=== PATIENT | male | born 1955 | race Caucasian/White ===

== ENCOUNTER → 2022-06-04 | Outpatient (CLI) | payer MEDICARE, OTHER, SELFPAY ==
--- NOTE | 2022-06-04 13:50 | EKG12_ITS ---
Test Reason : PREOP Blood Pressure : / mmHG Vent. Rate : 062 BPM Atrial Rate : 062 BPM P-R Int : 160 ms QRS Dur : 092 ms QT Int : 402 ms P-R-T Axes : 112 059 047 degrees QTc Int : 408 ms Normal sinus rhythm Normal ECG Confirmed by GLENDA EASLEY, HIMANSHU ([id number]), art editor PERRY ROBERTSON ([id number]) on 06/05/2022 9:07:10 AM Referred By: Shawn Neves Confirmed By:HIMANSHU DOSHI MD
[2022-06-04 14:56] LABS: Hematocrit 44.1 % (40-54); Hemoglobin 14.6 g/dL (13.0-16.5); Mean Corp Hgb Conc 33.1 g/dL (32-36); Mean Corpuscular Hgb 29.9 pg (27.0-32.0); Mean Corpuscular Volume 90.2 fL (80-94); Mean Platelet Vol. 9.7 fl (6.2-12.0); Platelet Count 222 K/mm3 (150-450); RBC Distribution Width CV 12.9 % (11.6-14.6); RBC Distribution Width SD 42.5 fl (35.1-43.9); Red Blood Count 4.89 M/mm3 (4.6-6.2); White Blood Count 5.6 K/mm3 (4.4-11.0)
[2022-06-04 15:24] LABS: Anion Gap 6 (5-15); BUN 22 mg/dL (7-18); BUN/Creat Ratio 20.6 RATIO (10-20); Calcium,Total 9.2 mg/dL (8.5-10.1); Chloride 106 mmol/L (98-107); Creatinine, Serum 1.07 mg/dL (0.70-1.30); EST Glomerular Filtration Rate 74 mL/min (>60); Est Glom Filt Rate - Afr Amer 89 mL/min (>60); Glucose 95 mg/dL (74-106); Potassium 3.6 mmol/L (3.5-5.1); Sodium Level 140 mmol/L (136-145)
== END | disposition home or self-care (01) ==
PROVIDERS: PCP Nurse Practitioner Family; Referring Provider Otolaryngology; Visit Provider Otolaryngology
DX: Z01.818 Encounter for other preprocedural examination (principal); J34.2 Deviated nasal septum
CPT/HCPCS: 36415; 80048; 85027; 93005

== ENCOUNTER → 2022-06-18 | Outpatient (CLI) | payer MEDICARE, OTHER, SELFPAY ==
--- NOTE | 2022-06-18 13:00 | SEP_PTH ---
PATIENT: KIRT WINKLER LOC: [facility] U#:[id number] AGE/SX: 66/M ROOM: RE06/18/[address]: Dr. Shawn Neves MD : [id number] BED: DIS: 06/18/2022 SPEC #: [id number] RECD: 06/18/22 14:50 STATUS: STEFANY REDominique #: [id number] ROCK: 06/18/22 13:[address]: Shawn Neves DEPT: SURGICAL PATHOLOGY RECD BY: Cher Gunter ENTERED: 06/19/22 07:28 SP TYPE: SEPTUM OTHR DR: TERRIE Tissues: Nasal septum, NOS Procedures: Decalcification bone/plaque Surgery Specimen Level III HEADER OPERATION: Septoplasty, bilateral submucous resection PRE-OP DIAGNOSIS: Nasal congestion, deflection of deviated septum, hypertrophy of nasal turbinates TISSUE SUBMITTED: Septum MICROSCOPIC DIAGNOSIS Septum: Fragments of bone and cartilage, clinically deviated septum. Fragments of benign respiratory mucosa. SJ:brianna 06/22/2022 MICROSCOPIC DESCRIPTION Slides are reviewed. GROSS DESCRIPTION Received in fixative is one container labeled with the patient's name and designated septum. The specimen consists of multiple irregular fragments of bone and cartilage that in aggregate measure 3.5 x 2 x 0.3 cm. The entire specimen is submitted in one cassette after decalcification. / ESME:brianna 06/19/2022 TC:5 CPT: 23175, 70267
== END | disposition home or self-care (01) ==
PROVIDERS: Visit Provider Otolaryngology
DX: R09.81 Nasal congestion (principal); J34.2 Deviated nasal septum; J34.3 Hypertrophy of nasal turbinates
CPT/HCPCS: 88304; 88311

== ENCOUNTER 2022-06-19 09:56 | Emergency (ER) | payer MEDICARE, OTHER, SELFPAY ==
[2022-06-19 09:58] VITALS: BP 128/89; PULSE 100; RESP 18; TEMP 36.6; O2SAT 99; BMI 23.7
--- NOTE | 2022-06-19 10:38 | EX.ED.GUMALE ---
HPI History of Present Illness Chief Complaint: Complaint Narrative Narrative: 66-year-old male past medical history of hypertension, states he may have BPH, had general anesthesia yesterday for deviated septum. He states he went home last evening after his surgery that had gone well, and only had small streams of urine and dribbling. He complains of urinary retention, not having a steady stream, and only having a stream of urine for possibly 5 seconds. He complains of suprapubic discomfort and fullness. He denies any fevers or chills. No nausea or vomiting, no bleeding from his surgical site in his naris. [facility] Medical History (Updated 06/19/22 @ 12:06 by Tyron Pittman MD) High cholesterol Hypertension Home Medications lisinopril 10 mg tablet 10 mg PO DAILY 06/19/22 [History Last Taken Unknown] pravastatin 20 mg tablet 20 mg PO DAILY 06/19/22 [History Last Taken Unknown] tamsulosin 0.4 mg capsule (Flomax) 0.4 mg PO DAILY #20 caps 06/19/22 [Rx Last Taken Unknown] Allergy/AdvReac Type Severity Reaction Status Date / Time No Known Allergies Allergy Verified 06/19/22 10:00 Social History Smoking Status: Never smoker ROS ROS ED ROS Narrative Constitutional: No fever, no chills. HEENT: No sore throat. No neck pain. No loss of vision. No rhinorrhea. Cardiovascular: No chest pain. No palpitations. No pedal edema. Respiratory: No cough, no shortness of breath. Abdominal: Positive suprapubic discomfort and fullness/abdominal pain. No nausea. No vomiting. Genitourinary: Positive difficulty urinating. No dysuria with small stream. No hematuria. Musculoskeletal: No myalgias. No arthralgias. Neurologic: No headaches. No dizziness. No lightheadedness. Skin: No rash. No change in color. Psychiatric: No depression. No anxiety. EXAM Physical Exam Narrative Exam Narrative: Afebrile. Vital signs noted. HEENT: Normocephalic. Atraumatic. PERRL, EOMI. Neck soft and supple. No point tenderness or step off. Cardiovascular: Regular rate and rhythm. No murmurs, rubs, or gallops appreciated. Respiratory: No tachypnea. Lungs clear to auscultation bilaterally. Gastrointestinal: Abdomen soft, nontender, with normoactive bowel sounds. Minimal suprapubic discomfort. No rebound or guarding. Neurological: Awake. Alert. Nonfocal, nonlateralizing. Skin: No rash. Normal color. No pallor. Musculoskeletal: No pedal edema. Full range of motion extremities. Const Vital Signs: 06/19/22 09:58 Temperature 98 F Temperature Source Temporal Pulse Rate 100 Respiratory Rate 18 Blood Pressure 128/89 H Blood Pressure Mean 102 Pulse Ox 99 Oxygen Delivery Method Room Air MDM MDM MDM Narrative Medical decision making narrative: Bladder scan will be obtained. Bladder scan revealed over 900 mL of urine in the bladder. Angel catheter was placed. Upon repeat examination he feels improved. He will be given a prescription for Flomax and was warned of the possibility of dizziness and lightheadedness with this medication. He will also be given a Angel leg bag. He was instructed to follow-up with urology within the next week for voiding trial. I do feel that the majority of his urinary retention that is acute is secondary to BPH and the general anesthesia he received yesterday. Return instructions to the emergency department were reviewed. Disposition is discharged home in stable condition. Discharge Plan Triage Chief Complaint: Complaint ED Provider: Tyron Pittman Dx/Rx/DC Orders Clinical Impression: Acute urinary retention, Benign prostatic hyperplasia Instructions: ED Urinary Retention, Male Prescriptions: New tamsulosin [Flomax] 0.4 mg capsule 0.4 mg PO DAILY Qty: 20 0RF No Action lisinopril 10 mg tablet 10 mg PO DAILY Label Comments: TAKE 1 TABLET BY MOUTH EVERY DAY pravastatin 20 mg tablet 20 mg PO DAILY Label Comments: TAKE 1 TABLET BY MOUTH EVERY DAY Primary Care Provider: Sara Gilliam NP Referrals: Eleazar Noriega MD [Med Staff - Active Staff] - 1 Week Sara Gilliam NP, HEALTH INFORMATICS SPECIALIST-C [Primary Care Provider] - Activity Restrictions/Additional Instructions: Do not tug at Angel catheter. Take Flomax daily. Be aware of lightheadedness and dizziness with use of Flomax. Call Dr. Noriega today for an appointment to be seen in approximately 1 week for voiding trial and removal of Angel catheter. Empty leg bag frequently. Disposition Disposition: Home, Self Care
== END 2022-06-19 12:40 | disposition home or self-care (01) ==
PROVIDERS: Emergency Provider Emergency Medicine; PCP Nurse Practitioner Family; Visit Provider Emergency Medicine
DX: N40.1 Benign prostatic hyperplasia with lower urinary tract symptoms (principal); E78.00 Pure hypercholesterolemia, unspecified; I10 Essential (primary) hypertension; R33.8 Other retention of urine; Z79.899 Other long term (current) drug therapy
CPT/HCPCS: 51798; 51702; 99283

== ENCOUNTER 2022-06-30 13:45 | Emergency (ER) | payer MEDICARE, OTHER, SELFPAY ==
[2022-06-30 13:45] VITALS: BP 146/78; PULSE 115; RESP 22; TEMP 36.6; O2SAT 99; BMI 23.7
--- NOTE | 2022-06-30 14:49 | CT_ITS ---
STUDY: CT Abdomen And Pelvis W/O Contrast Injection 06/30/2022 3:44 PM REASON FOR EXAM: Male, 66 years old. ABDOMINAL PAIN left flank pain TECHNIQUE: Transaxial images were obtained without oral contrast, and without intravenous contrast. Individualized dose optimization techniques were used for this CT. COMPARISON: None. FINDINGS: Right sided pneumonia. There are coronary arterial calcifications. Multiple hypodensities of the liver. The largest is 48 mm. Recommend hepatic MR. Unremarkable gallbladder and extrahepatic biliary system. Unremarkable spleen. Unremarkable pancreas. Unremarkable bilateral adrenal glands. There is 40mm hypodensities in the right kidney. These are consistent for cysts. No follow up required. Moderate hydronephrosis caused by 4.3 mm distal ureteral stone. There is associated left hydroureter. Unremarkable visualized stomach. Unremarkable small intestine. Unremarkable colon. There is non-visualization of the appendix. There are calcifications of the abdominal aorta. This is consistent for atherosclerotic disease. There is no abdominal aortic aneurysm. Unremarkable inferior vena cava. Subcentimeter mesenteric lymph nodes. Unremarkable urinary bladder. There are prostatic calcifications.Vacuum disc phenomenon. There is an umbilical hernia containing fat. There are diffuse degenerative changes of the visualized lumbar spine. CT/Abdomen/Pelvis without Cont IMPRESSION: (NOT LISTED IN ORDER OF SIGNIFICANCE) Moderate hydronephrosis caused by 4.3 mm distal ureteral stone. There is associated left hydroureter. Multiple hypodensities of the liver. The largest is 48 mm. Recommend hepatic MR. Right sided pneumonia. Other findings as above. Electronically Signed: Yuriy Bailey MD at 16:00 EST ,
--- NOTE | 2022-06-30 14:52 | EDS_ITS ---
HPI History of Present Illness Chief Complaint: Flank Pain Narrative Narrative: 66-year-old male presenting with left flank pain. He states it feels like his previous kidney stones. It is in the left flank and radiates around to his lower abdomen. He does admit to a recent problem with urinary retention. He had nasal septoplasty states after this he was having difficulty urinating. He had a Angel catheter in for about a week which was removed. He states his been voiding since then. No dysuria or hematuria. He is not had a fever, chills. Does have nausea. He does admit to a recent history of constipation and has been drinking prune juice and taking laxatives. He has had some small bowel movements [facility] Medical History High cholesterol Hypertension Home Medications lisinopril 10 mg tablet 10 mg PO DAILY 06/19/22 [History Last Taken Unknown] pravastatin 20 mg tablet 20 mg PO DAILY 06/19/22 [History Last Taken Unknown] tamsulosin 0.4 mg capsule (Flomax) 0.4 mg PO DAILY #20 caps 06/19/22 [Rx Last Taken Unknown] hydrocodone-acetaminophen 5-325mg 5mg-325mg 1 tab PO Q6H PRN pain 3 days #12 tabs 06/30/22 [Rx Last Taken Unknown] ondansetron 4 mg disintegrating tablet 4 mg PO Q8H PRN nausea and vomiting #14 tabs 06/30/22 [Rx Last Taken Unknown] Allergy/AdvReac Type Severity Reaction Status Date / Time No Known Allergies Allergy Verified 06/30/22 13:45 Social History Smoking Status: Never smoker ROS ROS ED Constitutional Constitutional ED: Denies chills or fever(s) Eyes Eyes: Denies change in vision ENT ENT ED: Denies rhinorrhea or sore throat Cardiovascular Cardiovascular: Denies chest pain or palpitations Respiratory/Chest Respiratory/Chest: Denies cough or dyspnea Gastrointestinal Gastrointestinal: Reports abdominal pain, constipation and nausea; Denies v omiting Genitourinary Genitourinary ED: Denies dysuria, hematuria or urinary frequency Musculoskeletal Musculoskeletal: Denies arthralgias Integumentary Denies abscess Neurologic Neurologic: Denies headache(s) or paresthesias Psychiatric Psychiatric: Denies anxiety or depression EXAM Physical Exam Const Vital Signs: 06/30/22 13:45 06/30/22 14:31 06/30/22 16:45 Temperature 97.8 F Temperature Source Temporal Pulse Rate 115 H 64 Respiratory Rate 22 H 15 Respiratory Effort Normal Non-Labored Respiratory Pattern Normal Blood Pressure 146/78 H 129/77 H Blood Pressure Mean 100 94 Pulse Ox 99 99 Oxygen Delivery Method Room Air Room Air 06/30/22 18:44 Temperature Temperature Source Pulse Rate 88 Respiratory Rate 15 Respiratory Effort Respiratory Pattern Blood Pressure Blood Pressure Mean Pulse Ox 98 Oxygen Delivery Method Positive well nourished General Appearance ED: NAD; Negative for pallor HEENT Reports moist mucous membranes normocephalic and atraumatic Resp normal respiratory effort Effort and Inspection: Negative for retractions Cardio regular rhythm Rate: tachycardic GI non-tender Palpation: soft Bladder / Kidney Exam: CVA tenderness left Extremity normal to inspection Neuro oriented x3 and CN's II-XII intact bilaterally Sensorium / Orientation: alert Motor Exam: strength 5/5 throughout Psych mental status grossly normal Skin General Skin Exam: Negative for jaundice or pallor MDM MDM MDM Narrative Medical decision making narrative: Patient presenting with left flank pain. He states it feels like previous kidney stone although he has had some urinary retention previously in the last week or 2 and was also complaining of constipation. Patient medicated with morphine, Zofran and given IV fluids. Blood work and urine will be obtained. Urinalysis negative for infection but does show occult blood. CBC shows slight leukocytosis 12.1. Hemoglobin hematocrit are stable. Platelets normal. Renal function electrolytes within normal limits. Glucose slightly elevated at 180 without anion gap. Patient feels better on reevaluation. I did find a CT of the abdomen pelvis without contrast which does show a 4.3 mm ureteral stone on the left. There is associated hydronephrosis and hydroureter. This also shows hypodensities within the liver and the radiologist recommending follow-up MRI for this the radiologist also interpreted the CT does show a right-sided pneumonia although patient does not have a cough or shortness of breath. Is not had a fever. He has no pain on the right side of his abdomen or chest wall. He does have a slight leukocytosis but this is nonspecific. His urinalysis not consistent with infection. I feel this point the patient can be discharged home with follow-up with urology. He can follow-up with his PCP for follow-up of the other findings. Impression: 1. 4.3 mm left-sided distal ureteral stone 2. Nausea 3. Hematuria 4. Liver hypodensities Lab Data Attestation: I reviewed the patient's lab results. Labs: Laboratory Results - last 24 hr 06/30/22 06/30/22 06/30/22 15:00 15:00 17:00 WBC 12.1 H RBC 4.47 L Hgb 13.1 Hct 40.8 MCV 91.3 MCH 29.3 MCHC 32.1 RDW Std Deviation 42.5 RDW Coeff of Tj 12.8 Plt Count 248 MPV 10.6 Immature Gran % (Auto) 0.500 Neut % (Auto) 89.8 H Lymph % (Auto) 6.1 L [place] % (Auto) 3.2 Eos % (Auto) 0.1 Baso % (Auto) 0.3 Absolute Neuts (auto) 10.8 H Absolute Lymphs (auto) 0.74 L Nucleated RBC % 0 Sodium 140 Potassium 3.6 Chloride 110 H Carbon Dioxide 24.0 Anion Gap 6 BUN 20 H Creatinine 1.26 Estim Creat Clear Calc 67.96 Est GFR (MDRD) Af Amer 74 Est GFR (MDRD) Non-Af 61 BUN/Creatinine Ratio 15.9 Glucose 180 H Calcium 9.3 Urine Color Yellow Urine Clarity Clear Urine pH 5.0 Ur Specific [place] 1.020 Urine Protein Negative Urine Glucose (UA) 100 H Urine Ketones Negative Urine Occult Blood 25 H Urine Nitrite Negative Urine Bilirubin Negative Urine Urobilinogen Normal Ur Leukocyte Esterase 25 H Urine RBC 0 SEEN Urine WBC 0 SEEN Ur Squamous Epith Cells 0 SEEN Urine Bacteria 0 SEEN Urine Mucus 0 SEEN Radiography Diagnostic Testing: Clinical Impression(s) from Imaging Studies Abdomen/Pelvis CT 06/30/22 14:49 IMPRESSION: (NOT LISTED IN ORDER OF SIGNIFICANCE) Moderate hydronephrosis caused by 4.3 mm distal ureteral stone. There is associated left hydroureter. Multiple hypodensities of the liver. The largest is 48 mm. Recommend hepatic MR. Right sided pneumonia. Other findings as above. Electronically Signed: Yuriy Bailey MD at 16:00 EST , Discharge Plan Triage Chief Complaint: Flank Pain ED Provider: Diego Herr Dx/Rx/DC Orders Instructions: ED Kidney Stone w/ Colic Prescriptions: New hydrocodone-acetaminophen 5-325 mg tablet 1 tab PO Q6H PRN (Reason: pain) 3 Days Qty: 12 0RF ondansetron 4 mg tablet,disintegrating 4 mg PO Q8H PRN (Reason: nausea and vomiting) Qty: 14 0RF No Action lisinopril 10 mg tablet 10 mg PO DAILY Label Comments: TAKE 1 TABLET BY MOUTH EVERY DAY pravastatin 20 mg tablet 20 mg PO DAILY Label Comments: TAKE 1 TABLET BY MOUTH EVERY DAY tamsulosin [Flomax] 0.4 mg capsule 0.4 mg PO DAILY Qty: 20 0RF Primary Care Provider: Sara Gilliam NP Referrals: Eleazar Noriega MD [Med Staff - Active Staff] - 3-5 Days Sara Gilliam NP, RETAIL W[employer] SALES CONSULTANT-C [Primary Care Provider] - Activity Restrictions/Additional Instructions: He has some minor maladies on your CT which shows hypodensities in your liver. It is recommended that you follow-up with your primary care physician for follow-up of this. Radiology is recommending an MRI. Disposition Disposition: Home, Self Care Discharge Date/Time: 06/30/22 18:45
[2022-06-30] MEDS: Morphine 4 MG/ML Syringe IV (15:02)
[2022-06-30] MEDS: 0.9% Normal Saline 1,000 ML 999 ML IV (15:03)
[2022-06-30] MEDS: Ketorolac 15 MG/ML Vial IV (15:03)
[2022-06-30] MEDS: Ondansetron 4 MG/2 ML Vial IV (15:03)
[2022-06-30 15:14] LABS: Absolute Lymphocyte Count 0.74 X10^3/uL (0.83-4.51); Absolute Neutrophil Count 10.8 X10^3/uL (2.0-7.7); Basophil# 0.04 X10^3/uL; Basophil% 0.3 % (0-1); Eosinophil# 0.01 X10^3/uL; Eosinophils% 0.1 % (0-5); Hematocrit 40.8 % (40-54); Hemoglobin 13.1 g/dL (13.0-16.5); Lymphocyte # 0.74 X10^3/ul (0.83-4.51); Lymphocyte % 6.1 % (19-41); Mean Corp Hgb Conc 32.1 g/dL (32-36); Mean Corpuscular Hgb 29.3 pg (27.0-32.0); Mean Corpuscular Volume 91.3 fL (80-94); Mean Platelet Vol. 10.6 fl (6.2-12.0); Monocyte# 0.39 X10^3/uL; Monocyte% 3.2 % (0-10); NRBC Flagged by Analyzer 0 % (0-5); Neutrophil # 10.83 X10^3/uL (2.7-7.7); Neutrophil % 89.8 % (47-70); Platelet Count 248 K/mm3 (150-450); RBC Distribution Width CV 12.8 % (11.6-14.6); RBC Distribution Width SD 42.5 fl (35.1-43.9); Red Blood Count 4.47 M/mm3 (4.6-6.2); White Blood Count 12.1 K/mm3 (4.4-11.0)
[2022-06-30 15:34] LABS: Anion Gap 6 (5-15); BUN 20 mg/dL (7-18); BUN/Creat Ratio 15.9 RATIO (10-20); Calcium,Total 9.3 mg/dL (8.5-10.1); Chloride 110 mmol/L (98-107); Creatinine, Serum 1.26 mg/dL (0.70-1.30); EST Glomerular Filtration Rate 61 mL/min (>60); Est Glom Filt Rate - Afr Amer 74 mL/min (>60); Estimated Creatinine Clearance 67.96 ml/min; Glucose 180 mg/dL (74-106); Potassium 3.6 mmol/L (3.5-5.1); Sodium Level 140 mmol/L (136-145)
[2022-06-30 16:45] VITALS: BP 129/77; PULSE 64; RESP 15; O2SAT 99
[2022-06-30 17:03] LABS: Bacteria 0 SEEN /hpf (None Seen); Mucous, Urine 0 SEEN /hpf (<or=2+); Red Blood Cells-Urine 0 SEEN /hpf (0-5); Squamous Epithelial Cells - UA 0 SEEN /hpf (0-5); White Blood Cells 0 SEEN /hpf (0-5)
[2022-06-30 17:24] LABS: Color, Urine Yellow (Yellow); Glucose, Dipstick 100 mg/dl (Normal); Ketone-Dipstick Negative (Negative); Leukocyte Esterase-Dipstick 25 /ul (Negative); Nitrite-Dipstick Negative (Negative); Occult Blood-Urine 25 /ul (Negative); Protein-Dipstick Negative (Negative); Urine Bilirubin Dipstick Negative (Negative); Urine Clarity Clear (Clear); Urine Urobilinogen Normal (Normal)
[2022-06-30 18:44] VITALS: PULSE 88; RESP 15; O2SAT 98
== END 2022-06-30 18:45 | disposition home or self-care (01) ==
PROVIDERS: Emergency Provider Student in an Organized Health Care Education/Training Program; PCP Nurse Practitioner Family; Visit Provider Student in an Organized Health Care Education/Training Program
DX: N13.2 Hydronephrosis with renal and ureteral calculous obstruction (principal); R11.0 Nausea; R31.9 Hematuria, unspecified
CPT/HCPCS: 74176; 80048; 81001; 85025; 96374; 96375; 99284; J2405

== ENCOUNTER → 2023-01-01 | Outpatient (CLI) | payer MEDICARE, OTHER, SELFPAY | END | disposition home or self-care (01) | LOC: LAB 09:02 | PROVIDERS: PCP Nurse Practitioner Family; Referring Provider Urology; Visit Provider Urology | DX: Z12.5 Encounter for screening for malignant neoplasm of prostate (principal) | CPT/HCPCS: 36415; 84153; G0103 ==

== ENCOUNTER 2025-04-10 16:00 | Observation (INO) | payer MEDICARE, OTHER, SELFPAY ==
[2025-04-10 16:01] VITALS: BP 173/92; PULSE 90; RESP 19; TEMP 36.6; O2SAT 97; BMI 26.8
--- NOTE | 2025-04-10 16:12 | EX.ED.DYSGE1 ---
HPI History of Present Illness Chief Complaint: Syncope [facility] Medical History (Updated 04/10/25 @ 20:[address] Eva Ya MD) Anxiety and depression GERD (gastroesophageal reflux disease) Benign prostatic hyperplasia Unspecified renal colic High cholesterol Hypertension Home Medications ?Medication ?Instructions ?Recorded ?Last Taken ?Type lisinopril 10 mg tablet 20 mg PO DAILY 06/19/22 04/10/25 History pravastatin 20 mg tablet 20 mg PO DAILY 06/19/22 04/09/25 History tamsulosin 0.4 mg capsule (Flomax) 0.4 mg PO DAILY #20 caps 06/19/22 04/10/25 Rx fluoxetine 20 mg capsule 40 mg PO DAILY 04/10/25 04/10/25 History omeprazole 40 mg capsule,delayed 40 mg PO DAILY 04/10/25 04/09/25 History release Allergy/AdvReac Type Severity Reaction Status Date / Time No Known Allergies Allergy Verified 04/10/25 16:01 Family History no significant family his Social History Smoking Status: Never smoker EXAM Physical Exam Const Vital Signs: 04/10/25 16:01 04/10/25 16:09 04/10/25 18:15 Temperature 98 F Temperature Source Oral Pulse Rate 90 81 Respiratory Rate 19 H 16 Respiratory Effort Normal Non-Labored Respiratory Pattern Normal Blood Pressure 173/92 H 145/65 H Blood Pressure Mean 119 91 Pulse Ox 97 97 Oxygen Delivery Method Room Air Room Air 04/10/25 20:00 04/10/25 20:56 Temperature 98 F Temperature Source Pulse Rate 72 71 Respiratory Rate 16 16 Respiratory Effort Respiratory Pattern Blood Pressure 153/86 H 153/94 H Blood Pressure Mean 108 113 Pulse Ox 96 96 Oxygen Delivery Method Room Air [facility] MDM Narrative Medical decision making narrative: HISTORY OF PRESENT ILLNESS: Chief complaint: Syncope 69-year-old male history of hypertension, hyperlipidemia, BPH presents with syncope. He states he was standing an suddenly lost consciousness [facility] SEWER. No prodromal symptoms noted. NO MAIN, CP, SOB, abdominal pain. No recent illnesses . Notes 1 episode of diarrhea. No history of syncope. No family history of sudden cardiac . Denies drug use. REVIEW OF SYSTEMS: Pertinent positives: Syncope, head trauma, diarrhea Pertinent negatives: As per HPI PHYSICAL EXAM: Nursing triage notes reviewed, Vital signs reviewed Constitutional: please see mdm HENT: MMM, bruising noted to the left orbit. Eyes: Pupils equal round and reactive to light, Extraocular muscles intact, no obvious ocular involvement Neck: No stridor, no JVD, full neck ROM Lungs: Clear to auscultation, No wheezing or rales. No increased work of breathing, no conversational dyspnea, no accessory muscle use, no nasal flaring. No respiratory distress noted Heart: Regular rate and rhythm, No murmurs, No rubs and No gallops, 2+ distal pulses (radial, femoral, posterior tibial) in all extremities Abdomen: Soft, there is no tenderness, rigidity, rebound or guarding, no obvious peritoneal signs, no palpable pulsatile abdominal masses, no auscultated abdominal bruit : No CVAT Extremities: No edema Neuro: No new focal neurological deficits, cranial nerves II through XII intact, 5/5 strength in all present extremities. Intact sensation to light touch in all present extremities, 2+ reflexes bilateral patella tendons. Skin: No rash or lesions noted MEDICAL DECISION MAKING: Chief Complaint: please see [facility] External records reviewed: Reviewed prior cardiovascular testing Factors affecting care: none Social determinants of health: none History obtained from others: none Consults: none [facility] Narrative: Patient was initially hemodynamically stable, afebrile and nontoxic-appearing. Exam with some mild head trauma otherwise no focal cardiopulmonary abnormalities. I considered the following differential diagnosis: Arrhythmia, anemia, electro disturbance, intracranial hemorrhage, VTE I obtained a broad lab and imaging work to further determine if the patient was suffering from a life-threatening etiology. ALL IMAGES (IF OBTAINED) HAVE BEEN PERSONALLY REVIEWED AND INTERPRETED BY MYSELF. EKG with normal sinus rhythm rate 88, normal axis, intervals, no STEMI BNP negative making CHF less likely D-dimer negative making VTE less likely High-sensitivity troponin is negative, no evidence of myocardial ischemia I have personally reviewed the patient's chest x-ray. Chest x-ray is unremarkable for pulmonary edema, pneumothorax, pneumonia or focal cardiopulmonary abnormality. CT scan of the brain is negative for ICH CBC without leukocytosis, severe anemia, no thrombocytopenia. CMP without evidence of acute kidney injury, significant electrolyte abnormality, anion gap to suggest end organ hypo-perfusion, no evidence of metabolic acidosis with a normal bicarbonate, no evidence of hepatobiliary obstructive pathology. The synthesis of the patient's history, physical exam, labs and images suggest no acute life-threatening pathology however given the patient's advanced age and the fact that had no prodromal symptoms in the setting of syncope I was concerned enough to admit the patient to the PCU to rule out any life-threatening arrhythmia and to get echocardiogram. Discussed this with the hospitalist Dr. Ya who agreed to admit the patient The patient and/or family, caregivers express understanding. The patient and/or family, caregivers agrees with the plan. Shared decision making: I will have a discussion with the patient and or visitors regarding risk/benefits of further testing or admission. They will be made aware of of the risk/benefits inherent in this decision they will be given the opportunity to voice understanding. Total critical care time today provided was at least 0 minutes. This excludes separately billable procedures. Critical care time (if documented) is secondary to the patient having high probability of clinically significant/life threatening deterioration in the patient's condition which required my urgent intervention. Impression: 1. Syncope 2. History of hypertension 3. History of HLD Dispo: Admit to PCU observation This note was generated with [employer] dictation software. It may contain incorrect words, spelling, and punctuation that were not noted in review of the chart prior to signing. Lab Data Labs: Laboratory Results - last 24 hr 04/10/25 04/10/25 16:45 19:30 WBC 7.8 RBC 5.07 Hgb 15.1 Hct 43.9 MCV 86.6 MCH 29.8 MCHC 34.4 RDW Std Deviation 40.4 RDW Coeff of Tj 13.0 Plt Count 221 MPV 9.5 D-Dimer Quant (PE/DVT) 0.43 Sodium 139 Potassium 4.1 Chloride 104 Carbon Dioxide 22.5 Anion Gap 13 BUN 22 H Creatinine 1.38 H Estim Creat Clear Calc 59.57 Est GFR (MDRD) Non-Af 56 L BUN/Creatinine Ratio 15.6 Glucose 141 H Calcium 9.5 Total Bilirubin 0.58 AST 19 ALT 21 Alkaline Phosphatase 97 Troponin T High Sens 9 Troponin T Hi Sens 2 Hr 8 NT pro BNP II < 36 Total Protein 7.2 Albumin 4.4 Globulin 2.8 Albumin/Globulin Ratio 1.6 Radiography Diagnostic Testing: Clinical Impression(s) from Imaging Studies Chest X-Ray 04/10/25 17:30 IMPRESSION: No Acute Findings. Reading Location: [facility] Brain CT 04/10/25 17:44 IMPRESSION: No intracranial hemorrhage. No mass effect or midline shift. Chronic involutional and ischemic gliotic white matter changes. Reading Location: [facility] Discharge Plan Triage Chief Complaint: Syncope ED Provider: Truong Najera Dx/Rx/DC Orders Prescriptions: No Action lisinopril 10 mg tablet 20 mg PO DAILY Patient Comments: TAKE 1 TABLET BY MOUTH EVERY DAY pravastatin 20 mg tablet 20 mg PO DAILY Patient Comments: TAKE 1 TABLET BY MOUTH EVERY DAY tamsulosin [Flomax] 0.4 mg capsule 0.4 mg PO DAILY Qty: 20 0RF fluoxetine 20 mg capsule 40 mg PO DAILY omeprazole 40 mg capsule,delayed release(DR/EC) 40 mg PO DAILY Primary Care Provider: Sara Gilliam NP Referrals: Sara Gilliam NP, STAPLE CUTTER-C [Primary Care Provider, Medical] Print Language: Yi
--- NOTE | 2025-04-10 16:25 | EKG12_ITS ---
Test Reason : SYNCOPE Blood Pressure : */* mmHG Vent. Rate : 88 BPM Atrial Rate : 88 BPM P-R Int : 156 ms QRS Dur : 94 ms QT Int : 354 ms P-R-T Axes : 38 33 37 degrees QTcB Int : 428 ms Normal sinus rhythm Normal ECG Confirmed by GLENDA EASLEY, HIMANSHU ([id number]), marketing editor MAMTA GAMING ([id number]) on 04/12/2025 8:35:13 AM Referred By: BRANDI Confirmed By: HIMANSHU DOSHI MD
--- OUTSIDE RECORDS SUMMARY | 2025-04-10 16:47 | XMS RPT_ITS | CCD ---
Author Organization [facility] Care Team Providers Care Object Oriented Developer Name Role Phone Aubrey Malhotraistin C (Historical) Unavailable Un available Trill OCEAN LIFEGUARD.Dimitri REYNA Primary Care Provider Jose Amarla MD Unavailable Trill MANAGED CARE SPECIALIST, Dimitri Primary Care Unavailable Tyron Pittman Attending Unavailable Trill MANAGED CARE SPECIALIST, Dimitri Primary Care Unavailable Diego Herr Attending Unavailable LeannEleazar Attending Unavailable Trill MANAGED CARE SPECIALIST, Dimitri Primary Care Unavailable Eleazar Noriega Attending Unavailable LeannEleazar Referring Unavailable Trill MANAGED CARE SPECIALIST, Dimitri Primary Care Unavailable Willie Brown Attending Unavailable Edinson, Shawn Referring Unavailable Trill MANAGED CARE SPECIALIST, Dimitri Primary Care Unavailable EdinsonCheikh learyin Attending Unavailable Edinson, Shawn Referring Unavailable Trill MANAGED CARE SPECIALIST, Dimitri Primary Care Unavailable Edinson, Shawn Attending Unavailable Trill, Dimitri C (Historical) Unavailable Un available Trill OCEAN LIFEGUARD.Dimitri REYNA Primary Care Provider Jose Amaral MD Unavailable TRIAUBREY KELLERDIMITRI C Primary Care Unavailable INGE FLORES Referring Unavailable TRILL, DIMITRI C Referring Unavailable TRILL, DIMITRI C Primary Care Unavailable TRILL, DIMITRI C Referring Unavailable TRILL, DIMITRI C Primary Care Unavailable Trill OCEAN LIFEGUARD.Dimitri REYNA Primary Care Provider AUBREY MALHOTRAISTIN C Referring Unavailable TRILL, DIMITRI C Primary Care Unavailable TRILL, DIMITRI C Attending Unavailable TRILL, DIMITRI C Primary Care Unavailable TRILL, DIMITRI C Referring Unavailable TRILL, DIMITRI C Primary Care Unavailable TRILL, DIMITRI C Referring Unavailable TRILL, DIMITRI C Primary Care Unavailable Medications Current Medications Medication Drug Class(es) Dates Sig (Normalized) Sig (Original) acetaminophen 325 mg / HYDROcodone bitartrate 5 mg oral tablet (3 sources) Opioid Agonist Start: 06-30-2022 take 1 tablet by mouth every six hours Hydrocodone-Acetamin ophen Active 1 TABLET PO EVERY 6 HOURS 12 June 30, 2022 ergocalciferol 1.25 mg oral capsule (5 sources) Provitamin D2 Compound Start: 12-07-2024 End: 12-07-2025 take 1 capsule by mouth every week ergocalciferol 50,000 unit capsule (VITAMIN D2, DRISDOL) Indications: Vitamin D deficiency Take 1 capsule by mouth one time a week. 4 capsule 11 12/07/2024 12/07/2025 Active FLUoxetine 20 mg oral capsule (20 sources) Serotonin Reuptake Inhibitor Start: 04-24-2023 End: 03-26-2024 take 2 capsules by mouth once daily FLUoxetine (PROZAC) 20 mg capsule Indications: Anxiety , Episode of recurrent major depressive disorder, unspecified depression episode severity take 2 capsules by mouth every day 180 capsule 3 03/26/2024 Active Start: 03-20-2023 End: 04-24-2023 take 1 capsule by mouth once daily FLUoxetine (PROZAC) 20 mg capsule Indications: Anxiety Take 1 capsule by mouth once daily. 90 capsule 1 03/20/2023 04/24/2023 Discontinued Start: 12-04-2022 End: 01-03-2023 take 1 capsule by mouth once daily FLUoxetine (PROZAC) 20 mg capsule Indications: Anxiety TAKE 1 CAPSULE BY MOUTH ONCE DAILY 90 capsule 1 12/04/2022 12/10/2022 Discontinued Start: 08-28-2021 End: 07-05-2022 take 1 capsule by mouth once daily FLUoxetine (PROZAC) 20 mg capsule Indications: Anxiety Take 1 capsule by mouth once daily. 90 capsule 1 06/05/2022 Active Start: 05-05-2020 End: 02-21-2021 take 1 capsule by mouth once daily FLUoxetine HCl (PROZAC) 40 mg capsule TAKE 1 CAPSULE BY MOUTH EVERY DAY 90 capsule 1 05/05/2020 02/21/2021 Discontinued Comment on above: TAKE 1 CAPSULE BY MO UTH ONCE DAILY Take 1 capsule by mo uth once daily. Take 2 capsules by m outh once daily. take 2 capsules by m outh every day lisinopril 20 mg oral tablet (20 sources) Angiotensin Converting Enzyme Inhibitor Start: 4 End: 4 take 1 tablet by mouth once daily lisinopril (ZESTRIL) 20 mg tablet Indications: Essential hypertension take 1 tablet by mouth every day 90 tablet 3 03/26/2024 Active Start: 07-22-2020 End: 11-04-2023 take 1 tablet by mouth once daily lisinopril (ZESTRIL) 10 mg tablet Indications: Essential hypertension Take 1 tablet by mouth once daily. 90 tablet 3 06/05/2023 11/04/2023 Discontinued Start: 02-23-2020 End: 07-22-2020 take 1.5 tablets by mouth once daily lisinopril (ZESTRIL, PRINIVIL) 10 mg tablet Take 1.5 tablets by mouth once daily. 90 tablet 2 02/23/2020 07/22/2020 Discontinued Comment on above: Take 1 tablet by emmy th once daily. TAKE 1 TABLET BY EMMY TH EVERY DAY omeprazole 40 mg delayed release oral capsule (18 sources) Proton Pump Inhibitor Start: 4 End: 5 take 1 capsule by mouth once daily omeprazole (PRILOSEC) 40 mg capsule Indications: Gastroesophageal reflux disease, unspecified whether esophagitis present Take 1 capsule by mouth once daily. 90 capsule 3 12/09/2024 Active Start: 10-25-2020 End: 06-05-2022 take 1 capsule by mouth once daily omeprazole (PRILOSEC) 40 mg capsule Take 40 mg by mouth once daily. 0 10/25/2020 06/05/2022 Discontinued Comment on above: Take 40 mg by mouth once daily. ondansetron 4 mg disintegrating oral tablet (3 sources) Serotonin-3 Receptor Antagonist Start: 06-30-20 take 4 mg by mouth every eight hours Ondansetron Active 4 MG PO Q8H June 30, 2022 1:00am perflutren lipid microspheres 1.3 mL in NaCl (PF) 0.9% 10 mL injection (DEFINITY) (4 sources) Start: 02-22-20 End: 05-23-20 perflutren lipid microspheres 1.3 mL in NaCl (PF) 0.9% 10 mL injection (DEFINITY) pravastatin sodium 40 mg oral tablet (20 sources) HMG-CoA Reductase Inhibitor Start: 12-18-19 End: 12-08-19 take 1 tablet by mouth once daily pravastatin (PRAVACHOL) 40 mg tablet Indications: Other hyperlipidemia Take 1 tablet by mouth once daily. 90 tablet 3 12/07/2024 12/07/2025 Active Start: 02-21-2021 End: 11-07-2022 take 20 mg by mouth once daily Pravastatin Active 20 M G PO DAILY June 19, 2022 1:00am Comment on above: Take 1 tablet by emmy th once daily. TAKE 1 TABLET BY EMMY TH EVERY DAY 125 ml sodium chloride 9 mg/ml prefilled syringe (4 sources) Start: 02-21-2021 End: 05-23-2022 sodium chloride 0.9 % (flush) 10 mL (BD POSIFLUSH) tamsulosin hydrochloride 0.4 mg oral capsule (20 sources) alpha-Adrenergic Eladio Start: 06-19-2022 take 0.4 mg by mouth once daily tamsulosin (FLOMAX) 0.4 mg Take 0.4 mg by mouth once daily. 10/02/2022 Active Comment on above: Take 0.4 mg by mouth once daily. Completed/Discontinued Medications Medication Drug Class(es) Dates Sig (Normalized) Sig (Original) atorvastatin 20 mg oral tablet (3 sources) HMG-CoA Reductase Inhibitor Start: 12-25-2019 End: 01-06-2021 take 1 tablet by mouth once daily atorvastatin (LIPITOR) 20 mg tablet Take 1 tablet by mouth once daily. 90 tablet 1 12/25/2019 01/06/2021 Discontinued (Other) 12 hr buPROPion hydrochloride 150 mg extended release oral tablet (6 sources) Aminoketone Start: 07-17-2021 End: 06-05-2022 take 1 tablet by mouth twice daily buPROPion SR (ZYBAN SR; WELLBUTRIN SR) 150 mg 12 hr tablet TAKE 1 TABLET BY MOUTH TWICE A DAY 60 tablet 5 07/17/2021 06/05/2022 Discontinued Comment on above: TAKE 1 TABLET BY EMMY TH TWICE A DAY cholecalciferol 0.025 mg oral capsule (3 sources) Vitamin D End: 01-06-2021 take 1 capsule by mouth once daily Cholecalciferol, Vitamin D3, (VITAMIN D) 1,000 unit cap Take 1,000 Units by mouth once daily. 01/06/2021 Discontinued (Other) famotidine 40 mg oral tablet (6 sources) Histamine-2 Receptor Antagonist Start: 11-17-2020 End: 06-05-2022 take 1 tablet by mouth once daily at bedtime famotidine (PEPCID) 40 mg tablet TAKE 1 TABLET BY MOUTH EVERYDAY AT BEDTIME 0 11/17/2020 06/05/2022 Discontinued Comment on above: TAKE 1 TABLET BY EMMY TH EVERYDAY AT BEDTIME multivit,thx,calcium, iron,mins (MULTIVITAMIN AND MINERAL ORAL) (3 sources) End: 01-06-2021 multivit,thx,calc ium,iron,mins (MULTIVITAMIN AND MINERAL ORAL) Take by mouth. 01/06/2021 Discontinued (Other) pantoprazole 20 mg delayed release oral tablet (3 sources) Proton Pump Inhibitor Start: 03-15-2020 End: 02-21-2021 take 1 tablet by mouth once daily pantoprazole DR (PROTONIX) 20 mg tablet Take 1 tablet by mouth once daily. 30 tablet 11 03/15/2020 02/21/2021 Discontinued predniSONE 10 mg oral tablet (2 sources) Start: 05-18-2020 End: 05-30-2020 predniSONE (DELTASONE) 10 mg tablet Indications: Acute left ankle pain Take 4 tabs daily x 3 days, then 3 tabs x 3 days, 2 tabs x 3 days, then 1 tab x3 days with food. 30 tablet 05/18/2020 05/30/2020 promethazine hydrochloride 12.5 mg oral tablet (1 source) Phenothiazine Start: 02-23-2020 End: 05-18-2020 take 12.5-25 mg by mouth every six hours as needed promethazine (PHENERGAN) 12.5 mg tablet Take 1-2 tablets by mouth every 6 hours as needed for Nausea/Vomiting. 10 tablet 02/23/2020 05/18/2020 Discontinued (Other) sucralfate 1000 mg oral tablet (6 sources) Aluminum Complex Start: 11-17-2020 End: 06-05-2022 take 1 tablet by mouth twice daily sucralfate (CARAFATE) 1 gram tablet Take 1 g by mouth twice daily. 0 11/17/2020 06/05/2022 Discontinued Comment on above: Take 1 g by mouth tw ice daily. Problems Active Problems Problem Classification Problem Date Documented Date Episodic/Chronic Abdominal pain (1 source) Unspecified abdominal pain; Translations: [Unspecified abdominal pain] Onset: 12-27-2022 Episodic Administrative/socia l admission (1 source) Patient encounter status; Translations: [Other specified counseling] Episodic Anxiety disorders (20 sources) Anxiety; Translations: [Anxiety disorder, unspecified] Onset: 06-03-2017 06-03-2017 Chronic Calculus of urinary tract (3 sources) Renal colic; Translations: [Unspecified renal colic] 06-30-2022 Episodic Disorders of lipid metabolism (20 sources) Hyperlipidemia; Translations: [Other hyperlipidemia] Onset: 06-03-2017 06-03-2017 Chronic Esophageal disorders (20 sources) Gastroesophageal reflux disease; Translations: [Gastro-esophageal reflux disease without esophagitis] Onset: 09-14-2019 09-14-2019 Chronic Essential hypertension (20 sources) Essential hypertension; Translations: [Essential (primary) hypertension] Onset: 05-08-2016 Chronic Genitourinary symptoms and ill-defined conditions (3 sources) Acute retention of urine ; Translations: [Other retention of urine] 06-27-2022 Episodic Hyperplasia of prostate (20 sources) Benign prostatic hyperplasia; Translations: [Benign prostatic hyperplasia without lower urinary tract symptoms] Onset: 10-08-2022 12-10-2022 Chronic Malaise and fatigue (1 source) Asthenia; Translations: [Weakness] Episodic Mood disorders (20 sources) Depressive disorder; Translations: [Depressive disorder] Onset: 06-03-2017 Resolved: 11-11-2023 06-03-2017 Chronic Nonmalignant breast conditions (5 sources) Lump in upper inner quadrant of right breast; Translations: [Unspecified lump in the right breast, upper inner quadrant] Onset: 12-09-2024 12-09-2024 Episodic Nutritional deficiencies (20 sources) Vitamin D deficiency; Translations: [Vitamin D deficiency, unspecified] Onset: 06-03-2017 06-03-2017 Chronic Other connective tissue disease (1 source) Pain in left foot; Translations: [Pain in left foot] 05-24-2020 Episodic Other hereditary and degenerative nervous system conditions (1 source) Impaired cognition; Translations: [Mild cognitive impairment, so stated] 08-29-2023 Chronic Other hereditary and degenerative nervous system conditions (1 source) Mild cognitive impairment, so stated; Translations: [Cognitive impairment, mild, so stated] Onset: 08-29-2023 Chronic Other lower respiratory disease (1 source) Disorder of diaphragm; Translations: [Disorders of diaphragm] Episodic Other lower respiratory disease (1 source) Dyspnea; Translations: [Shortness of breath] Episodic Other lower respiratory disease (2 sources) Multiple nodules of lung; Translations: [Other nonspecific abnormal finding of lung field] Episodic Other lower respiratory disease (1 source) Other nonspecific abnormal finding of lung field; Translations: [Lung nodules] Onset: 05-10-2023 Episodic Other non-traumatic joint disorders (1 source) Acute ankle pain; Translations: [Pain in left ankle and joints of left foot] 05-18-2020 Episodic Other screening for suspected conditions (not mental disorders or infectious disease) (1 source) Encounter for screening for malignant neoplasm of prostate; Translations: [Encounter for screening for malignant neoplasm of prostate] Onset: 01-07-2023 Episodic Other skin disorders (7 sources) Mass of thoracic structure; Translations: [Localized swelling, mass and lump, trunk] 12-09-2024 Episodic Other skin disorders (1 source) Localized swelling, mass and lump, trunk; Translations: [Lump in chest] Onset: 12-09-2024 Episodic Other upper respiratory disease (1 source) Nasal congestion; Translations: [Nasal congestion] Onset: 12-27-2022 Episodic Past or Other Problems Problem Classification Problem Date Documented Date Episodic/Chronic Diabetes mellitus without complication (20 sources) Hyperglycemia; Translations: [Hyperglycemia, unspecified] Onset: 06-03-2017 06-03-2017 Episodic Immunizations and screening for infectious disease (20 sources) Rheumatoid factor positive; Translations: [Other specified abnormal immunological findings in serum] Onset: 09-19-2016 09-19-2016 Episodic Other diseases of kidney and ureters (20 sources) Acquired renal cystic disease; Translations: [Cyst of kidney, acquired] Onset: 06-03-2017 06-03-2017 Episodic Other lower respiratory disease (20 sources) Elevated diaphragm; Translations: [Disorders of diaphragm] Onset: 01-06-2021 01-06-2021 Episodic Other lower respiratory disease (20 sources) Nodule of lung; Translations: [Solitary pulmonary nodule] Onset: 01-06-2021 01-06-2021 Episodic Other nervous system disorders (20 sources) Impaired cognition; Translations: [Other symptoms and signs involving cognitive functions and awareness] Onset: 05-08-2016 05-08-2016 Episodic Other nervous system disorders (1 source) Other symptoms and signs involving cognitive functions and awareness; Translations: [Impaired cognition] Onset: 05-08-2016 Episodic Other non-traumatic joint disorders (20 sources) Pain in right knee; Translations: [Pain in joint, lower leg] Onset: 09-19-2016 09-19-2016 Episodic Other non-traumatic joint disorders (20 sources) Bilateral elbow joint pain; Translations: [Pain in right elbow] Onset: 09-19-2016 09-19-2016 Episodic Other non-traumatic joint disorders (20 sources) Joint pain; Translations: [Pain in unspecified joint] Onset: 06-03-2017 06-03-2017 Episodic Residual codes; unclassified (20 sources) Amnesia; Translations: [Other amnesia] Onset: 05-08-2016 05-08-2016 Episodic Residual codes; unclassified (20 sources) Insomnia; Translations: [Insomnia, unspecified] Onset: 05-08-2016 05-08-2016 Episodic Residual codes; unclassified (1 source) Other amnesia; Translations: [Memory loss] Onset: 05-08-2016 Episodic Syncope (20 sources) Near syncope; Translations: [Syncope and collapse] Onset: 05-08-2016 05-08-2016 Episodic Results Test Name Value Interpretation Reference Range Facility DBT Breast - bilateral diagn ostic for implanton 01-14-2025 IMPRESSION: There is no mammographic or sonographic evidence of malignancy. This likely represents a lipoma but is slightly heterogeneous appearing on ultrasound. Clinical management recommended. If the mass is enlarging or clinically worrisome, surgical consult would be recommended. Clinical correlation and follow-up is recommended. There is no mammographic or sonographic evidence of malignancy in the imaged area. BI-RADS Category 2: Benign Interpreting Radiologist: Kristie Peña M.D. Electronically signed on: 01/14/2025 Extension Work Instructor: VIANCA Transcribe Date/Time: Jan 14 2025 1:29P Dictated by : KRISTIE PEÑA MD This examination was interpreted and the report reviewed and electronically signed by: KRISTIE PEÑA MD on Jan 14 2025 2:38PM [facility] * * *Final Report* * * DATE OF EXAM: Jan 14 2025 2:09PM [facility] 0627 - AMISHA DIAG W SNEHA MARQUISE / PROCEDURE REASON: Lump in chest * * * * Physician Interpretation * * * * [address] [address] #[id number] - [facility] DIAG W SNEHA MARQUISE #[id number] - [facility] BREAST LTD RT HISTORY: 69 year-old patient presents for diagnostic evaluation of a palpable abnormality in the right breast. Patient states no personal history of breast cancer. COMPARISON STUDIES: This is a baseline study. MAMMOGRAM TECHNIQUE: The study was acquired using full field digital technology and interpreted from soft copy. Digital Breast Tomosynthesis (DBT) images were obtained and used to assist in the interpretation of this examination. MAMMOGRAM FINDINGS: The breasts are almost entirely fatty. There are no suspicious mammographic findings to correspond with the area of palpable concern in the right breast at 2 o'clock, 12 cm from the nipple. No suspicious masses, calcifications or other abnormalities are seen in either breast. ULTRASOUND TECHNIQUE: Targeted ultrasound of the indicated area was performed. Arriola scale images were saved. ULTRASOUND FINDINGS: There is an oval parallel mass with circumscribed margins measuring 2.8 x 1.7 x 0.7 cm in the right breast at 2 o'clock, 12 cm from the nipple. Internal echotexture is isoechoic and heterogenous. Finding correlates to the area of palpable concern in the right breast at 2 o'clock, 12 cm from the nipple. There are no suspicious findings in the imaged area. [facility] Provider, [facility] - 01/14/2025 * * *Final Report* * * DATE OF EXAM: Jan 14 2025 2:09PM [facility] 0627 - AMISHA DIAG W SNEHA MARQUISE / PROCEDURE REASON: Lump in chest * * * * Physician Interpretation * * * * [address] [address] #[id number] - [facility] DIAG W SNEHA MARQUISE #[id number] - [facility] US BREAST LTD RT HISTORY: 69 year-old patient presents for diagnostic evaluation of a palpable abnormality in the right breast. Patient states no personal history of breast cancer. COMPARISON STUDIES: This is a baseline study. MAMMOGRAM TECHNIQUE: The study was acquired using full field digital technology and interpreted from soft copy. Digital Breast Tomosynthesis (DBT) images were obtained and used to assist in the interpretation of this examination. MAMMOGRAM FINDINGS: The breasts are almost entirely fatty. There are no suspicious mammographic findings to correspond with the area of palpable concern in the right breast at 2 o'clock, 12 cm from the nipple. No suspicious masses, calcifications or other abnormalities are seen in either breast. ULTRASOUND TECHNIQUE: Targeted ultrasound of the indicated area was performed. Arriola scale images were saved. ULTRASOUND FINDINGS: There is an oval parallel mass with circumscribed margins measuring 2.8 x 1.7 x 0.7 cm in the right breast at 2 o'clock, 12 cm from the nipple. Internal echotexture is isoechoic and heterogenous. Finding correlates to the area of palpable concern in the right breast at 2 o'clock, 12 cm from the nipple. There are no suspicious findings in the imaged area. IMPRESSION IMPRESSION: There is no mammographic or sonographic evidence of malignancy. This likely represents a lipoma but is slightly heterogeneous appearing on ultrasound. Clinical management recommended. If the mass is enlarging or clinically worrisome, surgical consult would be recommended. Clinical correlation and follow-up is recommended. There is no mammographic or sonographic evidence of malignancy in the imaged area. BI-RADS Category 2: Benign Interpreting Radiologist: Kristie Peña M.D. Electronically signed on: 01/14/2025 Extension Work Instructor: VIANCA Transcribe Date/Time: Jan 14 2025 1:29P Dictated by : KRISTIE PEÑA MD This examination was interpreted and the report reviewed and electronically signed by: KRISTIE PEÑA MD on Jan 14 2025 2:38PM [facility] Radiology Study observation (narrative) [facility] DIAG W SNEHA BILgianni 2024 [facility] DIAG W SNEHA MARQUISE * * *Final Report* * * DATE OF EXAM: Jan 14 2025 2:09PM [facility] [id number] - [facility] [place] W SNEHA MARQUISE / PROCEDURE REASON: Lump in chest * * * * Physician Interpretation * * * * [place] [address] #[id number] - [facility] [place] MARQU[place] #[id number] - [facility] US BREAST LTD RT HISTORY: 69 year-old patient presents for diagnostic evaluation of a palpable abnormality in the right breast. Patient states no personal history of breast cancer. COMPARISON STUDIES: This is a baseline study. MAMMOGRAM TECHNIQUE: The study was acquired using full field digital technology and interpreted from soft copy. Digital Breast Tomosynthesis (DBT) images were obtained and used to assist in the interpretation of this examination. MAMMOGRAM FINDINGS: The breasts are almost entirely fatty. There are no suspicious mammographic findings to correspond with the area of palpable concern in the right breast at 2 o'clock, 12 cm from the nipple. No suspicious masses, calcifications or other abnormalities are seen in either breast. ULTRASOUND TECHNIQUE: Targeted ultrasound of the indicated area was performed. Arriola scale images were saved. ULTRASOUND FINDINGS: There is an oval parallel mass with circumscribed margins measuring 2.8 x 1.7 x 0.7 cm in the right breast at 2 o'clock, 12 cm from the nipple. Internal echotexture is isoechoic and heterogenous. Finding correlates to the area of palpable concern in the right breast at 2 o'clock, 12 cm from the nipple. There are no suspicious findings in the imaged area. IMPRESSION: There is no mammographic or sonographic evidence of malignancy. This likely represents a lipoma but is slightly heterogeneous appearing on ultrasound. Clinical management recommended. If the mass is enlarging or clinically worrisome, surgical consult would be recommended. Clinical correlation and follow-up is recommended. There is no mammographic or sonographic evidence of malignancy in the imaged area. BI-RADS Category 2: Benign Interpreting Radiologist: Kristie Peña M.D. Electronically signed on: 01/14/2025 Extension Work Instructor: VIANCA Transcribe Date/Time: Jan 14 2025 1:29P Dictated by : KRISTIE PEÑA MD This examination was interpreted and the report reviewed and electronically signed by: KRISTIE PEÑA MD on Jan 14 2025 2:38PM EST [id number] N Normal [facility] US BREAST LTD RTon 01-14 [facility] US BREAST LTD RT * * *Final Report* * * DATE OF EXAM: Jan 14 2025 2:27PM [facility] [id number] - [facility] US BREAST LTD RT / PROCEDURE REASON: multiple diagnoses * * * * Physician Interpretation * * * * [place] [id number] #[id number] - [facility] [place] #[id number] - [facility] US BREAST LTD RT HISTORY: 69 year-old patient presents for diagnostic evaluation of a palpable abnormality in the right breast. Patient states no personal history of breast cancer. COMPARISON STUDIES: This is a baseline study. MAMMOGRAM TECHNIQUE: The study was acquired using full field digital technology and interpreted from soft copy. Digital Breast Tomosynthesis (DBT) images were obtained and used to assist in the interpretation of this examination. MAMMOGRAM FINDINGS: The breasts are almost entirely fatty. There are no suspicious mammographic findings to correspond with the area of palpable concern in the right breast at 2 o'clock, 12 cm from the nipple. No suspicious masses, calcifications or other abnormalities are seen in either breast. ULTRASOUND TECHNIQUE: Targeted ultrasound of the indicated area was performed. Arriola scale images were saved. ULTRASOUND FINDINGS: There is an oval parallel mass with circumscribed margins measuring 2.8 x 1.7 x 0.7 cm in the right breast at 2 o'clock, 12 cm from the nipple. Internal echotexture is isoechoic and heterogenous. Finding correlates to the area of palpable concern in the right breast at 2 o'clock, 12 cm from the nipple. There are no suspicious findings in the imaged area. IMPRESSION: There is no mammographic or sonographic evidence of malignancy. This likely represents a lipoma but is slightly heterogeneous appearing on ultrasound. Clinical management recommended. If the mass is enlarging or clinically worrisome, surgical consult would be recommended. Clinical correlation and follow-up is recommended. There is no mammographic or sonographic evidence of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 2.940 m[IU]/L Normal 0.270-4.200 [facility] Comment on above: Order Comment: Bari pacheco Type: BLOOD SPECIMENOrdering Facility: [facility] Address: [address] [place] [address] Performed By: #### 3 016-3, 81511-2, 28427-6 ####[facility] [id number] [address] CNPNon 11-27-2024 [facility] KIDNEY,KIRT Damon ([id number]) 1955 M [facility] Date Time Provider Department 11/27/24 DIMITRI MALHOTRA During your visit today, we recorded the following information about you: Zuleyma Layton MA 11/27/2024 8:10 AM Signed Patient requesting orders for blood work. Please advise. 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 Dimitri Malhotra APRN.Dimitri Flores APRN.CNP 11/27/2024 10:55 AM Signed Addended by: DIMITRI MALHOTRA on: 11/27/2024 10:55 AM Modules accepted: Arely Zuleyma LaytonCHENG 11/27/2024 11:28 AM Signed Mail box is full. My chart message sent. Zuleyma Amitakim CHENG Allergies As of Date: 11/27/2024 (No Known Allergies) Date Reviewed: 11/11/2023 Reviewed by: Dimitri Malhotra APRN.CNP - Fully Assessed Reason for Visit: Orders [681] Primary Visit Diagnosis:Other hyperlipidemia [E78.49] Other Visit Diagnoses:Essential hypertension [I10] Vitamin D deficiency [E55.9] Order(s):COMPLETE BLOOD COUNT [SQCBC] Order #: [id number] FUTURE COMPREHENSIVE METABOLIC PANEL [SQCMP] Order #: [id number] FUTURE THYROID STIMULATING HORMONE [SQTSH] Order #: [id number] FUTURE T4 FREE/FREE THYROXINE [SQFT4] Order #: [id number] FUTURE LIPID PANEL, FASTING [SQLIPB] Order #: [id number] FUTURE VITAMIN D 25 HYDROXY [SQVITD] Order #: [id number] FUTURE Prescriptions as of 11/27/2024 - FLUoxetine (PROZAC) 20 mg capsule take 2 capsules by mouth every day - lisinopril (ZESTRIL) 20 mg tablet take 1 tablet by mouth every day - omeprazole (PRILOSEC) 40 mg capsule take 1 capsule by mouth every day - pravastatin (PRAVACHOL) 40 mg tablet Take 1 tablet by mouth once daily. - tamsulosin (FLOMAX) 0.4 mg Take 0.4 mg by mouth once daily. Problem List As Of Date 11/27/2024 Noted Resolved Essential hypertension [I10] 05/08/2016 Near syncope [R55] 05/08/2016 Impaired cognition [R41.89] 05/08/2016 Memory loss [R41.3] 05/08/2016 Insomnia [G47.00] 05/08/2016 Arthralgia of both knees [M25.561, M25.562] 09/19/2016 Arthralgia of both elbows [M25.521, M25.522] 09/19/2016 Rheumatoid factor positive [R76.8] 09/19/2016 Acquired cyst of kidney [N28.1] 06/03/2017 Hyperglycemia [R73.9] 06/03/2017 Other hyperlipidemia [E78.49] 06/03/2017 Vitamin D deficiency [E55.9] 06/03/2017 Depression, recurrent (HCC) [F33.9] 06/03/2017 11/11/2023 Anxiety [F41.9] 06/03/2017 Arthralgia [M25.50] 06/03/2017 Gastroesophageal reflux disease [K21.9] 09/14/2019 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] 01/06/2021 Lung nodule [R91.1] 01/06/2021 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.*12/10/2022 Benign prostatic hyperplasia [N40.0] 10/08/2022 Encounter Status:Closed by ZULEYMA LAYTON on 11/27/24 [facility] ALLIED HEALTHon 08-29-2023 ALLIED HEALTH HNO ID: [id number] Author: CARLOS BURLESON RT(R) Service: Radiology Author Type: Technologist Type: Allied Health Filed: 08/29/2023 07:33 Note Text: Radiology Service Progress Note PATIENT NAME: Kirt Winkler DATE OF SERVICE: August 29, 2023 TIME: 7:28 AM PATIENT IDENTITY VERIFICATION COMPLETED USING TWO (2) IDENTIFIERS: Name and Date of confirmed by patient verbally and Name and Date of confirmed by identification band. FALL SCREENING: Has the patient had 2 falls in the last year or 1 fall with injury or currently using an Ambulatory Assistive Device (Walker, Cane, Wheelchair, Crutches, etc.)? No PATIENT GENDER DATA: Male PATIENT RELEVANT IMPLANT DATA REVIEWED: Yes PATIENT PRESENTS WITH AN IMPLANTABLE OR ATTACHED CYLINDER BLOCK MECHANIC: No RADIOLOGY DEPARTMENT: MR; Exam(s) Completed: Head: Routine Brain PERIPHERAL IV DATA: Not applicable SIGNED BY: RT Kane(R), RT Marli(R) August 29, 2023 7:28 AM [facility] MRI BRAIN WO IVCONon 02-22-2 024 MRI BRAIN WO IVCON * * *Final Report* * * DATE OF EXAM: Aug 29 2023 11:45AM [facility] 0294 - MRI BRAIN WO IVCON / PROCEDURE REASON: Cognitive impairment, mild, so stated * * * * Physician Interpretation * * * * EXAMINATION: MRI BRAIN WO IVCON CLINICAL HISTORY: Cognitive impairment, mild TECHNIQUE: Routine noncontrast MRI protocol including diffusion images. MQ: [id number] COMPARISON: CT brain from 05/04/2016 and MRI brain from 04/04/2017. MRI brain from 06/01/2015 RESULT: Acute Change: There is no evidence of restricted diffusion to suggest an acute infarct. Hemorrhage: No evidence of prior parenchymal hemorrhage on the gradient echo images. Mass Lesion/ Mass Effect: No evidence of an intracranial mass or extra-axial fluid collection. No significant mass effect. Chronic Change: Scattered areas of T2 prolongation involving the supratentorial and infratentorial brain are nonspecific, and likely sequela of chronic microangiopathic ischemic change. Parenchyma: Mild diffuse cerebral atrophy. Ventricles: Normal caliber and morphology. Skull Base: Hypothalamic and pituitary region are grossly normal. Craniocervical junction is normal. No significant marrow replacement process. Vasculature: Major intracranial arterial structures, and dural venous sinuses show typical flow void, suggesting patency by spin echo criteria. Other: Polyp/mucosal retention cyst is seen in the right maxillary sinus as well as posterior right frontal sinus with slight opacification of the right anterior ethmoidal sinus. Bilateral mastoid effusions. IMPRESSION: No acute intracranial pathology. Mild chronic ischemic gliotic and involutional changes. Paranasal sinus disease. Extension Work Instructor: [facility] Transcribe Date/Time: Aug 30 2023 8:34A Dictated by : LUCY PEREZ MD This examination was interpreted and the report reviewed and electronically signed by: LUCY PEREZ MD on Aug 30 2023 8:44AM EST [id number] Normal [facility] CT CHEST WO IVCONon 05-10-20 CT CHEST WO IVCON * * *Final Report* * * DATE OF EXAM: May 10 2023 8:20AM [facility] 0541 - CT CHEST WO IVCON / PROCEDURE REASON: Lung nodules * * * * Physician Interpretation * * * * EXAMINATION: CHEST CT WITHOUT CONTRAST CLINICAL HISTORY: Follow-up lung nodules Technique: Spiral CT acquisition of the chest from the thoracic inlet to the upper abdomen without contrast. MQ: [id number]_6 CT Radiation dose: Integrated Dose-length product (DLP) for this visit = 210 mGy*cm CT Dose Reduction Employed: Automated exposure control(AEC) and iterative recon Comparison: CT chest 05/04/2022 RESULT: Limitations: None. Lines, tubes, and devices: None. Lung parenchyma and airways: Stable subcentimeter pulmonary nodules. For example: *5 mm nodule along the right major fissure (6:109) *4 mm nodule lateral right lower lobe (6:105) *3 mm nodule anterior left upper lobe (6:64) *7 mm nodule along the left major fissure (6:94) Right basilar scarring or atelectasis. No acute airspace disease. Central airways are patent. Pleural space: New trace left pleural effusion Lower neck, lymph nodes, and mediastinum: The imaged thyroid gland is normal. No lymphadenopathy in the supraclavicular, axillary, mediastinal, or hilar regions. Heart, pericardium, and thoracic vessels: The thoracic aorta and main pulmonary artery are normal in caliber. The cardiac chambers are normal in size. Mild coronary artery atherosclerotic calcifications are noted, although the study is not optimized for coronary assessment. No pericardial effusion or thickening. Bones and soft tissues: No destructive bone lesion. Chest wall is unremarkable. Upper abdomen: No acute abnormality in the imaged upper abdomen. Stable hepatic cysts. IMPRESSION: 1. Stable subcentimeter pulmonary nodules 2. There is a new trace left pleural effusion Extension Work Instructor: [facility] Transcribe Date/Time: May 13 2023 3:01P Dictated by : REAGAN DE LA TORRE MD This examination was interpreted and the report reviewed and electronically signed by: REAGAN DE LA TORRE MD on May 13 2023 3:18PM EST [id number] Normal [facility] No Panel InformationOrdered By: Eleazar Noriega on 01-01-2023 Prostate Specific Antigen Screen 3.40 ng/mL 0.00-4.00 [facility] Comment on above: This test was perfor med using the TPSA assay method for the[employer] chemistry system. Values obtained with differentassay methods cannot be used interchangably.When changing PSA assays in the course of monitoring apatient, additional sequential testing should be carriedout to confirm baseline values. PSA,Total - Annual Screenon 01-01-2023 PSA,TOT SCREEN 3.40 ng/mL Normal 0.00-4.00 [facility] Comment on above: Result Comment: This test was performed using the TPSA assay method for the [employer] chemistry system. Values obtained with different assay methods cannot be used interchangably. When changing PSA assays in the course of monitoring a patient, additional sequential testing should be carried out to confirm baseline values. Performed By: #### L 501.9910 #### [facility] [address] [place], [address] CBC panel Auto (Bld)on 12-10 Erythrocyte distribution width (RBC) [Ratio] 12.5 % 11.5 - 15.0 % [facility] Hematocrit (Bld) [Volume fraction] 44.1 % 39.0 - 51.0 % [facility] Hemoglobin (Bld) [Mass/Vol] 14.4 g/dL 13.0 - 17.0 g/dL [facility] MCH (RBC) [Entitic mass] 29.3 pg 26.0 - 34.0 pg [facility] MCHC (RBC) [Mass/Vol] 32.7 g/dL 30.5 - 36.0 g/dL [facility] MCV (RBC) [Entitic vol] 89.8 fL 80.0 - 100.0 fL [facility] Platelet mean volume (Bld) [Entitic vol] 9.7 fL 9.0 - 12.7 fL [facility] Platelets (Bld) [#/Vol] 193 10*3/uL 150 - 400 k/uL [facility] RBC (Bld) [#/Vol] 4.91 10*6/uL 4.20 - 6.0 0 m/uL [facility] WBC (Bld) [#/Vol] 4.16 10*3/uL 3.70 - 11. 00 k/uL [facility] Comprehensive metabolic 2000 panelon 12-10-2022 Albumin [Mass/Vol] 4.4 g/dL 3.9 - 4.9 g/dL [facility] ALP [Catalytic activity/Vol] 87 U/L 38 - 113 U/L [facility] ALT With P-5'-P [Catalytic activity/Vol] 14 U/L 10 - 54 U/L [facility] Anion gap [Moles/Vol] 10 mmol/L 9 - 18 mmol/L [facility] AST With P-5'-P [Catalytic activity/Vol] 16 U/L 14 - 40 U/L [facility] Bilirubin [Mass/Vol] 0.6 mg/dL 0.2 - 1 .3 mg/dL [facility] Calcium [Mass/Vol] 9.4 mg/dL 8.5 - 10. 2 mg/dL [facility] Chloride [Moles/Vol] 105 mmol/L 97 - 10 5 mmol/L [facility] CO2 [Moles/Vol] 25 mmol/L 22 - 30 mmol/L [facility] Creatinine [Mass/Vol] 1.08 mg/dL 0.73 - 1.22 mg/dL [facility] Estimated Glomerular Filtration Rate 76 mL/min/1.73m >=60 mL/min/1.73m [facility] Glucose [Mass/Vol] 96 mg/dL 74 - 99 mg/dL [facility] Potassium [Moles/Vol] 4.5 mmol/L 3.7 - 5.1 mmol/L [facility] Protein [Mass/Vol] 7.0 g/dL 6.3 - 8.0 g/dL [facility] Sodium [Moles/Vol] 140 mmol/L 136 - 144 mmol/L [facility] Urea nitrogen [Mass/Vol] 22 mg/dL 9 - 24 mg/dL [facility] Lipid 1996 panelon 3 Cholesterol [Mass/Vol] 188 mg/dL <200 mg/dL [facility] Cholesterol in HDL [Mass/Vol] 57 mg/dL >39 mg/dL [facility] Cholesterol in LDL [Mass/Vol] 112 mg/dL High <100 mg/dL [facility] Cholesterol in LDL/Cholesterol in HDL [Mass ratio] 1.96 {ratio} <2.54 [facility] Cholesterol in VLDL [Mass/Vol] 19 mg/dL <30 mg/dL [facility] Cholesterol non HDL [Mass/Vol] 131 mg/dL High <130 mg/dL [facility] Cholesterol.total/Alma sterol in HDL [Mass ratio] 3.30 {ratio} <5.10 [facility] Fasting Time 12 hrs [facility] Triglyceride [Mass/Vol] 93 mg/dL <150 mg/dL [facility] T4 FREE/FREE THYROXon 2022 Free T4 [Mass/Vol] 1.3 ng/dL 0.9 - 1.7 ng/dL [facility] TSH BLDon 12-10-2022 TSH Qn 3.480 m[IU]/L 0.270 - 4.200 mIU/L [facility] VITAMIN B12 BLOODon 12-11-19 Cobalamin (Vitamin B12) [Mass/Vol] 434 pg/mL 232 - 1,245 pg/mL [facility] Abdomen/Pelvis without Conto n 06-30-2022 Abdomen/Pelvis without Cont [facility] Services [address] [place] [address] Abdomen/Pelvis without Cont MR#: [id number] Acct: [id number] Name: KIRT WINKLER Rep #: [id number] : 1955 M 66 From: Yuriy Miller PCP: ALICIA Frances Status: REG ER Study: Abdomen/Pelvis without Cont Date of Exam: 06/08 10/27 Exam# [id number] Ordering Dr: Diego Herr DO STUDY: CT Abdomen And Pelvis W/O Contrast Injection 06/30/2022 3:44 PM REASON FOR EXAM: Male, 66 years old. ABDOMINAL PAIN left flank pain TECHNIQUE: Transaxial images were obtained without oral contrast, and without intravenous contrast. Individualized dose optimization techniques were used for this CT. COMPARISON: None. FINDINGS: Right sided pneumonia. There are coronary arterial calcifications. Multiple hypodensities of the liver. The largest is 48 mm. Recommend hepatic MR. Unremarkable gallbladder and extrahepatic biliary system. Unremarkable spleen. Unremarkable pancreas. Unremarkable bilateral adrenal glands. There is 40mm hypodensities in the right kidney. These are consistent for cysts. No follow up required. Moderate hydronephrosis caused by 4.3 mm distal ureteral stone. There is associated left hydroureter. Unremarkable visualized stomach. Unremarkable small intestine. Unremarkable colon. There is non-visualization of the appendix. There are calcifications of the abdominal aorta. This is consistent for atherosclerotic disease. There is no abdominal aortic aneurysm. Unremarkable inferior vena cava. Subcentimeter mesenteric lymph nodes. Unremarkable urinary bladder. There are prostatic calcifications.Vacuum disc phenomenon. There is an umbilical hernia containing fat. There are diffuse degenerative changes of the visualized lumbar spine. CT/Abdomen/Pelvis without Cont IMPRESSION: (NOT LISTED IN ORDER OF SIGNIFICANCE) Moderate hydronephrosis caused by 4.3 mm distal ureteral stone. There is associated left hydroureter. Multiple hypodensities of the liver. The largest is 48 mm. Recommend hepatic MR. Right sided pneumonia. Other findings as above. Electronically Signed: Yuriy Bailey MD at 16:00 EST Reading Location ID and State: [facility] / [place] , Service support , CC: ALICIA Malhotra; Dr. Diego Herr, Extension Work Instructor: Signed Normal [facility] Absolute lymphocyte counton 06-30-2022 Lymphocytes Auto (Unsp spec) [#/Vol] 0.74 10*3/uL 0.83-4.51 [facility] Work Phone: Automated blood hematocrit ( percentage)on 06-30-2022 Hematocrit (Bld) [Volume fraction] 40.8 % Normal 40-54 [facility] Work Phone: Comment on above: Performed By: #### L 100.0100, L500.2500 #### [facility] [address] [place], [address] Basic Metabolic Profile (BMP )on 06-30-2022 BUN/CRE 15.9 RATIO Normal 10-20 [facility] Comment on above: Performed By: #### L 100.0100, L500.2500 #### [facility] [address] [place], [place], [address] CA,Total 9.3 mg/dL Normal 8.5-10.1 [facility] Comment on above: Performed By: #### L 100.0100, L500.2500 #### [facility] [address] [place], [address] CO2 [Moles/Vol] 24.0 mmol/L Normal 21.0-32.0 [facility] Work Phone: Comment on above: Performed By: #### L 100.0100, L500.2500 #### [facility] [address] [place], [address] ECRCL 67.96 ml/min Normal [facility] Comment on above: Performed By: #### L 100.0100, L500.2500 #### [facility] [address] [place], [address] EST GFR - AA 74 mL/min Normal >60 [facility] Comment on above: Result Comment: Afri can Citizen Of [place] GFR Calc Performed By: #### L 100.0100, L500.2500 #### [facility] [address] [place], [address] GAP 6 Normal 5-15 [facility] Comment on above: Performed By: #### L 100.0100, L500.2500 #### [facility] [address] [place], [address] GFR/1.73 sq M.predicted among non-blacks MDRD (S/P/Bld) [Vol rate/Area] 61 mL/min/{1.73_m2} Normal >60 [facility] Comment on above: Result Comment: Non- GFR Calc Performed By: #### L 100.0100, L500.2500 #### [facility] [address] [place], [address] Basophil percentageon 2021 Chloride [Moles/Vol] 110 mmol/L High 98-107 [facility] Work Phone: Comment on above: Performed By: #### L 100.0100, L500.2500 #### [facility] [address] [place], [address] Glucose [Mass/Vol] 180 mg/dL High 74-106 [facility] Work Phone: Comment on above: Fasting Glucose resu lt greater than or equal to 126 mg/dL suggests DIABETES MELLITUS per A.D.A. criteria. Result Comment: Fast ing Glucose result greater than or equal to 126 mg/dL suggests DIABETES MELLITUS per A.D.A. criteria. Performed By: #### L 100.0100, L500.2500 #### [facility] [address] [place], [address] Potassium [Moles/Vol] 3.6 mmol/L Normal 3.5-5.1 [facility] Work Phone: Comment on above: Performed By: #### L 100.0100, L500.2500 #### [facility] [address] [place], [address] Sodium [Moles/Vol] 140 mmol/L Normal 136-145 [facility] Work Phone: Comment on above: Performed By: #### L 100.0100, L500.2500 #### [facility] [address] [place], [address] Basophils/100 WBC (Bld) 0.3 % Normal 0-1 [facility] Work Phone: Comment on above: Performed By: #### L 100.0100, L500.2500 #### [facility] [address] [place], [address] Eosinophils/100 WBC (Bld) 0.1 % Normal 0-5 [facility] Work Phone: Comment on above: Performed By: #### L 100.0100, L500.2500 #### [facility] [address] [place], [address] Neutrophils/100 WBC (Bld) 89.8 % High [facility] Work Phone: [phone] Comment on above: Performed By: #### L 100.0100, L500.2500 #### [facility] [address] [place], [address] WBC (Bld) [#/Vol] 12.1 10*3/uL High 4.4-11.0 [facility] Work Phone: [phone] Comment on above: Performed By: #### L 100.0100, L500.2500 #### [facility] [address] [place], [address] Basophil percentage 0 SEEN /hpf 0-5 [facility] Work Phone: [phone] Neutrophils (Bld) [#/Vol] 10.8 10*3/uL 2.0-7.7 [facility] Work Phone: [phone] Bilirubin Test strip Ql (U)o n 06-30-2022 Bilirubin Ql (U) Negative Negative [facility] Work Phone: [phone] Blood erythrocytes count (nu mber/volume)on 06-30-2022 RBC (Bld) [#/Vol] 4.47 10*6/uL Low 4.6-6.2 [facility] Work Phone: [phone] Comment on above: Performed By: #### L 100.0100, L500.2500 #### [facility] [address] [place], [address] Blood hemoglobin measurement (mass/volume)on 06-30-2022 Hemoglobin (Bld) [Mass/Vol] 13.1 g/dL Normal 13.0-16.5 [facility] Work Phone: [phone] Comment on above: Performed By: #### L 100.0100, L500.2500 #### [facility] [address] [place], [address] Blood lymphocytes/100 leukoc yteson 06-30-2022 Lymphocytes/100 WBC (Bld) 6.1 % Low 19-41 [facility] Work Phone: Comment on above: Performed By: #### L 100.0100, L500.2500 #### [facility] [address] [place], [address] Blood monocytes/100 leukocyt eson 06-30-2022 Monocytes/100 WBC (Bld) 3.2 % Normal 0-10 [facility] Work Phone: Comment on above: Performed By: #### L 100.0100, L500.2500 #### [facility] [address] [place], [address] Blood platelet mean volumeon 06-30-2022 Platelet mean volume (Bld) [Entitic vol] 10.6 fL Normal 6.2-12.0 [facility] Work Phone: Comment on above: Performed By: #### L 100.0100, L500.2500 #### [facility] [address] [place], [address] CBC W/Diff, Automatedon 12-2 -2 Absolute Lymph 0.74 X10 3/uL Low 0.83-4.51 [facility] Comment on above: Performed By: #### L 100.0100, L500.2500 #### [facility] [address] [place], [address] Absolute Neut 10.8 X10 3/uL High 2.0-7.7 [facility] Comment on above: Performed By: #### L 100.0100, L500.2500 #### [facility] [address] [place], [address] Erythrocyte distribution width (RBC) [Ratio] 12.8 % Normal 11.6-14.6 [facility] Work Phone: Comment on above: Performed By: #### L 100.0100, L500.2500 #### [facility] [address] [place], [address] IG% 0.500 Normal 0.0-0.9 [facility] Comment on above: Result Comment: IG% - Immature Granulocytes (promyelocytes, myelocytes and metamyelocytes) > 1% indicates that a LEFT SHIFT is Present. Performed By: #### L 100.0100, L500.2500 #### [facility] [address] [place], [address] MCH (RBC) [Entitic mass] 29.3 pg Normal 27.0-32.0 [facility] Work Phone: Comment on above: Performed By: #### L 100.0100, L500.2500 #### [facility] [address] [place], [address] Nucleated RBC (Bld) [#/Vol] 0 10*3/uL Normal 0-5 [facility] Comment on above: Performed By: #### L 100.0100, L500.2500 #### [facility] [address] [place], [address] RDW SD 42.5 fl Normal 35.1-43.9 [facility] Comment on above: Performed By: #### L 100.0100, L500.2500 #### [facility] [address] [place], [address] Determination of erythrocyte mean corpuscular volume (MCV)on 06-30-2022 MCV (RBC) [Entitic vol] 91.3 fL Normal 80-94 [facility] Work Phone: Comment on above: Performed By: #### L 100.0100, L500.2500 #### [facility] [address] [place], [address] Emergency Department Summary on 06-30-2022 Emergency Department Summary [facility] Medical Records Department [address] [place] [address] Emergency Department Summary 06/30/22 MR#: [id number] Acct: [id number] Name: KIRT WINKLER Rep #: [id number] : 1955 66 From: Diego Herr DO PCP: Dimitri Malhotra MANAGED CARE SPECIALIST-C Status:DEP ER Location: ED HPI History of Present Illness Chief Complaint: Flank Pain Narrative Narrative: 66-year-old male presenting with left flank pain. He states it feels like his previous kidney stones. It is in the left flank and radiates around to his lower abdomen. He does admit to a recent problem with urinary retention. He had nasal septoplasty states after this he was having difficulty urinating. He had a Angel catheter in for about a week which was removed. He states his been voiding since then. No dysuria or hematuria. He is not had a fever, chills. Does have nausea. He does admit to a recent history of constipation and has been drinking prune juice and taking laxatives. He has had some small bowel movements [facility] Medical History High cholesterol Hypertension Home Medications lisinopril 10 mg tablet 10 mg PO DAILY 06/19/22 [History Last Taken Unknown] pravastatin 20 mg tablet 20 mg PO DAILY 06/19/22 [History Last Taken Unknown] tamsulosin 0.4 mg capsule (Flomax) 0.4 mg PO DAILY #20 caps 06/19/22 [Rx Last Taken Unknown] hydrocodone-acetamino phen 5-325mg 5mg-325mg 1 tab PO Q6H PRN pain 3 days #12 tabs 06/30/22 [Rx Last Taken Unknown] ondansetron 4 mg disintegrating tablet 4 mg PO Q8H PRN nausea and vomiting #14 tabs 06/30/22 [Rx Last Taken Unknown] Allergy/AdvReac Type Severity Reaction Status Date / Time No Known Allergies Allergy Verified 06/30/22 13:45 Social History Smoking Status: Never smoker ROS ROS ED Constitutional Constitutional ED: Denies chills or fever(s) Eyes Eyes: Denies change in vision ENT ENT ED: Denies rhinorrhea or sore throat Cardiovascular Cardiovascular: Denies chest pain or palpitations Respiratory/Chest Respiratory/Chest: Denies cough or dyspnea Gastrointestinal Gastrointestinal: Reports abdominal pain, constipation and nausea; Denies vomiting Genitourinary Genitourinary ED: Denies dysuria, hematuria or urinary frequency Musculoskeletal Musculoskeletal: Denies arthralgias Integumentary Denies abscess Neurologic Neurologic: Denies headache(s) or paresthesias Psychiatric Psychiatric: Denies anxiety or depression EXAM Physical Exam Const Vital Signs: 06/30/22 13:45 06/30/22 14:31 06/30/22 16:45 Temperature 97.8 F Temperature Source Temporal Pulse Rate 115 H 64 Respiratory Rate 22 H 15 Respiratory Effort Normal Non-Labored Respiratory Pattern Normal Blood Pressure 146/78 H 129/77 H Blood Pressure Mean 100 94 Pulse Ox 99 99 Oxygen Delivery Method Room Air Room Air 06/30/22 18:44 Temperature Temperature Source Pulse Rate 88 Respiratory Rate 15 Respiratory Effort Respiratory Pattern Blood Pressure Blood Pressure Mean Pulse Ox 98 Oxygen Delivery Method Positive well nourished General Appearance ED: NAD; Negative for pallor HEENT Reports moist mucous membranes normocephalic and atraumatic Resp normal respiratory effort Effort and Inspection: Negative for retractions Cardio regular rhythm Rate: tachycardic GI non-tender Palpation: soft Bladder / Kidney Exam: CVA tenderness left Extremity normal to inspection Neuro oriented x3 and CN's II-XII intact bilaterally Sensorium / Orientation: alert Motor Exam: strength 5/5 throughout Psych mental status grossly normal Skin General Skin Exam: Negative for jaundice or pallor MDM MDM MDM Narrative Medical decision making narrative: Patient presenting with left flank pain. He states it feels like previous kidney stone although he has had some urinary retention previously in the last week or 2 and was also complaining of constipation. Patient medicated with morphine, Zofran and given IV fluids. Blood work and urine will be obtained. Urinalysis negative for infection but does show occult blood. CBC shows slight leukocytosis 12.1. Hemoglobin hematocrit are stable. Platelets normal. Renal function electrolytes within normal limits. Glucose slightly elevated at 180 without anion gap. Patient feels better on reevaluation. I did find a CT of the abdomen pelvis without contrast which does show a 4.3 mm ureteral stone on the left. There is associated hydronephrosis and hydroureter. This also shows hypodensities within the liver and the radiologist recommending follow-up MRI for this the radiologist also interpreted the CT does show a right-sided pneumonia although patient does not h (more content not included)... Normal [facility] Ketones Test strip Ql (U)on 06-30-2022 Ketones Ql (U) Negative Negative [facility] Work Phone: Laboratory - Chemistry and C hemistry - challengeon 06-30-2022 Urea nitrogen/Creatinine [Mass ratio] 15.9 mg/mg 10-20 [facility] Work Phone: Laboratory - Hematology and Cell countson 06-30-2022 Erythrocyte distribution width (RBC) [Entitic vol] 42.5 fL 35.1-43.9 [facility] Work Phone: Immature granulocytes/100 WBC (Bld) 0.500 % 0.0-0.9 [facility] Work Phone: Comment on above: IG% - Immature Granu locytes (promyelocytes, myelocytes and metamyelocytes) > 1% indicates that a LEFT SHIFT is Present. Nucleated RBC/100 WBC (Bld) [Ratio] 0 % 0-5 [facility] Work Phone: MCHC [Mass/volume] by Automa hunter counton 06-30-2022 MCHC (RBC) [Mass/Vol] 32.1 g/dL Normal 32-36 [facility] Work Phone: Comment on above: Performed By: #### L 100.0100, L500.2500 #### [facility] [address] [place], [address] Mucus LM Ql (Urine sed)on Mucus Ql (Urine sed) 0 SEEN /hpf [facility] Work Phone: Nitrite Test strip Ql (U)on 06-30-2022 Nitrite Ql (U) Negative Negative [facility] Work Phone: No Panel Informationon 06-30 Estimated Creatinine Clearance Calc 67.96 ml/min [facility] Work Phone: Estimated GFR (MDRD) Amer 74 mL/min >60 [facility] Work Phone: Comment on above: GFR Calc Estimated GFR (MDRD) Non-Af Amer 61 mL/min >60 [facility] Work Phone: Comment on above: Non- GFR Calc Platelets bldon 06-30-2022 Platelets (Bld) [#/Vol] 248 10*3/uL Normal 150-450 [facility] Work Phone: Comment on above: Performed By: #### L 100.0100, L500.2500 #### [facility] [address] [place], [place], [address] Protein Test strip Ql (U)on 06-30-2022 Protein Ql (U) Negative Negative [facility] Work Phone: Serum or plasma calcium jaxon urement (mass/volume)on 06-30-2022 Calcium [Mass/Vol] 9.3 mg/dL 8.5-10.1 [facility] Work Phone: Serum or plasma creatinine m easurement (mass/volume)on 06-30-2022 Creatinine [Mass/Vol] 1.26 mg/dL Normal 0.70-1.30 [facility] Work Phone: Comment on above: The validity of the calculated GFR & GFRAA in patients over 70 years has not been determined. Clinical correlation is essential. Result Comment: The validity of the calculated GFR GFRAA in patients over 70 years has not been determined. Clinical correlation is essential. Performed By: #### L 100.0100, L500.2500 #### [facility] [address] [place], [address] Serum or plasma urea nitroge n measurement (mass/volume)on 06-30-2022 Urea nitrogen [Mass/Vol] 20 mg/dL High 7-18 [facility] Work Phone: Comment on above: Performed By: #### L 100.0100, L500.2500 #### [facility] [address] [place], [address] Squamous epithelial cells de tection in urine sediment by light microscopyon 06-30-2022 Epithelial cells.squamous LM Ql (Urine sed) 0 SEEN /hpf 0-5 [facility] Work Phone: Thin prep Papanicolaou smear with manual screeningon 06-30-2022 Thin prep Papanicolaou smear with manual screening 6 5-15 [facility] Work Phone: Urinalysis, Completeon 06-30 BACTERIA 0 SEEN Normal None Seen [facility] Comment on above: Order Comment: CLEAN CATCH Performed By: #### L 400.0001 #### [facility] [address] [place], [address] EPI,SQUAMOUS 0 SEEN Normal 0-5 [facility] Comment on above: Order Comment: CLEAN CATCH Performed By: #### L 400.0001 #### [facility] [address] [place], [address] Mucus Ql (Urine sed) 0 SEEN Normal [facility] Comment on above: Order Comment: CLEAN CATCH Performed By: #### L 400.0001 #### [facility] [address] [place], [address] RBC 0 SEEN Normal 0-5 [facility] Comment on above: Order Comment: CLEAN CATCH Performed By: #### L 400.0001 #### [facility] [address] [place], [address] WBC 0 SEEN Normal 0-5 [facility] Comment on above: Order Comment: CLEAN CATCH Performed By: #### L 400.0001 #### [facility] [address] [place], [address] Urine blood detectionon 06-08 RBC Ql (U) 25 /ul Negative [facility] Work Phone: RBC Ql (U) 0 SEEN /hpf 0-5 [facility] Work Phone: Urine clarityon 06-30-2022 Clarity (U) Clear Clear [facility] Work Phone: Urine color determinationon 06-30-2022 Color (U) Yellow Yellow [facility] Work Phone: Urine glucose detectionon Glucose Ql (U) 100 mg/dl Normal [facility] Work Phone: Urine leukocyte esterase det ection by dipstickon 06-30-2022 Leukocyte esterase Test strip Ql (U) 25 /ul Negative [facility] Work Phone: Urine pHon 06-30-2022 pH (U) 5.0 [pH] 5.0 - 8.0 [facility] Work Phone: Urine sediment bacteria coun t by microscopy (number/high power field)on 06-30-2022 Bacteria LM.HPF (Urine sed) [#/Area] 0 /[HPF] None Seen [facility] Work Phone: Urine specific gravity measu rementon 06-30-2022 Specific gravity (U) [Rel density] 1.020 1.002-1.030 [facility] Work Phone: Urobilinogen Auto test strip Ql (U)on 06-30-2022 Urobilinogen Ql (U) Normal mg/dl Normal [facility] Work Phone: Emergency Department Summary on 06-19-2022 Emergency Department Summary [facility] Medical Records Department [address] [place] [address] Emergency Department Summary 06/19/22 MR#: [id number] Acct: [id number] Name: KIRT WINKLER Rep #: [id number] : 1955 66 From: Tyron Pittman MD PCP: Dimitri Malhotra MANAGED CARE SPECIALIST-C Status:REG ER Location: ED HPI History of Present Illness Chief Complaint: Complaint Narrative Narrative: 66-year-old male past medical history of hypertension, states he may have BPH, had general anesthesia yesterday for deviated septum. He states he went home last evening after his surgery that had gone well, and only had small streams of urine and dribbling. He complains of urinary retention, not having a steady stream, and only having a stream of urine for possibly 5 seconds. He complains of suprapubic discomfort and fullness. He denies any fevers or chills. No nausea or vomiting, no bleeding from his surgical site in his naris. [facility] Medical History (Updated 06/19/22 @ 12:06 by Tyron Pittman MD) High cholesterol Hypertension Home Medications lisinopril 10 mg tablet 10 mg PO DAILY 06/19/22 [History Last Taken Unknown] pravastatin 20 mg tablet 20 mg PO DAILY 06/19/22 [History Last Taken Unknown] tamsulosin 0.4 mg capsule (Flomax) 0.4 mg PO DAILY #20 caps 06/19/22 [Rx Last Taken Unknown] Allergy/AdvReac Type Severity Reaction Status Date / Time No Known Allergies Allergy Verified 06/19/22 10:00 Social History Smoking Status: Never smoker ROS ROS ED ROS Narrative Constitutional: No fever, no chills. HEENT: No sore throat. No neck pain. No loss of vision. No rhinorrhea. Cardiovascular: No chest pain. No palpitations. No pedal edema. Respiratory: No cough, no shortness of breath. Abdominal: Positive suprapubic discomfort and fullness/abdominal pain. No nausea. No vomiting. Genitourinary: Positive difficulty urinating. No dysuria with small stream. No hematuria. Musculoskeletal: No myalgias. No arthralgias. Neurologic: No headaches. No dizziness. No lightheadedness. Skin: No rash. No change in color. Psychiatric: No depression. No anxiety. EXAM Physical Exam Narrative Exam Narrative: Afebrile. Vital signs noted. HEENT: Normocephalic. Atraumatic. PERRL, EOMI. Neck soft and supple. No point tenderness or step off. Cardiovascular: Regular rate and rhythm. No murmurs, rubs, or gallops appreciated. Respiratory: No tachypnea. Lungs clear to auscultation bilaterally. Gastrointestinal: Abdomen soft, nontender, with normoactive bowel sounds. Minimal suprapubic discomfort. No rebound or guarding. Neurological: Awake. Alert. Nonfocal, nonlateralizing. Skin: No rash. Normal color. No pallor. Musculoskeletal: No pedal edema. Full range of motion extremities. Const Vital Signs: 06/19/22 09:58 Temperature 98 F Temperature Source Temporal Pulse Rate 100 Respiratory Rate 18 Blood Pressure 128/89 H Blood Pressure Mean 102 Pulse Ox 99 Oxygen Delivery Method Room Air MDM MDM MDM Narrative Medical decision making narrative: Bladder scan will be obtained. Bladder scan revealed over 900 mL of urine in the bladder. Angel catheter was placed. Upon repeat examination he feels improved. He will be given a prescription for Flomax and was warned of the possibility of dizziness and lightheadedness with this medication. He will also be given a Angel leg bag. He was instructed to follow-up with urology within the next week for voiding trial. I do feel that the majority of his urinary retention that is acute is secondary to BPH and the general anesthesia he received yesterday. Return instructions to the emergency department were reviewed. Disposition is discharged home in stable condition. Discharge Plan Triage Chief Complaint: Complaint ED Provider: Tyron Pittman Dx/Rx/DC Orders Clinical Impression: Acute urinary retention, Benign prostatic hyperplasia Instructions: ED Urinary Retention, Male Prescriptions: New tamsulosin [Flomax] 0.4 mg capsule 0.4 mg PO DAILY Qty: 20 0RF No Action lisinopril 10 mg tablet 10 mg PO DAILY Label Comments: TAKE 1 TABLET BY MOUTH EVERY DAY pravastatin 20 mg tablet 20 mg PO DAILY Label Comments: TAKE 1 TABLET BY MOUTH EVERY DAY Primary Care Provider: Dimitri Malhotra NP Referrals: Eleazar Noriega MD [Med Staff - Active Staff] - 1 Week Dimitri Malhotra NP, MANAGED CARE SPECIALIST-C [Primary Care Provider] - Activity Restrictions/Addition al Instructions: Do not tug at Angel catheter. Take Flomax daily. Be aware of lightheadedness and dizziness with use of Flomax. Call Dr. Noriega today for an appointment to be seen in approximately 1 week for voiding trial and removal of Angel catheter. Empty leg bag frequently. Disposition Disposition: Home, Self Care What to (more content not included)... Normal [facility] Decalcification bone/plaqueo n 06-18-2022 Decalcification bone/plaque -------- Patient Age/Sex Location Account Attending Physician -------- KIDNEY,KIRT SILVA 66/M LABSPEC [id number] Dr. Shawn Neves MD -------- Specimen: [id number] Received: 06/18/22 Status: STEFANY Velia Num: [id number] Spec Type: SEPTUM Subm Dr: Dr. Shawn Neves MD HEADER OPERATION: Septoplasty, bilateral submucous resection PRE-OP DIAGNOSIS: Nasal congestion, deflection of deviated septum, hypertrophy of nasal turbinates TISSUE SUBMITTED: Septum -------- MICROSCOPIC DIAGNOSIS Septum: Fragments of bone and cartilage, clinically deviated septum. Fragments of benign respiratory mucosa. ESME:brianna 06/22/2022 MICROSCOPIC DESCRIPTION Slides are reviewed. GROSS DESCRIPTION Received in fixative is one container labeled with the patient's name and designated septum. The specimen consists of multiple irregular fragments of bone and cartilage that in aggregate measure 3.5 x 2 x 0.3 cm. The entire specimen is submitted in one cassette after decalcification. / ESME:brianna 06/19/2022 TC:5 CPT: 78771, 80682 -------- Patient Age/Sex Location Account Attending Physician -------- KIRT WINKLER 66/M LABSPEC [id number] Dr. Shawn Neves MD -------- Signed (signature on file) Dr. Peter Tse MD 06/22/22 1227 -------- [facility] Comment on above: Performed By: #### P DEC ####[facility] [id number] [place], [address] 12 Lead EKGon 06-04-2022 12 Lead EKG [facility] [address] [place] [address] 12 Lead EKG 06/04/22 1359 MR#: [id number] Acct: [id number] Name: KIRT WINKLER Rep #: [id number] : 1955 66 From: Willie Brown MD Attending Dr: Dr. Shawn Neves MD Status: REG CLI Ordering Dr: Shawn Neves MD Date: 06/04/22 [facility] Sex[facility] M C Admitted: Test Reason : PREOP Blood Pressure : / mmHG Vent. Rate : 062 BPM Atrial Rate : 062 BPM P-R Int : 160 ms QRS Dur : 092 ms QT Int : 402 ms P-R-T Axes : 112 059 047 degrees QTc Int : 408 ms Normal sinus rhythm Normal ECG Confirmed by WILLIE BROWN MD ([id number]), food editor PERRY ROBERTSON ([id number]) on 06/05/2022 9:07:10 AM Referred By: Shawn Neves Confirmed By:WILLIE BROWN MD 06/05/22 0907 Date Willie Brown MD CC: ANIYA-Erasmo Malhotra; Dr. Shawn Neves MD Signed [facility] Basic Metabolic Profile (BMP )on 06-04-2022 BUN/CRE 20.6 RATIO High 10-20 [facility] Comment on above: Performed By: #### L 100.0500, L500.2500 #### [facility] [address] [place], [address] CA,Total 9.2 mg/dL Normal 8.5-10.1 [facility] Comment on above: Performed By: #### L 100.0500, L500.2500 #### [facility] [address] [place], [address] Chloride [Moles/Vol] 106 mmol/L Normal 98-107 [facility] Comment on above: Performed By: #### L 100.0500, L500.2500 #### [facility] [address] [place], [address] CO2 [Moles/Vol] 28.0 mmol/L Normal 21.0-32.0 [facility] Comment on above: Performed By: #### L 100.0500, L500.2500 #### [facility] [address] [place], [address] Creatinine [Mass/Vol] 1.07 mg/dL Normal 0.70-1.30 [facility] Comment on above: Result Comment: The validity of the calculated GFR GFRAA in patients over 70 years has not been determined. Clinical correlation is essential. Performed By: #### L 100.0500, L500.2500 #### [facility] [address] [place], [address] EST GFR - AA 89 mL/min Normal >60 [facility] Comment on above: Result Comment: Afri can Citizen Of [place] GFR Calc Performed By: #### L 100.0500, L500.2500 #### [facility] [address] [place], [address] GAP 6 Normal 5-15 [facility] Comment on above: Performed By: #### L 100.0500, L500.2500 #### [facility] [address] [place], [address] GFR/1.73 sq M.predicted among non-blacks MDRD (S/P/Bld) [Vol rate/Area] 74 mL/min/{1.73_m2} Normal >60 [facility] Comment on above: Result Comment: Non- GFR Calc Performed By: #### L 100.0500, L500.2500 #### [facility] [address] [place], [address] Glucose [Mass/Vol] 95 mg/dL Normal 74-106 [facility] Comment on above: Performed By: #### L 100.0500, L500.2500 #### [facility] [address] [place], [address] Potassium [Moles/Vol] 3.6 mmol/L Normal 3.5-5.1 [facility] Comment on above: Performed By: #### L 100.0500, L500.2500 #### [facility] [address] [place], [address] Sodium [Moles/Vol] 140 mmol/L Normal 136-145 [facility] Comment on above: Performed By: #### L 100.0500, L500.2500 #### [facility] [address] [place], [address] Urea nitrogen [Mass/Vol] 22 mg/dL High 7-18 [facility] Comment on above: Performed By: #### L 100.0500, L500.2500 #### [facility] [address] [place], [address] Basophil percentageon 2021 Chloride [Moles/Vol] 106 mmol/L 98-107 [facility] Work Phone: Glucose [Mass/Vol] 95 mg/dL 74-106 [facility] Work Phone: Potassium [Moles/Vol] 3.6 mmol/L 3.5-5.1 [facility] Work Phone: Sodium [Moles/Vol] 140 mmol/L 136-145 [facility] Work Phone: WBC (Bld) [#/Vol] 5.6 10*3/uL 4.4-11.0 [facility] Work Phone: Blood erythrocytes count (nu mber/volume)on 06-04-2022 RBC (Bld) [#/Vol] 4.89 10*6/uL 4.6-6.2 [facility] Work Phone: Blood hemoglobin measurement (mass/volume)on 06-04-2022 Hemoglobin (Bld) [Mass/Vol] 14.6 g/dL 13.0-16.5 [facility] Work Phone: Blood platelet mean volumeon 06-04-2022 Platelet mean volume (Bld) [Entitic vol] 9.7 fL 6.2-12.0 [facility] Work Phone: CBC-Complete Blood Cnt No Di ffon 06-04-2022 Erythrocyte distribution width (RBC) [Ratio] 12.9 % Normal 11.6-14.6 [facility] Comment on above: Performed By: #### L 100.0500, L500.2500 #### [facility] [address] [place], [address] Hematocrit (Bld) [Volume fraction] 44.1 % Normal 40-54 [facility] Comment on above: Performed By: #### L 100.0500, L500.2500 #### [facility] [address] [facility] [place], [address] Hemoglobin (Bld) [Mass/Vol] 14.6 g/dL Normal 13.0-16.5 [facility] Comment on above: Performed By: #### L 100.0500, L500.2500 #### [facility] [address] [place], [address] MCH (RBC) [Entitic mass] 29.9 pg Normal 27.0-32.0 [facility] Comment on above: Performed By: #### L 100.0500, L500.2500 #### [facility] [address] [place], [address] MCHC (RBC) [Mass/Vol] 33.1 g/dL Normal 32-36 [facility] Comment on above: Performed By: #### L 100.0500, L500.2500 #### [facility] [address] [place], [address] MCV (RBC) [Entitic vol] 90.2 fL Normal 80-94 [facility] Comment on above: Performed By: #### L 100.0500, L500.2500 #### [facility] [address] [place], [address] Platelet mean volume (Bld) [Entitic vol] 9.7 fL Normal 6.2-12.0 [facility] Comment on above: Performed By: #### L 100.0500, L500.2500 #### [facility] [address] [place], [address] Platelets (Bld) [#/Vol] 222 10*3/uL Normal 150-450 [facility] Comment on above: Performed By: #### L 100.0500, L500.2500 #### [facility] [address] [place], [address] RBC (Bld) [#/Vol] 4.89 10*6/uL Normal 4.6-6.2 [facility] Comment on above: Performed By: #### L 100.0500, L500.2500 #### [facility] [address] [place], [address] RDW SD 42.5 fl Normal 35.1-43.9 [facility] Comment on above: Performed By: #### L 100.0500, L500.2500 #### [facility] [address] [place], [place], [address] WBC (Bld) [#/Vol] 5.6 10*3/uL Normal 4.4-11.0 [facility] Comment on above: Performed By: #### L 100.0500, L500.2500 #### [facility] [address] [place], [place], [address] Determination of erythrocyte mean corpuscular volume (MCV)on 06-04-2022 MCV (RBC) [Entitic vol] 90.2 fL 80-94 [facility] Work Phone: Hematocrit Auto (Bld) [Volum e fraction]on 06-04-2022 Hematocrit (Bld) [Volume fraction] 44.1 % 40-54 [facility] Work Phone: Laboratory - Chemistry and C hemistry - challengeon 06-04-2022 CO2 [Moles/Vol] 28.0 mmol/L 21.0-32.0 [facility] Work Phone: Urea nitrogen/Creatinine [Mass ratio] 20.6 mg/mg 10-20 [facility] Work Phone: Laboratory - Hematology and Cell countson 06-04-2022 Erythrocyte distribution width (RBC) [Entitic vol] 42.5 fL 35.1-43.9 [facility] Work Phone: Erythrocyte distribution width (RBC) [Ratio] 12.9 % 11.6-14.6 [facility] Work Phone: MCH (RBC) [Entitic mass] 29.9 pg 27.0-32.0 [facility] Work Phone: MCHC Auto (RBC) [Mass/Vol]on 06-04-2022 MCHC (RBC) [Mass/Vol] 33.1 g/dL 32-36 [facility] Work Phone: No Panel Informationon 06-04 Estimated GFR (MDRD) Amer 89 mL/min >60 [facility] Work Phone: Comment on above: GFR Calc Estimated GFR (MDRD) Non-Af Amer 74 mL/min >60 [facility] Work Phone: Comment on above: Non- GFR Calc Platelets bldon 06-04-2022 Platelets (Bld) [#/Vol] 222 10*3/uL 150-450 [facility] Work Phone: Serum or plasma calcium jaxon urement (mass/volume)on 06-04-2022 Calcium [Mass/Vol] 9.2 mg/dL 8.5-10.1 [facility] Work Phone: Serum or plasma creatinine m easurement (mass/volume)on 06-04-2022 Creatinine [Mass/Vol] 1.07 mg/dL 0.70-1.30 [facility] Work Phone: Comment on above: The validity of the calculated GFR & GFRAA in patients over 70 years has not been determined. Clinical correlation is essential. Serum or plasma urea nitroge n measurement (mass/volume)on 06-04-2022 Urea nitrogen [Mass/Vol] 22 mg/dL 7-18 [facility] Work Phone: Thin prep Papanicolaou smear with manual screeningon 06-04-2022 Thin prep Papanicolaou smear with manual screening 6 5-15 [facility] Work Phone: Basic metabolic 2000 panelon 05-28-2022 Anion gap [Moles/Vol] 10 mmol/L Normal 9-18 [facility] Comment on above: Order Comment: Speci men Type: BLOOD SPECIMEN Ordering Facility: [facility] Address: [address] [place] [id number] Performed By: #### 2 4321-2 #### [facility] CLIA [id number] [address] [place] [address] [place] Calcium [Mass/Vol] 9.5 mg/dL Normal 8.5-10.2 [facility] Comment on above: Order Comment: Speci men Type: BLOOD SPECIMEN Ordering Facility: [facility] Address: [address] [place] [address] Performed By: #### 2 4321-2 #### [facility] CLIA [id number] [address] [place] [address] [place] Chloride [Moles/Vol] 105 mmol/L Normal 97-105 [facility] Comment on above: Order Comment: Speci men Type: BLOOD SPECIMEN Ordering Facility: [facility] Address: [address] [place] [address] Performed By: #### 2 4321-2 #### [facility] CLIA [id number] [address] [place] [address] [place] CO2 [Moles/Vol] 26 mmol/L Normal 22-30 [facility] Comment on above: Order Comment: Speci men Type: BLOOD SPECIMEN Ordering Facility: [facility] Address: [address] [place] [address] Performed By: #### 2 4321-2 #### [facility] CLIA [id number] [address] [place] [address] [place] Creatinine [Mass/Vol] 1.01 mg/dL Normal 0.73-1.22 [facility] Comment on above: Order Comment: Speci men Type: BLOOD SPECIMEN Ordering Facility: [facility] Address: [address] [place] [address] Performed By: #### 2 4321-2 #### [facility] CLIA [id number] [address] [place] [address] [place] ESTIMATED GLOMERULAR FILTRATION RATE 83 mL/min/1.73m??? Normal >=60 [facility] Comment on above: Order Comment: Speci men Type: BLOOD SPECIMEN Ordering Facility: [facility] Address: [address] [address] Result Comment: Cornelia mated Glomerular Filtration Rate (eGFR) is calculated using the 2020 CKD-EPI creatinine equation. This equation utilizes serum creatinine, sex, and age as parameters. The creatinine assay has traceable calibration to isotope dilution-mass spectrometry. Refer to KDIGO guidelines for clinical interpretation. In patients with unstable renal function, e.g. those with acute kidney injury, the eGFR may not accurately reflect actual GFR. Performed By: #### 2 4321-2 #### [id number] [address] [place] [address] [place] Glucose [Mass/Vol] 103 mg/dL High 74-99 [facility] Comment on above: Order Comment: Bari pacheco Type: BLOOD SPECIMEN Ordering Facility: [facility] Address: [address] [address] Result Comment: The [place] Diabetes Association (ADA) provides guidance for cutoff values for fasting glucose and random glucose. The ADA defines fasting as no caloric intake for at least 8 hours. Fasting plasma glucose results between 100 to 125 mg/dL indicate increased risk for diabetes (prediabetes). Fasting plasma glucose results greater than or equal to 126 mg/dL meet the criteria for diagnosis of diabetes. In the absence of unequivocal hyperglycemia, results should be confirmed by repeat testing. In a patient with classic symptoms of hyperglycemia or hyperglycemic crisis, random plasma glucose results greater than or equal to 200 mg/dL meet the criteria for diagnosis of diabetes. Reference: Standards of Medical Care in Diabetes 2016, [place] Diabetes Association. Diabetes Care. 2016.39(Suppl 1). Performed By: #### 2 4321-2 #### [facility] [id number] [address] [place] [address] [place] Potassium [Moles/Vol] 4.0 mmol/L Normal 3.7-5.1 [facility] Comment on above: Order Comment: Bari pacheco Type: BLOOD SPECIMEN Ordering Facility: [facility] Address: [address] [address] Performed By: #### 2 4321-2 #### [facility] CLIA [id number] [address] [place] [address] [place] Sodium [Moles/Vol] 141 mmol/L Normal 136-144 [facility] Comment on above: Order Comment: Speci men Type: BLOOD SPECIMEN Ordering Facility: [facility] Address: [address] [place] [address] Performed By: #### 2 4321-2 #### [facility] CLIA [id number] [address] [place] [address] [place] Urea nitrogen [Mass/Vol] 19 mg/dL Normal 9-24 [facility] Comment on above: Order Comment: Speci men Type: BLOOD SPECIMEN Ordering Facility: [facility] Address: [address] [place] [address] Performed By: #### 2 4321-2 #### [facility] [id number] [address] [place] [address] [place] Lipid 1996 panelon 2 Cholesterol [Mass/Vol] 195 mg/dL Normal <200 [facility] Comment on above: Order Comment: Speci men Type: BLOOD SPECIMEN Ordering Facility: [facility] Address: [address] [place] [address] Result Comment: <200 mg/dL, Desirable 200-239 mg/dL, Borderline high >239 mg/dL, High Performed By: #### 2 4331-1 #### [facility] CLIA [id number] [address] [facility] [id number] [id number] [place] [facility] CLIA [id number] [address] [place] [address] [place] Cholesterol in HDL [Mass/Vol] 54 mg/dL Normal >39 [facility] Comment on above: Order Comment: Speci men Type: BLOOD SPECIMEN Ordering Facility: [facility] Address: [address] [place] [address] Result Comment: 40-5 9 mg/dL, Acceptable >59 mg/dL, High: Negative risk factor for coronary heart disease <40 mg/dL, Low: Positive risk factor for coronary heart disease Performed By: #### 2 4331-1 #### [facility] CLIA [id number] [address] CLIA [id number] [address] [place] [address] Cholesterol in LDL [Mass/Vol] 119 mg/dL High <100 [facility] Comment on above: Order Comment: Specdiya men Type: BLOOD SPECIMEN Ordering Facility: [facility] Address: [address] [address] Result Comment: <100 mg/dL, Optimal 100-129 mg/dL, Near optimal/above optimal 130-159 mg/dL, Borderline high 160-189 mg/dL, High >189 mg/dL, Very high Secondary prevention optimal LDL Cholesterol levels are recommended to be < 70 mg/dL Performed By: #### 2 4331-1 #### [facility] CLIA [id number] [address] CLIA [id number] [address] [place] [address] Cholesterol in LDL/Cholesterol in HDL [Mass ratio] 2.20 {ratio} Normal <2.54 [facility] Comment on above: Order Comment: Bari pacheco Type: BLOOD SPECIMEN Ordering Facility: [facility] Address: [address] [address] Result Comment: Refe rence: 1. National Cholesterol Education Program ATP III Guideline At-A-Glance Quick Desk Reference: National Heart, Lung, and Blood [place]. National Institutes of Health. 2001: NIH Publication No. 01-3305. 2. An International Atherosclerosis Society position paper: global recommendations for the management of dyslipidemia: executive summary, Atherosclerosis. 2014: 232(2):410-413. Performed By: #### 2 4331-1 #### [facility] CLIA [id number] [address] [id number] [facility] [place] [facility] CLIA [id number] [address] [place] [address] [place] Cholesterol in VLDL [Mass/Vol] 22 mg/dL Normal <30 [facility] Comment on above: Order Comment: Speci men Type: BLOOD SPECIMEN Ordering Facility: [facility] Address: [address] Performed By: #### 2 4331-1 #### [facility] CLIA [id number] [address] [place] [facility] CLIA [id number] [address] [place] [address] [place] Cholesterol non HDL [Mass/Vol] 141 mg/dL High <130 [facility] Comment on above: Order Comment: Speci men Type: BLOOD SPECIMEN Ordering Facility: [facility] Address: [address] [place] [address] Result Comment: <130 mg/dL, Optimal 130-159 mg/dL, Near optimal/above optimal 160-189 mg/dL, Borderline high 190-219 mg/dL, High >219 mg/dL, Very high Secondary prevention optimal non HDL Cholesterol levels are recommended to be <100 mg/dL Performed By: #### 2 4331-1 #### [facility] CLIA [id number] [address] [place] [address] [place] [facility] CLIA [id number] [address] [place] [address] [place] Cholesterol.total/Alma sterol in HDL [Mass ratio] 3.61 {ratio} Normal <5.10 [facility] Comment on above: Order Comment: Speci men Type: BLOOD SPECIMEN Ordering Facility: [facility] Address: [address] Performed By: #### 2 4331-1 #### [facility] CLIA [id number] [address] [address] [place] [facility] CLIA [id number] [address] [place] [address] STATES [place] [facility] FASTING TIME 10 hrs Normal [facility] Comment on above: Order Comment: Speci men Type: BLOOD SPECIMEN Ordering Facility: [facility] Address: [address] [place] [address] Performed By: #### 2 4331-1 #### [facility] CLIA [id number] [address] [place] [address] [place] [facility] CLIA [id number] [address] [place] [address] [place] Triglyceride [Mass/Vol] 112 mg/dL Normal <150 [facility] Comment on above: Order Comment: Speci men Type: BLOOD SPECIMEN Ordering Facility: [facility] Address: [address] [place], [place] [id number] Result Comment: <150 mg/dL, Normal 150-199 mg/dL, Borderline high 200-499 mg/dL, High >499 mg/dL, Very high Performed By: #### 2 4331-1 #### [facility] CLIA [id number] [address] [id number] [place] [facility] CLIA [id number] [address] [place] [address] [place] GI FLUORO CHEST SNIFF TESTon 01-13-2021 GI FLUORO CHEST SNIFF TEST * * *Final Report* * * DATE OF EXAM: Jan 13 2021 10:30AM LAURYN 55Alessandra - GI FLUORO CHEST SNIFF TEST / PROCEDURE REASON: multiple diagnoses * * * * Physician Interpretation * * * * GI FLUORO CHEST SNIFF TEST HISTORY: Indication: SOB (shortness of breath) Elevated diaphragm TECHNIQUE: Fluoroscopic Radiation Summary: Plane A, Air Kerma: 10.0 mGy Dose Area Product (DAP): 2390.0 mGy*cm^2 Fluoro time: 0:29 min:sec Images obtained: 1 cm fluoroscopy image under fluoroscopic guidance. Images were stored in a permanent archive. Comparison: Cupola Melter Helper view for CT 11/08/2010 chest x-ray 05/04/2016 RESULT: Findings: The patient was asked to breathing deeply and the exhale. The Diaphragms Moved Symmetrically. However the RIGHT hemidiaphragm is elevated approximately 5 cm in relation to the LEFT hemidiaphragm at rest. This is very similar to the appearance on the senior data warehouse architect film from a CT abdomen pelvis 11/08/2010.. No paradoxical motion was seen with the sniff portion of the test. See procedural note in Epic for further discussion. IMPRESSION: 1. The RIGHT hemidiaphragm is elevated and is very similar to 2010. 2. Diaphragms to move symmetrically. No evidence of paradoxical movement sniff test Extension Work Instructor: KAREY Transcribe Date/Time: Jan 13 2021 10:37A Dictated by : ARTURO COTTER DO This examination was interpreted and the report reviewed and electronically signed by: ARTURO COTTER DO on Jan 13 2021 10:45AM EST [id number] N [facility] XR Chest PA and Lateralon IMPRESSION: Refer to the result. Extension Work Instructor: [facility] Transcribe Date/Time: Dec 09 2020 8:39A Dictated by : INGE REN MD This examination was interpreted and the report reviewed and electronically signed by: INGE REN MD on Dec 09 2020 8:42AM EST DIVISION OF RADIOLOGY * * *Final Report* * * DATE OF EXAM: Dec 09 2020 8:38AM WOX 5291 - XR CHEST 2V FRONTAL/LAT / PROCEDURE REASON: shortness of breath * * * * Physician Interpretation * * * * EXAMINATION: CHEST RADIOGRAPH (2 VIEW FRONTAL & LATERAL) CLINICAL HISTORY: Shortness of breath MQ: XC2_6 EXAM DATE/TIME: 12/09/2020 8:38 AM COMPARISON: 05/04/2016 RESULT: Lines, tubes, and devices: None. Lungs and pleura: No focal consolidation, significant pleural effusion or pneumothorax. Streaky bibasilar opacities most suggestive of atelectasis/scarring. Elevation of the RIGHT hemidiaphragm, increased from exam from 2015. Cardiomediastinal silhouette: Stable Bones and soft tissues: No acute osseous abnormality is appreciated. DIVISION OF RADIOLOGY Provider, Sonal Winters - 12/09/2020 * * *Final Report* * * DATE OF EXAM: Dec 09 2020 8:38AM WOX 5291 - XR CHEST 2V FRONTAL/LAT / PROCEDURE REASON: shortness of breath * * * * Physician Interpretation * * * * EXAMINATION: CHEST RADIOGRAPH (2 VIEW FRONTAL & LATERAL) CLINICAL HISTORY: Shortness of breath MQ: XC2_6 EXAM DATE/TIME: 12/09/2020 8:38 AM COMPARISON: 05/04/2016 RESULT: Lines, tubes, and devices: None. Lungs and pleura: No focal consolidation, significant pleural effusion or pneumothorax. Streaky bibasilar opacities most suggestive of atelectasis/scarring. Elevation of the RIGHT hemidiaphragm, increased from exam from 2016. Cardiomediastinal silhouette: Stable Bones and soft tissues: No acute osseous abnormality is appreciated. IMPRESSION IMPRESSION: Refer to the result. Extension Work Instructor: KAREY Transcribe Date/Time: Dec 09 2020 8:39A Dictated by : INGE REN MD This examination was interpreted and the report reviewed and electronically signed by: INGE REN MD on Dec 09 2020 8:42AM [facility] Radiology Study observation (narrative) [facility] XR Chest PA and LateralOrder ed By: Cc Provider on 12-09-2020 [facility] XR Foot - left AP and Latera l and obliqueon 05-24-2020 IMPRESSION: Osteoarthrosis. No acute osseous abnormality identified. Extension Work Instructor: [facility] Transcribe Date/Time: May 24 2020 1:18P Dictated by : TARIQ RIVAS MD This examination was interpreted and the report reviewed and electronically signed by: TARIQ RIVAS MD on May 24 2020 1:19PM [facility] DIVISION OF RADIOLOGY * * *Final Report* * * DATE OF EXAM: May 24 2020 1:10PM WOX 5336 - XR FOOT 3V AP/LAT/OBL LT / PROCEDURE REASON: Foot pain, left * * * * Physician Interpretation * * * * Left foot radiographs HISTORY: 64 years old Clinical information: Foot pain, left pt states 10 days ago just stood up and then had pain in foot, had ankle xrayed and then Satruday bruising started dorsal mid to forefoot in 3-4-5th distal MT's. denies inj TECHNIQUE: Images: XR FOOT 3V AP/LAT/OBL LT Comparison: None. RESULT: Findings: Osteophyte formation involving the first metatarsal head. No fracture or dislocation identified. Plantar calcaneal spur. No soft tissue abnormality identified. DIVISION OF RADIOLOGY Provider, [facility] - 05/24/2020 * * *Final Report* * * DATE OF EXAM: May 24 2020 1:10PM WOX 5336 - XR FOOT 3V AP/LAT/OBL LT / PROCEDURE REASON: Foot pain, left * * * * Physician Interpretation * * * * Left foot radiographs HISTORY: 64 years old Clinical information: Foot pain, left pt states 10 days ago just stood up and then had pain in foot, had ankle xrayed and then Satruday bruising started dorsal mid to forefoot in 3-4-5th distal MT's. denies inj TECHNIQUE: Images: XR FOOT 3V AP/LAT/OBL LT Comparison: None. RESULT: Findings: Osteophyte formation involving the first metatarsal head. No fracture or dislocation identified. Plantar calcaneal spur. No soft tissue abnormality identified. IMPRESSION IMPRESSION: Osteoarthrosis. No acute osseous abnormality identified. Extension Work Instructor: [facility] Transcribe Date/Time: May 24 2020 1:18P Dictated by : TARIQ RIVAS MD This examination was interpreted and the report reviewed and electronically signed by: TARIQ RIVAS MD on May 24 2020 1:19PM EST [facility] Radiology Study observation (narrative) [facility] XR Foot - left AP and Latera l and obliqueOrdered By: Ccf Provider on 05-24-2020 [facility] US DVT LOWER LTon 05-19-2020 US DVT LOWER LT Final Report DATE OF EXAM: May 19 2020 9:27AM LDU 1006 - US DVT LOWER LT / PROCEDURE REASON: Pain of left calf Physician Interpretation EXAMINATION: LEFT LOWER EXTREMITY DEEP VENOUS ULTRASOUND WITH DOPPLER IMAGING CLINICAL HISTORY: Left calf pain. TECHNIQUE: Grayscale with compression maneuvers, color Doppler and spectral Doppler at rest and with augmentation of the left distal external iliac, common femoral, femoral and popliteal veins was performed. Grayscale with compression maneuvers of the peroneal and posterior tibial veins was performed. The left great and small saphenous veins were also imaged in grayscale with compression maneuvers at their insertion to the deep system. The contralateral common femoral vein was imaged for comparison. Images were obtained and stored in a permanent archive. MQ: USLEL_1 COMPARISON: None RESULT: LEFT LOWER EXTREMITY PROXIMAL DEEP VEINS Distal External Iliac and Common Femoral Veins: Compression: Normal Doppler: Normal, spontaneous respirophasic flow. Normal response to augmentation. Femoral vein: Compression: Normal Doppler: Normal, spontaneous flow. Normal response to augmentation. Popliteal vein: Compression: Normal Doppler: Normal, spontaneous flow. Normal response to augmentation. CALF DEEP VEINS Peroneal veins: Normal compression. Posterior tibial veins: Normal compression. Gastrocnemius and Soleal veins: Not imaged. SUPERFICIAL VEINS Great saphenous: Patent and compressible at insertion into common femoral vein; not otherwise assessed. Small Saphenous: Patent and compressible in the proximal calf, not otherwise assessed. RIGHT LOWER EXTREMITY (FOR COMPARISON) Common Femoral Vein: Compression: Normal Doppler: Normal, spontaneous respirophasic flow. Normal response to augmentation. IMPRESSION: Negative study for acute proximal DVT in the left lower extremity. Negative study for acute calf DVT in the left lower extremity. Negative study for acute superficial thrombophlebitis in the imaged segments of the left lower extremity. Extension Work Instructor: KAREY Transcribe Date/Time: May 19 2020 9:32A Dictated by : JEROME GALVAN MD This examination was interpreted and the report reviewed and electronically signed by: JEROME GALVAN MD on May 19 2020 9:33AM EST Normal [facility] XR Ankle - left AP and Later al and obliqueon 05-18-2020 IMPRESSION: Small ankle effusion with no acute osseous finding identified. No erosions identified. Extension Work Instructor: KAREY Transcribe Date/Time: May 18 2020 4:26P Dictated by : CHAZ SHIRLEY MD This examination was interpreted and the report reviewed and electronically signed by: CHAZ SHIRLEY MD on May 18 2020 4:27PM EST DIVISION OF RADIOLOGY * * *Final Report* * * DATE OF EXAM: May 18 2020 4:22PM WOX 5298 - XR ANKLE 3V AP/LAT/OBL LT / PROCEDURE REASON: Acute left ankle pain * * * * Physician Interpretation * * * * EXAMINATION: XR ANKLE 3V AP/LAT/OBL LT CLINICAL HISTORY: pt states pain since Rudy anterior left ankle, thinks it might be gout, no inj Acute left ankle pain Technique: XR ANKLE 3V AP/LAT/OBL LT -- LEFT with 3 views on 3 images Comparison: None RESULT: No fracture or dislocation. Normal talar dome. Normal ankle mortise. No erosions. Small ankle effusion. Minimal plantar calcaneal enthesophyte. No significant soft tissue swelling seen on radiograph. DIVISION OF RADIOLOGY Provider, [facility] - 05/18/2020 * * *Final Report* * * DATE OF EXAM: May 18 2020 4:22PM WOX 5298 - XR ANKLE 3V AP/LAT/OBL LT / PROCEDURE REASON: Acute left ankle pain * * * * Physician Interpretation * * * * EXAMINATION: XR ANKLE 3V AP/LAT/OBL LT CLINICAL HISTORY: pt states pain since Rudy anterior left ankle, thinks it might be gout, no inj Acute left ankle pain Technique: XR ANKLE 3V AP/LAT/OBL LT -- LEFT with 3 views on 3 images Comparison: None RESULT: No fracture or dislocation. Normal talar dome. Normal ankle mortise. No erosions. Small ankle effusion. Minimal plantar calcaneal enthesophyte. No significant soft tissue swelling seen on radiograph. IMPRESSION IMPRESSION: Small ankle effusion with no acute osseous finding identified. No erosions identified. Extension Work Instructor: [facility] Transcribe Date/Time: May 18 2020 4:26P Dictated by : CHAZ SHIRLEY MD This examination was interpreted and the report reviewed and electronically signed by: CHAZ SHIRLEY MD on May 18 2020 4:27PM EST [facility] Radiology Study observation (narrative) [facility] XR Ankle - left AP and Later al and obliqueOrdered By: Ccf Provider on 05-18-2020 [facility] XR UPPER GI DOUBLE CONTRAST/ AIRon 04-20-2020 XR UPPER GI DOUBLE CONTRAST/AIR Final Report DATE OF EXAM: Apr 20 2020 10:28AM GRX [id number] - XR UPPER GI DOUBLE CONTRAST/AIR / PROCEDURE REASON: Gastroesophageal reflux disease, esophagitis presence not specified Physician Interpretation UPPER GI DOUBLE CONTRAST/AIR HISTORY: Indication: Gastroesophageal reflux disease, esophagitis presence not specified. Epigastric pain TECHNIQUE: Views obtained: XR UPPER GI DOUBLE CONTRAST/AIR. Study was performed by the doctor's assistant. 54 seconds fluoroscopic time, 33 total acquisitions and 297 cc of barium was administered Comparison: 12/29/2019 CT abdomen. 09/17/2019 ABDOMEN. RESULT: Barium passed through the esophagus without obstruction or stricture. Small sliding hiatal hernia with distal esophageal reflux. No mucosal destruction. No evidence of gastric outlet obstruction or gastric filling defect mass. No evidence of an active ulcer crater. Duodenal bulb and sweep appear normal. IMPRESSION: Small sliding hiatal hernia with distal esophageal reflux. No mucosal destruction or esophageal stricture. Extension Work Instructor: [facility] Transcribe Date/Time: Apr 20 2020 11:24A Dictated by : CODY ARIAS MD This examination was interpreted and the report reviewed and electronically signed by: CODY ARIAS MD on Apr 20 2020 11:29AM EST Normal [facility] Coronavirus 2019on 0 SARS-CoV-2 (COVID-19) RNA GEORGE+probe Ql (Unsp spec) Negative Normal [facility] Comment on above: Result Comment: Nega tive for COVID19 (SARS CoV2) by PCR. This test was developed and its performance characteristics determined by [facility]'s [facility] [place]. This test has been authorized by FDA under an Emergency Use Authorization (EUA). This test has been validated in accordance with the FDA's Guidance Document Policy for Diagnostics Testing in Laboratories Certified to Perform High Complexity Testing under CLIA prior to Emergency use Authorization for Coronavirus Disease 2019 during the Public Health Emergency issued on September 05, 2019. Performing Laboratory: [facility] [address] [place] [address] Performed By: #### C D19X #### [place] [address] Surgical Tissue Examon 03-04 Surgical Tissue Exam Test performed at [place] [address] NAME: KIRT WINKLER REQUESTING: JOSE AMARAL M.D. FINAL DIAGNOSIS: A) STOMACH, ANTRUM, BIOPSY - MILD CHRONIC GASTRITIS. B) STOMACH, BODY, BIOPSY - BODY/FUNDIC-TYPE GASTRIC MUCOSA WITH NO SIGNIFICANT HISTOPATHOLOGIC CHANGE. C) GE JUNCTION, BIOPSY - SQUAMOCOLUMNAR MUCOSA WITH FEATURES SUGGESTIVE OF REFLUX ESOPHAGITIS. D) RECTUM, POLYP - HYPERPLASTIC POLYP. OPERATIVE PROCEDURE: EGD with biopsies, colonoscopy with polypectomy CLINICAL INFORMATION: Positive colorectal cancer screening using Cologuard test, epigastric pain; TBD by physician GROSS DESCRIPTION: A) Antrum Received in formalin labeled antrum is a narvaez soft segment of tissue measuring 0.4 x 0.3 x 0.2 cm. The specimen is totally submitted in formalin in 1 cassette. B) Gastric body Received in formalin labeled gastric body is a narvaez soft segment of tissue measuring 0.7 x 0.2 x 0.1 cm. The specimen is totally submitted in formalin in 1 cassette. C) GE junction Received in formalin labeled GE junction are multiple white soft segments of tissue aggregating to 0.4 x 0.2 x < 0.1 cm. The specimens are totally submitted in formalin in 1 cassette. D) Rectal polyp Received in formalin labeled rectal polyp is an irregular narvaez soft segment of tissue measuring 0.3 x 0.2 x 0.1 cm. The specimen is totally submitted in formalin in 1 cassette. KVB/emile BURROWS M.D.,PATHOLOGIST (Electronic signature on file) Signed out: 03/08/2020 13:43 PRINTED: 03/08/2020 Page 1 of 1 Normal [facility] Comment on above: Performed By: #### C D19X #### [place] [address] NM HEPATOBILIARY W EF AND/OR RXon 02-15-2020 NM HEPATOBILIARY W EF AND/OR RX Final Report DATE OF EXAM: Feb 15 2020 2:52PM [facility] 0021 - NM HEPATOBILIARY W EF AND/OR RX / PROCEDURE REASON: Right upper quadrant pain Physician Interpretation HEPATOBILIARY SCAN WITH GALLBLADDER EJECTION FRACTION: CLINICAL HISTORY: Right upper quadrant pain. TECHNIQUE: 4.9 mCi Tc-99m Choletec IV followed by 60 minutes of abdominal imaging This was followed by 8 ounces Ensure Plus and additional imaging to calculate a gallbladder ejection fraction FINDINGS: There is prompt and homogeneous uptake by the liver, which appears grossly normal in size and shape. Gallbladder, and proximal small bowel activity are visualized, indicating cystic duct and common bile duct patency. After the fatty meal, the gallbladder calculated gallbladder ejection fraction is 72% (normal > 35%). IMPRESSION: Normal gallbladder functional response/EF is not a typical scintigraphic finding of chronic cholecystitis. Clinical correlation is recommended. Patent cystic duct and CBD. Extension Work Instructor: [facility] Transcribe Date/Time: Feb 15 2020 3:00P Dictated by : MEET LOYA MD This examination was interpreted and the report reviewed and electronically signed by: MEET LOYA MD on Feb 15 2020 3:01PM EST Normal [facility] Comprehensive Panelon 2019 Albumin [Mass/Vol] 4.4 g/dL Normal 3.9-4.9 [facility] Comment on above: Performed By: #### L LP14 #### [place] [address] ALP [Catalytic activity/Vol] 94 U/L Normal 38-113 [facility] Comment on above: Performed By: #### L LP14 #### [facility] [address] [place], [place] [address] ALT-SGPT Blood 21 U/L Normal 10-54 [facility] Comment on above: Performed By: #### L LP14 #### [address] [address] Anion gap [Moles/Vol] 11 mmol/L Normal 9-18 [facility] Comment on above: Performed By: #### L LP14 #### [facility] [address] [place], [place] [address] AST-SGOT Blood 15 U/L Normal 14-40 [facility] Comment on above: Performed By: #### L LP14 #### [facility] [address] [place], [place] [address] Bilirubin [Mass/Vol] 0.5 mg/dL Normal 0.2-1.3 [facility] Comment on above: Performed By: #### L LP14 #### [address] [address] Calcium [Mass/Vol] 9.9 mg/dL Normal 8.5-10.2 [facility] Comment on above: Performed By: #### L LP14 #### [facility] [address] [place], [place] [address] Chloride [Moles/Vol] 105 mmol/L Normal 97-105 [facility] Comment on above: Performed By: #### L LP14 #### [facility] [address] [place], [place] [address] CO2 [Moles/Vol] 26 mmol/L Normal 22-30 [facility] Comment on above: Performed By: #### L LP14 #### [facility] [address] [place], [place] [address] Creatinine [Mass/Vol] 1.09 mg/dL Normal 0.73-1.22 [facility] Comment on above: Performed By: #### L LP14 #### [facility] [address] [place], [place] [address] Glucose [Mass/Vol] 88 mg/dL Normal 74-99 [facility] Comment on above: Result Comment: The [place] Diabetes Association (ADA) provides guidance for cutoff values for fasting glucose and random glucose. The ADA defines fasting as no caloric intake for at least 8 hours.Fasting plasma glucose results between 100 to 125 mg/dL indicate increased risk for diabetes (prediabetes). Fasting plasma glucose results greater than or equal to 126 mg/dL meet the criteria for diagnosis of diabetes. In the absence of unequivocal hyperglycemia, results should be confirmed by repeat testing. In a patient with classic symptoms of hyperglycemia or hyperglycemic crisis, random plasma glucose results greater than or equal to 200 mg/dL meet the criteria for diagnosis of diabetes. Reference: Standards of Medical Care in Diabetes 2016; [place] Diabetes Association. Diabetes Care. 2016;39(Suppl 1). Performed By: #### L LP14 #### [facility] [address] [place], [place] [address] Potassium [Moles/Vol] 4.0 mmol/L Normal 3.7-5.1 [facility] Comment on above: Performed By: #### L LP14 #### [facility] [address] [place], [place] [address] Protein [Mass/Vol] 7.1 g/dL Normal 6.3-8.0 [facility] Comment on above: Performed By: #### L LP14 #### [facility] [address] [place] [address] Sodium [Moles/Vol] 142 mmol/L Normal 136-144 [facility] Comment on above: Performed By: #### L LP14 #### [facility] [address] [place] [address] Urea nitrogen [Mass/Vol] 21 mg/dL Normal 9-24 [facility] Comment on above: Performed By: #### L LP14 #### [facility] [address] [place] [address] Hemogram/Diffon 01-18-2020 Abs. Baso 0.01 thou/cmm Normal 0.00-0.08 [facility] Comment on above: Performed By: #### L CBCD #### [place] [address] Abs. [place] 0.28 thou/cmm Normal 0.20-1.00 [facility] Comment on above: Performed By: #### L CBCD #### [place] [address] Abs. Neut (ANC) 3.01 thou/cmm Normal 3.00-5.67 [facility] Comment on above: Performed By: #### L CBCD #### [place] [address] Basophils/100 WBC (Bld) 0.2 % Normal [facility] Comment on above: Performed By: #### L CBCD #### [facility] [address] [place] [address] Eosinophils (Bld) [#/Vol] 0.15 10*3/uL Normal 0.00-0.41 [facility] Comment on above: Performed By: #### L CBCD #### [place] [address] Eosinophils/100 WBC (Bld) 3.2 % Normal [facility] Comment on above: Performed By: #### L CBCD #### [facility] [address] [place], [place] [address] Erythrocyte distribution width (RBC) [Ratio] 13.1 % Normal 11.5-15.9 [facility] Comment on above: Performed By: #### L CBCD #### [facility] [address] [place], [place] [address] Hematocrit (Bld) [Volume fraction] 42.8 % Normal 42.0-52.0 [facility] Comment on above: Performed By: #### L CBCD #### [place] [address] Hemoglobin (Bld) [Mass/Vol] 14.0 g/dL Normal 14.0-18.0 [facility] Comment on above: Performed By: #### L CBCD #### [place] [address] Lymphocytes (Bld) [#/Vol] 1.25 10*3/uL Low 1.50-3.65 [facility] Comment on above: Performed By: #### L CBCD #### [address] [address] Lymphocytes/100 WBC (Bld) 26.6 % Normal [facility] Comment on above: Performed By: #### L CBCD #### [facility] [address] [place] [address] MCH (RBC) [Entitic mass] 29.4 pg Normal 27.0-31.0 [facility] Comment on above: Performed By: #### L CBCD #### [facility] [address] [place] [address] MCHC 32.7 % Normal 32.0-36.0 [facility] Comment on above: Performed By: #### L CBCD #### [place] [address] MCV (RBC) [Entitic vol] 89.9 fL Normal 80.0-94.0 [facility] Comment on above: Performed By: #### L CBCD #### [address] [address] Monocytes/100 WBC (Bld) 5.9 % Normal [facility] Comment on above: Performed By: #### L CBCD #### [facility] [address] [place] [address] Platelet mean volume (Bld) [Entitic vol] 10.3 fL Normal 7.1-10.5 [facility] Comment on above: Performed By: #### L CBCD #### [facility] [address] [place] [address] Platelets (Bld) [#/Vol] 211 10*3/uL Normal 150-400 [facility] Comment on above: Performed By: #### L CBCD #### [facility] [address] [place] [address] RBC 4.76 mil/cmm Normal 4.60-6.20 [facility] Comment on above: Performed By: #### L CBCD #### [place] [address] Seg Neutrophil 64.1 % Normal [facility] Comment on above: Performed By: #### L CBCD #### [facility] [address] [place] [address] WBC (Bld) [#/Vol] 4.7 10*3/uL Low 4.8-10.5 [facility] Comment on above: Performed By: #### L CBCD #### [place] [address] MDRD eGFRon 01-18-2020 GFR/1.73 sq M.predicted among non-blacks MDRD (S/P/Bld) [Vol rate/Area] mL/min/{1.73_m2} Normal >60mL/min/1.7 3m2 [facility] Comment on above: Result Comment: If t he patient is , multiply the result by 1.210. Performed By: #### L GFR #### [facility] [address] [place] [address] Magnesium Bloodon 01-18-2020 Magnesium [Mass/Vol] 1.9 mg/dL Normal 1.7-2.3 [facility] Comment on above: Performed By: #### L MAG #### [facility] [address] [place], [place] [address] TSHon 01-18-2020 TSH 1.890 uIU/mL Normal 0.270-4.200 [facility] Comment on above: Result Comment: Preg good: 1st trimester:(9-12 weeks):0.180-2.900 uIU/mL 2nd trimester: 0.110-3.980 uIU/mL 3rd trimester: 0.480-4.710 uIU/mL Patients taking a biotin dose of up to 5 mg/day should refrain from taking biotin for 4 hours prior to sample collection. Patients taking a biotin dose of 5 to 10 mg/day should refrain from taking biotin for 8 hours prior to sample collection. Patients taking a biotin dose > 10 mg/day should consult with their physician or the laboratory prior to having a sample taken. Clinicians should consider biotin interference as a source of error, when clinically suspicious of the laboratory result. Performed By: #### C D19X #### [place] [id number] Vitamin B12on 01-18-2020 Cobalamin (Vitamin B12) [Mass/Vol] 559 pg/mL Normal 232-1245 [facility] Comment on above: Result Comment: Smith[place] ents taking a biotin dose of up to 5 mg/day should refrain from taking biotin for 4 hours prior to sample collection. Patients taking a biotin dose of 5 to 10 mg/day should refrain from taking biotin for 8 hours prior to sample collection. Patients taking a biotin dose > 10 mg/day should consult with their physician or the laboratory prior to having a sample taken. Clinicians should consider biotin interference as a source of error, when clinically suspicious of the laboratory result. Performed By: #### B 12 #### [address] [address] XR CERVICAL 4V AP/LAT/OBLon 01-18-2020 XR CERVICAL 4V AP/LAT/OBL Final Report DATE OF EXAM: Jan 18 2020 10:16AM [id number] [id number] - XR CERVICAL 4V AP/LAT/OBL / PROCEDURE REASON: multiple diagnoses Physician Interpretation EXAM TITLE: XR CERVICAL 4V AP/LAT/OBL DATE: January 18, 2020 at 10:07 AM COMPARISON: None. CLINICAL INDICATION/HISTORY: The patient is a 64-year-old male with left neck pain and arm paresthesias. TECHNIQUE: AP, lateral, and both oblique views of the cervical spine are presented. FINDINGS: No fractures or subluxations are noted. There is straightening of the normal lordotic curvature of the cervical spine. There is narrowing of the C5-6 and C6-7 disc spaces. Anterior hypertrophic spurs are identified at C5-6 and C6-7. The neural foramina are patent. The prevertebral soft tissues are normal. IMPRESSION: There is cervical spondylosis with disc space narrowing at C5-6 and C6-7. There is no evidence of fracture, malalignment, or destructive process. Extension Work Instructor: [facility] Transcribe Date/Time: Jan 20 2020 2:33P Dictated by : HENRIETTA BABB MD This examination was interpreted and the report reviewed and electronically signed by: HENRIETTA BABB MD on Jan 20 2020 2:39PM EST Normal [facility] CT ABDOMEN W IVCONon 06-23-[address] ABDOMEN W IVCON Final Report DATE OF EXAM: Dec 29 2019 8:[facility] / PROCEDURE REASON: multiple diagnoses Physician Interpretation EXAMINATION: CT ABDOMEN WITH IV CONTRAST CLINICAL HISTORY: Liver lesion TECHNIQUE: CT of the abdomen was performed using standard technique, scanning from just above the dome of the diaphragm to the iliac crest. MQ: [id number] Contrast: IV: 150 ml of Omnipaque 300 Oral: 900 ml of 50ML Omnipaque [address] Radiation dose: Integrated Dose-length product (DLP) for this visit = 551.[address] Dose Reduction Employed: Automated exposure control (AEC) COMPARISON: Ultrasound of the abdomen 09/17/[address] of the abdomen 11/08/2010 RESULT: Liver: a several hepatic cysts are again noted, as seen on the prior CT abdomen of 11/2010, unchanged and some increases in the size as noted on the recent ultrasound, the larger as follows: Stable 1.4 cm cyst in the right hepatic dome Enlarged 4.5 cm lobulated cystic lesion in the segment 8, previously 2.9 cm Enlarged 3.3 cm cyst in the segment 5, previously 0.8 cm. A 5.7 cm well-defined area of mild hypoattenuation adjacent to the falciform ligament in the right hepatic dome was already suggested on the prior CT but more conspicuous likely related to the presence of intravenous contrast as can be seen with focal fatty infiltration. No new hepatic lesions. Biliary: No bile duct dilation. Gallbladder is unremarkable. Spleen: No mass. No splenomegaly. Pancreas: No mass or duct dilation. Adrenals:No mass. Kidneys: A 1.3 cm cyst is present in the posterior right interpolar region. A 4.6 cm exophytic cyst in the inferior renal pole is new since 11/2010 but already described on the ultrasound of 05/2017. Punctate nonobstructing calculus in the interpolar region. No hydronephrosis. GI tract: No dilation or wall thickening. Lymph nodes: No abdominal lymphadenopathy. Mesentery/Peritoneum: No ascites or mass. Retroperitoneum: No mass. Vasculature: Mild narrowing at the origin of the celiac trunk as it passes through the diaphragmatic hiatus. Otherwise, the celiac axis and SMA are patent. The portal vein and branches, splenic vein, SMV, and hepatic veins are patent. Bones/Soft Tissues: No acute osseous abnormalities. Lower thorax: Mild hypoventilatory changes in the lung bases. A few pulmonary nodules are present in the right lower lobe, too were partially imaged on 11/2010 however and ill-defined 0.6 cm nodule identified in the prior [id number]-uh-gsof. (2, 2) No consolidation or pleural effusion. Visualized portions of the heart are unremarkable. Cupola Melter Helper (topogram) images: No additional findings. IMPRESSION: 1. No acute intra-abdominal findings. Hepatic and renal cysts as noted on prior ultrasounds. 2. A 0.6 cm nodule in the right lower lobe is not identified within the [id number]-[id number] of the CT abdomen of 11/2010. Recommend follow-up CT in 12 months to assess for stability if no other prior studies are available for comparison. --If prior studies become available, an addendum can be performed if requested.-- Extension Work Instructor: KAREY Transcribe Date/Time: Dec 30 2019 5:27P Dictated by : RONDA DENNEY MD This examination was interpreted and the report reviewed and electronically signed by: RONDA DENNEY MD on Dec 30 2019 5:40PM EST Normal [facility] PSA Screenon 12-22-2019 PSA Screen 1.82 ng/mL Normal 0.00-3.90 [facility] Comment on above: Performed By: #### P SAS #### [facility] [address] [place] [address] Comprehensive Panelon 2019 Albumin [Mass/Vol] 4.5 g/dL Normal 3.9-4.9 [facility] Comment on above: Performed By: #### C D19X #### [facility] [address] [place] [address] ALP [Catalytic activity/Vol] 96 U/L Normal 38-113 [facility] Comment on above: Performed By: #### C D19X #### [facility] [address] [place] [address] ALT-SGPT Blood 21 U/L Normal 10-54 [facility] Comment on above: Performed By: #### C D19X #### [facility] [address] [place] [address] Anion gap [Moles/Vol] 9 mmol/L Normal 9-18 [facility] Comment on above: Performed By: #### C D19X #### [facility] [address] [place] [address] AST-SGOT Blood 15 U/L Normal 14-40 [facility] Comment on above: Performed By: #### C D19X #### [facility] [address] [place] [address] Bilirubin [Mass/Vol] 0.7 mg/dL Normal 0.2-1.3 [facility] Comment on above: Performed By: #### C D19X #### [facility] [address] [place] [address] Calcium [Mass/Vol] 9.6 mg/dL Normal 8.5-10.2 [facility] Comment on above: Performed By: #### C D19X #### [facility] [address] [place] [address] Chloride [Moles/Vol] 104 mmol/L Normal 97-105 [facility] Comment on above: Performed By: #### C D19X #### [facility] [address] [place], [place] [address] CO2 [Moles/Vol] 26 mmol/L Normal 22-30 [facility] Comment on above: Performed By: #### C D19X #### [facility] [address] [place], [place] [address] Creatinine [Mass/Vol] 1.10 mg/dL Normal 0.73-1.22 [facility] Comment on above: Performed By: #### C D19X #### [address] [address] Glucose [Mass/Vol] 93 mg/dL Normal 74-99 [facility] Comment on above: Result Comment: The [place] Diabetes Association (ADA) provides guidance for cutoff values for fasting glucose and random glucose. The ADA defines fasting as no caloric intake for at least 8 hours.Fasting plasma glucose results between 100 to 125 mg/dL indicate increased risk for diabetes (prediabetes). Fasting plasma glucose results greater than or equal to 126 mg/dL meet the criteria for diagnosis of diabetes. In the absence of unequivocal hyperglycemia, results should be confirmed by repeat testing. In a patient with classic symptoms of hyperglycemia or hyperglycemic crisis, random plasma glucose results greater than or equal to 200 mg/dL meet the criteria for diagnosis of diabetes. Reference: Standards of Medical Care in Diabetes 2016; [place] Diabetes Association. Diabetes Care. 2016;39(Suppl 1). Performed By: #### C D19X #### [facility] [address] [place], [place] [address] Potassium [Moles/Vol] 4.1 mmol/L Normal 3.7-5.1 [facility] Comment on above: Performed By: #### C D19X #### [facility] [address] [place], [place] [address] Protein [Mass/Vol] 7.4 g/dL Normal 6.3-8.0 [facility] Comment on above: Performed By: #### C D19X #### [facility] [address] [place], [place] [address] Sodium [Moles/Vol] 139 mmol/L Normal 136-144 [facility] Comment on above: Performed By: #### C D19X #### [address], [place] [address] Urea nitrogen [Mass/Vol] 19 mg/dL Normal 9-24 [facility] Comment on above: Performed By: #### C D19X #### [facility] [address] [place] [address] Hemogramon 12-21-2019 Erythrocyte distribution width (RBC) [Ratio] 13.2 % Normal 11.5-15.9 [facility] Comment on above: Performed By: #### L CBC #### [facility] [address] [place] [address] Hematocrit (Bld) [Volume fraction] 45.5 % Normal 42.0-52.0 [facility] Comment on above: Performed By: #### L CBC #### [facility] [address] [place] [address] Hemoglobin (Bld) [Mass/Vol] 14.6 g/dL Normal 14.0-18.0 [facility] Comment on above: Performed By: #### L CBC #### [facility] [address] [place] [address] MCH (RBC) [Entitic mass] 28.9 pg Normal 27.0-31.0 [facility] Comment on above: Performed By: #### L CBC #### [facility] [address] [place] [address] MCHC 32.1 % Normal 32.0-36.0 [facility] Comment on above: Performed By: #### L CBC #### [place] [address] MCV (RBC) [Entitic vol] 90.1 fL Normal 80.0-94.0 [facility] Comment on above: Performed By: #### L CBC #### [facility] [address] [place] [address] Platelet mean volume (Bld) [Entitic vol] 9.6 fL Normal 7.1-10.5 [facility] Comment on above: Performed By: #### L CBC #### [place] [address] Platelets (Bld) [#/Vol] 230 10*3/uL Normal 150-400 [facility] Comment on above: Performed By: #### L CBC #### [facility] [address] [place], [place] [address] RBC 5.05 mil/cmm Normal 4.60-6.20 [facility] Comment on above: Performed By: #### L CBC #### [facility] [address] [place] [id number] WBC (Bld) [#/Vol] 5.2 10*3/uL Normal 4.8-10.5 [facility] Comment on above: Performed By: #### L CBC #### [facility] [address] [place] [address] Lipid Profile, Basicon 12-20 Cholesterol [Mass/Vol] 196 mg/dL Normal 0-199 [facility] Comment on above: Result Comment: Tota l Cholesterol < 200 mg/dL, Desirable Total Cholesterol 200 to 239 mg/dL, Borderline high Total Cholesterol > 239 mg/dL, High Performed By: #### L LPF #### [place] [address] Cholesterol in HDL [Mass/Vol] 53 mg/dL Normal [facility] Comment on above: Result Comment: Refe rence Range: HDL Cholesterol 40- 59 mg/dL, Acceptable HDL Cholesterol >59 mg/dL, High; Negative risk factor for coronary heart disease HDL Cholesterol <40 mg/dL, Low; Positive risk factor for coronary heart disease Performed By: #### L LPF #### [facility] [address] [place] [address] Cholesterol in LDL [Mass/Vol] 112 mg/dL High 0-99 [facility] Comment on above: Result Comment: LDL Cholesterol < 100 mg/dL, Optimal LDL Cholesterol 100 to 129 mg/dL, Near optimal/above optimal LDL Cholesterol 130 to 159 mg/dL, Borderline high LDL Cholesterol 160 to 189 mg/dL, High LDL Cholesterol > 189 mg/dL, Very high Secondary prevention optimal LDL Cholesterol levels are recommended to be < 70 mg/dL Performed By: #### L LPF #### [facility] [address] [place] [id number] Cholesterol.total/Alma sterol in HDL [Mass ratio] 3.70 {ratio} Normal 0.00-5.09 [facility] Comment on above: Performed By: #### L LPF #### [facility] [address] [place] [address] FASTING TIME 12 Hrs Normal [facility] Comment on above: Performed By: #### L LPF #### [place] [address] LDL/HDL 2.11 Normal 0.00-2.53 [facility] Comment on above: Performed By: #### L LPF #### [place] [address] Non-HDL Cholesterol 143 mg/dL High 0-129 [facility] Comment on above: Result Comment: Non HDL Cholesterol < 130 mg/dL, Optimal Non HDL Cholesterol 130 to 159 mg/dL, Near optimal/above optimal Non HDL Cholesterol 160 to 189 mg/dL, Borderline high Non HDL Cholesterol 190 to 219 mg/dL, High Non HDL Cholesterol > 219 mg/dL, Very high Secondary prevention optimal non HDL Cholesterol levels are recommended to be < 100 mg/dL Performed By: #### L LPF #### [place] [address] Triglyceride Blood 153 mg/dL High 0-149 [facility] Comment on above: Result Comment: Trig lycerides < 150 mg/dL, Normal Triglycerides 150 to 199 mg/dL, Borderline high Triglycerides 200 to 499 mg/dL, High Triglycerides > 499 mg/dL, Very high Performed By: #### L LPF #### [place] [address] VLDL Cholesterol 31 mg/dL High 0-29 [facility] Comment on above: Performed By: #### L LPF #### [place] [address] MDRD eGFRon 12-21-2019 GFR/1.73 sq M.predicted among non-blacks MDRD (S/P/Bld) [Vol rate/Area] mL/min/{1.73_m2} Normal >60mL/min/1.7 3m2 [facility] Comment on above: Result Comment: If t he patient is , multiply the result by 1.210. Performed By: #### L GFR #### [facility] [address] [place] [id number] Vital Signs Date Time Vital Sign Value Performing Clinician Facility 12-09-2024 10:05-0400 Body height 188 cm Dimitri Malhotra APRN.STEAM CLEANING MACHINE OPERATOR Work Phone: [facility] 12-09-2024 10:05-0400 Body mass index (BMI) [Ratio] 26.45 kg/m2 Dimitri Malhorta APRN.STEAM CLEANING MACHINE OPERATOR Work Phone: [facility] 12-09-2024 10:05-0400 Body temperature 98.01 [degF] Dimitri Malhotra APRN.STEAM CLEANING MACHINE OPERATOR Work Phone: [facility] 12-09-2024 10:05-0400 Body weight 93.44 kg Dimitri Malhotra APRN.STEAM CLEANING MACHINE OPERATOR Work Phone: [facility] 12-09-2024 10:05-0400 Diastolic blood pressure 62 mm[Hg] Dimitri Malhotra APRN.STEAM CLEANING MACHINE OPERATOR Work Phone: [facility] 12-09-2024 10:05-0400 Heart rate 74 /min Dimitri Malhotra APRN.STEAM CLEANING MACHINE OPERATOR Work Phone: [facility] 12-09-2024 10:05-0400 Respiratory rate 16 /min Dimitri Malhotra APRN.STEAM CLEANING MACHINE OPERATOR Work Phone: [facility] 12-09-2024 10:05-0400 SaO2% (BldA) [Mass fraction] 96 % Dimitri Malhotra APRN.STEAM CLEANING MACHINE OPERATOR Work Phone: [facility] 12-09-2024 10:05-0400 Systolic blood pressure 108 mm[Hg] Dimitri Malhotra APRN.STEAM CLEANING MACHINE OPERATOR Work Phone: [facility] 12-04-2023 08:26-0400 Diastolic blood pressure 78 mm[Hg] Nurse [place] Work Phone: [facility] 12-04-2023 08:26-0400 Systolic blood pressure 126 mm[Hg] Nurse [place] Work Phone: [facility] 12-04-2023 08:16-0400 Heart rate 68 /min Nurse [place] Work Phone: [facility] 11-04-2023 09:08-0400 Diastolic blood pressure 90 mm[Hg] Dimitri Trinathan OCEAN LIFEGUARD.STEAM CLEANING MACHINE OPERATOR Work Phone: [facility] 11-04-2023 09:08-0400 Systolic blood pressure 158 mm[Hg] Dimitri Trinathan OCEAN LIFEGUARD.STEAM CLEANING MACHINE OPERATOR Work Phone: [facility] 11-04-2023 08:42-0400 Body height 188 cm Dimitri Malhotra OCEAN LIFEGUARD.STEAM CLEANING MACHINE OPERATOR Work Phone: [facility] 11-04-2023 08:42-0400 Body mass index (BMI) [Ratio] 25.55 kg/m2 Dimitri Malhotra OCEAN LIFEGUARD.STEAM CLEANING MACHINE OPERATOR Work Phone: [facility] 11-04-2023 08:42-0400 Body temperature 98.29 [degF] Dimitri Trill OCEAN LIFEGUARD.STEAM CLEANING MACHINE OPERATOR Work Phone: [facility] 11-04-2023 08:42-0400 Body weight 90.27 kg Dimitri Malhotra OCEAN LIFEGUARD.STEAM CLEANING MACHINE OPERATOR Work Phone: [facility] 11-04-2023 08:42-0400 Heart rate 79 /min Dimitri Malhotra OCEAN LIFEGUARD.STEAM CLEANING MACHINE OPERATOR Work Phone: [facility] 11-04-2023 08:42-0400 SaO2% (BldA) [Mass fraction] 98 % Dimitri Trill OCEAN LIFEGUARD.STEAM CLEANING MACHINE OPERATOR Work Phone: [facility] 06-05-2023 09:26-0500 Diastolic blood pressure 84 mm[Hg] Dimitri Trill OCEAN LIFEGUARD.STEAM CLEANING MACHINE OPERATOR Work Phone: [facility] 06-05-2023 09:26-0500 Systolic blood pressure 134 mm[Hg] Dimitri Trill OCEAN LIFEGUARD.STEAM CLEANING MACHINE OPERATOR Work Phone: [facility] 06-05-2023 09:02-0500 Body height 188 cm Dimitri Trill OCEAN LIFEGUARD.STEAM CLEANING MACHINE OPERATOR Work Phone: [facility] 06-05-2023 09:02-0500 Body temperature 98.01 [degF] Dimitri Trill OCEAN LIFEGUARD.STEAM CLEANING MACHINE OPERATOR Work Phone: [facility] 06-05-2023 09:02-0500 Body weight 90.27 kg Dimitri Trill OCEAN LIFEGUARD.STEAM CLEANING MACHINE OPERATOR Work Phone: [facility] 06-05-2023 09:02-0500 Heart rate 76 /min Dimitri Trill OCEAN LIFEGUARD.STEAM CLEANING MACHINE OPERATOR Work Phone: [facility] 06-05-2023 09:02-0500 SaO2% (BldA) [Mass fraction] 98 % Dimitri Trill OCEAN LIFEGUARD.STEAM CLEANING MACHINE OPERATOR Work Phone: [facility] 04-24-2023 08:41-0400 Diastolic blood pressure 76 mm[Hg] Dimitri Trill OCEAN LIFEGUARD.STEAM CLEANING MACHINE OPERATOR Work Phone: [facility] 04-24-2023 08:41-0400 Systolic blood pressure 140 mm[Hg] Dimitri Trill OCEAN LIFEGUARD.STEAM CLEANING MACHINE OPERATOR Work Phone: [facility] 04-24-2023 08:34-0400 Body height 188 cm Dimitri Trill OCEAN LIFEGUARD.STEAM CLEANING MACHINE OPERATOR Work Phone: [facility] 04-24-2023 08:34-0400 Body temperature 97.7 [degF] Dimitri Trill OCEAN LIFEGUARD.STEAM CLEANING MACHINE OPERATOR Work Phone: [facility] 04-24-2023 08:34-0400 Body weight 88.91 kg Dimitri Trill OCEAN LIFEGUARD.STEAM CLEANING MACHINE OPERATOR Work Phone: [facility] 04-24-2023 08:34-0400 Heart rate 71 /min Dimitri Trill OCEAN LIFEGUARD.STEAM CLEANING MACHINE OPERATOR Work Phone: [facility] 04-24-2023 08:34-0400 SaO2% (BldA) [Mass fraction] 95 % Dimitri Trill OCEAN LIFEGUARD.STEAM CLEANING MACHINE OPERATOR Work Phone: [facility] 03-13-2023 08:34-0400 Body height 188 cm Dimitri Trill OCEAN LIFEGUARD.STEAM CLEANING MACHINE OPERATOR Work Phone: [facility] 03-13-2023 08:34-0400 Body temperature 97.81 [degF] Dimitri Trill OCEAN LIFEGUARD.STEAM CLEANING MACHINE OPERATOR Work Phone: [facility] 03-13-2023 08:34-0400 Body weight 88.91 kg Dimitri Trill OCEAN LIFEGUARD.STEAM CLEANING MACHINE OPERATOR Work Phone: [facility] 03-13-2023 08:34-0400 Diastolic blood pressure 78 mm[Hg] Dimitri Trill OCEAN LIFEGUARD.STEAM CLEANING MACHINE OPERATOR Work Phone: [facility] 03-13-2023 08:34-0400 Heart rate 68 /min Dimitri Trill OCEAN LIFEGUARD.STEAM CLEANING MACHINE OPERATOR Work Phone: [facility] 03-13-2023 08:34-0400 SaO2% (BldA) [Mass fraction] 97 % Dimitri Trill OCEAN LIFEGUARD.STEAM CLEANING MACHINE OPERATOR Work Phone: [facility] 03-13-2023 08:34-0400 Systolic blood pressure 144 mm[Hg] Dimitri Trill OCEAN LIFEGUARD.STEAM CLEANING MACHINE OPERATOR Work Phone: [facility] 12-10-2022 09:01-0400 Diastolic blood pressure 88 mm[Hg] Dimitri Trill OCEAN LIFEGUARD.STEAM CLEANING MACHINE OPERATOR Work Phone: [facility] 12-10-2022 09:01-0400 Systolic blood pressure 152 mm[Hg] Dimitri Trill OCEAN LIFEGUARD.STEAM CLEANING MACHINE OPERATOR Work Phone: [facility] 12-10-2022 08:28-0400 Body height 188 cm Dimitri Trill OCEAN LIFEGUARD.STEAM CLEANING MACHINE OPERATOR Work Phone: [facility] 12-10-2022 08:28-0400 Body temperature 97.9 [degF] Dimitri Trill OCEAN LIFEGUARD.STEAM CLEANING MACHINE OPERATOR Work Phone: [facility] 12-10-2022 08:28-0400 Body weight 89.81 kg Dimitri Trill OCEAN LIFEGUARD.STEAM CLEANING MACHINE OPERATOR Work Phone: [facility] 12-10-2022 08:28-0400 Heart rate 72 /min Dimitri Malhotra APRN.STEAM CLEANING MACHINE OPERATOR Work Phone: [facility] 12-10-2022 08:28-0400 SaO2% (BldA) [Mass fraction] 96 % Dimitri Malhotra APRN.STEAM CLEANING MACHINE OPERATOR Work Phone: [facility] 06-30-2022 18:44-0500 Heart rate 88 /min [facility] Work Phone: 06-30-2022 18:44-0500 Respiratory rate 15 /min [facility] [place] [facility] Work Phone: 06-30-2022 18:44-0500 SaO2% (BldA) [Mass fraction] 98 % [facility] Work Phone: 06-30-2022 16:45-0500 Diastolic blood pressure 77 mm[Hg] [facility] Work Phone: 06-30-2022 16:45-0500 Systolic blood pressure 129 mm[Hg] [facility] Work Phone: 06-30-2022 13:45-0500 Body height 187.96 cm [facility] Work Phone: 06-30-2022 13:45-0500 Body mass index (BMI) [Ratio] 23.7 kg/m2 [facility] Work Phone: 06-30-2022 13:45-0500 Body temperature 97.8 [degF] [facility] [place] [facility] Work Phone: 06-30-2022 13:45-0500 Body weight 83.91 kg [facility] Work Phone: 06-19-2022 09:58-0500 Body mass index (BMI) [Ratio] 23.7 kg/m2 [facility] Work Phone: 06-19-2022 09:58-0500 Body temperature 98 [degF] [facility] [place] [facility] Work Phone: 06-19-2022 09:58-0500 Body weight 83.91 kg [facility] Work Phone: 06-19-2022 09:58-0500 Diastolic blood pressure 89 mm[Hg] [facility] Work Phone: 06-19-2022 09:58-0500 Heart rate 100 /min [facility] Work Phone: 06-19-2022 09:58-0500 Respiratory rate 18 /min [facility] [place] [facility] Work Phone: 06-19-2022 09:58-0500 SaO2% (BldA) [Mass fraction] 99 % [facility] Work Phone: 06-19-2022 09:58-0500 Systolic blood pressure 128 mm[Hg] [facility] Work Phone: 06-05-2022 09:14-0500 Body height 188 cm Dimitri Malhotra APRN.STEAM CLEANING MACHINE OPERATOR Work Phone: [facility] 06-05-2022 09:14-0500 Body temperature 97.59 [degF] Dimitri Malhotra OCEAN LIFEGUARD.STEAM CLEANING MACHINE OPERATOR Work Phone: [facility] 06-05-2022 09:14-0500 Body weight 85.28 kg Dimitri Malhotra OCEAN LIFEGUARD.STEAM CLEANING MACHINE OPERATOR Work Phone: [facility] 06-05-2022 09:14-0500 Diastolic blood pressure 72 mm[Hg] Dimitri Malhotra OCEAN LIFEGUARD.STEAM CLEANING MACHINE OPERATOR Work Phone: [facility] 06-05-2022 09:14-0500 Heart rate 74 /min Dimitri Malhotra OCEAN LIFEGUARD.STEAM CLEANING MACHINE OPERATOR Work Phone: [facility] 06-05-2022 09:14-0500 SaO2% (BldA) [Mass fraction] 97 % Dimitri Trinathan OCEAN LIFEGUARD.STEAM CLEANING MACHINE OPERATOR Work Phone: [facility] 06-05-2022 09:14-0500 Systolic blood pressure 124 mm[Hg] Dimitri Trinathan OCEAN LIFEGUARD.STEAM CLEANING MACHINE OPERATOR Work Phone: [facility] 03-15-2022 11:24-0400 Body weight 89.81 kg Inge Flores MD Work Phone: [facility] 03-15-2022 11:24-0400 Diastolic blood pressure 88 mm[Hg] Inge Flores MD Work Phone: [facility] 03-15-2022 11:24-0400 Heart rate 80 /min Inge Flores MD Work Phone: [facility] 03-15-2022 11:24-0400 Respiratory rate 19 /min Inge Flores MD Work Phone: [facility] 03-15-2022 11:24-0400 SaO2% (BldA) [Mass fraction] 98 % Inge Flores MD Work Phone: [facility] 03-15-2022 11:24-0400 Systolic blood pressure 130 mm[Hg] Inge Flores MD Work Phone: [facility] Encounters Encounter Date Encounter Type Care Provider Facility Start: 01-15-2025 End: 01-15-2025 Follow-up encounter Dimitri Malhotra APRN.STEAM CLEANING MACHINE OPERATOR Work Phone: [facility] Comment on above: Results Start: 01-14-2025 ambulatory DIMITRI MALHOTRA Facilit y:[facility] Start: 01-14-2025 End: 01-14-2025 Subsequent hospital visit by physician [facility] Comment on above: Lump in chest [R22.2 ] Start: 12-09-2024 End: 12-09-2024 ambulatory DIMITRI MALHOTRA Facility:[facility] Start: 12-09-2024 End: 12-09-2024 Patient encounter procedure Dimitri Malhotra APRN.STEAM CLEANING MACHINE OPERATOR Work Phone: [facility] Comment on above: Lump in chest (Prima ry Dx); Gastroesophageal reflux disease, unspecified whether esophagitis present; Impaired cognition; Memory loss; Essential hypertension; Vitamin D deficiency; Other hyperlipidemia; Unspecified lump in the right breast, upper inner quadrant; Benign prostatic hyperplasia without lower urinary tract symptoms; Major depressive disorder, recurrent, in partial remission Start: 12-06-2024 End: 12-07-2024 Follow-up encounter Dimitri Malhotra APRN.CNP Work Phone: [facility] Comment on above: Results Start: 11-28-2024 End: 11-28-2024 ambulatory DIMITRI MALHOTRA Facility:[facility] Start: 03-25-2024 End: 03-26-2024 Refill Dimitri Malhotra APRN.CNP Work Phone: [facility] Comment on above: Refill Request Start: 12-04-2023 End: 12-04-2023 Nursing evaluation of patient and report Nurse Gypsy Simeon [place] Work Phone: [facility] Comment on above: Essential hypertensi on (Primary Dx) Start: 11-27-2023 Refill Dimitri otero APRN.CNP Work Phone: [facility] Comment on above: Med Change Request Start: 11-04-2023 End: 11-04-2023 Patient encounter procedure Dimitri Malhotra APRN.STEAM CLEANING MACHINE OPERATOR Work Phone: [facility] Comment on above: Essential hypertensi on (Primary Dx); Moderate recurrent major depression (HCC); Other hyperlipidemia; Anxiety; Gastroesophageal reflux disease, unspecified whether esophagitis present Start: 08-29-2023 ambulatory DIMITRI MALHOTRA Facilit y:[facility] Start: 08-29-2023 End: 08-29-2023 Subsequent hospital visit by physician Mri [facility] (Istat/3t) Work Phone: [facility] Radiology MRI Comment on above: Cognitive impairment , mild, so stated [G31.84] Start: 08-13-2023 Refill Dimitri Rodriguezl l OCEAN LIFEGUARDSTACY Work Phone: [facility] Comment on above: Refill Request Start: 08-08-2023 End: 08-08-2023 Subsequent hospital visit by physician Mri [place] [facility] (1.5t) [facility] Comment on above: Cognitive impairment , mild, so stated [G31.84] Start: 06-19-2023 Telephone encounter Dimitri Malhotra APRN.CNP Work Phone: [facility] Comment on above: Lab Orders Start: 06-05-2023 End: 06-05-2023 Patient encounter procedure Dimitri Malhotra APRN.CNP Work Phone: [facility] Comment on above: Depression, recurren t (HCC) (Primary Dx); Essential hypertension Start: 05-10-2023 End: 05-10-2023 ambulatory DIMITRI MALHOTRA Facility:[facility] Start: 05-10-2023 End: 05-10-2023 Subsequent hospital visit by physician [facility] (I-Stat) Work Phone: [facility] Comment on above: Lung nodules [R91.8] Start: 04-24-2023 End: 04-24-2023 Patient encounter procedure Dimitri Malhotra APRN.STEAM CLEANING MACHINE OPERATOR Work Phone: [facility] Comment on above: Episode of recurrent major depressive disorder, unspecified depression episode severity (HCC) (Primary Dx); Essential hypertension; Other hyperlipidemia; Encounter for immunization; Anxiety; Depression, recurrent (HCC) Start: 03-13-2023 End: 03-13-2023 Patient encounter procedure Dimitri Malhotra APRN.STEAM CLEANING MACHINE OPERATOR Work Phone: [facility] Comment on above: Essential hypertensi on (Primary Dx); Other hyperlipidemia; Impaired cognition; Depressive disorder; Anxiety Start: 03-07-2023 Refill Dimitri otero APRN.STEAM CLEANING MACHINE OPERATOR Work Phone: [facility] Comment on above: Refill Request Start: 01-01-2023 End: 01-01-[facility] Start: 01-01-2023 End: 01-01-2023 Patient encounter procedure [facility] Work Phone: Start: 12-10-2022 End: 12-10-2022 Patient encounter procedure Dimitri C Trill OCEAN LIFEGUARD.STEAM CLEANING MACHINE OPERATOR Work Phone: [facility] Comment on above: Essential hypertensi on (Primary Dx); Other hyperlipidemia; Episode of recurrent major depressive disorder, unspecified depression episode severity (HCC); Generalized weakness Start: 12-02-2022 Refill Dimitri C Tril l OCEAN LIFEGUARD.STEAM CLEANING MACHINE OPERATOR Work Phone: [facility] Comment on above: Refill Request Start: 12-01-2022 Refill Dimitri C Tril l OCEAN LIFEGUARD.STEAM CLEANING MACHINE OPERATOR Work Phone: [facility] Comment on above: Refill Request Start: 11-07-2022 Refill Dimitri C Tril l OCEAN LIFEGUARD.STEAM CLEANING MACHINE OPERATOR Work Phone: [facility] Comment on above: Refill Request Start: 10-08-2022 Encounter for other preprocedural examination Shawn Neves [facility] Start: 09-06-2022 Refill Dimitri C Tril l [employer]CEAN LIFEGUARD.STEAM CLEANING MACHINE OPERATOR Work Phone: [facility] Comment on above: Refill Request Start: 08-09-2022 Refill Dimitri C Tril l OCEAN LIFEGUARD.STEAM CLEANING MACHINE OPERATOR Work Phone: [facility] Comment on above: Refill Request Start: 07-10-2022 Encounter for other preprocedural examination [facility] Start: 07-10-2022 Encounter for preprocedural laboratory examination [facility] Start: 07-10-2022 ambulatory [facility] lity:[facility] Start: 07-03-2022 ambulatory Zuleyma Jordan [facility] Comment on above: ED OUTREACH Start: 06-30-2022 End: 06-30-2022 Emergency department patient visit Dimitri Malhotra NP Facility:[facility] Start: 06-30-2022 End: 06-30-2022 Emergency department patient visit [facility] Start: 06-25-2022 ambulatory Dimitri C Tril l OCEAN LIFEGUARD.STEAM CLEANING MACHINE OPERATOR Work Phone: [facility] Start: 06-25-2022 Follow-up encounter Dimitri Malhotra OCEAN LIFEGUARD.STEAM CLEANING MACHINE OPERATOR Work Phone: [facility] Comment on above: ED Follow Up (Jeanne r ED discharge 06/19/2022 ED outreach ) Start: 06-19-2022 End: 06-19-2022 Emergency department patient visit Dimitri Malhotra NP Facility:[facility] Start: 06-19-2022 End: 06-19-2022 Emergency department patient visit [facility] Start: 06-18-2022 End: 06-18-2022 Patient encounter procedure [facility]Labor[facility], Specimen Start: 06-18-2022 End: 06-18-2022 ambulatory [facility] Work Phone: Start: 06-05-2022 End: 06-05-2022 Patient encounter procedure Dimitri Malhotra OCEAN LIFEGUARD.STEAM CLEANING MACHINE OPERATOR Work Phone: [facility] Comment on above: Essential hypertensi on (Primary Dx); Other hyperlipidemia; Anxiety; Encounter for immunization; Advanced directives, counseling/discussion Start: 06-04-2022 End: 06-04-2022 ambulatory Willie Brown Facility:[facility] Start: 06-04-2022 End: 06-04-2022 ambulatory Shawn [facility] Work Phone: Start: 06-04-2022 End: 06-04-2022 Patient encounter procedure [facility]Neurology Start: 05-28-2022 End: 05-28-2022 ambulatory DIMITRI MALHOTRA Facility:[facility] Start: 05-22-2022 ambulatory Dimitri Rodriguezl l OCEAN LIFEGUARD.STEAM CLEANING MACHINE OPERATOR Work Phone: [employer] Start: 05-13-2022 Refill Dimitri Rodriguezl l OCEAN LIFEGUARD.STEAM CLEANING MACHINE OPERATOR Work Phone: [facility] Comment on above: Refill Request Start: 03-28-2022 Telephone encounter Inge Flores MD Work Phone: Pulmonary Medicine Comment on above: Results Start: 03-15-2022 End: 03-15-2022 Patient encounter procedure Inge Flores MD Work Phone: Pulmonary Medicine Comment on above: Diaphragm dysfunctio n (Primary Dx); SOB (shortness of breath); Lung nodules Start: 02-14-2022 Refill Dimitri otero APRN.STEAM CLEANING MACHINE OPERATOR Work Phone: [facility] Start: 12-09-2020 End: 12-09-2020 Subsequent hospital visit by physician Xr [facility] [place] Work Phone: Radiology Start: 05-24-2020 End: 05-24-2020 Subsequent hospital visit by physician Xr [facility] [place] Work Phone: Radiology Comment on above: Foot pain, left [M79 .672] Start: 05-18-2020 End: 05-18-2020 Subsequent hospital visit by physician Xr [facility] [place] Work Phone: Radiology Comment on above: Acute left ankle pradip n [M25.572] Procedures Date Procedure Procedure Detail Performing Clinician Start: 01-14-2025 Us breast uni real t jorge with image limited Dimitri Malhotra APRN.STEAM CLEANING MACHINE OPERATOR Work Phone: Start: 01-14-2025 Digital breast tomosynthesis bilateral Dimitri Malhotra APRN.STEAM CLEANING MACHINE OPERATOR Work Phone: Start: 11-28-2024 Lipid 1996 panel - S bradly or Plasma Dimitri Malhotra APRN.STEAM CLEANING MACHINE OPERATOR Work Phone: Start: 06-21-2023 Lipid 1996 panel - S bradly or Plasma Mri (1.5t) Start: 05-10-2023 Ct thorax w/o contra st material Inge Flores MD Work Phone: Start: 04-24-2023 INFLUENZA VACCINE, P RSV FREE, AGE 65+ YR, HIGH DOSE, QUADRIVALENT (FLUZONE HIGH-DOSE) Dimitri Malhotra APRN.STEAM CLEANING MACHINE OPERATOR Work Phone: Start: 12-10-2022 Lipid 1996 panel - S bradly or Plasma Dimitri Malhotra APRN.STEAM CLEANING MACHINE OPERATOR Work Phone: Start: 06-30-2022 CT of abdomen and pe lvis without contrast Start: 06-05-2022 [employer] COVI D-19 BIVALENT BOOSTER VACCINE, AGE 12+ YR Dimitri Malhotra OCEAN LIFEGUARD.STEAM CLEANING MACHINE OPERATOR Work Phone: Start: 06-05-2022 INFLUENZA SEASONAL QUADRIVALENT HIGH DOSE AGE 65+ Dimitri Malhotra OCEAN LIFEGUARD.STEAM CLEANING MACHINE OPERATOR Work Phone: Start: 12-09-2020 Radiologic exam ches t 2 views [facility] Provider Start: 05-24-2020 Radex foot complete minimum 3 views Cristina Concetta OCEAN LIFEGUARD.STEAM CLEANING MACHINE OPERATOR Work Phone: Start: 05-18-2020 Radex ankle complete minimum 3 views Eusebia Stanford OCEAN LIFEGUARD.STEAM CLEANING MACHINE OPERATOR Work Phone: Start: 03-04-2020 Colonoscopy Dimitri rivas OCEAN LIFEGUARD.STEAM CLEANING MACHINE OPERATOR Work Phone: Plan of Treatment Date Care Activity Detail Author Start: 11-28-2029 Lipid panel Lipid Screening [facility] Start: 06-15-2029 Urine microalbumin profile [facility] Start: 06-21-2028 Lipid panel Lipid Screening [facility] Start: 01-02-2028 PROSTATE CANCER SCREENING DISCUSSION PROSTATE CANCER SCREENING DISCUSSION [facility] Start: 01-02-2028 Prostate specific antigen measurement Prostate Cancer Screening Discussion [facility] Start: 12-11-2027 Lipid 1996 panel - Serum or Plasma Lipid Screening [facility] Start: 12-11-2027 Lipid panel Lipid Screening [facility] Start: 12-11-2027 LIPID SCREEN LIPID SCREEN [facility] Start: 11-29-2027 Diabetes Screening Diabetes Screenin g [facility] Start: 05-28-2027 LIPID SCREEN LIPID SCREEN [facility] Start: 02-21-2026 LIPID SCREEN LIPID SCREEN [facility] Start: 12-10-2025 DIABETES SCREEN DIABETES SCREEN [facility] Start: 12-10-2025 Diabetes Screening Diabetes Screenin g [facility] Start: 12-09-2025 Annual PCP Team Outside Repairer Special massiel Disease Visit Annual PCP Team Chronic Disease Visit [facility] Start: 12-09-2025 BP Controlled (<130/80) BP Controlle d (<130/80) [facility] Start: 06-15-2025 End: 06-15-2025 Patient encounter procedure 06/15/2025 9:00 AM EST Office Visit [facility] [address] [place] [address] Dimitri Malhotra APRN.STEAM CLEANING MACHINE OPERATOR [address] [place] [address] hypertension, cholesterol [facility] Comment on above: hypertension, choles terol Start: 05-28-2025 DIABETES SCREEN DIABETES SCREEN [facility] Start: 03-08-2025 Influenza vaccination [facility] Start: 12-20-2024 PROSTATE CANCER SCREENING DISCUSSION PROSTATE CANCER SCREENING DISCUSSION [facility] Start: 12-03-2024 BP Controlled (<130/80) BP Controlle d (<130/80) [facility] Start: 11-03-2024 Annual PCP Team Outside Repairer Special massiel Disease Visit Annual PCP Team Chronic Disease Visit [facility] Start: 11-03-2024 Covid-19 Vaccine () Covid-19 Vaccine () [facility] Comment on above: Postponed from 09/02 (Declined at this time) Start: 08-05-2024 Annual PCP Team Outside Repairer Special massiel Disease Visit Annual PCP Team Chronic Disease Visit [facility] Start: 07-08-2024 Advance Directive Discussion Advance Directive Discussion [facility] Start: 06-05-2024 Annual PCP Team Outside Repairer Special massiel Disease Visit Annual PCP Team Chronic Disease Visit [facility] Start: 04-24-2024 Annual PCP Team Outside Repairer Special massiel Disease Visit Annual PCP Team Chronic Disease Visit [facility] Start: 03-13-2024 Annual PCP Team Outside Repairer Special massiel Disease Visit Annual PCP Team Chronic Disease Visit [facility] Start: 03-08-2024 Covid-19 Vaccine ( season) Covid-19 Vaccine () [facility] Start: 03-08-2024 Covid-19 Vaccine ( season) Covid-19 Vaccine () [facility] Start: 03-08-2024 Influenza vaccination Influenza Vacc ine (#1) [facility] Start: 02-22-2024 DIABETES SCREEN DIABETES SCREEN [facility] Start: 02-04-2024 End: 02-04-2024 Patient encounter procedure 02/04/2024 8:40 AM EDT Office Visit [facility] [address] [place] [address] Dmiitri Malhotra APRN.STEAM CLEANING MACHINE OPERATOR [address] [place] [address] 3 MTH F/U HTN [facility] Comment on above: 3 MTH F/U HTN Start: 02-03-2024 End: 02-03-2024 Patient encounter procedure 02/03/2024 8:40 AM EDT Office Visit [facility] [address] [place] [address] Dimitri Malhotra APRN.STEAM CLEANING MACHINE OPERATOR [address] [place] [address] 3 MTH F/U HTN [facility] Comment on above: 3 MTH F/U HTN Start: 12-11-2023 ANNUAL PCP TEAM FUNDING SPECIALIST MASSIEL DISEASE VISIT ANNUAL PCP TEAM CHRONIC DISEASE VISIT [facility] Start: 12-04-2023 End: 12-04-2023 Nursing evaluation of patient and report [facility] Comment on above: BP Check BP Check (RS Pt's appt, KT out of office) Start: 11-04-2023 End: 06-01-2024 CBC W Auto Differential panel - Blood COMPLETE BLOOD COUNT AND DIFFERENTIAL Lab Routine Essential hypertension Other hyperlipidemia Expected: 11/04/2023, Expires: 06/01/2024 [facility] Comment on above: Expected: 11/04/2023 , Expires: 06/01/2024 Start: 11-04-2023 End: 06-01-2024 Comprehensive metabolic 2000 panel - Serum or Plasma COMPREHENSIVE METABOLIC PANEL Lab Routine Essential hypertension Other hyperlipidemia Expected: 11/04/2023, Expires: 06/01/2024 [facility] Work Phone: Comment on above: Expected: 11/04/2023 , Expires: 06/01/2024 Start: 11-04-2023 End: 06-01-2024 Lipid 1996 panel - Serum or Plasma LIPID PANEL BASIC Lab Routine Essential hypertension Other hyperlipidemia Expected: 11/04/2023, Expires: 06/01/2024 [facility] Comment on above: Expected: 11/04/2023 , Expires: 06/01/2024 Start: 11-04-2023 End: 06-01-2024 Thyrotropin [Units/volume] in Serum or Plasma THYROID STIMULATING HORMONE Lab Routine Essential hypertension Other hyperlipidemia Expected: 11/04/2023, Expires: 06/01/2024 [facility] Comment on above: Expected: 11/04/2023 , Expires: 06/01/2024 Start: 07-08-2023 Advance Directive Discussion Advance Directive Discussion [facility] Start: 07-07-2023 ADVANCE DIRECTIVE DISCUSSION ADVANCE DIRECTIVE DISCUSSION [facility] Comment on above: Postponed from 07/08 (Declined at this time) Start: 06-19-2023 End: 09-18-2023 Lipid 1996 panel - Serum or Plasma LIPID PANEL BASIC Lab Routine Other hyperlipidemia Expected: 06/19/2023, Expires: 09/18/2023 [facility] Work Phone: Comment on above: Expected: 06/19/2023 , Expires: 09/18/2023 Start: 06-05-2023 ANNUAL PCP TEAM FUNDING SPECIALIST MASSIEL DISEASE VISIT ANNUAL PCP TEAM CHRONIC DISEASE VISIT [facility] Start: 06-05-2023 BP CONTROLLED (<130/80) BP CONTROLLE D (<130/80) [facility] Start: 06-05-2023 Pneumococcal Vaccine : 65+ (1 - PCV) Pneumococcal Vaccine: 65+ (1 - PCV) [facility] Comment on above: Postponed from 07/06 (Declined at this time) Start: 06-05-2023 PNEUMOCOCCAL: 65+ (1 - PCV) PNEUMOCOCCAL: 65+ (1 - PCV) [facility] Comment on above: Postponed from 07/06 (Declined at this time) Start: 03-08-2023 Covid-19 Vaccine ( season) Covid-19 Vaccine ( season) [facility] Start: 03-08-2023 Influenza vaccination [facility] Start: 01-03-2023 Screening for malign ant neoplasm of colon Cologuard (FIT-DNA) [facility] Start: 10-03-2022 COVID-19 VACCINE (5 - Pfizer series) COVID-19 VACCINE (5 - Pfizer series) [facility] Start: 07-08-2022 ADVANCE DIRECTIVE DISCUSSION ADVANCE DIRECTIVE DISCUSSION [facility] Start: 06-23-2022 ANNUAL PCP TEAM FUNDING SPECIALIST MASSIEL DISEASE VISIT ANNUAL PCP TEAM CHRONIC DISEASE VISIT [facility] Start: 06-19-2022 Jaxon post-voiding residual urine&/bladder cap US URINE CAPACITY MEASURE [facility] Work Phone: Start: 05-22-2022 End: 07-22-2022 Basic metabolic 2000 panel - Serum or Plasma BASIC METABOLIC PNL Lab Routine Essential hypertension Expected: 05/22/2022, Expires: 07/22/2022 [facility] Work Phone: Comment on above: Expected: 05/22/2022 , Expires: 07/22/2022 Start: 05-22-2022 End: 07-22-2022 Lipid 1996 panel - Serum or Plasma LIPID PANEL BASIC Lab Routine Other hyperlipidemia Expected: 05/22/2022, Expires: 07/22/2022 [facility] Work Phone: Comment on above: Expected: 05/22/2022 , Expires: 07/22/2022 Start: 05-22-2022 End: 07-22-2022 SCHEDULE LAB TESTING SCHEDULE LAB TESTING Lab Routine Expected: 05/22/2022, Expires: 07/22/2022 [facility] Work Phone: Comment on above: Expected: 05/22/2022 , Expires: 07/22/2022 Start: 03-08-2022 Influenza vaccination INFLUENZA (#1) [facility] Start: 10-22-2021 COVID-19 VACCINE (4 - Booster for Pfizer series) COVID-19 VACCINE (4 - Booster for Pfizer series) [facility] Start: 08-18-2021 COVID-19 VACCINE (4 - Booster for Pfizer series) COVID-19 VACCINE (4 - Booster for Pfizer series) [facility] Start: 07-08-2021 ADVANCE DIRECTIVE DISCUSSION ADVANCE DIRECTIVE DISCUSSION [facility] Start: 2021 Pneumococcal Vaccine : 65+ (1 - PCV) Pneumococcal Vaccine: 65+ (1 - PCV) [facility] Start: 2021 PNEUMOCOCCAL: 65+ (1 - PCV) PNEUMOCOCCAL: 65+ (1 - PCV) [facility] Start: 06-07-2021 Medicare Annual Wellness Visit Medicare Annual Wellness Visit [facility] Start: 03-04-2021 Colonoscopy COLONOSCOPY [facility] Start: 03-04-2021 COLORECTAL CANCER SCREENING COLORECTAL CANCER SCREENING [facility] Start: 03-04-2021 Screening for malign ant neoplasm of colon [facility] Start: 02-12-2020 BP CONTROLLED (<130/80) BP CONTROLLE D (<130/80) [facility] Start: 2016 RSV Vaccine (1 - 1-d ose 60+ series) RSV Vaccine (1 - 1-dose 60+ series) [facility] Start: 2001 COLOGUARD (FIT-DNA) COLOGUARD (FIT-D NA) [facility] Start: [address] COLONOGRAPHY [facility] Start: 2001 FECAL OCCULT BLOOD FECAL OCCULT BLOO D [facility] Start: 2001 Screening for malign ant neoplasm of colon [facility] Start: 2001 SIGMOIDOSCOPY SIGMOIDOSCOPY [facility] Start: 1974 HIV SCREENING HIV SCREENING [facility] End: 04-14-2023 Ct thorax w/o contrast material CT CHEST WO IVCON Radiology Routine Lung nodules 1 Occurrences starting 03/15/2022 until 04/14/2023 [facility] Work Phone: Comment on above: 1 Occurrences starti ng 03/15/2022 until 04/14/2023 End: 01-08-2026 DBT Breast - bilateral diagnostic for implant AMISHA DIAG W SNEHA BILATERAL Radiology Routine Lump in chest 1 Occurrences starting 12/09/2024 until 01/08/2026 [facility] Comment on above: 1 Occurrences starti ng 12/09/2024 until 01/08/2026 MR Brain WO contrast MRI BRAIN W O IVCON Radiology Routine Cognitive impairment, mild, so stated 08/29/2023 11:45 AM EST [facility] Work Phone: End: 09-03-2024 Mri brain brain stem w/o contrast material MRI BRAIN WO IVCON Radiology Routine Cognitive impairment, mild, so stated 1 Occurrences starting 08/05/2023 until 09/03/2024 [facility] Work Phone: Comment on above: 1 Occurrences starti ng 08/05/2023 until 09/03/2024 OXIMETRY - NOCTURNAL OXIMETRY - NOCTURNAL Procedures Routine Diaphragm dysfunction Ordered: 03/15/2022 [facility] Work Phone: Comment on above: Ordered: 03/15/2022 Patient Education [facility] Work Phone: Patient referral [facility] Work Phone: End: 01-08-2026 US Breast - right limited US BREAST LTD RIGHT Radiology Routine Lump in chest Unspecified lump in the right breast, upper inner quadrant 1 Occurrences starting 12/09/2024 until 01/08/2026 [facility] Work Phone: Comment on above: 1 Occurrences starti ng 12/09/2024 until 01/08/2026 [facility] Immunizations Immunization Date Immunization Notes Care Provider Seth martínez 08-05-2023 pneumococcal conjuga te (PCV20) vaccine, 20 valent (PREVNAR 20) Mri (1.5t) [facility] 04-24-2023 influenza (HD-IIV4) vaccine, age 65+ yr, high dose, quadrivalent, PF (FLUZONE HIGH-DOSE) Dimitri Malhotra APRN.STEAM CLEANING MACHINE OPERATOR Work Phone: [facility] 04-24-2023 influenza virus vaccine, unspecified formulation Dimitri Malhotra APRN.STEAM CLEANING MACHINE OPERATOR Work Phone: [facility] 06-05-2022 COVID-19 booster vaccine, age 12+ yr, bivalent ([employer]) Dimitri Malhotra APRN.STEAM CLEANING MACHINE OPERATOR Work Phone: [facility] 06-05-2022 influenza, high-dose , quadrivalent vaccine (FLUZONE HIGH DOSE QUADRIVALENT) Dimitri Trill OCEAN LIFEGUARD.STEAM CLEANING MACHINE OPERATOR Work Phone: [facility] 06-05-2022 influenza virus vaccine, unspecified formulation Dimitri Trill OCEAN LIFEGUARD.STEAM CLEANING MACHINE OPERATOR Work Phone: [facility] 06-23-2021 COVID-19 vaccine, ag e 12+ yr (PFIZER-BIONTECH - PURPLE TOP) Dimitri Trill OCEAN LIFEGUARD.STEAM CLEANING MACHINE OPERATOR Work Phone: [facility] 03-24-2021 influenza, injectabl e, quadrivalent, contains preservative Dimitri Trill OCEAN LIFEGUARD.STEAM CLEANING MACHINE OPERATOR Work Phone: [facility] 04-14-2020 influenza, injectabl e, quadrivalent, contains preservative Dimitri Trill OCEAN LIFEGUARD.STEAM CLEANING MACHINE OPERATOR Work Phone: [facility] 02-23-2020 zoster vaccine recombinant Dimitri Trill OCEAN LIFEGUARD.STEAM CLEANING MACHINE OPERATOR Work Phone: [facility] 12-15-2019 zoster vaccine recombinant Dimitri Trill OCEAN LIFEGUARD.STEAM CLEANING MACHINE OPERATOR Work Phone: [facility] 06-15-2019 tetanus toxoid, redu tony diphtheria toxoid, and acellular pertussis vaccine, adsorbed Dimitri Trill OCEAN LIFEGUARD.[facility] Work Phone: [facility] 04-15-2019 influenza, injectabl e, quadrivalent, contains preservative Dimitri Trill OCEAN LIFEGUARD.[facility] Work Phone: [facility] Work Phone: Payers Date Payer Category Payer Private Health Insurance [id number] 2022 Self-pay [id number] 2021 Medicare [id number] 2021 Medicare [id number] 2017 Private Health Insurance [id number] 2017 Unknown [id number] Unknown [id number] Unknown [id number] Unknown [id number] Unknown [id number] [id number] Unknown [id number] [id number] [id number] Unknown [id number] [id number] Unknown [id number] [id number] Social History Date Type Detail Facility Tobacco smoking stat us NHIS Never smoked tobacco [facility] Start: 06-23-2021 End: 11-11-2023 Alcohol intake Current non-drinker of alcohol (finding) [facility] Start: 04-12-2020 End: 05-17-2020 History SDOH Alcohol Frequency 1 [facility] Start: 05-17-2020 History SDOH Social Connections Phone 3 [facility] Start: 04-12-2020 History SDOH Social Connections Living 4 [facility] Start: 05-17-2020 History SDOH Physical Activity MPS 6 [facility] Start: 04-12-2020 End: 06-29-2020 History SDOH Stress 2 [facility] Start: 04-12-2020 History SDOH Financial 5 [facility] Start: 04-12-2020 Education 12 [facility] Start: 1955 Sex Assigned At Male [facility] Start: 04-18-2020 End: 06-05-2022 Exposure to SARS-CoV-2 (event) Not sure [facility] Start: 06-30-2022 End: 06-30-2022 Tobacco smoking status NHIS Unknown if ever smoked [facility] Start: 05-17-2020 End: 12-10-2022 History of Social function [facility] Start: 05-17-2020 End: 12-10-2022 Social connection and isolation panel [facility] Frequency of Social Gatherings with Friends and Family Not on file [facility] Do you belong to any clubs or organizations such as jewish groups, unions, fraternal or athletic groups, or school groups? Yes [facility] How often to you hav e a drink containing alcohol? Never [facility] Do you feel stress - tense, restless, nervous, or anxious, or unable to sleep at night because your mind is troubled all the time - these days [OSQ] Only a little [facility] (I/We) worried wheth er (my/our) food would run out before (I/we) got money to buy more. Never true [facility] In the past 12 month s, was there a time when you were not able to pay the mortgage or rent on time? No [facility] Start: 01-13-2020 Gender identity Identifies as male gender (finding) [facility] Start: 01-13-2020 Sexual orientation Heterosexual (finding) [facility] Start: 12-09-2024 Alcoholic beverage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 made. He has had sleep studies and they have been normal Rarely exercises now Occasional coffee just once a week Depression - has improved since increasing Prozac to 40 mg daily Memory loss - has been the same PAST MEDICAL HISTORY Diagnosis Date Alteration in nutrition Alteration in nutrition: less than body requirements, caloric intake is likely less than daily requirements Bilateral neural hearing loss Decreased white blood cell count, unspecified Elevated diaphragm Essential hypertension Hiatal hernia with GERD 03/04/2020 Impaired cognition Difficulty with problem solving and performing tasks previously done well Memory impairment Other symptoms and signs involving cognitive functions and awareness Paresthesia of hand bilateral hands Poor short term memory Rectal polyp 03/04/2020 PAST SURGICAL HISTORY Procedure Laterality Date COLONOSCOPY W/BIOPSY SINGLE/MULTIPLE 03/04/2020 rectal polyp; Dr. Amaral EGD 12/08/2020 2 cm HH. Biopsies reflux esophagitis. Dr. Luis EGD TRANSORAL BIOPSY SINGLE/MULTIPLE 03/04/2020 hiatal hernia; Dr. Amaral HERNIA REPAIR HX 07/08/2000 ALLERGIES Patient has no known allergies. MEDICATIONS FLUoxetine (PROZAC) 20 mg capsule take 2 capsules by mouth every day lisinopril (ZESTRIL) 10 mg tablet Take 1 tablet by mouth once daily. pravastatin (PRAVACHOL) 40 mg tablet Take 1 tablet by mouth once daily. tamsulosin (FLOMAX) 0.4 mg Take 0.4 mg by mouth once daily. FAMILY HISTORY Problem Relation Age of Onset Heart Mother Heart Father Heart Maternal Grandmother Heart Maternal Grandfather Heart Paternal Grandmother Heart Paternal Grandfather Social History Tobacco Use Smoking status: Never Smokeless tobacco: Never Vaping Use Vaping Use: Never used Substance Use Topics Alcohol use: No Drug use: No Review of Systems Constitutional: Negative for appetite change, chills, fatigue, fever and unexpected weight change. HENT: Negative for congestion, ear pain, rhinorrhea and sore throat. Eyes: Negative for pain, discharge, itching and visual disturbance. Respiratory: Negative for cough, shortness of breath and wheezing. Cardiovascular: Negative for chest pain, palpitations and leg swelling. Gastrointestinal: Negative for abdominal pain, constipation, diarrhea, nausea and vomiting. Still gets abdominal bloating and discomfort - Genitourinary: Negative for difficulty urinating. Musculoskeletal: Negative for arthralgias. Skin: Negative for rash. Neurological: Negative for dizziness, tremors, weakness and headaches. Psychiatric/Behavioral: Positive for depression, dysphoric mood and sleep disturbance. The patient is not nervous/anxious. Objective BP 138/90 Pulse 79 Temp 98.3 Ht 6' 2 (1.88m) Wt 199 lb (90.3kg) SpO2 98% BMI 25.54 kg/(m^2). Physical Exam Constitutional: Appearance: Normal appearance. He is well-developed. He is not diaphoretic. HENT: Head: Normocephalic and atraumatic. Right Ear: Hearing, tympanic membrane, ear canal and external ear normal. Left Ear: Hearing, tympanic membrane, ear canal and external ear normal. Nose: Nose normal. Mouth/Throat: Lips: [place]. Mouth: Mucous membranes are moist. Pharynx: Oropharynx is clear. Eyes: General: Lids are normal. Conjunctiva/sclera: Conjunctivae normal. Pupils: Pupils are equal, round, and reactive to light. Neck: Vascular: Normal carotid pulses. No carotid bruit or JVD. Cardiovascular: Rate and Rhythm: Normal rate and regular rhythm. Pulses: Carotid pulses are 2+ on the right side and 2+ on the left side. Radial pulses are 2+ on the right side and 2+ on the left side. Dorsalis pedis pulses are 2+ on the right side and 2+ on the left side. Heart sounds: Normal heart sounds. No murmur heard. Pulmonary: Effort: Pulmonary effort is normal. Breath sounds: Normal breath sounds. No wheezing, rhonchi or rales. Abdominal: General: Bowel sounds are normal. Palpations: Abdomen is soft. Tenderness: There is no abdominal tenderness. Musculoskeletal: General: Normal range of motion. Cervical back: Normal range of motion and neck supple. Right lower leg: No edema. Left lower leg: No edema. Lymphadenopathy: Cervical: No cervical adenopathy. Skin: General: Skin is warm and dry. Findings: No rash. Neurological: General: No focal deficit present. Mental Status: He is alert and oriented to person, place, and time. Cranial Nerves: No cranial nerve deficit. Sensory: Sensation is intact. Motor: Motor function is intact. Coordination: Coordination is intact. Gait: Gait is intact. Psychiatric: Attention and Perception: Attention and perception normal. Mood and Affect: Mood and affect normal. Speech: Speech normal. Behavior: Behavior normal. Behavior is cooperative. Thought Content: Thought content normal. Judgment: Judgment normal. Latest Ref Rng 12/10/2022 06/21/2023 Protein, Total 6.3 - 8.0 g/dL 7.0 Albumin 3.9 - 4.9 g/dL 4.4 Calcium 8.5 - 10.2 mg/dL 9.4 Bilirubin, Total 0.2 - 1.3 mg/dL 0.6 Alkaline Phosphatase 38 - 113 U/L 87 AST 14 - 40 U/L 16 ALT 10 - 54 U/L 14 Glucose 74 - 99 mg/dL 96 BUN 9 - 24 mg/dL 22 Creatinine 0.73 - 1.22 mg/dL 1.08 Sodium 136 - 144 mmol/L 140 Potassium 3.7 - 5.1 mmol/L 4.5 Chloride 97 - 105 mmol/L 105 CO2 22 - 30 mmol/L 25 Anion Gap 9 - 18 mmol/L 10 eGFR >=60 mL/min/1.73m 76 WBC 3.70 - 11.00 k/uL 4.16 RBC 4.20 - 6.00 m/uL 4.91 Hemoglobin 13.0 - 17.0 g/dL 14.4 Hematocrit 39.0 - 51.0 % 44.1 MCV 80.0 - 100.0 fL 89.8 MCH 26.0 - 34.0 pg 29.3 MCHC 30.5 - 36.0 g/dL 32.7 RDW-CV 11.5 - 15.0 % 12.5 Platelet Count 150 - 400 k/uL 193 MPV 9.0 - 12.7 fL 9.7 Cholesterol, Total <200 mg/dL 188 169 Triglyceride <150 mg/dL 93 83 HDL Cholesterol >39 mg/dL 57 56 Non HDL Cholesterol <130 mg/dL 131 (H) 113 Fasting Time hrs 12 12 VLDL Cholesterol <30 mg/dL 19 17 TC:HDL Ratio <5.10 3.30 3.02 LDL Cholesterol <100 mg/dL 112 (H) 96 LDL:HDL Ratio <2.54 1.96 1.71 TSH 0.270 - 4.200 mIU/L 3.480 Free T4 0.9 - 1.7 ng/dL 1.3 Vitamin B12 232 - 1,245 pg/mL 434 ASSESSMENT/PLAN: 1. Essential hypertension - ICD9: 401.9, ICD10: I10 (primary diagnosis) - Uncontrolled - Increase lisinopril to 20 mg daily - Recommend home blood pressure monitoring, to bring results to next visit - Encouraged sodium restriction, DASH or Mediterranean diet - Recommend regular aerobic exercise - COMPREHENSIVE METABOLIC PANEL - COMPLETE BLOOD COUNT AND DIFFERENTIAL - LIPID PANEL BASIC - THYROID STIMULATING HORMONE - LISINOPRIL 20 MG TABLET 2. Depression, recurrent (HCC) - ICD9: 296.30, ICD10: F33.9 Stable on Prozac 40 mg daily 3. Other hyperlipidemia - ICD9: 272.4, ICD10: E78.49 - PRAVASTATIN 40 MG TABLET - COMPREHENSIVE METABOLIC PANEL - COMPLETE BLOOD COUNT AND DIFFERENTIAL - LIPID PANEL BASIC - THYROID STIMULATING HORMONE 4. Anxiety - ICD9: 300.00, ICD10: F41.9 Stable on Prozac 40 mg daily 5. 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 FALL SCREENING: Has the patient had 2 falls in the last year or 1 fall with injury or currently using an Ambulatory Assistive Device (Walker, Cane, Wheelchair, Crutches, etc.)? No PATIENT GENDER DATA: Male PATIENT RELEVANT IMPLANT DATA REVIEWED: Yes PATIENT PRESENTS WITH AN IMPLANTABLE OR ATTACHED CYLINDER BLOCK MECHANIC: No RADIOLOGY DEPARTMENT: MR; Exam(s) Completed: Head: Routine Brain PERIPHERAL IV DATA: Not applicable SIGNED BY: RT Kane(R)Carlos RT(R) August 29, 2023 7:28 AM documented in this encounter [facility] 08-14-2023 Miscellaneous Notes pharmacy electronically requesting refills as follows: Last seen 08/05/23 . Last refill 04/24/23 . Requested Prescriptions Pending Prescriptions Disp Refills FLUoxetine (PROZAC) 20 mg capsule [Pharmacy Med Name: FLUOXETINE HCL 20 MG CAPSULE] 180 capsule 1 Sig: take 2 capsules by mouth every day Please review and advise. Edda Gonzalez MA documented in this encounter [facility] 06-19-2023 Miscellaneous Notes Letter sent Kristie Chamorro MA Vm not set up. My chart message sent. Zuleyma Layton MA Thank you. Please see orders. Dimitri Malhotra APRN.AXEL ----- Message from Kristie Chamorro MA sent at 12/18/2022 8:33 AM EDT ----- Recheck lipids in 6 months Kristie Chamorro MA documented in this encounter [facility] 06-05-2023 History of Presen t illness Narrative This note was created using [employer]. Subjective Kirt Winkler is a 67 year old male here today for follow-up depression. I reviewed past medical, surgical, social, and family histories today and updated chart. Allergies, chronic medications, and supplements were also reviewed. Feeling better overall with increased dose of fluoxetine Not worrying as much Still has some days where he doesn't care much Laughed at a show today and he noticed this because he usually doesn't laugh out loud His friend from the senior living kept calling him so he decided to go in and visit again Not eating great Skipping meals Would like to weigh less Eating donuts Doesn't really like vegetables Does like green beans Likes fruit Sleep - not sleeping well at all Sometimes will go to bed at 12 Gets up everyday at 4 am Trouble falling asleep Doesn't have a lot of energy but feels if he had to walk to [place] right now he could do it Worked for [employer] 39 years and only missed one day of work - went to hospital with kidney stones PAST MEDICAL HISTORY Diagnosis Date Alteration in nutrition Alteration in nutrition: less than body requirements, caloric intake is likely less than daily requirements Bilateral neural hearing loss Decreased white blood cell count, unspecified Elevated diaphragm Essential hypertension Hiatal hernia with GERD 03/04/2020 Impaired cognition Difficulty with problem solving and performing tasks previously done well Memory impairment Other symptoms and signs involving cognitive functions and awareness Paresthesia of hand bilateral hands Poor short term memory Rectal polyp 03/04/2020 PAST SURGICAL HISTORY Procedure Laterality Date COLONOSCOPY W/BIOPSY SINGLE/MULTIPLE 03/04/2020 rectal polyp; Dr. Amaral EGD 12/08/2020 2 cm HH. Biopsies reflux esophagitis. Dr. Luis EGD TRANSORAL BIOPSY SINGLE/MULTIPLE 03/04/2020 hiatal hernia; Dr. Amaral HERNIA REPAIR HX 07/08/2000 ALLERGIES Patient has no known allergies. MEDICATIONS FLUoxetine (PROZAC) 20 mg capsule Take 2 capsules by mouth once daily. lisinopril (ZESTRIL) 10 mg tablet TAKE 1 TABLET BY MOUTH EVERY DAY pravastatin (PRAVACHOL) 40 mg tablet Take 1 tablet by mouth once daily. tamsulosin (FLOMAX) 0.4 mg Take 0.4 mg by mouth once daily. FAMILY HISTORY Problem Relation Age of Onset Heart Mother Heart Father Heart Maternal Grandmother Heart Maternal Grandfather Heart Paternal Grandmother Heart Paternal Grandfather Social History Tobacco Use Smoking status: Never Smokeless tobacco: Never Vaping Use Vaping Use: Never used Substance Use Topics Alcohol use: No Drug use: No Review of Systems Constitutional: Positive for fatigue. Negative for appetite change, chills, fever and unexpected weight change. HENT: Negative for congestion, ear pain, rhinorrhea and sore throat. Eyes: Negative for pain, discharge, itching and visual disturbance. Respiratory: Negative for cough, shortness of breath and wheezing. Cardiovascular: Negative for chest pain, palpitations and leg swelling. Gastrointestinal: Negative for abdominal pain, constipation, diarrhea, nausea and vomiting. Genitourinary: Negative for difficulty urinating. Musculoskeletal: Negative for arthralgias. Skin: Negative for rash. Neurological: Negative for dizziness, tremors, weakness and headaches. Psychiatric/Behavioral: Positive for dysphoric mood and sleep disturbance. The patient is not nervous/anxious. Objective BP 146/84 Pulse 76 Temp 36.7 C (98 F) Ht 188 cm (6' 2) Wt 90.3 kg (199 lb) SpO2 98% BMI 25.55 kg/m 134 84 Physical Exam HENT: Head: Normocephalic and atraumatic. Eyes: Conjunctiva/sclera: Conjunctivae normal. Pupils: Pupils are equal, round, and reactive to light. Cardiovascular: Rate and Rhythm: Normal rate and regular rhythm. Pulses: Normal pulses. Heart sounds: Normal heart sounds. Pulmonary: Effort: Pulmonary effort is normal. Breath sounds: Normal breath sounds. Musculoskeletal: Cervical back: Normal range of motion and neck supple. Lymphadenopathy: Cervical: No cervical adenopathy. Skin: General: Skin is warm and dry. Neurological: General: No focal deficit present. Mental Status: He is alert and oriented to person, place, and time. Cranial Nerves: No cranial nerve deficit. Sensory: Sensation is intact. Motor: Motor function is intact. Coordination: Coordination is intact. Psychiatric: Attention and Perception: Attention and perception normal. Mood and Affect: Mood and affect normal. Mood is not anxious or depressed. Affect is not labile or inappropriate. Speech: Speech normal. Behavior: Behavior normal. Behavior is not agitated. Thought Content: Thought content normal. Thought content does not include suicidal ideation. Cognition and Memory: Cognition normal. Judgment: Judgment normal. Judgment is not impulsive. PHQ-9 06/05/2022 04/24/2023 06/05/2023 Score 0 7 7 (0-4) minimal depression, (5-9) mild depression, (10-14) moderate depression, (15-19) moderately severe depression, (20-27) severe depression ASSESSMENT/PLAN: 1. Depression, recurrent (HCC) - ICD9: 296.30, ICD10: F33.9 (primary diagnosis) Improving on prozac 20 mg once a day FU 2 months, sooner if needed 2. Essential hypertension - ICD9: 401.9, ICD10: I10 Fair control Continue lisinopril 10 mg daily - LISINOPRIL 10 MG TABLET Dimitri Malhotra APRN.STEAM CLEANING MACHINE OPERATOR documented in this encounter [facility] 05-10-2023 Note HNO ID: [id number] Author: Zoe Amaya RT(R) Service: Radiology Author Type: Technologist Type: Progress Notes Filed: 05/10/2023 8:17 AM Note Text: Radiology Service Progress Note PATIENT NAME: Kirt Winkler DATE OF SERVICE: May 10, 2023 TIME: 8:17 AM PATIENT IDENTITY VERIFICATION COMPLETED USING TWO (2) IDENTIFIERS: Name and Date of confirmed by patient verbally. FALL SCREENING: Has the patient had 2 falls in the last year or 1 fall with injury or currently using an Ambulatory Assistive Device (Walker, Cane, Wheelchair, Crutches, etc.)? No PATIENT GENDER DATA: Male PATIENT RELEVANT IMPLANT DATA REVIEWED: Not Applicable RADIOLOGY DEPARTMENT: CT; Exam(s) Completed: Chest PERIPHERAL IV DATA: Not applicable SIGNED BY: RT Regan(R) May 10, 2023 8:17 AM [facility] 05-10-2023 History of Presen t illness Narrative Radiology Service Progress Note PATIENT NAME: Kirt Winkler DATE OF SERVICE: May 10, 2023 TIME: 8:17 AM PATIENT IDENTITY VERIFICATION COMPLETED USING TWO (2) IDENTIFIERS: Name and Date of confirmed by patient verbally. FALL SCREENING: Has the patient had 2 falls in the last year or 1 fall with injury or currently using an Ambulatory Assistive Device (Walker, Cane, Wheelchair, Crutches, etc.)? No PATIENT GENDER DATA: Male PATIENT RELEVANT IMPLANT DATA REVIEWED: Not Applicable RADIOLOGY DEPARTMENT: CT; Exam(s) Completed: Chest PERIPHERAL IV DATA: Not applicable SIGNED BY: RT Regan(R) May 10, 2023 8:17 AM documented in this encounter [facility] 04-24-2023 History of Presen t illness Narrative This note was created using [employer]. Subjective Kirt Winkler is a 67 year old male here today for follow-up depression. I reviewed past medical, surgical, social, and family histories today and updated chart. Allergies, chronic medications, and supplements were also reviewed. Overall doing okay Still has days where he doesn't want to do anything Feels like he is less worried about things He is worried about getting older Had to stop visiting his jewish friends at the senior living. Feels guilty about it but also feels better Diet - doing good most of the time Fast food maybe twice a month Needs to increase vegetables PAST MEDICAL HISTORY Diagnosis Date Alteration in nutrition Alteration in nutrition: less than body requirements, caloric intake is likely less than daily requirements Bilateral neural hearing loss Decreased white blood cell count, unspecified Elevated diaphragm Essential hypertension Hiatal hernia with GERD 03/04/2020 Impaired cognition Difficulty with problem solving and performing tasks previously done well Memory impairment Other symptoms and signs involving cognitive functions and awareness Paresthesia of hand bilateral hands Poor short term memory Rectal polyp 03/04/2020 PAST SURGICAL HISTORY Procedure Laterality Date COLONOSCOPY W/BIOPSY SINGLE/MULTIPLE 03/04/2020 rectal polyp; Dr. Amaral EGD 12/08/2020 2 cm HH. Biopsies reflux esophagitis. Dr. Luis EGD TRANSORAL BIOPSY SINGLE/MULTIPLE 03/04/2020 hiatal hernia; Dr. Amaral HERNIA REPAIR HX 07/08/2000 ALLERGIES Patient has no known allergies. MEDICATIONS FLUoxetine (PROZAC) 20 mg capsule Take 1 capsule by mouth once daily. lisinopril (ZESTRIL) 10 mg tablet TAKE 1 TABLET BY MOUTH EVERY DAY pravastatin (PRAVACHOL) 40 mg tablet Take 1 tablet by mouth once daily. tamsulosin (FLOMAX) 0.4 mg Take 0.4 mg by mouth once daily. FAMILY HISTORY Problem Relation Age of Onset Heart Mother Heart Father Heart Maternal Grandmother Heart Maternal Grandfather Heart Paternal Grandmother Heart Paternal Grandfather Social History Tobacco Use Smoking status: Never Smokeless tobacco: Never Vaping Use Vaping Use: Never used Substance Use Topics Alcohol use: No Drug use: No Review of Systems Constitutional: Negative for appetite change, chills, fatigue, fever and unexpected weight change. HENT: Negative for congestion, ear pain, rhinorrhea and sore throat. Eyes: Negative for pain, discharge, itching and visual disturbance. Respiratory: Negative for cough, shortness of breath and wheezing. Cardiovascular: Negative for chest pain, palpitations and leg swelling. Gastrointestinal: Negative for abdominal pain, constipation, diarrhea, nausea and vomiting. Genitourinary: Negative for difficulty urinating. Musculoskeletal: Negative for arthralgias. Skin: Negative for rash. Neurological: Negative for dizziness, tremors, weakness and headaches. Psychiatric/Behavioral: Positive for dysphoric mood. Negative for sleep disturbance. The patient is nervous/anxious. Objective BP 140/76 Pulse 71 Temp 36.5 C (97.7 F) Ht 188 cm (6' 2) Wt 88.9 kg (196 lb) SpO2 95% BMI 25.16 kg/m Physical Exam HENT: Head: Normocephalic and atraumatic. Eyes: Conjunctiva/sclera: Conjunctivae normal. Pupils: Pupils are equal, round, and reactive to light. Cardiovascular: Rate and Rhythm: Normal rate and regular rhythm. Pulses: Normal pulses. Heart sounds: Normal heart sounds. Pulmonary: Effort: Pulmonary effort is normal. Breath sounds: Normal breath sounds. Musculoskeletal: Cervical back: Normal range of motion and neck supple. Lymphadenopathy: Cervical: No cervical adenopathy. Skin: General: Skin is warm and dry. Neurological: General: No focal deficit present. Mental Status: He is alert and oriented to person, place, and time. Cranial Nerves: No cranial nerve deficit. Sensory: Sensation is intact. Motor: Motor function is intact. Coordination: Coordination is intact. Psychiatric: Attention and Perception: Attention and perception normal. Mood and Affect: Mood and affect normal. Mood is not anxious or depressed. Affect is not labile or inappropriate. Speech: Speech normal. Behavior: Behavior normal. Behavior is not agitated. Thought Content: Thought content normal. Thought content does not include suicidal ideation. Cognition and Memory: Cognition normal. Judgment: Judgment normal. Judgment is not impulsive. PHQ-9 02/21/2021 06/05/2022 04/24/2023 Score 1 0 7 (0-4) minimal depression, (5-9) mild depression, (10-14) moderate depression, (15-19) moderately severe depression, (20-27) severe depression Component Latest Ref Rng & Units 12/10/2022 Protein, Total 6.3 - 8.0 g/dL 7.0 Albumin 3.9 - 4.9 g/dL 4.4 Calcium 8.5 - 10.2 mg/dL 9.4 Bilirubin, Total 0.2 - 1.3 mg/dL 0.6 Alkaline Phosphatase 38 - 113 U/L 87 AST 14 - 40 U/L 16 ALT 10 - 54 U/L 14 Glucose 74 - 99 mg/dL 96 BUN 9 - 24 mg/dL 22 Creatinine 0.73 - 1.22 mg/dL 1.08 Sodium 136 - 144 mmol/L 140 Potassium 3.7 - 5.1 mmol/L 4.5 Chloride 97 - 105 mmol/L 105 CO2 22 - 30 mmol/L 25 Anion Gap 9 - 18 mmol/L 10 eGFR >=60 mL/min/1.73m 76 WBC 3.70 - 11.00 k/uL 4.16 RBC 4.20 - 6.00 m/uL 4.91 Hemoglobin 13.0 - 17.0 g/dL 14.4 Hematocrit 39.0 - 51.0 % 44.1 MCV 80.0 - 100.0 fL 89.8 MCH 26.0 - 34.0 pg 29.3 MCHC 30.5 - 36.0 g/dL 32.7 RDW-CV 11.5 - 15.0 % 12.5 Platelet Count 150 - 400 k/uL 193 MPV 9.0 - 12.7 fL 9.7 Cholesterol, Total <200 mg/dL 188 Triglyceride <150 mg/dL 93 HDL Cholesterol >39 mg/dL 57 Non HDL Cholesterol <130 mg/dL 131 (H) Fasting Time hrs 12 VLDL Cholesterol <30 mg/dL 19 TC:HDL Ratio <5.10 3.30 LDL Cholesterol <100 mg/dL 112 (H) LDL:HDL Ratio <2.54 1.96 TSH 0.270 - 4.200 mIU/L 3.480 Free T4 0.9 - 1.7 ng/dL 1.3 Vitamin B12 232 - 1,245 pg/mL 434 ASSESSMENT/PLAN: 1. Episode of recurrent major depressive disorder, unspecified depression episode severity (HCC) - ICD9: 296.30, ICD10: F33.9 (primary diagnosis) Increase fluoxetine to 40 mg once a day - FLUOXETINE 20 MG CAPSULE 2. Essential hypertension - ICD9: 401.9, ICD10: I10 - Controlled - Continue current medications - Recommend home blood pressure monitoring, to bring results to next visit - Encouraged sodium restriction, DASH or Mediterranean diet - Recommend regular aerobic exercise 3. Other hyperlipidemia - ICD9: 272.4, ICD10: E78.49 Continue pravastatin 40 mg daily 4. Encounter for immunization - ICD9: V03.89, ICD10: Z23 - INFLUENZA VACCINE, PRSV FREE, AGE 65+ YR, HIGH DOSE, QUADRIVALENT (FLUZONE HIGH-DOSE) 5. Anxiety - ICD9: 300.00, ICD10: F41.9 - FLUOXETINE 20 MG CAPSULE Dimitri Malhotra APRN.STEAM CLEANING MACHINE OPERATOR documented in this encounter [facility] 04-24-2023 Nurse Note Pt. Given high dose flu vaccination with no complaints. Vis given. Zuleyma Layton MA documented in this encounter [facility] 03-13-2023 History of Presen t illness Narrative This note was created using [employer]. Subjective Kirt Winkler is a 67 year old male here today for hypertension follow-up visit. I reviewed past medical, surgical, social, and family histories today and updated chart. Allergies, chronic medications, and supplements were also reviewed. Feeling well today. Denies chest pains, palpitations, headache, dizziness, leg swelling, and vision changes. Diet - not too bad, does like salty foods Did stop potato chips Eats fast food about twice a month Mostly water Caffeine - decaf coffee once a week Gatorade occasionally Exercise - stopped exercising, thinks he's feeling depressed, low motivation Tobacco use - none Alcohol use - none Medication compliance - never forgets Medication side effects - none PAST MEDICAL HISTORY Diagnosis Date Alteration in nutrition Alteration in nutrition: less than body requirements, caloric intake is likely less than daily requirements Bilateral neural hearing loss Decreased white blood cell count, unspecified Elevated diaphragm Essential hypertension Hiatal hernia with GERD 03/04/2020 Impaired cognition Difficulty with problem solving and performing tasks previously done well Memory impairment Other symptoms and signs involving cognitive functions and awareness Paresthesia of hand bilateral hands Poor short term memory Rectal polyp 03/04/2020 PAST SURGICAL HISTORY Procedure Laterality Date COLONOSCOPY W/BIOPSY SINGLE/MULTIPLE 03/04/2020 rectal polyp; Dr. Amaral EGD 12/08/2020 2 cm HH. Biopsies reflux esophagitis. Dr. Luis EGD TRANSORAL BIOPSY SINGLE/MULTIPLE 03/04/2020 hiatal hernia; Dr. Amaral HERNIA REPAIR HX 07/08/2000 ALLERGIES Patient has no known allergies. MEDICATIONS lisinopril (ZESTRIL) 10 mg tablet TAKE 1 TABLET BY MOUTH EVERY DAY pravastatin (PRAVACHOL) 40 mg tablet Take 1 tablet by mouth once daily. tamsulosin (FLOMAX) 0.4 mg Take 0.4 mg by mouth once daily. FAMILY HISTORY Problem Relation Age of Onset Heart Mother Heart Father Heart Maternal Grandmother Heart Maternal Grandfather Heart Paternal Grandmother Heart Paternal Grandfather Social History Tobacco Use Smoking status: Never Smokeless tobacco: Never Vaping Use Vaping Use: Never used Substance Use Topics Alcohol use: No Drug use: No Review of Systems Constitutional: Negative for appetite change, chills, fatigue, fever and unexpected weight change. HENT: Positive for congestion. Negative for ear pain, rhinorrhea and sore throat. Still has soreness to his nose and some congestion Eyes: Negative for pain, discharge, itching and visual disturbance. Respiratory: Negative for cough, shortness of breath and wheezing. Cardiovascular: Negative for chest pain, palpitations and leg swelling. Gastrointestinal: Negative for abdominal pain, constipation, diarrhea, nausea and vomiting. Genitourinary: Negative for difficulty urinating. Musculoskeletal: Positive for back pain. Negative for arthralgias. Slight pressure on occasion Skin: Negative for rash. Neurological: Negative for dizziness, tremors, weakness and headaches. Psychiatric/Behavioral: Positive for dysphoric mood and sleep disturbance. The patient is not nervous/anxious. Takes 10 mg melatonin at bedtime and its helping Still has memory loss The other day he was getting dressed and forgot how to tie his neck tie. About 10 min later he remembered. Makes oatmeal everyday and some days will forget how many minutes to cook it Objective BP 144/78 Pulse 68 Temp 36.6 C (97.8 F) Ht 188 cm (6' 2) Wt 88.9 kg (196 lb) SpO2 97% BMI 25.16 kg/m 140/82 Physical Exam Constitutional: Appearance: Normal appearance. He is well-developed. He is not diaphoretic. HENT: Head: Normocephalic and atraumatic. Right Ear: Hearing, tympanic membrane, ear canal and external ear normal. Left Ear: Hearing, tympanic membrane, ear canal and external ear normal. Nose: Nose normal. Mouth/Throat: Lips: [place]. Mouth: Mucous membranes are moist. Pharynx: Oropharynx is clear. Eyes: General: Lids are normal. Conjunctiva/sclera: Conjunctivae normal. Pupils: Pupils are equal, round, and reactive to light. Neck: Vascular: Normal carotid pulses. No carotid bruit or JVD. Cardiovascular: Rate and Rhythm: Normal rate and regular rhythm. Pulses: Carotid pulses are 2+ on the right side and 2+ on the left side. Radial pulses are 2+ on the right side and 2+ on the left side. Dorsalis pedis pulses are 2+ on the right side and 2+ on the left side. Heart sounds: Normal heart sounds. No murmur heard. Pulmonary: Effort: Pulmonary effort is normal. Breath sounds: Normal breath sounds. No wheezing, rhonchi or rales. Abdominal: General: Bowel sounds are normal. Palpations: Abdomen is soft. Tenderness: There is no abdominal tenderness. Musculoskeletal: General: Normal range of motion. Cervical back: Normal range of motion and neck supple. Right lower leg: No edema. Left lower leg: No edema. Lymphadenopathy: Cervical: No cervical adenopathy. Skin: General: Skin is warm and dry. Findings: No rash. Neurological: General: No focal deficit present. Mental Status: He is alert and oriented to person, place, and time. Cranial Nerves: No cranial nerve deficit. Sensory: Sensation is intact. Motor: Motor function is intact. Coordination: Coordination is intact. Gait: Gait is intact. Psychiatric: Attention and Perception: Attention and perception normal. Mood and Affect: Affect normal. Mood is depressed. Speech: Speech normal. Behavior: Behavior normal. Behavior is cooperative. Thought Content: Thought content normal. Judgment: Judgment normal. Component Latest Ref Rng & Units 12/10/2022 Protein, Total 6.3 - 8.0 g/dL 7.0 Albumin 3.9 - 4.9 g/dL 4.4 Calcium 8.5 - 10.2 mg/dL 9.4 Bilirubin, Total 0.2 - 1.3 mg/dL 0.6 Alkaline Phosphatase 38 - 113 U/L 87 AST 14 - 40 U/L 16 ALT 10 - 54 U/L 14 Glucose 74 - 99 mg/dL 96 BUN 9 - 24 mg/dL 22 Creatinine 0.73 - 1.22 mg/dL 1.08 Sodium 136 - 144 mmol/L 140 Potassium 3.7 - 5.1 mmol/L 4.5 Chloride 97 - 105 mmol/L 105 CO2 22 - 30 mmol/L 25 Anion Gap 9 - 18 mmol/L 10 eGFR >=60 mL/min/1.73m 76 WBC 3.70 - 11.00 k/uL 4.16 RBC 4.20 - 6.00 m/uL 4.91 Hemoglobin 13.0 - 17.0 g/dL 14.4 Hematocrit 39.0 - 51.0 % 44.1 MCV 80.0 - 100.0 fL 89.8 MCH 26.0 - 34.0 pg 29.3 MCHC 30.5 - 36.0 g/dL 32.7 RDW-CV 11.5 - 15.0 % 12.5 Platelet Count 150 - 400 k/uL 193 MPV 9.0 - 12.7 fL 9.7 Cholesterol, Total <200 mg/dL 188 Triglyceride <150 mg/dL 93 HDL Cholesterol >39 mg/dL 57 Non HDL Cholesterol <130 mg/dL 131 (H) Fasting Time hrs 12 VLDL Cholesterol <30 mg/dL 19 TC:HDL Ratio <5.10 3.30 LDL Cholesterol <100 mg/dL 112 (H) LDL:HDL Ratio <2.54 1.96 TSH 0.270 - 4.200 mIU/L 3.480 Free T4 0.9 - 1.7 ng/dL 1.3 Vitamin B12 232 - 1,245 pg/mL 434 ASSESSMENT/PLAN: 1. Essential hypertension - ICD9: 401.9, ICD10: I10 (primary diagnosis) - Controlled - Continue current medications - lisinopril 10 mg daily - Recommend home blood pressure monitoring, to bring results to next visit - Encouraged sodium restriction, DASH or Mediterranean diet - Recommend regular aerobic exercise 2. Other hyperlipidemia - ICD9: 272.4, ICD10: E78.49 Continue pravastatin 40 mg daily (recently increased) Counseled patient on nutrition and exercise. 3. Impaired cognition - ICD9: 294.9, ICD10: R41.89 Evaluated by neuropsychiatry - Dr Alvarado Diagnosed with mild cognitive impairment, grief Patient would like to treat his depression before he goes for reevaluation 4. Depressive disorder - ICD9: 311, ICD10: F32.A Restart fluoxetine 20 mg daily FU in 6-8 weeks Dimitri Malhotra APRN.STEAM CLEANING MACHINE OPERATOR documented in this encounter [facility] 03-07-2023 Miscellaneous Notes Pharmacy requesting refills as follows: Last Office Visit 12/10/22. Last Refill 12/04/22. Requested Prescriptions Pending Prescriptions Disp Refills lisinopril (ZESTRIL) 10 mg tablet [Pharmacy Med Name: LISINOPRIL 10 MG TABLET] 90 tablet 0 Sig: TAKE 1 TABLET BY MOUTH EVERY DAY Please review and advise. Kristie Chamorro MA documented in this encounter [facility] 12-10-2022 History of Presen t illness Narrative This note was created using [employer]. Subjective Kirt Winkler is a 67 year old male here today for hypertension follow-up visit. I reviewed past medical, surgical, social, and family histories today and updated chart. Allergies, chronic medications, and supplements were also reviewed. Feeling well today. Denies chest pains, palpitations, headache, dizziness, leg swelling, and vision changes. Had his nasal septum surgery. Could not urinate the next day, had to go to ER. Angel catheter was placed, had it for 8 days, then removed and urinated fine but then developed kidney stones. July 13 had kidney stone remove with Dr. [facility] Ever since his surgeries he has felt weak Trying to exercise with weights, rowing machine, riding bike. Legs seem to be fine, they never get tried He gained about 10 lbs Diet - Not following specific diet Fast food about twice a month PAST MEDICAL HISTORY Diagnosis Date Alteration in nutrition Alteration in nutrition: less than body requirements, caloric intake is likely less than daily requirements Bilateral neural hearing loss Decreased white blood cell count, unspecified Elevated diaphragm Essential hypertension Hiatal hernia with GERD 03/04/2020 Impaired cognition Difficulty with problem solving and performing tasks previously done well Memory impairment Other symptoms and signs involving cognitive functions and awareness Paresthesia of hand bilateral hands Poor short term memory Rectal polyp 03/04/2020 PAST SURGICAL HISTORY Procedure Laterality Date COLONOSCOPY W/BIOPSY SINGLE/MULTIPLE 03/04/2020 rectal polyp; Dr. Amaral EGD 12/08/2020 2 cm HH. Biopsies reflux esophagitis. Dr. Luis EGD TRANSORAL BIOPSY SINGLE/MULTIPLE 03/04/2020 hiatal hernia; Dr. Amaral HERNIA REPAIR HX 07/08/2000 ALLERGIES Patient has no known allergies. MEDICATIONS tamsulosin (FLOMAX) 0.4 mg Take 0.4 mg by mouth once daily. lisinopril (ZESTRIL) 10 mg tablet TAKE 1 TABLET BY MOUTH EVERY DAY pravastatin (PRAVACHOL) 20 mg tablet TAKE 1 TABLET BY MOUTH EVERY DAY FLUoxetine (PROZAC) 20 mg capsule TAKE 1 CAPSULE BY MOUTH ONCE DAILY (Patient not taking: Reported on 12/10/2022) FAMILY HISTORY Problem Relation Age of Onset Heart Mother Heart Father Heart Maternal Grandmother Heart Maternal Grandfather Heart Paternal Grandmother Heart Paternal Grandfather Social History Tobacco Use Smoking status: Never Smokeless tobacco: Never Vaping Use Vaping Use: Never used Substance Use Topics Alcohol use: No Drug use: No Review of Systems Constitutional: Positive for fatigue. Negative for appetite change, chills, fever and unexpected weight change. HENT: Negative for congestion, ear pain, rhinorrhea and sore throat. Eyes: Negative for pain, discharge, itching and visual disturbance. Respiratory: Negative for cough, shortness of breath and wheezing. Cardiovascular: Negative for chest pain, palpitations and leg swelling. Gastrointestinal: Negative for abdominal pain, constipation, diarrhea, nausea and vomiting. Genitourinary: Negative for difficulty urinating. Musculoskeletal: Negative for arthralgias. Hx plantar fasciitis and bone spurs - really painful, painful to drive Tylenol doesn't really help Skin: Negative for rash. Neurological: Positive for weakness. Negative for dizziness, tremors and headaches. Psychiatric/Behavioral: Positive for dysphoric mood. Negative for sleep disturbance. The patient is not nervous/anxious. He states he gets confused, problem solving skills aren't right Kind of depressed but not too bad, he is able to get out of bed and do his daily routine Denies suicidal thoughts Objective BP 158/80 Pulse 72 Temp 36.6 C (97.9 F) Ht 188 cm (6' 2) Wt 89.8 kg (198 lb) SpO2 96% BMI 25.42 kg/m 152 88 Physical Exam Constitutional: Appearance: Normal appearance. He is well-developed. He is not diaphoretic. HENT: Head: Normocephalic and atraumatic. Right Ear: Hearing, tympanic membrane, ear canal and external ear normal. Left Ear: Hearing, tympanic membrane, ear canal and external ear normal. Nose: Nose normal. Mouth/Throat: Lips: [place]. Mouth: Mucous membranes are moist. Pharynx: Oropharynx is clear. Eyes: General: Lids are normal. Conjunctiva/sclera: Conjunctivae normal. Pupils: Pupils are equal, round, and reactive to light. Neck: Vascular: Normal carotid pulses. No carotid bruit or JVD. Cardiovascular: Rate and Rhythm: Normal rate and regular rhythm. Pulses: Carotid pulses are 2+ on the right side and 2+ on the left side. Radial pulses are 2+ on the right side and 2+ on the left side. Dorsalis pedis pulses are 2+ on the right side and 2+ on the left side. Heart sounds: Normal heart sounds. No murmur heard. Pulmonary: Effort: Pulmonary effort is normal. Breath sounds: Normal breath sounds. No wheezing, rhonchi or rales. Abdominal: General: Bowel sounds are normal. Palpations: Abdomen is soft. Tenderness: There is no abdominal tenderness. Musculoskeletal: General: Normal range of motion. Cervical back: Normal range of motion and neck supple. Right lower leg: No edema. Left lower leg: No edema. Lymphadenopathy: Cervical: No cervical adenopathy. Skin: General: Skin is warm and dry. Findings: No rash. Neurological: General: No focal deficit present. Mental Status: He is alert and oriented to person, place, and time. Cranial Nerves: No cranial nerve deficit. Sensory: Sensation is intact. Motor: Motor function is intact. Coordination: Coordination is intact. Gait: Gait is intact. Psychiatric: Attention and Perception: Attention and perception normal. Mood and Affect: Mood is depressed. Affect is flat. Speech: Speech normal. Behavior: Behavior normal. Behavior is cooperative. Thought Content: Thought content normal. Labs done May 2022 at [facility] = CBC normal, BMP normal Component Latest Ref Rng & Units 05/28/2022 Glucose 74 - 99 mg/dL 103 (H) BUN 9 - 24 mg/dL 19 Creatinine 0.73 - 1.22 mg/dL 1.01 Sodium 136 - 144 mmol/L 141 Potassium 3.7 - 5.1 mmol/L 4.0 Chloride 97 - 105 mmol/L 105 CO2 22 - 30 mmol/L 26 Anion Gap 9 - 18 mmol/L 10 Calcium 8.5 - 10.2 mg/dL 9.5 eGFR >=60 mL/min/1.73m 83 Cholesterol, Total <200 mg/dL 195 Triglyceride <150 mg/dL 112 HDL Cholesterol >39 mg/dL 54 Non HDL Cholesterol <130 mg/dL 141 (H) Fasting Time hrs 10 VLDL Cholesterol <30 mg/dL 22 TC:HDL Ratio <5.10 3.61 LDL Cholesterol <100 mg/dL 119 (H) LDL:HDL Ratio <2.54 2.20 ASSESSMENT/PLAN: 1. Essential hypertension - ICD9: 401.9, ICD10: I10 (primary diagnosis) - uncontrolled - Continue current medications - lisinopril 10 mg daily 1 month NV BP check, 3 months HTN visit - Recommend home blood pressure monitoring, to bring results to next visit - Encouraged sodium restriction, DASH or Mediterranean diet - Recommend regular aerobic exercise - TSH BLD - T4 FREE/FREE THYROX - LIPID PANEL BASIC - CBC - COMP METABOLIC PANEL 2. Other hyperlipidemia - ICD9: 272.4, ICD10: E78.49 Continue pravastain 20 mg daily - LIPID PANEL BASIC 3. Episode of recurrent major depressive disorder, unspecified depression episode severity (HCC) - ICD9: 296.30, ICD10: F33.9 Stable off medications, he would like to hold off on taking medications at this time FU 3 months, sooner if needed 4. Generalized weakness - ICD9: 780.79, ICD10: R53.1 Check labs Continue exercise - TSH BLD - T4 FREE/FREE THYROX - VITAMIN B12 BLOOD - CBC - COMP METABOLIC PANEL Dimitri Malhotra APRN.AXEL documented in this encounter [facility] 12-04-2022 Miscellaneous Notes pharmacy electronically requesting refills as follows: Last seen 06/05/22 . Last refill 09/06/22 . Requested Prescriptions Pending Prescriptions Disp Refills lisinopril (ZESTRIL) 10 mg tablet [Pharmacy Med Name: LISINOPRIL 10 MG TABLET] 90 tablet 0 Sig: TAKE 1 TABLET BY MOUTH EVERY DAY Please review and advise. Edda Gonzalez MA documented in this encounter [facility] 12-04-2022 Miscellaneous Notes pharmacy electronically requesting refills as follows: Last seen 06/05/22 . Last refill 06/05/22 . Requested Prescriptions Pending Prescriptions Disp Refills FLUoxetine (PROZAC) 20 mg capsule [Pharmacy Med Name: FLUOXETINE HCL 20 MG CAPSULE] 90 capsule 1 Sig: TAKE 1 CAPSULE BY MOUTH ONCE DAILY Please review and advise. Edda Gonzalez MA documented in this encounter [facility] 11-07-2022 Miscellaneous Notes Pharmacy requesting refills: Last office visit 06/05/2022. Last refill 08/09/2022 nov 12/10/2022 Requested Prescriptions Pending Prescriptions Disp Refills pravastatin (PRAVACHOL) 20 mg tablet [Pharmacy Med Name: PRAVASTATIN SODIUM 20 MG TAB] 90 tablet 0 Sig: TAKE 1 TABLET BY MOUTH EVERY DAY Please review and advise. Zuleyma Layton MA documented in this encounter [facility] 09-06-2022 Miscellaneous Notes Pharmacy requesting refills as follows: Last Office Visit 06/05/22. Last Refill 05/14/22. Requested Prescriptions Pending Prescriptions Disp Refills lisinopril (ZESTRIL, PRINIVIL) 10 mg tablet [Pharmacy Med Name: LISINOPRIL 10 MG TABLET] 90 tablet 0 Sig: TAKE 1 TABLET BY MOUTH EVERY DAY Please review and advise. Kristie Chamorro MA documented in this encounter [facility] 08-09-2022 Miscellaneous Notes Pharmacy requesting refills as follows: Last Office Visit 06/05/22. Last Refill 05/14/22. Requested Prescriptions Pending Prescriptions Disp Refills pravastatin (PRAVACHOL) 20 mg tablet [Pharmacy Med Name: PRAVASTATIN SODIUM 20 MG TAB] 90 tablet 0 Sig: TAKE 1 TABLET BY MOUTH EVERY DAY Please review and advise. Kristie Chamorro MA documented in this encounter [facility] 07-03-2022 History of Presen t illness Narrative ED Follow Up: Patient discharged from [facility] ED on 06/30/2022. 1. How are you feeling since your ED visit? NA Have your symptoms improved or resolved? Not applicable 2. Were you prescribed any medications while in the ED or advised to stop any medication? Not applicable - If yes, were you able to fill your prescriptions? Not applicable -if stopped medication, what was the medication? NA 3. Were you advised to schedule a follow up appointment with your provider? Not applicable - If no, Do you feel like you need an appointment scheduled? Not applicable - If yes, Do you need this scheduled now or has this already been scheduled? Not applicable 4. Were you able to contact the office or division sales manager provider prior to your ED visit? Not applicable 5. Is there anything else I can do for you today? Not applicable Tried contacting patient several times. Vm not set up. Zuleyma Layton MA documented in this encounter [facility] 06-25-2022 History of Presen t illness Narrative ED Follow Up: Patient discharged from [facility] ED on 06/19/2022. 1. How are you feeling since your ED visit? Left detailed message requesting pt to call the office to discuss new orders, angel catheter. Have your symptoms improved or resolved? Not applicable 2. Were you prescribed any medications while in the ED or advised to stop any medication? Not applicable - If yes, were you able to fill your prescriptions? Not applicable -if stopped medication, what was the medication? na 3. Were you advised to schedule a follow up appointment with your provider? Not applicable - If no, Do you feel like you need an appointment scheduled? Not applicable - If yes, Do you need this scheduled now or has this already been scheduled? Not applicable 4. Were you able to contact the office or division sales manager provider prior to your ED visit? Not applicable 5. Is there anything else I can do for you today? Not applicable Elisa Stewart LPN documented in this encounter [facility] 06-05-2022 Nurse Note Pt. Given covid booster after coming back with card. Waited 15 minutes. Zuleyma Layton MA Pt. Given high dose flu with no complaints. Vis given. Zuleyma Layton MA documented in this encounter [facility] 06-05-2022 History of Presen t illness Narrative This note was created using [employer]. Subjective Kirt Winkler is a 66 year old male here today for hypertension follow-up visit. I reviewed past medical, surgical, social, and family histories today and updated chart. Allergies, chronic medications, and supplements were also reviewed. Feeling well today. Denies chest pains, palpitations, headache, dizziness, leg swelling, and vision changes. Diet - Eating healthy Exercise - started exercising - stationary bike and rowing machine He has lost weight Tobacco use - none Alcohol use - none Medication compliance - never forgets Medication side effects - none reported Home blood pressure readings - none today Floppy diaphragm and deviated septum. Planning on having surgery for deviated septum this next month. Feels like the breathing is holding him back from exercising more He is worried about having the surgery because he is unable to swallow when he plugs his nose up Has post nasal drip Has never had classic heartburn symptoms but has had tests showing he has acid reflux He was on omeprazole and carafate in the past Has always thought maybe he's had trouble swallowing Had sleep study done but didn't need CPAP or oxygen at night PAST MEDICAL HISTORY Diagnosis Date Alteration in nutrition Alteration in nutrition: less than body requirements, caloric intake is likely less than daily requirements Bilateral neural hearing loss Decreased white blood cell count, unspecified Elevated diaphragm Essential hypertension Hiatal hernia with GERD 03/04/2020 Impaired cognition Difficulty with problem solving and performing tasks previously done well Memory impairment Other symptoms and signs involving cognitive functions and awareness Paresthesia of hand bilateral hands Poor short term memory Rectal polyp 03/04/2020 PAST SURGICAL HISTORY Procedure Laterality Date COLONOSCOPY W/BIOPSY SINGLE/MULTIPLE 03/04/2020 rectal polyp; Dr. Amaral EGD 12/08/2020 2 cm HH. Biopsies reflux esophagitis. Dr. Luis EGD TRANSORAL BIOPSY SINGLE/MULTIPLE 03/04/2020 hiatal hernia; Dr. Amaral HERNIA REPAIR HX 07/08/2000 ALLERGIES Patient has no known allergies. MEDICATIONS pravastatin (PRAVACHOL) 20 mg tablet TAKE 1 TABLET BY MOUTH EVERY DAY lisinopril (ZESTRIL, PRINIVIL) 10 mg tablet TAKE 1 TABLET BY MOUTH EVERY DAY FLUoxetine (PROZAC) 20 mg capsule TAKE 1 CAPSULE BY MOUTH ONCE DAILY buPROPion SR (ZYBAN SR; WELLBUTRIN SR) 150 mg 12 hr tablet TAKE 1 TABLET BY MOUTH TWICE A DAY (Patient not taking: Reported on 03/15/2022) omeprazole (PRILOSEC) 40 mg capsule Take 40 mg by mouth once daily. (Patient not taking: Reported on 03/15/2022) famotidine (PEPCID) 40 mg tablet TAKE 1 TABLET BY MOUTH EVERYDAY AT BEDTIME (Patient not taking: Reported on 03/15/2022) sucralfate (CARAFATE) 1 gram tablet Take 1 g by mouth twice daily. (Patient not taking: Reported on 03/15/2022) FAMILY HISTORY Problem Relation Age of Onset Heart Mother Heart Father Heart Maternal Grandmother Heart Maternal Grandfather Heart Paternal Grandmother Heart Paternal Grandfather Social History Tobacco Use Smoking status: Never Smokeless tobacco: Never Vaping Use Vaping Use: Never used Substance Use Topics Alcohol use: No Drug use: No Review of Systems Constitutional: Negative for appetite change, chills, fatigue, fever and unexpected weight change. HENT: Negative for congestion, ear pain, rhinorrhea and sore throat. Eyes: Negative for pain, discharge, itching and visual disturbance. Respiratory: Negative for cough, shortness of breath and wheezing. Cardiovascular: Negative for chest pain, palpitations and leg swelling. Gastrointestinal: Negative for abdominal pain, constipation, diarrhea, nausea and vomiting. Genitourinary: Negative for difficulty urinating. Musculoskeletal: Negative for arthralgias. Skin: Negative for rash. Neurological: Negative for dizziness, tremors, weakness and headaches. Psychiatric/Behavioral: Negative for dysphoric mood and sleep disturbance. The patient is not nervous/anxious. Objective BP 124/72 Pulse 74 Temp 36.4 C (97.6 F) Ht 188 cm (6' 2) Wt 85.3 kg (188 lb) SpO2 97% BMI 24.14 kg/m Physical Exam Constitutional: Appearance: Normal appearance. He is well-developed. He is not diaphoretic. HENT: Head: Normocephalic and atraumatic. Right Ear: Hearing, tympanic membrane, ear canal and external ear normal. There is impacted cerumen. Left Ear: Hearing, tympanic membrane, ear canal and external ear normal. Nose: Septal deviation present. Mouth/Throat: Lips: [place]. Mouth: Mucous membranes are moist. Pharynx: Oropharynx is clear. Eyes: General: Lids are normal. Conjunctiva/sclera: Conjunctivae normal. Pupils: Pupils are equal, round, and reactive to light. Neck: Vascular: Normal carotid pulses. No carotid bruit or JVD. Cardiovascular: Rate and Rhythm: Normal rate and regular rhythm. Pulses: Carotid pulses are 2+ on the right side and 2+ on the left side. Radial pulses are 2+ on the right side and 2+ on the left side. Dorsalis pedis pulses are 2+ on the right side and 2+ on the left side. Heart sounds: Normal heart sounds. No murmur heard. Pulmonary: Effort: Pulmonary effort is normal. Breath sounds: Normal breath sounds. No wheezing, rhonchi or rales. Abdominal: General: Bowel sounds are normal. Palpations: Abdomen is soft. Tenderness: There is no abdominal tenderness. Musculoskeletal: General: Normal range of motion. Cervical back: Normal range of motion and neck supple. Right lower leg: No edema. Left lower leg: No edema. Lymphadenopathy: Cervical: No cervical adenopathy. Skin: General: Skin is warm and dry. Findings: No rash. Neurological: General: No focal deficit present. Mental Status: He is alert and oriented to person, place, and time. Cranial Nerves: No cranial nerve deficit. Sensory: Sensation is intact. Motor: Motor function is intact. Coordination: Coordination is intact. Gait: Gait is intact. Psychiatric: Attention and Perception: Attention and perception normal. Mood and Affect: Affect normal. Mood is depressed. Speech: Speech normal. Behavior: Behavior normal. Behavior is cooperative. Thought Content: Thought content normal. Judgment: Judgment normal. Component Latest Ref Rng & Units 02/21/2021 05/28/2022 Protein, Total 6.3 - 8.0 g/dL 7.5 Albumin 3.9 - 4.9 g/dL 4.6 Calcium 8.5 - 10.2 mg/dL 9.9 9.5 Bilirubin, Total 0.2 - 1.3 mg/dL 0.5 Alkaline Phosphatase 38 - 113 U/L 83 AST 14 - 40 U/L 18 ALT 10 - 54 U/L 21 Glucose 74 - 99 mg/dL 94 103 (H) BUN 9 - 24 mg/dL 14 19 Creatinine 0.73 - 1.22 mg/dL 1.08 1.01 Sodium 136 - 144 mmol/L 141 141 Potassium 3.7 - 5.1 mmol/L 4.6 4.0 Chloride 97 - 105 mmol/L 105 105 CO2 22 - 30 mmol/L 26 26 Anion Gap 9 - 18 mmol/L 10 10 eGFR- >60 eGFR-All Other Races >60 WBC 3.70 - 11.00 k/uL 4.61 RBC 4.20 - 6.00 m/uL 4.98 Hemoglobin 13.0 - 17.0 g/dL 14.3 Hematocrit 39.0 - 51.0 % 43.8 MCV 80.0 - 100.0 fL 88.0 MCH 26.0 - 34.0 pg 28.7 MCHC 30.5 - 36.0 g/dL 32.6 RDW-CV 11.5 - 15.0 % 13.1 Platelet Count 150 - 400 k/uL 231 MPV 9.0 - 12.7 fL 9.7 eGFR >=60 mL/min/1.73m 83 Cholesterol, Total <200 mg/dL 243 (H) 195 Triglyceride <150 mg/dL 190 (H) 112 HDL Cholesterol >39 mg/dL 54 54 Non HDL Cholesterol <130 mg/dL 189 (H) 141 (H) Fasting Time hrs 12 10 VLDL Cholesterol <30 mg/dL 38 (H) 22 TC:HDL Ratio <5.10 4.50 3.61 LDL Cholesterol <100 mg/dL 151 (H) 119 (H) LDL:HDL Ratio <2.54 2.80 (H) 2.20 TSH 0.270 - 4.200 uU/mL 3.060 ASSESSMENT/PLAN: 1. Essential hypertension - ICD9: 401.9, ICD10: I10 (primary diagnosis) - good control - Continue current medication(s) - lisinopril 10 mg daily - Recommended regular aerobic exercise. - Recommend home blood pressure monitoring, to bring results in on next visit - Goal of BP <130/80 2. Other hyperlipidemia - ICD9: 272.4, ICD10: E78.49 Continue pravastatin 20 mg daily 3. Anxiety - ICD9: 300.00, ICD10: F41.9 Restart prozac 20 mg daily - FLUOXETINE 20 MG CAPSULE 4. Encounter for immunization - ICD9: V03.89, ICD10: Z23 - INFLUENZA SEASONAL QUADRIVALENT HIGH DOSE AGE 65+ - [employer] COVID-19 BIVALENT BOOSTER VACCINE, AGE 12+ YR 5. 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 Last refill 02/21/21 . Left message informing patient he is due for office visit. Requested Prescriptions Pending Prescriptions Disp Refills pravastatin (PRAVACHOL) 20 mg tablet [Pharmacy Med Name: PRAVASTATIN SODIUM 20 MG TAB] 90 tablet 3 Sig: TAKE 1 TABLET BY MOUTH EVERY DAY Please review and advise. Edda Gonzalez MA documented in this encounter [facility] 03-28-2022 Miscellaneous Notes Left a voicemail message regarding overnight oximetry testing. He had fluctuating respiratory pattern with total duration time of saturation less than 88% of 5 minutes. He officially qualifies for supplemental oxygen at night if he had heart failure or pulmonary hypertension which he does not have. Minimal desaturation episodes not consistent with diaphragmatic dysfunction. Patient can have septoplasty. documented in this encounter [facility] 03-15-2022 History of Presen t illness Narrative . 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 Sniff test negative for paralysis. Supine and upright FVC consistent with diaphragm dysfunction. Having issues with RAMIREZ and positional dyspnea. Ordered overnight oximetry, [facility] unable to get in touch with patient. Patient has known deviated septum and is having difficulty with his breathing at nighttime. Saw ENT for possible surgical treatment. ENT recommended follow-up of his nocturnal issues as deviated septum may not be the underlying cause. No current cough, wheezing, chest pain, sputum production. DATA: Labs: Recent CBC and chemistries are normal. HCO3 normal not consistent with chronic CO2 retention Imaging / Diagnostic Studies: DATE OF EXAM: Jan 16 2021 8:21AM [facility] [id number] - CT CHEST WO IVCON / EXAMINATION: CHEST CT WITHOUT CONTRAST CLINICAL HISTORY: Lung nodules 12 month follow-up Comparison: This study is correlated with patient's CT abdomen of 12/29/2019. RESULT: Limitations: None. Lines, tubes, and devices: None. Lung parenchyma and airways: The central airways are patent. A few stable solid pulmonary nodules are identified. For example, 2 nodules along the left major fissure with the larger one measuring 6 mm. There are a few nodules in the right lower lobe measuring up to 5 mm, series 6 images 99, 102 and 105. There is a focal calcification in the posterior left upper lobe, series 6 image 53. Atelectasis again noted in the right lower lobe associated with elevation/eventration of the right hemidiaphragm. Pleural space: No pleural effusion. No pleural thickening. Lower neck, lymph nodes, and mediastinum: The imaged thyroid gland is normal. No lymphadenopathy in the supraclavicular, axillary, mediastinal, or hilar regions. Heart, pericardium, and thoracic vessels: The thoracic aorta and main pulmonary artery are normal in caliber. The cardiac chambers are normal in size. No coronary artery atherosclerotic calcifications are noted, although the study is not optimized for coronary assessment. No pericardial effusion or thickening. Bones and soft tissues: No destructive bone lesion. Chest wall is unremarkable. Upper abdomen: Limited study through the upper abdomen demonstrates no interval changes. Multiple liver cysts are visualized, similar to prior study. There appears to be a tiny hyperdensity in the right kidney, only partially visualized. IMPRESSION: Stable lung nodules measuring up to 6 mm. Abdominal findings as described above I personally reviewed images and agree with the above assessment PAST MEDICAL HISTORY Diagnosis Date Alteration in nutrition Alteration in nutrition: less than body requirements, caloric intake is likely less than daily requirements Bilateral neural hearing loss Decreased white blood cell count, unspecified Elevated diaphragm Essential hypertension Hiatal hernia with GERD 03/04/2020 Impaired cognition Difficulty with problem solving and performing tasks previously done well Memory impairment Other symptoms and signs involving cognitive functions and awareness Paresthesia of hand bilateral hands Poor short term memory Rectal polyp 03/04/2020 ALLERGIES No Known Allergies lisinopril (ZESTRIL, PRINIVIL) 10 mg tablet^Take 1 tablet by mouth once daily.^Disp: 90 tablet^Rfl: 0 pravastatin (PRAVACHOL) 20 mg tablet^Take 1 tablet by mouth once daily.^Disp: 90 tablet^Rfl: 3 FLUoxetine (PROZAC) 20 mg capsule^TAKE 1 CAPSULE BY MOUTH ONCE DAILY^Disp: 90 capsule^Rfl: 1 buPROPion SR (ZYBAN SR; WELLBUTRIN SR) 150 mg 12 hr tablet^TAKE 1 TABLET BY MOUTH TWICE A DAY^Disp: 60 tablet^Rfl: 5 (Patient not taking: Reported on 03/15/2022) omeprazole (PRILOSEC) 40 mg capsule^Take 40 mg by mouth once daily.^Disp: ^Rfl: (Patient not taking: Reported on 03/15/2022) famotidine (PEPCID) 40 mg tablet^TAKE 1 TABLET BY MOUTH EVERYDAY AT BEDTIME^Disp: ^Rfl: (Patient not taking: Reported on 03/15/2022) sucralfate (CARAFATE) 1 gram tablet^Take 1 g by mouth twice daily.^Disp: ^Rfl: (Patient not taking: Reported on 03/15/2022) Social History Tobacco Use Smoking status: Never Smokeless tobacco: Never Vaping Use Vaping Use: Never used Substance Use Topics Alcohol use: No Drug use: No FAMILY HISTORY Problem Relation Age of Onset Heart Mother Heart Father Heart Maternal Grandmother Heart Maternal Grandfather Heart Paternal Grandmother Heart Paternal Grandfather PAST SURGICAL HISTORY Procedure Laterality Date COLONOSCOPY W/BIOPSY SINGLE/MULTIPLE 03/04/2020 rectal polyp; Dr. Amaral EGD 12/08/2020 2 cm HH. Biopsies reflux esophagitis. Dr. Luis EGD TRANSORAL BIOPSY SINGLE/MULTIPLE 03/04/2020 hiatal hernia; Dr. Amaral HERNIA REPAIR HX 07/08/2000 PMH, Social history, family history and surgical history reviewed and updated in EMR REVIEW OF SYSTEMS: CONSTITUTIONAL: No fevers, chills, nightsweats, unintended weight loss HEENT: Positive nasal congestion/sinus symptoms. States his nasal passages collapse at night. No postnasal drip CARDIOVASCULAR: No chest pain, RAMIREZ, palpitations, orthopnea, edema. PULM: See HPI GI: No dysphagia/odynophagia, problematic reflux PSY: No concerns regarding depression, anxiety PHYSICAL EXAMINATION: BP 130/88 Pulse 80 Resp 19 Wt 198 lb (89.8kg) SpO2 98% General Appearance: Age appropriate male, NAD Skin: Skin color, texture, turgor normal, no suspicious rashes or lesions. Head: Normocephalic, no masses, lesions, tenderness or abnormalities. Eyes: Sclera, conjunctiva normal Nose/Sinuses: left nostril collapsed Oropharynx: Adequate dentition, no oral lesions, no cobblestoning Neck: No JVD, no masses, no adenopathy Lungs: Not labored, normal to percussion, no wheezes or crackles Heart: RRR, no murmur Extremities: No edema, no clubbing Assessment/Plan: 1. Diaphragm dysfunction -Possible that eventration of his diaphragm causing nocturnal hypoxemia -Reordered nocturnal oximetry testing 2. Shortness of breath -Nocturnal shortness of breath may be due to his diaphragmatic dysfunction -See #1 3. Lung nodules -Probable granulomatous disease -Due for surveillance CT of his chest Inge Flores MD [facility] [place] documented in this encounter [facility] 02-14-2022 Miscellaneous Notes patient phones requesting refills as follows: Last seen 06/23/21 . Last refill 03/24/21 . No future appointments Requested Prescriptions Pending Prescriptions Disp Refills lisinopril (ZESTRIL, PRINIVIL) 10 mg tablet 90 tablet 0 Sig: Take 1 tablet by mouth once daily. Please review and advise. Edda Gonzalez MA ----- Message from Shwetha Taylor sent at 02/14/2022 9:02 AM EDT ----- Regarding: FW: Medicine/Trill/Refill Request ----- Message ----- From: Malika Arnett Sent: 02/14/2022 8:54 AM EDT To: [facility] Triage Pool Subject: Medicine/Trill/Refill Request Subject Line Format: [Specialty] / [Provider Name] / Medication Question Patient name: Kirt Winkelr, : 1955, called to request a refill for his/her medication(s). Patient was advised that the refill should be called into the pharmacy. Patient advised they had already done so and over 24 hours has passed since doing so and they are following up: Y/N? Y. Please contact the patient for additional information at [phone] (home) [phone] (cell). Patient is out of BP meds. Thank you, Malika Arnett February 14, 2022 8:53 AM documented in this encounter [facility] 12-09-2020 History of Presen t illness Narrative Radiology Service Progress Note PATIENT NAME: Kirt Winkler DATE OF SERVICE: December 09, 2020 TIME: 8:37 AM PATIENT IDENTITY VERIFICATION COMPLETED USING TWO (2) IDENTIFIERS: Name and Date of confirmed by patient verbally. FALL SCREENING: Has the patient had 2 falls in the last year or 1 fall with injury or currently using an Ambulatory Assistive Device (Walker, Cane, Wheelchair, Crutches, etc.)? No PATIENT GENDER DATA: Male PATIENT RELEVANT IMPLANT DATA REVIEWED: Not Applicable RADIOLOGY DEPARTMENT: General X-ray: Exam(s) Completed: Chest X-Ray PERIPHERAL IV DATA: Not applicable SIGNED BY: RT Vickey(R) December 09, 2020 8:37 AM documented in this encounter [facility] 05-24-2020 History of Presen t illness Narrative Radiology Service Progress Note PATIENT NAME: Kirt Winkler DATE OF SERVICE: May 24, 2020 TIME: 1:10 PM PATIENT IDENTITY VERIFICATION COMPLETED USING TWO (2) IDENTIFIERS: Name and Date of confirmed by patient verbally. FALL SCREENING: Has the patient had 2 falls in the last year or 1 fall with injury or currently using an Ambulatory Assistive Device (Walker, Cane, Wheelchair, Crutches, etc.)? No PATIENT GENDER DATA: Male PATIENT RELEVANT IMPLANT DATA REVIEWED: Not Applicable RADIOLOGY DEPARTMENT: General X-ray: Exam(s) Completed: Lower Extremity X-Ray(s): Foot, Left and Wt. Bearing: PERIPHERAL IV DATA: Not applicable SIGNED BY: RT Vickey May 24, 2020 1:10 PM documented in this encounter [facility] 05-18-2020 History of Presen t illness Narrative Radiology Service Progress Note PATIENT NAME: Kirt Winkler DATE OF SERVICE: May 18, 2020 TIME: 4:23 PM PATIENT IDENTITY VERIFICATION COMPLETED USING TWO (2) IDENTIFIERS: Name and Date of confirmed by patient verbally. FALL SCREENING: Has the patient had 2 falls in the last year or 1 fall with injury or currently using an Ambulatory Assistive Device (Walker, Cane, Wheelchair, Crutches, etc.)? No PATIENT GENDER DATA: Male PATIENT RELEVANT IMPLANT DATA REVIEWED: Not Applicable RADIOLOGY DEPARTMENT: General X-ray: Exam(s) Completed: Lower Extremity X-Ray(s): Ankle, Left and Wt. Bearing: PERIPHERAL IV DATA: Not applicable SIGNED BY: RT Vickey May 18, 2020 4:23 PM documented in this encounter [facility] Evaluation note Diagnosis Essential hypertension Unspecified essential hypertension [facility] Diagnosis Diaphragm dysfunction- Primary Disorders of diaphragm SOB (shortness of breath) Shortness of breath Lung nodules Other nonspecific abnormal finding of lung field [facility] Diagnosis Other hyperlipidemia [facility] Diagnosis Essential hypertension Unspecified essential hypertension Other hyperlipidemia [facility] Diagnosis Essential hypertension- Primary Unspecified essential hypertension Other hyperlipidemia Anxiety Anxiety state, unspecified Encounter for immunization Need for other specified prophylactic vaccination against single bacterial disease Advanced directives, counseling/discussion Other specified counseling [facility] noteNo assessment information availableWMercy Hospital Work Phone: Evaluation note* Diagnosis Other hyperlipidemia [facility] Essential hypertension Unspecified essential hypertension [facility] Diagnosis Essential hypertension Unspecified essential hypertension [facility] Diagnosis Anxiety Anxiety state, unspecified [facility] Diagnosis Essential hypertension- Primary Unspecified essential hypertension Other hyperlipidemia Episode of recurrent major depressive disorder, unspecified depression episode severity (HCC) Generalized weakness Other malaise and fatigue [facility] Diagnosis Essential hypertension Unspecified essential hypertension [facility] Diagnosis Essential hypertension- Primary Unspecified essential hypertension Other hyperlipidemia Impaired cognition Unspecified persistent mental disorders due to conditions classified elsewhere Depressive disorder Depressive disorder, not elsewhere classified Anxiety Anxiety state, unspecified [facility] Diagnosis Episode of recurrent major depressive disorder, unspecified depression episode severity (HCC)- Primary Essential hypertension Unspecified essential hypertension Other hyperlipidemia Encounter for immunization Need for other specified prophylactic vaccination against single bacterial disease Anxiety Anxiety state, unspecified Depression, recurrent (HCC) Major depressive disorder, recurrent episode, unspecified documented in this encounter [facility] note* Diagnosis Lung nodules Other nonspecific abnormal finding of lung field documented in this encounter [facility] note* Diagnosis Depression, recurrent (HCC)- Primary Major depressive disorder, recurrent episode, unspecified Essential hypertension Unspecified essential hypertension documented in this encounter [facility] note* Diagnosis Other hyperlipidemia- Primary documented in this encounter [facility] note* Diagnosis Anxiety Anxiety state, unspecified Episode of recurrent major depressive disorder, unspecified depression episode severity (HCC) documented in this encounter [facility] note* Diagnosis Cognitive impairment, mild, so stated Mild cognitive impairment, so stated documented in this encounter [facility] note* Diagnosis Essential hypertension- Primary Unspecified essential hypertension Moderate recurrent major depression (HCC) Major depressive disorder, recurrent episode, moderate Other hyperlipidemia Anxiety Anxiety state, unspecified Gastroesophageal reflux disease, unspecified whether esophagitis present documented in this encounter [facility] note* Diagnosis Gastroesophageal reflux disease, unspecified whether esophagitis present documented in this encounter [facility] note* Diagnosis Essential hypertension- Primary Unspecified essential hypertension documented in this encounter [facility] note* Diagnosis Anxiety Anxiety state, unspecified Episode of recurrent major depressive disorder, unspecified depression episode severity (HCC) Essential hypertension Unspecified essential hypertension Gastroesophageal reflux disease, unspecified whether esophagitis present documented in this encounter [facility] note* Diagnosis Acute left ankle pain documented in this encounter [facility] note* Diagnosis Foot pain, left Pain in limb documented in this encounter [facility] note* Diagnosis Vitamin D deficiency- Primary Unspecified vitamin D deficiency Other hyperlipidemia documented in this encounter [facility] note* Diagnosis Lump in chest- Primary Swelling, mass, or lump in chest Gastroesophageal reflux disease, unspecified whether esophagitis present Impaired cognition Unspecified persistent mental disorders due to conditions classified elsewhere Memory loss Essential hypertension Unspecified essential hypertension Vitamin D deficiency Unspecified vitamin D deficiency Other hyperlipidemia Unspecified lump in the right breast, upper inner quadrant Benign prostatic hyperplasia without lower urinary tract symptoms Major depressive disorder, recurrent, in partial remission Major depressive disorder, recurrent episode, in partial or unspecified remission documented in this encounter [facility] note* Diagnosis Lump in chest Swelling, mass, or lump in chest Unspecified lump in the right breast, upper inner quadrant [facility] Diagnosis Lump in chest Swelling, mass, or lump in chest [facility] Additional Instructions He has some minor maladies on your CT which shows hypodensities in your liver. It is recommended that you follow-up with your primary care physician for follow-up of this. Radiology is recommending an MRI.[facility] Work Phone: Reason for visit Narrative* Diagnostic Procedure Only (Routine) - Closed Specialty Diagnoses / Procedures Referred By Emigdio saldana Referred To Contact [facility] Diagnoses Lump in chest Unspecified lump in the right breast, upper inner quadrant Procedures US BREAST LTD RIGHT US BREAST UNI REAL TIME WITH IMAGE LIMITED Dimitri Malhotra, ETTA.STEAM CLEANING MACHINE OPERATOR [address] [place] [address] Phone: tel: fax: [facility] [address] [place] [address] Referral ID Status Reason Start Date Expiration Date V isits Requested Visits Authorized [id number] Closed Auto-Generate d Referral 12/09/2024 01/08/2026 1 1 [facility]* Diagnostic Procedure Only (Routine) - Closed Specialty Diagnoses / Procedures Referred By Emigdio saldana Referred To Contact [facility] Diagnoses Lump in chest Procedures AMISHA DIAG W SNEHA BILATERAL DIGITAL BREAST TOMOSYNTHESIS BILATERAL Dimitri Malhotra, OCEAN LIFEGUARD.STEAM CLEANING MACHINE OPERATOR [address] [place] [address] Phone: tel: fax: [facility] [address] [place] [address] Referral ID Status Reason Start Date Expiration Date V isits Requested Visits Authorized [id number] Closed Auto-Generate d Referral 12/09/2024 01/08/2026 1 1 [facility] Summary Purpose Family History No Family History Records FoundNo Family History Records FoundNo Family History Records FoundNo Family History Records FoundNo Family History Records FoundNo Family History Records Found Advance Directives No Advanced Directives Records Found Advance Directive Response Recorded Date/ Time Name of Medical Power of Childbirth And Infant Care Teacher rob parra/ daughter June 19, 2022 11:22am Living Will No June 30 2:31pm Power of Childbirth And Infant Care Teacher No June 30, 2022 2:31pm Advance Directive Response Recorded Date/ Time Living Will No June 30 3:31pm Power of Childbirth And Infant Care Teacher No June 30, 2022 3:31pm Reason for Referral Specialty Diagnoses / Procedures Referred By Emigdio t Referred To Contact CT IMAGING Diagnoses Lung nodules Procedures CT CHEST WO IVCON DIAGNOSTIC COMPUTED TOMOGRAPHY THORAX W/O Inge Benitez MD [address] [place] [address] Ct Imaging Referral ID Status Reason Start Date Expiration Date Visits Requested Visits Authorized [id number] Pending Review Auto-Generat ed Referral 03/15/2022 04/14/2023 1 1 Chief Complaint and Reason for Visit Chief Complaint PRE OP Chief Complaint PRE OP SEPTUM DIFFICULTY URINATING FLANK PAIN Additional Source Comments (unrecognized sect ion and content) No Status Records FoundNo Status Records FoundNo Status Records FoundNo Status Records FoundNo Status Records FoundNo Status Records Found INFORMATION SOURCE (unrecogn ized section and content) DATE CREATED AUTHOR 10/27/2020 [facility] DATE CREATED AUTHOR AUTHOR'S ORGANIZ ATION 01/14/2021 [facility] DATE CREATED AUTHOR AUTHOR'S ORGANIZ ATION 01/07/2023 [facility] DATE CREATED AUTHOR AUTHOR'S ORGANIZ ATION 05/14/2023 [facility] DATE CREATED AUTHOR AUTHOR'S ORGANIZ ATION 09/05/2023 [facility] DATE CREATED AUTHOR AUTHOR'S ORGANIZ ATION 01/18/2025 [facility] Source Comments (unrecognize d section and content) In the event this informatio n is protected by the Federal Confidentiality of Alcohol and Drug Abuse Patient Records regulations: The Federal rules restrict any use of the information to criminally investigate or prosecute any alcohol or drug abuse patient.[facility] the event this information is protected by the Federal Confidentiality of Alcohol and Drug Abuse Patient Records regulations: The Federal rules restrict any use of the information to criminally investigate or prosecute any alcohol or drug abuse patient.[facility] the event this information is protected by the Federal Confidentiality of Alcohol and Drug Abuse Patient Records regulations: The Federal rules restrict any use of the information to criminally investigate or prosecute any alcohol or drug abuse patient.[facility] the event this information is protected by the Federal Confidentiality of Alcohol and Drug Abuse Patient Records regulations: The Federal rules restrict any use of the information to criminally investigate or prosecute any alcohol or drug abuse patient.[facility] the event this information is protected by the Federal Confidentiality of Alcohol and Drug Abuse Patient Records regulations: The Federal rules restrict any use of the information to criminally investigate or prosecute any alcohol or drug abuse patient.[facility] the event this information is protected by the Federal Confidentiality of Alcohol and Drug Abuse Patient Records regulations: The Federal rules restrict any use of the information to criminally investigate or prosecute any alcohol or drug abuse patient.[facility] Center[facility] the event this information is protected by the Federal Confidentiality of Alcohol and Drug Abuse Patient Records regulations: The Federal rules restrict any use of the information to criminally investigate or prosecute any alcohol or drug abuse patient.[facility] Center[facility] the event this information is protected by the Federal Confidentiality of Alcohol and Drug Abuse Patient Records regulations: The Federal rules restrict any use of the information to criminally investigate or prosecute any alcohol or drug abuse patient.[facility] Center[facility] the event this information is protected by the Federal Confidentiality of Alcohol and Drug Abuse Patient Records regulations: The Federal rules restrict any use of the information to criminally investigate or prosecute any alcohol or drug abuse patient.[facility] Center[facility] the event this information is protected by the Federal Confidentiality of Alcohol and Drug Abuse Patient Records regulations: The Federal rules restrict any use of the information to criminally investigate or prosecute any alcohol or drug abuse patient.[facility] CenterIn the event this information is protected by the Federal Confidentiality of Alcohol and Drug Abuse Patient Records regulations: The Federal rules restrict any use of the information to criminally investigate or prosecute any alcohol or drug abuse patient.[facility] CenterIn the event this information is protected by the Federal Confidentiality of Alcohol and Drug Abuse Patient Records regulations: The Federal rules restrict any use of the information to criminally investigate or prosecute any alcohol or drug abuse patient.[facility] CenterIn the event this information is protected by the Federal Confidentiality of Alcohol and Drug Abuse Patient Records regulations: The Federal rules restrict any use of the information to criminally investigate or prosecute any alcohol or drug abuse patient.[facility] CenterIn the event this information is protected by the Federal Confidentiality of Alcohol and Drug Abuse Patient Records regulations: The Federal rules restrict any use of the information to criminally investigate or prosecute any alcohol or drug abuse patient.[facility] CenterIn the event this information is protected by the Federal Confidentiality of Alcohol and Drug Abuse Patient Records regulations: The Federal rules restrict any use of the information to criminally investigate or prosecute any alcohol or drug abuse patient.[facility] CenterIn the event this information is protected by the Federal Confidentiality of Alcohol and Drug Abuse Patient Records regulations: The Federal rules restrict any use of the information to criminally investigate or prosecute any alcohol or drug abuse patient.[facility] CenterIn the event this information is protected by the Federal Confidentiality of Alcohol and Drug Abuse Patient Records regulations: The Federal rules restrict any use of the information to criminally investigate or prosecute any alcohol or drug abuse patient.[facility] CenterIn the event this information is protected by the Federal Confidentiality of Alcohol and Drug Abuse Patient Records regulations: The Federal rules restrict any use of the information to criminally investigate or prosecute any alcohol or drug abuse patient.[facility] CenterIn the event this information is protected by the Federal Confidentiality of Alcohol and Drug Abuse Patient Records regulations: The Federal rules restrict any use of the information to criminally investigate or prosecute any alcohol or drug abuse patient.[facility] CenterIn the event this information is protected by the Federal Confidentiality of Alcohol and Drug Abuse Patient Records regulations: The Federal rules restrict any use of the information to criminally investigate or prosecute any alcohol or drug abuse patient.[facility] CenterIn the event this information is protected by the Federal Confidentiality of Alcohol and Drug Abuse Patient Records regulations: The Federal rules restrict any use of the information to criminally investigate or prosecute any alcohol or drug abuse patient.[facility] CenterIn the event this information is protected by the Federal Confidentiality of Alcohol and Drug Abuse Patient Records regulations: The Federal rules restrict any use of the information to criminally investigate or prosecute any alcohol or drug abuse patient.[facility] CenterIn the event this information is protected by the Federal Confidentiality of Alcohol and Drug Abuse Patient Records regulations: The Federal rules restrict any use of the information to criminally investigate or prosecute any alcohol or drug abuse patient.[facility] CenterIn the event this information is protected by the Federal Confidentiality of Alcohol and Drug Abuse Patient Records regulations: The Federal rules restrict any use of the information to criminally investigate or prosecute any alcohol or drug abuse patient.[facility] CenterIn the event this information is protected by the Federal Confidentiality of Alcohol and Drug Abuse Patient Records regulations: The Federal rules restrict any use of the information to criminally investigate or prosecute any alcohol or drug abuse patient.[facility] CenterIn the event this information is protected by the Federal Confidentiality of Alcohol and Drug Abuse Patient Records regulations: The Federal rules restrict any use of the information to criminally investigate or prosecute any alcohol or drug abuse patient.[facility] CenterIn the event this information is protected by the Federal Confidentiality of Alcohol and Drug Abuse Patient Records regulations: The Federal rules restrict any use of the information to criminally investigate or prosecute any alcohol or drug abuse patient.[facility] CenterIn the event this information is protected by the Federal Confidentiality of Alcohol and Drug Abuse Patient Records regulations: The Federal rules restrict any use of the information to criminally investigate or prosecute any alcohol or drug abuse patient.[facility] CenterIn the event this information is protected by the Federal Confidentiality of Alcohol and Drug Abuse Patient Records regulations: The Federal rules restrict any use of the information to criminally investigate or prosecute any alcohol or drug abuse patient.[facility] CenterIn the event this information is protected by the Federal Confidentiality of Alcohol and Drug Abuse Patient Records regulations: The Federal rules restrict any use of the information to criminally investigate or prosecute any alcohol or drug abuse patient.[facility] CenterIn the event this information is protected by the Federal Confidentiality of Alcohol and Drug Abuse Patient Records regulations: The Federal rules restrict any use of the information to criminally investigate or prosecute any alcohol or drug abuse patient.[facility] CenterIn the event this information is protected by the Federal Confidentiality of Alcohol and Drug Abuse Patient Records regulations: The Federal rules restrict any use of the information to criminally investigate or prosecute any alcohol or drug abuse patient.[facility] CenterIn the event this information is protected by the Federal Confidentiality of Alcohol and Drug Abuse Patient Records regulations: The Federal rules restrict any use of the information to criminally investigate or prosecute any alcohol or drug abuse patient.[facility] CenterIn the event this information is protected by the Federal Confidentiality of Alcohol and Drug Abuse Patient Records regulations: The Federal rules restrict any use of the information to criminally investigate or prosecute any alcohol or drug abuse patient.[facility] CenterIn the event this information is protected by the Federal Confidentiality of Alcohol and Drug Abuse Patient Records regulations: The Federal rules restrict any use of the information to criminally investigate or prosecute any alcohol or drug abuse patient.[facility] Care Teams (unrecognized sec tion and content) Object Oriented Developer Relationship Specialty Start Date End Date Dimitri Malhotra APRN.STEAM CLEANING MACHINE OPERATOR [address] [place] [address] PCP - General Family Practice 10/07/20 Dimitri Malhotra (Historical) 04/18/15 Jose Amaral MD [address] [place] [phone] General Surgery 10/07/20 Object Oriented Developer Relationship Specialty Start Date End Date Dimitri Malhotra, OCEAN LIFEGUARD.STEAM CLEANING MACHINE OPERATOR [address] [place], [place] [id number] PCP - General Family Practice 10/07/20 Dimitri Malhotra (Historical) 04/18/15 Jose Amaral MD [address] [place] [phone] General Surgery 10/07/20 Object Oriented Developer Relationship Specialty Start Date End Date Dimitri Malhotra, OCEAN LIFEGUARD.STEAM CLEANING MACHINE OPERATOR [address] [place] [address] PCP - General Family Medicine 10/07/20 Dimitri Malhotra (Historical) 04/18/15 Jose Amaral MD [address] [place] [phone] General Surgery 10/07/20 Object Oriented Developer Relationship Specialty Start Date End Date Dimitri Malhotra, OCEAN LIFEGUARD.STEAM CLEANING MACHINE OPERATOR [address] [place], [place] [id number] PCP - General Family Medicine 10/07/20 Dimitri Malhotra (Historical) 04/18/15 Jose Amaral MD [address] [place] [phone] General Surgery 10/07/20 Object Oriented Developer Relationship Specialty Start Date End Date Dimitri Malhotra, OCEAN LIFEGUARD.STEAM CLEANING MACHINE OPERATOR [address] [place], [place] [id number] PCP - General Family Medicine 10/07/20 Dimitri Malhotra (Historical) 04/18/15 Jose Amaral MD [address] [facility] [address] [place] [phone] General Surgery 10/07/20 Object Oriented Developer Relationship Specialty Start Date End Date Dimitri Malhotra, OCEAN LIFEGUARD.STEAM CLEANING MACHINE OPERATOR [address] [place], [place] [id number] PCP - General Family Medicine 10/07/20 Dimitri Malhotra (Historical) 04/18/15 Jose Amaral MD [address] [facility] [address] [place] [phone] General Surgery 10/07/20 Object Oriented Developer Relationship Specialty Start Date End Date Dimitri Malhotra, OCEAN LIFEGUARD.STEAM CLEANING MACHINE OPERATOR [address] [place], [place] [id number] PCP - General Family Medicine 10/07/20 Dimitri Malhotra (Historical) 04/18/15 Jose Amaral MD [address] [facility] [address] [address] [place] [phone] General Surgery 10/07/20 Object Oriented Developer Relationship Specialty Start Date End Date Dimitri Malhotra, OCEAN LIFEGUARD.STEAM CLEANING MACHINE OPERATOR [address] [place], [place] [id number] PCP - General Family Medicine 10/07/20 Dimitri Malhotra (Historical) 04/18/15 Jose Amaral MD [address] [place] [phone] General Surgery 10/07/20 Team Status: Active Member Role Status Dates DIMITRI BLACK Family Provider Active Dimitri Malhotra NP MANAGED CARE SPECIALIST-C Primary Care Provider Active Team Status: Inactive Member Role Status Dates Dimitri Malhotra NP MANAGED CARE SPECIALIST-C Primary Care Provider Active Dr. Eleazar Noriega MD Attending Provider, Referr ing Provider Active Object Oriented Developer Relationship Specialty Start Date End Date Dimitri Malhotra OCEAN LIFEGUARD.STEAM CLEANING MACHINE OPERATOR [address] [place] [address] PCP - General Family Medicine 10/07/20 Dimitri Malhotra (Historical) 04/18/15 Jose Amaral MD [address] [place] [address] [place] [address] General Surgery 10/07/20 Object Oriented Developer Relationship Specialty Start Date End Date Dimitri Malhotra OCEAN LIFEGUARD.STEAM CLEANING MACHINE OPERATOR [address] [place] [address] PCP - General Family Medicine 10/07/20 Dimitri Malhotra (Historical) 04/18/15 Jose Amaral MD [address] [place] [address] [place] [address] General Surgery 10/07/20 Object Oriented Developer Relationship Specialty Start Date End Date Dimitri Malhotra OCEAN LIFEGUARD.STEAM CLEANING MACHINE OPERATOR [address] [place] [address] PCP - General Family Medicine 10/07/20 Dimitri Malhotra (Historical) 04/18/15 Jose Amaral MD [address] [place] [address] [place] [address] General Surgery 10/07/20 Object Oriented Developer Relationship Specialty Start Date End Date Dimitri Malhotra OCEAN LIFEGUARD.STEAM CLEANING MACHINE OPERATOR [address] [place] [address] PCP - General Family Medicine 10/07/20 Dimitri Malhotra (Historical) 04/18/15 Jose Amaral MD [address] [place] [address] [place] [address] General Surgery 10/07/20 Object Oriented Developer Relationship Specialty Start Date End Date Dimitri Malhotra OCEAN LIFEGUARD.STEAM CLEANING MACHINE OPERATOR [address] [place] [address] PCP - General Family Medicine 10/07/20 Dimitri Malhotra (Historical) 04/18/15 Jose Amaral MD [address] [place] [address] [place] [address] General Surgery 10/07/20 Object Oriented Developer Relationship Specialty Start Date End Date Dimitri Malhotra, OCEAN LIFEGUARD.STEAM CLEANING MACHINE OPERATOR [address] [place] [address] PCP - General Family Medicine 10/07/20 Dimitri Malhotra (Historical) 04/18/15 Jose Amaral MD [address] [place] [address] [place] [address] General Surgery 10/07/20 Object Oriented Developer Relationship Specialty Start Date End Date Dimitri Malhotra, OCEAN LIFEGUARD.STEAM CLEANING MACHINE OPERATOR [address] [place] [address] PCP - General Family Medicine 10/07/20 Dimitri Malhotra (Historical) 04/18/15 Jose Amaral MD [address] [place] [address] [place] [address] General Surgery 10/07/20 Object Oriented Developer Relationship Specialty Start Date End Date Dimitri Malhotra OCEAN LIFEGUARD.STEAM CLEANING MACHINE OPERATOR [address] [place] [address] PCP - General Family Medicine 10/07/20 Dimitri Malhotra (Historical) 04/18/15 Jose Amaral MD [address] [place] [address] [place] [address] General Surgery 10/07/20 Object Oriented Developer Relationship Specialty Start Date End Date Dimitri Malhotra OCEAN LIFEGUARD.STEAM CLEANING MACHINE OPERATOR [address] [facility] [place] [address] PCP - General Family Medicine 10/07/20 Dimitri Malhotra (Historical) 04/18/15 Jose Amaral MD [address] [place] [address] [place] [address] General Surgery 10/07/20 Object Oriented Developer Relationship Specialty Start Date End Date Dimitri Malhotra OCEAN LIFEGUARD.STEAM CLEANING MACHINE OPERATOR [address] [place] [address] PCP - General Family Medicine 10/07/20 Dimitri Malhotra (Historical) 04/18/15 Jose Amaral MD [address] [place] [address] [place] [address] General Surgery 10/07/20 Object Oriented Developer Relationship Specialty Start Date End Date Dimitri Malhotra OCEAN LIFEGUARD.STEAM CLEANING MACHINE OPERATOR [address] [facility] [place] [address] PCP - General Family Medicine 10/07/20 Dimitri Malhotra (Historical) 04/18/15 Jose Amaral MD [address] [place] [address] [place] [address] General Surgery 10/07/20 Object Oriented Developer Relationship Specialty Start Date End Date Dimitri Malhotra, OCEAN LIFEGUARD.STEAM CLEANING MACHINE OPERATOR [address] [place] [address] PCP - General Family Medicine 10/07/20 Dimitri Malhotra (Historical) 04/18/15 Jose Amaral MD [address] [place] [address] [place] [address] General Surgery 10/07/20 Object Oriented Developer Relationship Specialty Start Date End Date Dimitri Malhotra, OCEAN LIFEGUARD.STEAM CLEANING MACHINE OPERATOR [address] [place] [address] PCP - General Family Medicine 10/07/20 Dimitri Malhotra (Historical) 04/18/15 Jose Amaral MD [address] [place] [address] [place] [address] General Surgery 10/07/20 Object Oriented Developer Relationship Specialty Start Date End Date Dimitri Malhotra (Historical) 04/18/15 Object Oriented Developer Relationship Specialty Start Date End Date Dimitri Malhotra (Historical) 04/18/15 Object Oriented Developer Relationship Specialty Start Date End Date Dimitri Malhotra OCEAN LIFEGUARD.STEAM CLEANING MACHINE OPERATOR [address] [place] [address] PCP - General Family Medicine 10/07/20 Dimitri Malhotra (Historical) 04/18/15 Jose Amaral MD [address] [place] [address] [place] [address] General Surgery 10/07/20 Object Oriented Developer Relationship Specialty Start Date End Date Dimitri Malhotra APRN.STEAM CLEANING MACHINE OPERATOR [address] [place] [address] PCP - General Family Medicine 10/07/20 Dimitri Malhotra (Historical) 04/18/15 Jose Amaral MD [address] [address] [place] [address] General Surgery 10/07/20 Object Oriented Developer Relationship Specialty Start Date End Date Dimitri Malhotra APRN.STEAM CLEANING MACHINE OPERATOR [address] [place] [address] PCP - General Family Medicine 10/07/20 Dimitri Malhotra (Historical) 04/18/15 Jose Amaral MD [address] [address] [place] [address] General Surgery 10/07/20 Object Oriented Developer Relationship Specialty Start Date End Date Dimitri Malhotra APRN.STEAM CLEANING MACHINE OPERATOR [address] [place] [address] PCP - General Family Medicine 10/07/20 Dimitri Malhotra (Historical) 04/18/15 Jose Amaral MD [address] [place] [address] [place] [address] General Surgery 10/07/20 Object Oriented Developer Relationship Specialty Start Date End Date Dimitri Malhotra APRN.STEAM CLEANING MACHINE OPERATOR [address] [place] [address] PCP - General Family Medicine 10/07/20 Dimitri Malhotra (Historical) 04/18/15 Jose Amaral MD [address] [facility] [address] [place] [phone] General Surgery 10/07/20 Reason for Visit (unrecogniz ed section and content) Reason Comments Established Patient elevated diaphragm Reason Comments Results Reason Comments Refill Request Reason Comments Physical Hypertension Reason Onset Date Comments ED Follow Up 06/25/2022 Fabi[facility] ED disch arge 06/19/2022 ED outreach Reason Onset Date Comments ED OUTREACH 07/03/2022 Reason Comments Hypertension Reason Comments Depression Specialty Diagnoses / Procedures Referred By Emigdio saldana Referred To Contact CT IMAGING Diagnoses Lung nodules Procedures CT CHEST WO IVCON DIAGNOSTIC COMPUTED TOMOGRAPHY THORAX W/O Inge Benitez MD [address] [place] [address] [place] [address] Referral ID Status Reason Start Date Expiration Date V isits Requested Visits Authorized [id number] Closed Auto-Generate d Referral 04/11/2023 05/10/2024 1 1 Reason Comments Lab Orders Specialty Diagnoses / Procedures Referred By Emigdio saldana Referred To Contact MR IMAGING Diagnoses Cognitive impairment, mild, so stated Procedures MRI BRAIN WO IVCON MRI BRAIN BRAIN STEM W/O CONTRAST MATERIAL Dimitri Malhotra, OCEAN LIFEGUARD.STEAM CLEANING MACHINE OPERATOR [address] [place] [address] [place] [address] Referral ID Status Reason Start Date Expiration Date Visits Requested Visits Authorized [id number] Authorized Auto-Generat ed Referral 08/05/2023 09/03/2024 1 1 Referral ID Status Reason Start Date Expiration Date V isits Requested Visits Authorized [id number] Closed Auto-Generate d Referral 08/05/2023 09/03/2024 1 1 Reason Comments Hypertension Depression Reason Comments Med Change Request Reason Comments Blood Pressure Check Reason Onset Date Comments Results 12/06/2024 Reason Comments Lump Location: middle of his chestDuration: about a weekDescription: makes him feel sick to his stomach can't really explain itTreatment: none Reason Onset Date Comments Results 01/15/2025 Goals (unrecognized section and content) Goals may be documented in a n alternate sectionGoals may be documented in an alternate sectionGoals may be documented in an alternate sectionGoals may be documented in an alternate section FOR RECORDS PERTAINING TO PATIENTS WHO ARE OR HAVE BEEN ENROLLED IN A CHEMICAL DEPENDENCY/SUBSTANCEABUSE PROGRAM, SOME INFORMATION MAY BE OMITTED. This clinical summary was aggregated from multiple sources. Caution should be exercised in using it in the provision of clinical care. This summary normalizes information from multiple sources, and as a consequence, information in this document may materially change the coding, format and clinical context of patient data. In addition, data may be omitted in some cases. CLINICAL DECISIONS SHOULD BE BASED ON THE PRIMARY CLINICAL RECORDS. [facility]. provides no warranty or guarantee of the accuracy or completeness of information in this document.
[2025-04-10 16:55] LABS: Hematocrit 43.9 % (40-54); Hemoglobin 15.1 g/dL (13.0-16.5); Mean Corp Hgb Conc 34.4 g/dL (32-36); Mean Corpuscular Volume 86.6 fL (80-94); Mean Platelet Vol. 9.5 fl (6.2-12.0); Platelet Count 221 K/mm3 (150-450); RBC Distribution Width CV 13.0 % (11.6-14.6); RBC Distribution Width SD 40.4 fl (35.1-43.9); Red Blood Count 5.07 M/mm3 (4.6-6.2); White Blood Count 7.8 K/mm3 (4.4-11.0)
--- NOTE | 2025-04-10 17:03 | CM.ED ---
Social Work Date of referral: 04/10/25 Reason for referral: Advanced Care Directives (ACD's) not in place. Referred by: Social Work identification Patient provided consent to social work visit. Software Writer requested patient to bring in a copy of ACD's when able which patient was agreeable to. Alesia Gray, MACHINIST WOOD, SOLDERING MACHINE SETTER
[2025-04-10] MEDS: 0.9% Normal Saline (500mL Bag) 500 ML 1000 ML IV (17:15)
--- NOTE | 2025-04-10 17:30 | RAD_ITS ---
PROCEDURE: CHEST 1 VIEW (PORTABLE) 04/10/2025 REASON FOR EXAM: SYNCOPE TECHNIQUE: Frontal view of the chest. COMPARISON: None available. FINDINGS: Hardware: None Heart: The heart size is normal. Lungs: The lungs are clear. No pneumothorax or pleural effusion. Elevated right hemidiaphragm. Bones: The bones are unremarkable. RAD/Chest 1 View (Portable) IMPRESSION: No Acute Findings. Reading Location[facility]
[2025-04-10 17:31] LABS: D-Dimer Quantitative (DVT/PE) 0.43 FEU/ug/m (0.27-0.49)
--- NOTE | 2025-04-10 17:44 | CT_ITS ---
PROCEDURE: BRAIN/HEAD WITHOUT CONTRAST 04/10/2025 REASON FOR EXAM: FALL, HEAD TRAUMA TECHNIQUE: Procedure Code: CTBR Modality: CT Procedure: BRAIN/HEAD WITHOUT CONTRAST Coronal and Sagittal reconstruction series were provided. One or more dose reduction techniques were used (e.g., Automated exposure control, adjustment of the mA and/or kV according to patient size, use of iterative reconstruction technique. COMPARISON: None available. FINDINGS: There is no extra-axial or intra-axial intracranial hemorrhage. No mass effect or midline shift is seen. Generalized intracranial volume loss and findings compatible with chronic microvascular white matter ischemia. There is normal laws-white matter differentiation. The posterior fossa is grossly unremarkable. The skull is unremarkable. Visualized paranasal sinuses are clear. The mastoid air cells show normal translucency. CT/Brain/Head without Contrast IMPRESSION: No intracranial hemorrhage. No mass effect or midline shift. Chronic involutional and ischemic gliotic white matter changes. Reading Location[facility]
[2025-04-10 18:15] VITALS: BP 145/65; PULSE 81; RESP 16; O2SAT 97
[2025-04-10 18:19] LABS: AST(SGOT) 19 U/L (<=37); Alanine Aminotransfer ALT/SGPT 21 U/L (<=46); Albumin, Serum 4.4 g/dL (3.4-4.8); Alkaline Phosphatase 97 U/L (40-129); Anion Gap 13 (5-15); BUN 22 mg/dL (4-19); BUN/Creat Ratio 15.6 RATIO (10-20); Calcium,Total 9.5 mg/dL (7.6-11.0); Carbon Dioxide 22.5 mmol/L (21.0-32.0); Chloride 104 mmol/L (98-108); Estimated Creatinine Clearance 59.57 ml/min (50-250); Globulin 2.8 g/dL (2.2-4.2); Glucose 141 mg/dL (70-99); Potassium 4.1 mmol/L (3.3-5.1); Pro- Brain NATRIURETIC PEPTIDE < 36 pg/mL (<=900); Troponin T High Sensitivity 9 ng/L (<=22)
[2025-04-10 20:00] VITALS: BP 153/86; PULSE 72; RESP 16; O2SAT 96
[2025-04-10 20:03] LABS: Troponin T High Sens 2 HR 8 ng/L (<=22)
--- NOTE | 2025-04-10 20:50 | PCM.HP.STD ---
HPI - General General Date of Admission: 04/10/25 Date of Service: 04/10/25 Chief Complaint: Syncopal event. HPI Narrative The patient is a 69 y/o M w/ PMHx: GERD, Anxiety and Depression, HTN, HLD BPH with obstructive pathology who presents to the [facility] ED on 05/01 with history of noted to been watching a football game, jumping up suddenly at an intermission to go use the restroom and while walking down the hyde started to feel off, possibly dizzy or lightheaded but cannot describe it well with no other prodromal symptoms eventually losing consciousness but he believes it was very short in duration with 1 loose stool reported with no previous history prompting eventual ED evaluation. Patient denied any dyspnea or chest pain. Workup in the ED included T98, heart 90, BP 173/92, respiratory rate 19, 97% on room air with most recent repeat vitals heart rate 72, BP 153/86, respiratory rate 16, 96% room air, CBC with WC 7.8, hemoglobin 15.1, platelet 221 without differential performed, D-dimer 0.43, CMP with BUN/creatinine 22/1.3, GFR 56, glucose 141 otherwise unremarkable, BNP less than 36, troponin 9 with repeat 8, chest x-ray with no acute cardiopulmonary findings, CT brain with no acute intracranial findings with chronic involutional and ischemic gliotic white matter changes, EKG with sinus rhythm with no acute evidence of ischemia. [facility] Medical History (Updated 04/10/25 @ 21:[address] Eva Ya MD) History of kidney stones Anxiety and depression GERD (gastroesophageal reflux disease) Benign prostatic hyperplasia Unspecified renal colic High cholesterol Hypertension Home Medications ?Medication ?Instructions ?Recorded ?Last Taken ?Type lisinopril 10 mg tablet 20 mg PO DAILY 06/19/22 04/10/25 History pravastatin 20 mg tablet 20 mg PO DAILY 06/19/22 04/09/25 History tamsulosin 0.4 mg capsule (Flomax) 0.4 mg PO DAILY #20 caps 06/19/22 04/10/25 Rx fluoxetine 20 mg capsule 40 mg PO DAILY 04/10/25 04/10/25 History omeprazole 40 mg capsule,delayed 40 mg PO DAILY 04/10/25 04/09/25 History release Allergy/AdvReac Type Severity Reaction Status Date / Time No Known Allergies Allergy Verified 04/10/25 16:01 Family History (Updated 04/10/25 @ 21:[address] Eva Ya MD) Mother Hypertension Father Hypertension Family History no significant family his Surgical History (Updated 04/10/25 @ 21:[address] Eva Ya MD) History of lithotripsy S/P ureteral stent placement Social History (Updated 04/10/25 @ 21:[address] Eva Ya MD) household members: none Smoking Status: Never smoker alcohol intake: never substance use type: does not use ROS ROS Narrative Admission Review of Systems: CONSTITUTIONAL: No weight loss, fever, chills,+ weakness or fatigue. HEENT: + Possible lightheadedness/dizziness but poorly described. Eyes: No visual loss, blurred vision, double vision or yellow sclerae. Ears, Nose, Throat: No hearing loss, sneezing, congestion, runny nose or sore throat. SKIN: No rash or itching, lesions, wounds except + occasional stage ecchymoses, abrasion. CARDIOVASCULAR: + Syncopal event with possible lightheadedness/dizziness but poorly described. No chest pain, chest pressure or chest discomfort, palpitations, edema, orthopnea. RESPIRATORY: No shortness of breath, cough or sputum, wheezing, hemoptysis. GASTROINTESTINAL: No anorexia, nausea, vomiting or diarrhea, abdominal pain, melena, BRBPR. GENITOURINARY: + BPH with obstructive pathology with chronic urinary frequency. No dysuria, urgency or retention. NEUROLOGICAL: No headache, dizziness, syncope, paralysis, ataxia, numbness or tingling in the extremities, focal weakness, change in bowel or bladder control, seizure. MUSCULOSKELETAL: + muscle, back pain, joint pain or stiffness. HEMATOLOGIC: No anemia, bleeding or bruising. LYMPHATICS: No enlarged nodes. No history of splenectomy. PSYCHIATRIC: + History of anxiety and depression. ENDOCRINOLOGIC: No reports of sweating, cold or heat intolerance. No polyuria or polydipsia. ALLERGIES: No history of asthma, hives, eczema or rhinitis. Vital Signs Vital Signs Vital Signs: 04/10/25 16:01 04/10/25 16:09 04/10/25 18:15 Temperature 98 F Temperature Source Oral Pulse Rate 90 81 Respiratory Rate 19 H 16 Respiratory Effort Normal Non-Labored Respiratory Pattern Normal Blood Pressure 173/92 H 145/65 H Blood Pressure Mean 119 91 Pulse Ox 97 97 Oxygen Delivery Method Room Air Room Air 04/10/25 20:00 Temperature Temperature Source Pulse Rate 72 Respiratory Rate 16 Respiratory Effort Respiratory Pattern Blood Pressure 153/86 H Blood Pressure Mean 108 Pulse Ox 96 Oxygen Delivery Method Room Air Weight Weight: 208 lb 12.8 oz Body Mass Index (BMI) 26.8 Physical Exam Narrative Physical Examination: General: Awake, alert, oriented x 3 and cooperative, seated upright in ED bed, mild facial bruising to the left side of the face where he fell in the hallway. Skin: Normal color, normal turgor, no icterus, no cyanosis except for stage ecchymoses, abrasion, primarily freshly noted to the left face from recent syncopal event. HEENT: AT except see skin/NC, EOMI, PERRLA, MMM, no carotid bruits or JVD noted. Lungs: Mildly diminished, greater bases, appropriate effort, no rales, ronchi or wheezing. Heart: Regular rate and rhythm; no gallop, rub audible. Abdomen: Soft, NTTP, ND, mildly hyperactive BS, no HSM. Extremities: No cyanosis, clubbing, or edema. Neurological: Patient awake, alert, oriented as no, cognitive function intact; pupils equally reactive to light and accommodation, cranial nerves grossly normal, moving all 4 extremities, no focal deficits, strength preserved. Psychiatric: Affect appears fatigued, mildly flat, no acute evidence of depressive or anxiety feelings but does have underlying history. Results Lab / Micro Data 04/10/25 16:45 04/10/25 16:45 Labs: Laboratory Results - last 24 hr 04/10/25 16:45: WBC 7.8, RBC 5.07, Hgb 15.1, Hct 43.9, MCV 86.6, MCH 29.8, MCHC 34.4, RDW Std Deviation 40.4, RDW Coeff of Tj 13.0, Plt Count 221, MPV 9.5, D-Dimer Quant (PE/DVT) 0.43, Sodium 139, Potassium 4.1, Chloride 104, Carbon Dioxide 22.5, Anion Gap 13, BUN 22 H, Creatinine 1.38 H, Estim Creat Clear Calc 59.57, Est GFR (MDRD) Non-Af 56 L, BUN/Creatinine Ratio 15.6, Glucose 141 H, Calcium 9.5, Total Bilirubin 0.58, AST 19, ALT 21, Alkaline Phosphatase 97, Troponin T High Sens 9, NT pro BNP II < 36, Total Protein 7.2, Albumin 4.4, Globulin 2.8, Albumin/Globulin Ratio 1.6 04/10/25 19:30: Troponin T Hi Sens 2 Hr 8 Imaging Radiology Impression Chest X-Ray 04/10/25 17:30 IMPRESSION: No Acute Findings. Reading Location: [facility] Brain CT 04/10/25 17:44 IMPRESSION: No intracranial hemorrhage. No mass effect or midline shift. Chronic involutional and ischemic gliotic white matter changes. Reading Location: [facility] Assessment & Plan Assessment/Plan (1) Syncope: PLAN: Plan The patient is a 69 y/o M w/ PMHx: GERD, Anxiety and Depression, HTN, HLD BPH with obstructive pathology who presents to the [facility] ED on 05/01 with history of noted to been watching a football game, jumping up suddenly at an intermission to go use the restroom and while walking down the [place] started to feel off, possibly dizzy or lightheaded but cannot describe it well with no other prodromal symptoms eventually losing consciousness but he believes it was very short in duration with 1 loose stool reported with no previous history prompting eventual ED evaluation. #1. Syncopal Event: Unclear etiology but given history suspect positionally related given it happened just after he made quick position change, EKG in ED w/ sinus rhythm without evidence of acute ischemia, CT head with no acute intracranial findings, CXR w/ no acute cardiopulmonary findings, initial trop normal x 2. Will admit to PCU, place on a monitored bed to assure no acute myocardial infarction with serial cardiac enzymes and EKGs. Will maintain on fall precautions, obtain admission orthostatic, continue judicious hydration, will obtain echocardiogram and carotid ultrasound. PT/OT consultation to ascertain stability and discharge needs. #2. Hypertension: Continue home regimen including lisinopril with hold parameters as needed, PRN hydralazine. #3. Hyperlipidemia: Will continue patient on statin therapy. #4. BPH with obstructive pathology: Will continue patient on Flomax regimen, monitor for retention. #5. GERD: Will continue patient on PPI. #6. Anxiety and depression: Will continue patient on fluoxetine regimen. #7. DVT prophylaxis: Lovenox. #8. CODE status: Full Code status. Charges/Coding Visit Charges Inpatient E&M: 11658 Init Hosp L2
[2025-04-10 20:56] VITALS: BP 153/94; PULSE 71; RESP 16; TEMP 36.6; O2SAT 96
--- OUTSIDE RECORDS SUMMARY | 2025-04-10 21:28 | XMS RPT_ITS | CCD ---
Author Organization [facility] Care Team Providers Care Shower Attendant Name Role Phone Aubrey Malhotraistin C (Historical) Unavailable Un available Trill BIOPROCESSING MANUFACTURING TECHNICIAN.Dimitri REYNA Primary Care Provider Jose Amaral MD Unavailable Trill TUMBLER TENDER, Dimitri Primary Care Unavailable Tyron Pittman Attending Unavailable Trill TUMBLER TENDER, Dimitri Primary Care Unavailable Diego Herr Attending Unavailable LeannEleazar Attending Unavailable Trill TUMBLER TENDER, Dimitri Primary Care Unavailable Eleazar Noriega Attending Unavailable LeannEleazar Referring Unavailable Trill TUMBLER TENDER, Dimitri Primary Care Unavailable Willie Brown Attending Unavailable Edinson, Shawn Referring Unavailable Trill TUMBLER TENDER, Dimitri Primary Care Unavailable EdinsonCheikh learyin Attending Unavailable Edinson, Shawn Referring Unavailable Trill TUMBLER TENDER, Dimitri Primary Care Unavailable Edinson, Shawn Attending Unavailable Trill, Dimitri C (Historical) Unavailable Un available Trill BIOPROCESSING MANUFACTURING TECHNICIAN.Dimitri REYNA Primary Care Provider Jose Amaral MD Unavailable TRIAUBREY KELLERDIMITRI C Primary Care Unavailable INGE FLORES Referring Unavailable TRILL, DIMITRI C Referring Unavailable TRILL, DIMITRI C Primary Care Unavailable TRILL, DIMITRI C Referring Unavailable TRILL, DIMITRI C Primary Care Unavailable Trill BIOPROCESSING MANUFACTURING TECHNICIAN.Dimitri REYNA Primary Care Provider AUBREY MALHOTRAISTIN C [...] Comment on above: TAKE 1 TABLET BY MEMY TH EVERYDAY AT BEDTIME multivit,thx,calcium, iron,mins (MULTIVITAMIN [...] Kristie Peña M.D. Electronically signed on: 01/14/2025 Travel Freight And Passenger Agent: VIANCA Transcribe Date/Time: Jan 14 2025 1:29P Dictated by : KRISTIE PEÑA MD This examination was interpreted and the report reviewed and electronically signed by: KRISTIE PEÑA MD on Jan 14 2025 2:38PM [facility] * * *Final Report* * * DATE OF EXAM: Jan 14 2025 2:09PM [facility] 0627 - AMISHA DIAG W SNEHA MARQUISE / PROCEDURE REASON: Lump in chest * * * * Physician Interpretation * * * * [address] [address] #[id number] - [facility] DIAG W SNEHA MARQUISE #[id number] - [facility] BREAST LTD RT HISTORY: 69 year-old patient [...] no suspicious findings in the imaged area. [facility], [facility] * * *Final Report* * * DATE OF EXAM: Jan 14 2025 2:09PM [facility] 0627 - AMISHA DIAG W SNEHA MARQUISE / PROCEDURE REASON: Lump in chest * * * * Physician Interpretation * * * * [address] [address] #[id number] - [facility] DIAG W SNEHA MARQUISE #[id number] - [facility] US BREAST LTD RT HISTORY: 69 year-old [...] Kristie Peña M.D. Electronically signed on: 01/14/2025 Travel Freight And Passenger Agent: VIANCA Transcribe Date/Time: Jan 14 2025 1:29P Dictated by : KRISTIE PEÑA MD This examination was interpreted and the report reviewed and electronically signed by: KRISTIE PEÑA MD on Jan 14 2025 2:38PM [facility] Radiology Study observation (narrative) [facility] DIAG W SNEHA BILgianni 2024 [facility] DIAG W SNEHA MARQUISE * * *Final Report* * * DATE OF EXAM: Jan 14 2025 2:09PM [facility] 0627 - [facility] [place] W SNEHA MARQUISE / PROCEDURE REASON: Lump in chest * * * * Physician Interpretation * * * * [place] [address] #[id number] - [facility] [place] MARQUISE #[id number] - [facility] US BREAST LTD RT HISTORY: 69 year-old [...] Kristie Peña M.D. Electronically signed on: 01/14/2025 Travel Freight And Passenger Agent: VIANCA Transcribe Date/Time: Jan 14 2025 1:29P Dictated by : KRISTIE PEÑA MD This examination was interpreted and the report reviewed and electronically signed by: KRISTIE PEÑA MD on Jan 14 2025 2:38PM EST [id number] Normal [facility] US BREAST LTD RTon 01-14 [facility] US BREAST LTD RT * * *Final Report* * * DATE OF EXAM: Jan 14 2025 2:27PM [facility] 0594 - [facility] US BREAST LTD RT / PROCEDURE REASON: multiple diagnoses * * * * Physician Interpretation * * * * [place] [id number] #[id number] - [facility] [place] #[id number] - [facility] US BREAST LTD RT HISTORY: 69 year-old [...] Kristie Peña M.D. Electronically signed on: 01/14/2025 Travel Freight And Passenger Agent: VIANCA Transcribe Date/Time: Jan 14 2025 2:21P Dictated by : KRISTIE PEÑA MD This examination was interpreted and the report reviewed and electronically signed by: KRISTIE PEÑA MD on Jan 14 2025 2:38PM EST [id number] Normal [facility] No Panel InformationOrdered By: Ccf Provider on 01-14-2025 [facility] US Breast - right limitedon 01-14-2025 IMPRESSION: [...] Kristie Peña M.D. Electronically signed on: 01/14/2025 Travel Freight And Passenger Agent: VIANCA Transcribe Date/Time: Jan 14 2025 2:21P Dictated by : KRISTIE PEÑA MD This examination was interpreted and the report reviewed and electronically signed by: KRISTIE PEÑA MD on Jan 14 2025 2:38PM [facility] * * *Final Report* * * DATE OF EXAM: Jan 14 2025 2:27PM [facility] 0594 - [facility] Verimatrix BREAST GENBAND RT / PROCEDURE REASON: multiple diagnoses * * * * Physician Interpretation * * * * [place] [address] #[id number] - [facility] DIAG W SNEHA MARQUISE #[id number] - [facility] US BREAST LTD RT HISTORY: 69 year-old [...] no suspicious findings in the imaged area. [facility] Provider, Cccynthia Dill [facility] - 01/14/2025 * * *Final Report* * * DATE OF EXAM: Jan 14 2025 2:27PM [facility] 0594 - [facility] Verimatrix BREAST GENBAND RT / PROCEDURE REASON: multiple diagnoses * * * * Physician Interpretation * * * * [place] [address] #[id number] - [facility] JESSICA Felipe SNEHA MARQUISE #[id number] - [facility] US BREAST LTD RT HISTORY: 69 year-old [...] Kristie Peña M.D. Electronically signed on: 01/14/2025 Travel Freight And Passenger Agent: VIANCA Transcribe Date/Time: Jan 14 2025 2:21P Dictated by : KRISTIE PEÑA MD This examination was interpreted and the report reviewed and electronically signed by: KRISTIE PEÑA MD on Jan 14 2025 2:38PM EST [facility] Radiology Study observation (narrative) [facility] CNOVon 12-09-2024 CNOV Office Visit (AGFAMPLE) KIRT WINKLER ([id number]) [address] [facility] Date Time Provider Department 12/09/24 10:00 AM DIMITRI MALHOTRA During your visit today, we recorded the following information about you: Temperature Pulse Respiration Blood pressure 98 degrees 74/minute 16/minute 108/62 Weight Height 93.4 kg 1.88 m Dimitri Malhotra, ETTA.TRUCK SHOP SUPERVISOR 12/09/2024 11:20 PM Signed Subjective The patient consented to the use of [employer] software for draft documentation of the visit consistent with [facility]?s Notice of Privacy Practices. HPI Kirt is [...] worsening cognitive symptoms. Recently, he [place] from [place] to [place] without headlights, nearly causing a [...] tympanic membr (more content not included)... Normal [facility] 25(OH)D3 [facility] 20[facility] 25-hydroxyvitamin D3 [Mass/Vol] 14.9 ng/mL Low >=30.0 [facility] Comment on above: Order Comment: Speci men Type: BLOOD SPECIMEN Ordering Facility: [facility] Address: [address] [place] [address] Result Comment: Clas sification of 25 [place] Vitamin D status: Deficiency: <= 20.0 ng/ml. Insufficiency: 21.0-29.0 ng/ml. Sufficiency: >= 30.0 ng/ml. Performed By: #### 1 989-3 #### [facility] CLIA [id number] [address] [facility] CBC panel Auto (Bld)on 11-28 Erythrocyte distribution width (RBC) [Ratio] 13.0 % Normal 11.5-15.0 [facility] Comment on above: Order Comment: Speci men Type: BLOOD SPECIMENOrdering Facility: [facility] Address: [address] [place] [address] Performed By: #### 5 8410-2 ####[facility] [id number] [place] [address] [facility] Hematocrit (Bld) [Volume fraction] 45.6 % Normal 39.0-51.0 [facility] Comment on above: Order Comment: Speci men Type: BLOOD SPECIMENOrdering Facility: [facility] Address: [address] [place] [address] Performed By: #### 5 8410-2 ####[facility] [id number] [place] [address] [facility] Hemoglobin (Bld) [Mass/Vol] 14.8 g/dL Normal 13.0-17.0 [facility] Comment on above: Order Comment: Speci men Type: BLOOD SPECIMENOrdering Facility: [facility] Address: [address] [place] [address] Performed By: #### 5 8410-2 ####[facility] [id number] [place] [address] [place] MCH (RBC) [Entitic mass] 29.8 pg Normal 26.0-34.0 [facility] Comment on above: Order Comment: Speci men Type: BLOOD SPECIMENOrdering Facility: [facility] Address: [address] [place] [address] Performed By: #### 5 8410-2 ####[facility] [id number] [place] [address] [place] MCHC (RBC) [Mass/Vol] 32.5 g/dL Normal 30.5-36.0 [facility] Comment on above: Order Comment: Speci men Type: BLOOD SPECIMENOrdering Facility: [facility] Address: [address] [place] [address] Performed By: #### 5 8410-2 ####[facility] [id number] [facility] [place] [address] [place] MCV (RBC) [Entitic vol] 91.8 fL Normal 80.0-100.0 [facility] Comment on above: Order Comment: Speci men Type: BLOOD SPECIMENOrdering Facility: [facility] Address: [address] [place] [address] Performed By: #### 5 8410-2 ####[facility] [id number] [facility] [place] [address] [place] Platelet mean volume (Bld) [Entitic vol] 9.7 fL Normal 9.0-12.7 [facility] Comment on above: Order Comment: Speci men Type: BLOOD SPECIMENOrdering Facility: [facility] Address: [address] [place] [address] Performed By: #### 5 8410-2 ####[facility] [id number] [place] [address] [place] Platelets (Bld) [#/Vol] 239 10*3/uL Normal 150-400 [facility] Comment on above: Order Comment: Speci men Type: BLOOD SPECIMENOrdering Facility: [facility] Address: [address] [place] [address] Performed By: #### 5 8410-2 ####[facility] [id number] [facility] [place] [address] [place] RBC (Bld) [#/Vol] 4.97 10*6/uL Normal 4.20-6.00 [facility] Comment on above: Order Comment: Speci men Type: BLOOD SPECIMENOrdering Facility: [facility] Address: [address] [place] [address] Performed By: #### 5 8410-2 ####[facility] [id number] [place] [address] [facility] WBC (Bld) [#/Vol] 4.83 10*3/uL Normal 3.70-11.00 [facility] Comment on above: Order Comment: Speci men Type: BLOOD SPECIMENOrdering Facility: [facility] Address: [address] [place] [address] Performed By: #### 5 8410-2 ####[facility] [id number] [place] [address] [facility] Comprehensive metabolic 2000 panelon 11-28-2024 Albumin [Mass/Vol] 4.1 g/dL Normal 3.9-4.9 [facility] Comment on above: Order Comment: Speci men Type: BLOOD SPECIMEN Ordering Facility: [facility] Address: [address] [place] [address] Performed By: #### 3 016-3, 47080-5, 77894-3 #### [facility] CLIA [id number] [address] [place], [place] [address] [place] [address] [place] ALP [Catalytic activity/Vol] 102 U/L Normal 38-113 [facility] Comment on above: Order Comment: Speci men Type: BLOOD SPECIMEN Ordering Facility: [facility] Address: [address] [place] [address] Performed By: #### 3 016-3, 81919-7, 20921-7 #### [facility] CLIA [id number] [address] ALT With P-5'-P [Catalytic activity/Vol] 21 U/L Normal 10-54 [facility] Comment on above: Order Comment: Speci men Type: BLOOD SPECIMEN Ordering Facility: [facility] Address: [address] [place] [address] Performed By: #### 3 016-3, 93916-5, 68843-9 #### [facility] CLIA [id number] [address] [place] [address] [facility] Anion gap [Moles/Vol] 11 mmol/L Normal 8-15 [facility] Comment on above: Order Comment: Speci men Type: BLOOD SPECIMEN Ordering Facility: [facility] Address: [address] [place] [address] Performed By: #### 3 016-3, 72293-5, 79650-2 #### [facility] CLIA [id number] [address] [place] [address] [place] AST With P-5'-P [Catalytic activity/Vol] 16 U/L Normal 14-40 [facility] Comment on above: Order Comment: Speci men Type: BLOOD SPECIMEN Ordering Facility: [facility] Address: [address] [place] [address] Performed By: #### 3 016-3, 83995-4, 47358-8 #### [facility] CLIA [id number] [address] [place] [address] [place] Bilirubin [Mass/Vol] 0.5 mg/dL Normal 0.2-1.3 [facility] Comment on above: Order Comment: Speci men Type: BLOOD SPECIMEN Ordering Facility: [facility] Address: [address] [place] [address] Performed By: #### 3 016-3, 48576-9, #### [facility] CLIA [id number] [address] [place] [address] [place] Calcium [Mass/Vol] 9.3 mg/dL Normal 8.5-10.2 [facility] Comment on above: Order Comment: Speci men Type: BLOOD SPECIMEN Ordering Facility: [facility] Address: [address] [place] [address] Performed By: #### 3 016-3, 19673-2, 50597-3 #### [facility] CLIA [id number] [address] [place] [address] [place] Chloride [Moles/Vol] 107 mmol/L Normal 98-107 [facility] Comment on above: Order Comment: Speci men Type: BLOOD SPECIMEN Ordering Facility: [facility] Address: [address] [place] [address] [place] [address] Performed By: #### 3 016-3, 18270-5, 10823-4 #### [facility] CLIA [id number] [address] [place] [address] [place] [facility] CO2 [Moles/Vol] 24 mmol/L Normal 22-30 [facility] Comment on above: Order Comment: Speci men Type: BLOOD SPECIMEN Ordering Facility: [facility] Address: [address] [place] [address] Performed By: #### 3 016-3, 89468-1, 40073-6 #### [facility] CLIA [id number] [address] [place] [address] [facility] Creatinine [Mass/Vol] 1.06 mg/dL Normal 0.73-1.22 [facility] Comment on above: Order Comment: Speci men Type: BLOOD SPECIMEN Ordering Facility: [facility] Address: [address] [place] [address] Performed By: #### 3 016-3, 11471-7, 02689-0 #### [facility] CLIA [id number] [address] [place] [address] [facility] Creatinine and Glomerular filtration rate.predicted panel (S/P/Bld) 76 mL/min/1.73m??? Normal >=60 [facility] Comment on above: Order Comment: Speci men Type: BLOOD SPECIMEN Ordering Facility: [facility] Address: [address] [place] [address] Result Comment: Cornelia mated Glomerular Filtration Rate [...] actual GFR. Performed By: #### 3 016-3, 33489-3, 30861-2 #### [facility] CLIA [id number] [address] [place] [address] [place] Glucose [Mass/Vol] 94 mg/dL Normal 74-99 [facility] Comment on above: Order Comment: Bari pacheco Type: BLOOD SPECIMEN Ordering Facility: [facility] Address: [address] [place] [address] Result Comment: The [place] Diabetes Association (ADA) provides guidance for cutoff [...] Standards of Medical Care in Diabetes 2016, [place] Diabetes Association. Diabetes Care. 2016.39(Suppl 1). Performed By: #### 3 016-3, 85269-8, 24936-4 #### [facility] CLIA [id number] [address] [place] [address] [place] Potassium [Moles/Vol] 4.4 mmol/L Normal 3.7-5.1 [facility] Comment on above: Order Comment: Bari pacheco Type: BLOOD SPECIMEN Ordering Facility: [facility] Address: [address] [place] [address] Performed By: #### 3 016-3, 47240-2, 23357-7 #### [facility] CLIA [id number] [address] [place] [id number] [place] Protein [Mass/Vol] 7.0 g/dL Normal 6.3-8.0 [facility] Comment on above: Order Comment: Bari pacheco Type: BLOOD SPECIMEN Ordering Facility: [facility] Address: [address] [place] [address] Performed By: #### 3 016-3, 82866-0, 57757-3 #### [facility] CLIA [id number] [address] [place] [id number] [place] Sodium [Moles/Vol] 142 mmol/L Normal 136-144 [facility] Comment on above: Order Comment: Speci men Type: BLOOD SPECIMEN Ordering Facility: [facility] Address: [address] [place] [address] Performed By: #### 3 016-3, 28875-5, 52043-4 #### [facility] CLIA [id number] [address] [place] [address] [place] Urea nitrogen [Mass/Vol] 14 mg/dL Normal 9-24 [facility] Comment on above: Order Comment: Speci men Type: BLOOD SPECIMEN Ordering Facility: [facility] Address: [address] [place] [address] Performed By: #### 3 016-3, 79315-5, 32235-1 #### [facility] CLIA [id number] [address] [place] [address] [facility] Lipid 1996 panelon 5 Cholesterol [Mass/Vol] 232 mg/dL High <200 [facility] Comment on above: Order Comment: Speci men Type: BLOOD SPECIMEN Ordering Facility: [facility] Address: [address] [place] [address] Result Comment: <200 mg/dL, Desirable 200-239 mg/dL, Borderline high >239 mg/dL, High Performed By: #### 3 016-3, 18880-2, 18075-9 #### [facility] CLIA [id number] [address] [place] [address] [place] OF [facility] Cholesterol in HDL [Mass/Vol] 54 mg/dL Normal >39 [facility] Comment on above: Order Comment: Speci men Type: BLOOD SPECIMEN Ordering Facility: [facility] Address: [address] [place] [address] Result Comment: 40-5 9 mg/dL, Acceptable >59 mg/dL, High: Negative risk factor for coronary heart disease <40 mg/dL, Low: Positive risk factor for coronary heart disease Performed By: #### 3 016-3, 92193-9, 03754-4 #### [facility] CLIA [id number] [address] [place] [address] [facility] Cholesterol in LDL [Mass/Vol] 158 mg/dL High <100 [facility] Comment on above: Order Comment: Bari pacheco Type: BLOOD SPECIMEN Ordering Facility: [facility] Address: [address] [place] [address] Result Comment: <100 mg/dL, Optimal 100-129 mg/dL, Near optimal/above optimal 130-159 mg/dL, Borderline high 160-189 mg/dL, High >189 mg/dL, Very high Secondary prevention optimal LDL Cholesterol levels are recommended to be <70 mg/dL LDL cholesterol is calculated using the Isabel-NIH equation. Performed By: #### 3 016-3, 06969-0, 04848-8 #### [facility] CLIA [id number] [address] [place] [id number] [facility] Cholesterol in LDL/Cholesterol in HDL [Mass ratio] 2.93 {ratio} High <2.54 [facility] Comment on above: Order Comment: Bari pacheco Type: BLOOD SPECIMEN Ordering Facility: [facility] Address: [address] [place] [address] Result Comment: Refe thuan: 1. National Cholesterol Education Program ATP III Guideline At-A-Glance Quick Desk Reference: National Heart, Lung, and Blood [place]. National Institutes of Health. 2001: NIH Publication No. 01-3305. 2. An International Atherosclerosis Society position paper: global recommendations for the management of dyslipidemia: executive summary, Atherosclerosis. 2014: 232(2):410-413. Performed By: #### 3 016-3, 08472-0, 40869-3 #### [facility] CLIA [id number] [address] [place] [address] [place] OF [facility] Cholesterol in VLDL [Mass/Vol] 21 mg/dL Normal <30 [facility] Comment on above: Order Comment: Bari tara Type: BLOOD SPECIMEN Ordering Facility: [facility] Address: [address] [place] [address] Performed By: #### 3 016-3, 02380-4, 15519-9 #### [facility] CLIA [id number] [address] [place] [address] [place] Cholesterol non HDL [Mass/Vol] 178 mg/dL High <130 [facility] Comment on above: Order Comment: Bari pacheco Type: BLOOD SPECIMEN Ordering Facility: [facility] Address: [address] [place] [address] Result Comment: <130 mg/dL, Optimal 130-159 mg/dL, Near optimal/above optimal 160-189 mg/dL, Borderline high 190-219 mg/dL, High >219 mg/dL, Very high Secondary prevention optimal non HDL Cholesterol levels are recommended to be <100 mg/dL Performed By: #### 3 016-3, 89510-6, 45997-9 #### [facility] CLIA [id number] [address] Cholesterol.total/Alma sterol in HDL [Mass ratio] 4.30 {ratio} Normal <5.10 [facility] Comment on above: Order Comment: Bari pacheco Type: BLOOD SPECIMEN Ordering Facility: [facility] Address: [address] [place] [address] Performed By: #### 3 016-3, 82603-0, 63770-0 #### [facility] CLIA [id number] [address] [place] [address] OF [place] FASTING TIME 12 hrs Normal [facility] Comment on above: Order Comment: Bari tara Type: BLOOD SPECIMEN Ordering Facility: [facility] Address: [address] [place] [address] Performed By: #### 3 016-3, 89925-6, 07885-2 #### [facility] CLIA [id number] [address] [place] [address] [place] Triglyceride [Mass/Vol] 112 mg/dL Normal <150 [facility] Comment on above: Order Comment: Bari pacheco Type: BLOOD SPECIMEN Ordering Facility: [facility] Address: [address] [place] [address] Result Comment: <150 mg/dL, Normal 150-199 mg/dL, Borderline high 200-499 mg/dL, High >499 mg/dL, Very high Performed By: #### 3 016-3, 84659-8, 14985-7 #### [facility] CLIA [id number] [address] STATES OF [facility] T4 Free SerPl-mCncon 11-28- 025 Free T4 [Mass/Vol] 1.1 ng/dL Normal 0.9-1.7 [facility] Comment on above: Order Comment: Bari pacheco Type: BLOOD SPECIMEN Ordering Facility: [facility] Address: [address] [place] [address] Performed By: #### 3 024-7 #### [facility] CLIA [id number] [address] OF [place] TSH SerPl-aCncon 11-28-2024 TSH Qn 2.940 m[IU]/L Normal 0.270-4.200 [facility] Comment on above: Order Comment: Bari pacheco Type: BLOOD SPECIMENOrdering Facility: [facility] Address: [address] [place] [address] Performed By: #### 3 016-3, 80629-0, 81173-0 ####[facility] LAB[facility] [id number] [address] CNPNon 11-27-2024 [facility] (ANAHI) KIDNEY,KIRT Damon ([id number]) [address] [facility] Date Time Provider Department 11/27/24 DIMITRI MALHOTRA During your visit today, we recorded the following information about you: Zuleyma Layton MA 11/27/2024 8:10 AM Signed Patient requesting orders for blood work. Please advise. CHENG García Kristin C BIOPROCESSING MANUFACTURING TECHNICIAN.TRUCK SHOP SUPERVISOR 11/27/2024 10:55 AM Signed Orders yvette. Dimitri [...] [E55.9] Order(s):COMPLETE BLOOD COUNT [SQCBC] Order #: [id number] FUTURE COMPREHENSIVE METABOLIC PANEL [SQCMP] Order #: [id number] FUTURE THYROID STIMULATING HORMONE [SQTSH] Order #: [id number] FUTURE T4 FREE/FREE THYROXINE [SQFT4] Order #: [id number] FUTURE LIPID PANEL, FASTING [SQLIPB] Order #: [id number] FUTURE VITAMIN D 25 HYDROXY [SQVITD] Order #: [id number] FUTURE Prescriptions as of 11/27/2024 - FLUoxetine [...] Encounter Status:Closed by ZULEYMA LAYTON on 11/27/24 [facility] ALLIED HEALTHon 08-29-2023 ALLIED HEALTH HNO ID: [id number] Author: CARLOS BURLESON RT(R) Service: Radiology Author [...] PATIENT PRESENTS WITH AN IMPLANTABLE OR ATTACHED KITCHEN STEWARDESS: No RADIOLOGY DEPARTMENT: MR; Exam(s) Completed: Head: Routine Brain PERIPHERAL IV DATA: Not applicable SIGNED BY: RT Kane(R), RT Marli(R) August 29, 2023 7:28 AM [facility] MRI BRAIN WO IVCONon 02-22-2 024 MRI BRAIN WO IVCON * * *Final Report* * * DATE OF EXAM: Aug 29 2023 11:45AM [facility] 0294 - MRI BRAIN WO IVCON / [...] gliotic and involutional changes. Paranasal sinus disease. Travel Freight And Passenger Agent: PSYCHIATRIC Transcribe Date/Time: Aug 30 2023 8:34A Dictated by : LUCY PEREZ MD This examination was interpreted and the report reviewed and electronically signed by: LUCY PEREZ MD on Aug 30 2023 8:44AM EST [id number] N Normal [facility] CT CHEST WO IVCONon 05-10-20 CT CHEST WO IVCON * * *Final Report* * * DATE OF EXAM: May 10 2023 8:20AM [facility] 0541 - CT CHEST WO IVCON / [...] is a new trace left pleural effusion Travel Freight And Passenger Agent: PSYCHIATRIC Transcribe Date/Time: May 13 2023 3:01P Dictated by : REAGAN DE LA TORRE MD This examination was interpreted and the report reviewed and electronically signed by: REAGAN DE LA TORRE MD on May 13 2023 3:18PM EST [id number] N Normal [facility] No Panel InformationOrdered By: Eleazar Noriega on 01-01-2023 Prostate Specific Antigen Screen 3.40 ng/mL 0.00-4.00 [facility] Comment on above: This test was perfor med using the TPSA assay method for the[employer] chemistry system. Values obtained with differentassay methods cannot be used interchangably.When changing PSA assays in the course of monitoring apatient, additional sequential testing should be carriedout to confirm baseline values. PSA,Total - Annual Screenon 01-01-2023 PSA,TOT SCREEN 3.40 ng/mL Normal 0.00-4.00 [facility] Comment on above: Result Comment: This test was performed using the TPSA assay method for the [employer] chemistry system. Values obtained with different assay methods cannot be used interchangably. When changing PSA assays in the course of monitoring a patient, additional sequential testing should be carried out to confirm baseline values. Performed By: #### L 501.9910 #### [facility] [address] [place], [address] CBC panel Auto (Bld)on 12-10 Erythrocyte distribution width (RBC) [Ratio] 12.5 % 11.5 - 15.0 % [facility] Hematocrit (Bld) [Volume fraction] 44.1 % 39.0 - 51.0 % [facility] Hemoglobin (Bld) [Mass/Vol] 14.4 g/dL 13.0 - 17.0 g/dL [facility] MCH (RBC) [Entitic mass] 29.3 pg 26.0 - 34.0 pg [facility] MCHC (RBC) [Mass/Vol] 32.7 g/dL 30.5 - 36.0 g/dL [facility] MCV (RBC) [Entitic vol] 89.8 fL 80.0 - 100.0 fL [facility] Platelet mean volume (Bld) [Entitic vol] 9.7 fL 9.0 - 12.7 fL [facility] Platelets (Bld) [#/Vol] 193 10*3/uL 150 - 400 k/uL [facility] RBC (Bld) [#/Vol] 4.91 10*6/uL 4.20 - 6.0 0 m/uL [facility] WBC (Bld) [#/Vol] 4.16 10*3/uL 3.70 - 11. 00 k/uL [facility] Comprehensive metabolic 2000 panelon 12-10-2022 Albumin [Mass/Vol] 4.4 g/dL 3.9 - 4.9 g/dL [facility] ALP [Catalytic activity/Vol] 87 U/L 38 - 113 U/L [facility] ALT With P-5'-P [Catalytic activity/Vol] 14 U/L 10 - 54 U/L [facility] Anion gap [Moles/Vol] 10 mmol/L 9 - 18 mmol/L [facility] AST With P-5'-P [Catalytic activity/Vol] 16 U/L 14 - 40 U/L [facility] Bilirubin [Mass/Vol] 0.6 mg/dL 0.2 - 1 .3 mg/dL [facility] Calcium [Mass/Vol] 9.4 mg/dL 8.5 - 10. 2 mg/dL [facility] Chloride [Moles/Vol] 105 mmol/L 97 - 10 5 mmol/L [facility] CO2 [Moles/Vol] 25 mmol/L 22 - 30 mmol/L [facility] Creatinine [Mass/Vol] 1.08 mg/dL 0.73 - 1.22 mg/dL [facility] Estimated Glomerular Filtration Rate 76 mL/min/1.73m >=60 mL/min/1.73m [facility] Glucose [Mass/Vol] 96 mg/dL 74 - 99 mg/dL [facility] Potassium [Moles/Vol] 4.5 mmol/L 3.7 - 5.1 mmol/L [facility] Protein [Mass/Vol] 7.0 g/dL 6.3 - 8.0 g/dL [facility] Sodium [Moles/Vol] 140 mmol/L 136 - 144 mmol/L [facility] Urea nitrogen [Mass/Vol] 22 mg/dL 9 - 24 mg/dL [facility] Lipid 1996 panelon 3 Cholesterol [Mass/Vol] 188 mg/dL <200 mg/dL [facility] Cholesterol in HDL [Mass/Vol] 57 mg/dL >39 mg/dL [facility] Cholesterol in LDL [Mass/Vol] 112 mg/dL High <100 mg/dL [facility] Cholesterol in LDL/Cholesterol in HDL [Mass ratio] 1.96 {ratio} <2.54 [facility] Cholesterol in VLDL [Mass/Vol] 19 mg/dL <30 mg/dL [facility] Cholesterol non HDL [Mass/Vol] 131 mg/dL High <130 mg/dL [facility] Cholesterol.total/Alma sterol in HDL [Mass ratio] 3.30 {ratio} <5.10 [facility] Fasting Time 12 hrs [facility] Triglyceride [Mass/Vol] 93 mg/dL <150 mg/dL [facility] T4 FREE/FREE THYROXon 2022 Free T4 [Mass/Vol] 1.3 ng/dL 0.9 - 1.7 ng/dL [facility] TSH BLDon 12-10-2022 TSH Qn 3.480 m[IU]/L 0.270 - 4.200 mIU/L [facility] VITAMIN B12 BLOODon 12-11-19 Cobalamin (Vitamin B12) [Mass/Vol] 434 pg/mL 232 - 1,245 pg/mL [facility] Abdomen/Pelvis without Conto n 06-30-2022 Abdomen/Pelvis without Cont [facility] Imaging Services [address] [place] [address] Abdomen/Pelvis without Cont MR#: [id number] Acct: [id number] Name: KIRT WINKLER Rep #: [id number] : 1955 M 66 From: Yuriy Miller PCP: ALICIA Frances Status: REG ER Study: Abdomen/Pelvis without Cont Date of Exam: 06/08 10/27 Exam# [id number] Ordering Dr: Diego Herr DO STUDY: CT [...] 16:00 EST Reading Location ID and State: [facility] / [place] , Service support , CC: ALICIA Malhotra; Dr. Diego Herr, Travel Freight And Passenger Agent: Signed Normal [facility] Absolute lymphocyte counton 06-30-2022 Lymphocytes Auto (Unsp spec) [#/Vol] 0.74 10*3/uL 0.83-4.51 [facility] Work Phone: Automated blood hematocrit ( percentage)on 06-30-2022 Hematocrit (Bld) [Volume fraction] 40.8 % Normal 40-54 [facility] Work Phone: Comment on above: Performed By: #### L 100.0100, L500.2500 #### [facility] [address] [place], [address] Basic Metabolic Profile (BMP )on 06-30-2022 BUN/CRE 15.9 RATIO Normal 10-20 [facility] Comment on above: Performed By: #### L 100.0100, L500.2500 #### [facility] [address] [place], [place], [address] CA,Total 9.3 mg/dL Normal 8.5-10.1 [facility] Comment on above: Performed By: #### L 100.0100, L500.2500 #### [facility] [address] [place], [address] CO2 [Moles/Vol] 24.0 mmol/L Normal 21.0-32.0 [facility] Work Phone: Comment on above: Performed By: #### L 100.0100, L500.2500 #### [facility] [address] [place], [address] ECRCL 67.96 ml/min Normal [facility] Comment on above: Performed By: #### L 100.0100, L500.2500 #### [facility] [address] [place], [address] EST GFR - AA 74 mL/min Normal >60 [facility] Comment on above: Result Comment: Afri can Kazakh GFR Calc Performed By: #### L 100.0100, L500.2500 #### [facility] [address] [place], [address] GAP 6 Normal 5-15 [facility] Comment on above: Performed By: #### L 100.0100, L500.2500 #### [facility] [address] [place], [address] GFR/1.73 sq M.predicted among non-blacks MDRD (S/P/Bld) [Vol rate/Area] 61 mL/min/{1.73_m2} Normal >60 [facility] Comment on above: Result Comment: Non- GFR Calc Performed By: #### L 100.0100, L500.2500 #### [facility] [address] [place], [address] Basophil percentageon 2021 Chloride [Moles/Vol] 110 mmol/L High 98-107 [facility] Work Phone: Comment on above: Performed By: #### L 100.0100, L500.2500 #### [facility] [address] [place], [address] Glucose [Mass/Vol] 180 mg/dL High 74-106 [facility] Work Phone: Comment on above: Fasting Glucose resu lt greater than or equal to 126 mg/dL suggests DIABETES MELLITUS per A.D.A. criteria. Result Comment: Fast ing Glucose result greater than or equal to 126 mg/dL suggests DIABETES MELLITUS per A.D.A. criteria. Performed By: #### L 100.0100, L500.2500 #### [facility] [address] [place], [address] Potassium [Moles/Vol] 3.6 mmol/L Normal 3.5-5.1 [facility] Work Phone: Comment on above: Performed By: #### L 100.0100, L500.2500 #### [facility] [address] [place], [address] Sodium [Moles/Vol] 140 mmol/L Normal 136-145 [facility] Work Phone: Comment on above: Performed By: #### L 100.0100, L500.2500 #### [facility] [address] [place], [address] Basophils/100 WBC (Bld) 0.3 % Normal 0-1 [facility] Work Phone: Comment on above: Performed By: #### L 100.0100, L500.2500 #### [facility] [address] [place], [address] Eosinophils/100 WBC (Bld) 0.1 % Normal 0-5 [facility] Work Phone: Comment on above: Performed By: #### L 100.0100, L500.2500 #### [facility] [address] [place], [address] Neutrophils/100 WBC (Bld) 89.8 % High 47-70 [facility] Work Phone: [phone] Comment on above: Performed By: #### L 100.0100, L500.2500 #### [facility] [address] [place], [address] WBC (Bld) [#/Vol] 12.1 10*3/uL High 4.4-11.0 [facility] Work Phone: [phone] Comment on above: Performed By: #### L 100.0100, L500.2500 #### [facility] [address] [place], [address] Basophil percentage 0 SEEN /hpf 0-5 [facility] Work Phone: [phone] Neutrophils (Bld) [#/Vol] 10.8 10*3/uL 2.0-7.7 [facility] Work Phone: [phone] Bilirubin Test strip Ql (U)o n 06-30-2022 Bilirubin Ql (U) Negative Negative [facility] Work Phone: [phone] Blood erythrocytes count (nu mber/volume)on 06-30-2022 RBC (Bld) [#/Vol] 4.47 10*6/uL Low 4.6-6.2 [facility] Work Phone: [phone] Comment on above: Performed By: #### L 100.0100, L500.2500 #### [facility] [address] [place], [address] Blood hemoglobin measurement (mass/volume)on 06-30-2022 Hemoglobin (Bld) [Mass/Vol] 13.1 g/dL Normal 13.0-16.5 [facility] Work Phone: [phone] Comment on above: Performed By: #### L 100.0100, L500.2500 #### [facility] [address] [place], [address] Blood lymphocytes/100 leukoc yteson 06-30-2022 Lymphocytes/100 WBC (Bld) 6.1 % Low 19-41 [facility] Work Phone: Comment on above: Performed By: #### L 100.0100, L500.2500 #### [facility] [address] [place], [address] Blood monocytes/100 leukocyt eson 06-30-2022 Monocytes/100 WBC (Bld) 3.2 % Normal 0-10 [facility] Work Phone: Comment on above: Performed By: #### L 100.0100, L500.2500 #### [facility] [address] [place], [address] Blood platelet mean volumeon 06-30-2022 Platelet mean volume (Bld) [Entitic vol] 10.6 fL Normal 6.2-12.0 [facility] Work Phone: Comment on above: Performed By: #### L 100.0100, L500.2500 #### [facility] [address] [place], [address] CBC W/Diff, Automatedon 12-2 -2 Absolute Lymph 0.74 X10 3/uL Low 0.83-4.51 [facility] Comment on above: Performed By: #### L 100.0100, L500.2500 #### [facility] [address] [place], [address] Absolute Neut 10.8 X10 3/uL High 2.0-7.7 [facility] Comment on above: Performed By: #### L 100.0100, L500.2500 #### [facility] [address] [place], [address] Erythrocyte distribution width (RBC) [Ratio] 12.8 % Normal 11.6-14.6 [facility] Work Phone: Comment on above: Performed By: #### L 100.0100, L500.2500 #### [facility] [address] [place], [address] IG% 0.500 Normal 0.0-0.9 [facility] Comment on above: Result Comment: IG% - Immature Granulocytes (promyelocytes, myelocytes and metamyelocytes) > 1% indicates that a LEFT SHIFT is Present. Performed By: #### L 100.0100, L500.2500 #### [facility] [address] [place], [address] MCH (RBC) [Entitic mass] 29.3 pg Normal 27.0-32.0 [facility] Work Phone: Comment on above: Performed By: #### L 100.0100, L500.2500 #### [facility] [address] [place], [address] Nucleated RBC (Bld) [#/Vol] 0 10*3/uL Normal 0-5 [facility] Comment on above: Performed By: #### L 100.0100, L500.2500 #### [facility] [address] [place], [address] RDW SD 42.5 fl Normal 35.1-43.9 [facility] Comment on above: Performed By: #### L 100.0100, L500.2500 #### [facility] [address] [place], [address] Determination of erythrocyte mean corpuscular volume (MCV)on 06-30-2022 MCV (RBC) [Entitic vol] 91.3 fL Normal 80-94 [facility] Work Phone: Comment on above: Performed By: #### L 100.0100, L500.2500 #### [facility] [address] [place], [address] Emergency Department Summary on 06-30-2022 Emergency Department Summary [facility] Medical Records Department [address] [place] [address] Emergency Department Summary 06/30/22 MR#: [id number] Acct: [id number] Name: KIRT WINKLER Rep #: [id number] : 1955 66 From: Diego Herr DO PCP: Dimitri Malhotra TUMBLER TENDER-C Status:DEP ER Location: ED HPI History of [...] He has had some small bowel movements [facility] Medical History High cholesterol Hypertension [...] not h (more content not included)... Normal [facility] Ketones Test strip Ql (U)on 06-30-2022 Ketones Ql (U) Negative Negative [facility] Work Phone: Laboratory - Chemistry and C hemistry - challengeon 06-30-2022 Urea nitrogen/Creatinine [Mass ratio] 15.9 mg/mg 10-20 [facility] Work Phone: Laboratory - Hematology and Cell countson 06-30-2022 Erythrocyte distribution width (RBC) [Entitic vol] 42.5 fL 35.1-43.9 [facility] Work Phone: Immature granulocytes/100 WBC (Bld) 0.500 % 0.0-0.9 [facility] Work Phone: Comment on above: IG% - Immature Granu locytes (promyelocytes, myelocytes and metamyelocytes) > 1% indicates that a LEFT SHIFT is Present. Nucleated RBC/100 WBC (Bld) [Ratio] 0 % 0-5 [facility] Work Phone: MCHC [Mass/volume] by Automa hunter counton 06-30-2022 MCHC (RBC) [Mass/Vol] 32.1 g/dL Normal 32-36 [facility] Work Phone: Comment on above: Performed By: #### L 100.0100, L500.2500 #### [facility] [address] [place], [address] Mucus LM Ql (Urine sed)on Mucus Ql (Urine sed) 0 SEEN /hpf [facility] Work Phone: Nitrite Test strip Ql (U)on 06-30-2022 Nitrite Ql (U) Negative Negative [facility] Work Phone: No Panel Informationon 06-30 Estimated Creatinine Clearance Calc 67.96 ml/min [facility] Work Phone: Estimated GFR (MDRD) Amer 74 mL/min >60 [facility] Work Phone: Comment on above: GFR Calc Estimated GFR (MDRD) Non-Af Amer 61 mL/min >60 [facility] Work Phone: Comment on above: Non- GFR Calc Platelets bldon 06-30-2022 Platelets (Bld) [#/Vol] 248 10*3/uL Normal 150-450 [facility] Work Phone: Comment on above: Performed By: #### L 100.0100, L500.2500 #### [facility] [address] [place], [place], [address] Protein Test strip Ql (U)on 06-30-2022 Protein Ql (U) Negative Negative [facility] Work Phone: Serum or plasma calcium jaxon urement (mass/volume)on 06-30-2022 Calcium [Mass/Vol] 9.3 mg/dL 8.5-10.1 [facility] Work Phone: Serum or plasma creatinine m easurement (mass/volume)on 06-30-2022 Creatinine [Mass/Vol] 1.26 mg/dL Normal 0.70-1.30 [facility] Work Phone: Comment on above: The validity of the calculated GFR & GFRAA in patients over 70 years has not been determined. Clinical correlation is essential. Result Comment: The validity of the calculated GFR GFRAA in patients over 70 years has not been determined. Clinical correlation is essential. Performed By: #### L 100.0100, L500.2500 #### [facility] [address] [place], [address] Serum or plasma urea nitroge n measurement (mass/volume)on 06-30-2022 Urea nitrogen [Mass/Vol] 20 mg/dL High 7-18 [facility] Work Phone: Comment on above: Performed By: #### L 100.0100, L500.2500 #### [facility] [address] [place], [address] Squamous epithelial cells de tection in urine sediment by light microscopyon 06-30-2022 Epithelial cells.squamous LM Ql (Urine sed) 0 SEEN /hpf 0-5 [facility] Work Phone: Thin prep Papanicolaou smear with manual screeningon 06-30-2022 Thin prep Papanicolaou smear with manual screening 6 5-15 [facility] Work Phone: Urinalysis, Completeon 06-30 BACTERIA 0 SEEN Normal None Seen [facility] Comment on above: Order Comment: CLEAN CATCH Performed By: #### L 400.0001 #### [facility] [address] [place], [address] EPI,SQUAMOUS 0 SEEN Normal 0-5 [facility] Comment on above: Order Comment: CLEAN CATCH Performed By: #### L 400.0001 #### [facility] [address] [place], [address] Mucus Ql (Urine sed) 0 SEEN Normal [facility] Comment on above: Order Comment: CLEAN CATCH Performed By: #### L 400.0001 #### [facility] [address] [place], [address] RBC 0 SEEN Normal 0-5 [facility] Comment on above: Order Comment: CLEAN CATCH Performed By: #### L 400.0001 #### [facility] [address] [place], [address] WBC 0 SEEN Normal 0-5 [facility] Comment on above: Order Comment: CLEAN CATCH Performed By: #### L 400.0001 #### [facility] [address] [place], [address] Urine blood detectionon 06-08 RBC Ql (U) 25 /ul Negative [facility] Work Phone: RBC Ql (U) 0 SEEN /hpf 0-5 [facility] Work Phone: Urine clarityon 06-30-2022 Clarity (U) Clear Clear [facility] Work Phone: Urine color determinationon 06-30-2022 Color (U) Yellow Yellow [facility] Work Phone: Urine glucose detectionon Glucose Ql (U) 100 mg/dl Normal [facility] Work Phone: Urine leukocyte esterase det ection by dipstickon 06-30-2022 Leukocyte esterase Test strip Ql (U) 25 /ul Negative [facility] Work Phone: Urine pHon 06-30-2022 pH (U) 5.0 [pH] 5.0 - 8.0 [facility] Work Phone: Urine sediment bacteria coun t by microscopy (number/high power field)on 06-30-2022 Bacteria LM.HPF (Urine sed) [#/Area] 0 /[HPF] None Seen [facility] Work Phone: Urine specific gravity measu rementon 06-30-2022 Specific gravity (U) [Rel density] 1.020 1.002-1.030 [facility] Work Phone: Urobilinogen Auto test strip Ql (U)on 06-30-2022 Urobilinogen Ql (U) Normal mg/dl Normal [facility] Work Phone: Emergency Department Summary on 06-19-2022 Emergency Department Summary [facility] Medical Records Department [address] [place] [address] Emergency Department Summary 06/19/22 MR#: [id number] Acct: [id number] Name: KIRT WINKLER Rep #: [id number] : 1955 66 From: Tyron Pittman MD PCP: Dimitri Malhotra TUMBLER TENDER-C Status:REG ER Location: ED HPI History of [...] from his surgical site in his naris. [facility] Medical History (Updated 06/19/22 @ [...] Staff] - 1 Week Dimitri Malhotra NP, TUMBLER TENDER-C [Primary Care Provider] - Activity Restrictions/Addition al [...] What to (more content not included)... Normal [facility] Decalcification bone/plaqueo n 06-18-2022 Decalcification bone/plaque -------- Patient Age/Sex Location Account Attending Physician -------- KIDNEY,KIRT SILVA 66/M LABSPEC [id number] Dr. Shawn Neves MD -------- Specimen: [id number] Received: 06/18/22 Status: STEFANY Velia Num: [id number] Spec Type: SEPTUM Subm Dr: Dr. Shawn [...] after decalcification. / ESME:brianna 06/19/2022 TC:5 CPT: 18977, 37250 -------- Patient Age/Sex Location Account Attending Physician -------- KIRT WINKLER 66/M LABSPEC [id number] Dr. Shawn Neves MD -------- Signed (signature on file) Dr. Peter Tse MD 06/22/22 1227 -------- [facility] Comment on above: Performed By: #### P DEC ####[facility] [address] [place], [address] 12 Lead EKGon 06-04-2022 12 Lead EKG [facility] Cardiovascular Services [address] [place] [address] 12 Lead EKG 06/04/22 1359 MR#: [id number] Acct: [id number] Name: KIRT WINKLER Rep #: [id number] : 1955 66 From: Willie Brown MD Attending Dr: Dr. Shawn Neves MD Status: REG CLI Ordering Dr: Shawn Neves MD Date: 06/04/22 Location: [facility] Sex: M C Admitted: Test Reason : PREOP Blood Pressure : / mmHG Vent. Rate : 062 BPM Atrial Rate : 062 BPM P-R Int : 160 ms QRS Dur : 092 ms QT Int : 402 ms P-R-T Axes : 112 059 047 degrees QTc Int : 408 ms Normal sinus rhythm Normal ECG Confirmed by WILLIE BROWN MD ([id number]), supervising editor trailer PERRY ROBERTSON ([id number]) on 06/05/2022 9:07:10 AM Referred By: Shawn Neves Confirmed By:WILLIE BROWN MD 06/05/22 0907 Date Willie Brown MD CC: ANIYA-Erasmo Malhotra; Dr. Shawn Neves MD Signed [facility] Basic Metabolic Profile (BMP )on 06-04-2022 BUN/CRE 20.6 RATIO High 10-20 [facility] Comment on above: Performed By: #### L 100.0500, L500.2500 #### [facility] [address] [place], [address] CA,Total 9.2 mg/dL Normal 8.5-10.1 [facility] Comment on above: Performed By: #### L 100.0500, L500.2500 #### [facility] [address] [place], [address] Chloride [Moles/Vol] 106 mmol/L Normal 98-107 [facility] Comment on above: Performed By: #### L 100.0500, L500.2500 #### [facility] [address] [place], [address] CO2 [Moles/Vol] 28.0 mmol/L Normal 21.0-32.0 [facility] Comment on above: Performed By: #### L 100.0500, L500.2500 #### [facility] [address] [place], [address] Creatinine [Mass/Vol] 1.07 mg/dL Normal 0.70-1.30 [facility] Comment on above: Result Comment: The validity of the calculated GFR GFRAA in patients over 70 years has not been determined. Clinical correlation is essential. Performed By: #### L 100.0500, L500.2500 #### [facility] [address] [place], [address] EST GFR - AA 89 mL/min Normal >60 [facility] Comment on above: Result Comment: Afri can Kazakh GFR Calc Performed By: #### L 100.0500, L500.2500 #### [facility] [address] [place], [place], [address] GAP 6 Normal 5-15 [facility] Comment on above: Performed By: #### L 100.0500, L500.2500 #### [facility] [address] [place], [address] GFR/1.73 sq M.predicted among non-blacks MDRD (S/P/Bld) [Vol rate/Area] 74 mL/min/{1.73_m2} Normal >60 [facility] Comment on above: Result Comment: Non- GFR Calc Performed By: #### L 100.0500, L500.2500 #### [facility] [address] [place], [address] Glucose [Mass/Vol] 95 mg/dL Normal 74-106 [facility] Comment on above: Performed By: #### L 100.0500, L500.2500 #### [facility] [address] [place], [address] Potassium [Moles/Vol] 3.6 mmol/L Normal 3.5-5.1 [facility] Comment on above: Performed By: #### L 100.0500, L500.2500 #### [facility] [address] [place], [address] Sodium [Moles/Vol] 140 mmol/L Normal 136-145 [facility] Comment on above: Performed By: #### L 100.0500, L500.2500 #### [facility] [address] [place], [address] Urea nitrogen [Mass/Vol] 22 mg/dL High 7-18 [facility] Comment on above: Performed By: #### L 100.0500, L500.2500 #### [facility] [address] [place], [address] Basophil percentageon 2021 Chloride [Moles/Vol] 106 mmol/L 98-107 [facility] Work Phone: Glucose [Mass/Vol] 95 mg/dL 74-106 [facility] Work Phone: Potassium [Moles/Vol] 3.6 mmol/L 3.5-5.1 [facility] Work Phone: Sodium [Moles/Vol] 140 mmol/L 136-145 [facility] Work Phone: WBC (Bld) [#/Vol] 5.6 10*3/uL 4.4-11.0 [facility] Work Phone: Blood erythrocytes count (nu mber/volume)on 06-04-2022 RBC (Bld) [#/Vol] 4.89 10*6/uL 4.6-6.2 [facility] Work Phone: Blood hemoglobin measurement (mass/volume)on 06-04-2022 Hemoglobin (Bld) [Mass/Vol] 14.6 g/dL 13.0-16.5 [facility] Work Phone: Blood platelet mean volumeon 06-04-2022 Platelet mean volume (Bld) [Entitic vol] 9.7 fL 6.2-12.0 [facility] Work Phone: CBC-Complete Blood Cnt No Di ffon 06-04-2022 Erythrocyte distribution width (RBC) [Ratio] 12.9 % Normal 11.6-14.6 [facility] Comment on above: Performed By: #### L 100.0500, L500.2500 #### [facility] [address] [place], [address] Hematocrit (Bld) [Volume fraction] 44.1 % Normal 40-54 [facility] Comment on above: Performed By: #### L 100.0500, L500.2500 #### [facility] [address] [facility] [place], [address] Hemoglobin (Bld) [Mass/Vol] 14.6 g/dL Normal 13.0-16.5 [facility] Comment on above: Performed By: #### L 100.0500, L500.2500 #### [facility] [address] [place], [address] MCH (RBC) [Entitic mass] 29.9 pg Normal 27.0-32.0 [facility] Comment on above: Performed By: #### L 100.0500, L500.2500 #### [facility] [address] [place], [address] MCHC (RBC) [Mass/Vol] 33.1 g/dL Normal 32-36 [facility] Comment on above: Performed By: #### L 100.0500, L500.2500 #### [facility] [address] [place], [address] MCV (RBC) [Entitic vol] 90.2 fL Normal 80-94 [facility] Comment on above: Performed By: #### L 100.0500, L500.2500 #### [facility] [address] [place], [address] Platelet mean volume (Bld) [Entitic vol] 9.7 fL Normal 6.2-12.0 [facility] Comment on above: Performed By: #### L 100.0500, L500.2500 #### [facility] [address] [place], [address] Platelets (Bld) [#/Vol] 222 10*3/uL Normal 150-450 [facility] Comment on above: Performed By: #### L 100.0500, L500.2500 #### [facility] [address] [place], [address] RBC (Bld) [#/Vol] 4.89 10*6/uL Normal 4.6-6.2 [facility] Comment on above: Performed By: #### L 100.0500, L500.2500 #### [facility] [address] [place], [address] RDW SD 42.5 fl Normal 35.1-43.9 [facility] Comment on above: Performed By: #### L 100.0500, L500.2500 #### [facility] [address] [place], [place], [address] WBC (Bld) [#/Vol] 5.6 10*3/uL Normal 4.4-11.0 [facility] Comment on above: Performed By: #### L 100.0500, L500.2500 #### [facility] [address] [place], [place], [address] Determination of erythrocyte mean corpuscular volume (MCV)on 06-04-2022 MCV (RBC) [Entitic vol] 90.2 fL 80-94 [facility] Work Phone: Hematocrit Auto (Bld) [Volum e fraction]on 06-04-2022 Hematocrit (Bld) [Volume fraction] 44.1 % 40-54 [facility] Work Phone: Laboratory - Chemistry and C hemistry - challengeon 06-04-2022 CO2 [Moles/Vol] 28.0 mmol/L 21.0-32.0 [facility] Work Phone: Urea nitrogen/Creatinine [Mass ratio] 20.6 mg/mg 10-20 [facility] Work Phone: Laboratory - Hematology and Cell countson 06-04-2022 Erythrocyte distribution width (RBC) [Entitic vol] 42.5 fL 35.1-43.9 [facility] Work Phone: [phone] Erythrocyte distribution width (RBC) [Ratio] 12.9 % 11.6-14.6 [facility] Work Phone: MCH (RBC) [Entitic mass] 29.9 pg 27.0-32.0 [facility] Work Phone: MCHC Auto (RBC) [Mass/Vol]on 06-04-2022 MCHC (RBC) [Mass/Vol] 33.1 g/dL 32-36 [facility] Work Phone: No Panel Informationon 06-04 Estimated GFR (MDRD) Amer 89 mL/min >60 [facility] Work Phone: Comment on above: GFR Calc Estimated GFR (MDRD) Non-Af Amer 74 mL/min >60 [facility] Work Phone: Comment on above: Non- GFR Calc Platelets bldon 06-04-2022 Platelets (Bld) [#/Vol] 222 10*3/uL 150-450 [facility] Work Phone: Serum or plasma calcium jaxon urement (mass/volume)on 06-04-2022 Calcium [Mass/Vol] 9.2 mg/dL 8.5-10.1 [facility] Work Phone: Serum or plasma creatinine m easurement (mass/volume)on 06-04-2022 Creatinine [Mass/Vol] 1.07 mg/dL 0.70-1.30 [facility] Work Phone: Comment on above: The validity of the calculated GFR & GFRAA in patients over 70 years has not been determined. Clinical correlation is essential. Serum or plasma urea nitroge n measurement (mass/volume)on 06-04-2022 Urea nitrogen [Mass/Vol] 22 mg/dL 7-18 [facility] Work Phone: Thin prep Papanicolaou smear with manual screeningon 06-04-2022 Thin prep Papanicolaou smear with manual screening 6 5-15 [facility] Work Phone: Basic metabolic 2000 panelon 05-28-2022 Anion gap [Moles/Vol] 10 mmol/L Normal 9-[address] [facility] Comment on above: Order Comment: Speci men Type: BLOOD SPECIMEN Ordering Facility: [facility] Address: [address] [place] [id number] Performed By: #### 2 4321-2 #### [facility] CLIA [id number] [address] [place] [address] [place] Calcium [Mass/Vol] 9.5 mg/dL Normal 8.5-10.2 [facility] Comment on above: Order Comment: Speci men Type: BLOOD SPECIMEN Ordering Facility: [facility] Address: [address] [place] [address] Performed By: #### 2 4321-2 #### [facility] CLIA [id number] [address] [place] [address] [place] Chloride [Moles/Vol] 105 mmol/L Normal 97-105 [facility] Comment on above: Order Comment: Speci men Type: BLOOD SPECIMEN Ordering Facility: [facility] Address: [address] [place] [address] Performed By: #### 2 4321-2 #### [facility] CLIA [id number] [address] [place] [address] [place] CO2 [Moles/Vol] 26 mmol/L Normal 22-30 [facility] Comment on above: Order Comment: Speci men Type: BLOOD SPECIMEN Ordering Facility: [facility] Address: [address] [place] [address] Performed By: #### 2 4321-2 #### [facility] CLIA [id number] [address] [place] [address] [place] Creatinine [Mass/Vol] 1.01 mg/dL Normal 0.73-1.[address] [facility] Comment on above: Order Comment: Speci men Type: BLOOD SPECIMEN Ordering Facility: [facility] Address: [address] [place] [address] Performed By: #### 2 4321-2 #### [facility] CLIA [id number] [address] [place] [address] [place] ESTIMATED GLOMERULAR FILTRATION RATE 83 mL/min/1.73m??? Normal >=60 [facility] Comment on above: Order Comment: Speci men Type: BLOOD SPECIMEN Ordering Facility: [facility] Address: [address] [address] Result Comment: Cornelia mated Glomerular Filtration Rate [...] GFR. Performed By: #### 2 4321-2 #### [id number] [address] [place] [address] [place] Glucose [Mass/Vol] 103 mg/dL High 74-99 [facility] Comment on above: Order Comment: Bari pacheco Type: BLOOD SPECIMEN Ordering Facility: [facility] Address: [address] [address] Result Comment: The [place] Diabetes Association (ADA) provides guidance for cutoff [...] Standards of Medical Care in Diabetes 2016, [place] Diabetes Association. Diabetes Care. 2016.39(Suppl 1). Performed By: #### 2 4321-2 #### [facility] [id number] [address] [place] [address] [place] Potassium [Moles/Vol] 4.0 mmol/L Normal 3.7-5.[address] [facility] Comment on above: Order Comment: Bari pacheco Type: BLOOD SPECIMEN Ordering Facility: [facility] Address: [address] [address] Performed By: #### 2 4321-2 #### [facility] CLIA [id number] [address] [place] [address] [place] Sodium [Moles/Vol] 141 mmol/L Normal 136-144 [facility] Comment on above: Order Comment: Speci men Type: BLOOD SPECIMEN Ordering Facility: [facility] Address: [address] [place] [address] Performed By: #### 2 4321-2 #### [facility] CLIA [id number] [address] [place] [address] [place] Urea nitrogen [Mass/Vol] 19 mg/dL Normal 9-24 [facility] Comment on above: Order Comment: Speci men Type: BLOOD SPECIMEN Ordering Facility: [facility] Address: [address] [place] [address] Performed By: #### 2 4321-2 #### [facility] [id number] [address] [place] [address] [place] Lipid 1996 panelon 2 Cholesterol [Mass/Vol] 195 mg/dL Normal <200 [facility] Comment on above: Order Comment: Speci men Type: BLOOD SPECIMEN Ordering Facility: [facility] Address: [address] [place] [address] Result Comment: <200 mg/dL, Desirable 200-239 mg/dL, Borderline high >239 mg/dL, High Performed By: #### 2 4331-1 #### [facility] CLIA [id number] [address] [facility] [id number] [id number] [place] [facility] CLIA [id number] [address] [place] [address] [place] Cholesterol in HDL [Mass/Vol] 54 mg/dL Normal >39 [facility] Comment on above: Order Comment: Speci men Type: BLOOD SPECIMEN Ordering Facility: [facility] Address: [address] [place] [address] Result Comment: 40-5 9 mg/dL, Acceptable >59 mg/dL, High: Negative risk factor for coronary heart disease <40 mg/dL, Low: Positive risk factor for coronary heart disease Performed By: #### 2 4331-1 #### [facility] CLIA [id number] [address] CLIA [id number] [address] [place] [address] Cholesterol in LDL [Mass/Vol] 119 mg/dL High <100 [facility] Comment on above: Order Comment: Specdiya men Type: BLOOD SPECIMEN Ordering Facility: [facility] Address: [address] [address] Result Comment: <100 mg/dL, Optimal 100-129 mg/dL, Near optimal/above optimal 130-159 mg/dL, Borderline high 160-189 mg/dL, High >189 mg/dL, Very high Secondary prevention optimal LDL Cholesterol levels are recommended to be < 70 mg/dL Performed By: #### 2 4331-1 #### [facility] CLIA [id number] [address] CLIA [id number] [address] [place] [address] Cholesterol in LDL/Cholesterol in HDL [Mass ratio] 2.20 {ratio} Normal <2.54 [facility] Comment on above: Order Comment: Bari pacheco Type: BLOOD SPECIMEN Ordering Facility: [facility] Address: [address] [address] Result Comment: Refe rence: 1. National Cholesterol Education Program ATP III Guideline At-A-Glance Quick Desk Reference: National Heart, Lung, and Blood [place]. National Institutes of Health. 2001: NIH Publication No. 01-3305. 2. An International Atherosclerosis Society position paper: global recommendations for the management of dyslipidemia: executive summary, Atherosclerosis. 2014: 232(2):410-413. Performed By: #### 2 4331-1 #### [facility] CLIA [id number] [address] [id number] [facility] [place] [facility] CLIA [id number] [address] [place] [address] [place] Cholesterol in VLDL [Mass/Vol] 22 mg/dL Normal <30 [facility] Comment on above: Order Comment: Speci men Type: BLOOD SPECIMEN Ordering Facility: [facility] Address: [address] Performed By: #### 2 4331-1 #### [facility] CLIA [id number] [address] [place] [facility] CLIA [id number] [address] [place] [address] [place] Cholesterol non HDL [Mass/Vol] 141 mg/dL High <130 [facility] Comment on above: Order Comment: Speci men Type: BLOOD SPECIMEN Ordering Facility: [facility] Address: [address] [place] [address] Result Comment: <130 mg/dL, Optimal 130-159 mg/dL, Near optimal/above optimal 160-189 mg/dL, Borderline high 190-219 mg/dL, High >219 mg/dL, Very high Secondary prevention optimal non HDL Cholesterol levels are recommended to be <100 mg/dL Performed By: #### 2 4331-1 #### [facility] CLIA [id number] [address] [place] [address] [place] [facility] CLIA [id number] [address] [place] [address] [place] Cholesterol.total/Alma sterol in HDL [Mass ratio] 3.61 {ratio} Normal <5.10 [facility] Comment on above: Order Comment: Speci men Type: BLOOD SPECIMEN Ordering Facility: [facility] Address: [address] Performed By: #### 2 4331-1 #### [facility] CLIA [id number] [address] [id number] [place] [facility] CLIA [id number] [address] [place] [address] STATES [place] [facility] FASTING TIME 10 hrs Normal [facility] Comment on above: Order Comment: Speci men Type: BLOOD SPECIMEN Ordering Facility: [facility] Address: [address] [place] [address] Performed By: #### 2 4331-1 #### [facility] CLIA [id number] [address] [place] [address] [place] [facility] CLIA [id number] [address] [place] [address] [place] Triglyceride [Mass/Vol] 112 mg/dL Normal <150 [facility] Comment on above: Order Comment: Speci men Type: BLOOD SPECIMEN Ordering Facility: [facility] Address: [address] [place], [place] [id number] Result Comment: <150 mg/dL, Normal 150-199 mg/dL, Borderline high 200-499 mg/dL, High >499 mg/dL, Very high Performed By: #### 2 4331-1 #### [facility] CLIA [id number] [address] [id number] [place] [facility] CLIA [id number] [address] [place] [address] [place] GI FLUORO CHEST SNIFF [...] were stored in a permanent archive. Comparison: Manager Mechanical view for CT 11/08/2010 chest x-ray 05/04/2016 RESULT: Findings: The patient was asked to breathing deeply and the exhale. The Diaphragms Moved Symmetrically. However the RIGHT hemidiaphragm is elevated approximately 5 cm in relation to the LEFT hemidiaphragm at rest. This is very similar to the appearance on the legal executive assistant film from a CT abdomen pelvis 11/08/2010.. No paradoxical motion was seen with the sniff portion of the test. See procedural note in Epic for further discussion. IMPRESSION: 1. The RIGHT hemidiaphragm is elevated and is very similar to 2010. 2. Diaphragms to move symmetrically. No evidence of paradoxical movement sniff test Travel Freight And Passenger Agent: KAREY Transcribe Date/Time: Jan 13 2021 10:37A Dictated by : ARTURO COTTER DO This examination was interpreted and the report reviewed and electronically signed by: ARTURO COTTER DO on Jan 13 2021 10:45AM EST [id number] N [facility] XR Chest PA and Lateralon IMPRESSION: Refer to the result. Travel Freight And Passenger Agent: PSYCHIATRIC Transcribe Date/Time: Dec 09 2020 8:39A Dictated by : INGE RNE MD This examination was interpreted and the [...] appreciated. IMPRESSION IMPRESSION: Refer to the result. Travel Freight And Passenger Agent: KAREY Transcribe Date/Time: Dec 09 2020 8:39A Dictated by : INGE REN MD This examination was interpreted and the report reviewed and electronically signed by: INGE REN MD on Dec 09 2020 8:42AM [facility] Radiology Study observation (narrative) [facility] XR Chest PA and LateralOrder ed By: Cc Provider on 12-09-2020 [facility] XR Foot - left AP and Latera l and obliqueon 05-24-2020 IMPRESSION: Osteoarthrosis. No acute osseous abnormality identified. Travel Freight And Passenger Agent: PSCB Transcribe Date/Time: May 24 2020 1:18P Dictated by : TARIQ RIVAS MD This examination was interpreted and the report reviewed and electronically signed by: TARIQ RIVAS MD on May 24 2020 1:19PM [facility] DIVISION OF RADIOLOGY * * [...] tissue abnormality identified. DIVISION OF RADIOLOGY Provider, [facility] - 05/24/2020 * * *Final Report* * [...] IMPRESSION: Osteoarthrosis. No acute osseous abnormality identified. Travel Freight And Passenger Agent: PSYCHIATRIC Transcribe Date/Time: May 24 2020 1:18P Dictated by : TARIQ RIVAS MD This examination was interpreted and the report reviewed and electronically signed by: TARIQ RIVAS MD on May 24 2020 1:19PM EST [facility] Radiology Study observation (narrative) [facility] XR Foot - left AP and Latera l and obliqueOrdered By: Ccf Provider on 05-24-2020 [facility] US DVT LOWER LTon 05-19-2020 US DVT [...] imaged segments of the left lower extremity. Travel Freight And Passenger Agent: KAREY Transcribe Date/Time: May 19 2020 9:32A Dictated by : JEROME GALVAN MD This examination was interpreted and the report reviewed and electronically signed by: JEROME GALVAN MD on May 19 2020 9:33AM EST Normal [facility] XR Ankle - left AP and Later al and obliqueon 05-18-2020 IMPRESSION: Small ankle effusion with no acute osseous finding identified. No erosions identified. Travel Freight And Passenger Agent: KAREY Transcribe Date/Time: May 18 2020 4:26P [...] seen on radiograph. DIVISION OF RADIOLOGY Provider, [facility] - 05/18/2020 * * *Final Report* * [...] acute osseous finding identified. No erosions identified. Travel Freight And Passenger [facility] Transcribe Date/Time: May 18 2020 4:26P Dictated by : CHAZ SHIRLEY MD This examination was interpreted and the report reviewed and electronically signed by: CHAZ SHIRLEY MD on May 18 2020 4:27PM EST [facility] Radiology Study observation (narrative) [facility] XR Ankle - left AP and Later al and obliqueOrdered By: Ccf Provider on 05-18-2020 [facility] XR UPPER GI DOUBLE CONTRAST/ AIRon 04-20-2020 [...] DOUBLE CONTRAST/AIR. Study was performed by the blood and plasma laboratory assistant. 54 seconds fluoroscopic time, 33 total [...] reflux. No mucosal destruction or esophageal stricture. Travel Freight And Passenger [facility] Transcribe Date/Time: Apr 20 2020 11:24A Dictated by : CODY ARIAS MD This examination was interpreted and the report reviewed and electronically signed by: CODY ARIAS MD on Apr 20 2020 11:29AM EST Normal [facility] Coronavirus 2019on 0 SARS-CoV-2 (COVID-19) RNA GEORGE+probe Ql (Unsp spec) Negative Normal [facility] Comment on above: Result Comment: Nega tive for COVID19 (SARS CoV2) by PCR. This test was developed and its performance characteristics determined by [facility]. This test has been authorized by FDA under an Emergency Use Authorization (EUA). This test has been validated in accordance with the FDA's Guidance Document Policy for Diagnostics Testing in Laboratories Certified to Perform High Complexity Testing under CLIA prior to Emergency use Authorization for Coronavirus Disease 2019 during the Public Health Emergency issued on September 05, 2019. Performing Laboratory: [facility] [address] [place] [address] Performed By: #### C D19X #### [place] [address] Surgical Tissue Examon 03-04 Surgical Tissue Exam Test performed at [place] [address] NAME: KIRT WINKLER REQUESTING: JOSE AMARAL M.D. [...] PRINTED: 03/08/2020 Page 1 of 1 Normal [facility] Comment on above: Performed By: #### C D19X #### [place] [address] [place] HEPATOBILIARY W EF AND/OR RXon 02-15-2020 NM HEPATOBILIARY W EF AND/OR RX Final Report DATE OF EXAM: Feb 15 2020 2:52PM [facility]21 - [place] HEPATOBILIARY W EF AND/OR [...] is recommended. Patent cystic duct and CBD. Travel Freight And Passenger Agent: PSCB Transcribe Date/Time: Feb 15 2020 3:00P Dictated by : MEET LOYA MD This examination was interpreted and the report reviewed and electronically signed by: MEET LOYA MD on Feb 15 2020 3:01PM EST Normal [facility] Comprehensive Panelon 2019 Albumin [Mass/Vol] 4.4 g/dL Normal 3.9-4.9 [facility] Comment on above: Performed By: #### L LP14 #### [place] [address] ALP [Catalytic activity/Vol] 94 U/L Normal 38-113 [facility] Comment on above: Performed By: #### L LP14 #### [facility] [address] [place], [place] [address] ALT-SGPT Blood 21 U/L Normal 10-54 [facility] Comment on above: Performed By: #### L LP14 #### [address] [address] Anion gap [Moles/Vol] 11 mmol/L Normal 9-18 [facility] Comment on above: Performed By: #### L LP14 #### [facility] [address] [place], [place] [address] AST-SGOT Blood 15 U/L Normal 14-40 [facility] Comment on above: Performed By: #### L LP14 #### [facility] [address] [place], [place] [address] Bilirubin [Mass/Vol] 0.5 mg/dL Normal 0.2-1.3 [facility] Comment on above: Performed By: #### L LP14 #### [address] [address] Calcium [Mass/Vol] 9.9 mg/dL Normal 8.5-10.2 [facility] Comment on above: Performed By: #### L LP14 #### [facility] [address] [place], [place] [address] Chloride [Moles/Vol] 105 mmol/L Normal 97-105 [facility] Comment on above: Performed By: #### L LP14 #### [facility] [address] [place], [place] [address] CO2 [Moles/Vol] 26 mmol/L Normal 22-30 [facility] Comment on above: Performed By: #### L LP14 #### [facility] [address] [place], [place] [address] Creatinine [Mass/Vol] 1.09 mg/dL Normal 0.73-1.22 [facility] Comment on above: Performed By: #### L LP14 #### [facility] [address] [place], [place] [address] Glucose [Mass/Vol] 88 mg/dL Normal 74-99 [facility] Comment on above: Result Comment: The [place] Diabetes Association (ADA) provides guidance for cutoff [...] Standards of Medical Care in Diabetes 2016; [place] Diabetes [employer]. Diabetes Care. 2016;39(Suppl 1). Performed By: #### L LP14 #### [facility] [address] [place], [place] [address] Potassium [Moles/Vol] 4.0 mmol/L Normal 3.7-5.1 [facility] Comment on above: Performed By: #### L LP14 #### [facility] [address] [place], [place] [address] Protein [Mass/Vol] 7.1 g/dL Normal 6.3-8.0 [facility] Comment on above: Performed By: #### L LP14 #### [facility] [address] [place] [address] Sodium [Moles/Vol] 142 mmol/L Normal 136-144 [facility] Comment on above: Performed By: #### L LP14 #### [facility] [address] [place] [address] Urea nitrogen [Mass/Vol] 21 mg/dL Normal 9-24 [facility] Comment on above: Performed By: #### L LP14 #### [facility] [address] [place] [address] Hemogram/Diffon 01-18-2020 Abs. Baso 0.01 thou/cmm Normal 0.00-0.08 [facility] Comment on above: Performed By: #### L CBCD #### [place] [address] Abs. [place] 0.28 thou/cmm Normal 0.20-1.00 [facility] Comment on above: Performed By: #### L CBCD #### [place] [address] Abs. Neut (ANC) 3.01 thou/cmm Normal 3.00-5.67 [facility] Comment on above: Performed By: #### L CBCD #### [place] [address] Basophils/100 WBC (Bld) 0.2 % Normal [facility] Comment on above: Performed By: #### L CBCD #### [facility] [address] [place] [address] Eosinophils (Bld) [#/Vol] 0.15 10*3/uL Normal 0.00-0.41 [facility] Comment on above: Performed By: #### L CBCD #### [place] [address] Eosinophils/100 WBC (Bld) 3.2 % Normal [facility] Comment on above: Performed By: #### L CBCD #### [facility] [address] [place], [place] [address] Erythrocyte distribution width (RBC) [Ratio] 13.1 % Normal 11.5-15.9 [facility] Comment on above: Performed By: #### L CBCD #### [facility] [address] [place], [place] [address] Hematocrit (Bld) [Volume fraction] 42.8 % Normal 42.0-52.0 [facility] Comment on above: Performed By: #### L CBCD #### [place] [address] Hemoglobin (Bld) [Mass/Vol] 14.0 g/dL Normal 14.0-18.0 [facility] Comment on above: Performed By: #### L CBCD #### [place] [address] Lymphocytes (Bld) [#/Vol] 1.25 10*3/uL Low 1.50-3.65 [facility] Comment on above: Performed By: #### L CBCD #### [address] [address] Lymphocytes/100 WBC (Bld) 26.6 % Normal [facility] Comment on above: Performed By: #### L CBCD #### [facility] [address] [place] [address] MCH (RBC) [Entitic mass] 29.4 pg Normal 27.0-31.0 [facility] Comment on above: Performed By: #### L CBCD #### [facility] [address] [place] [address] MCHC 32.7 % Normal 32.0-36.0 [facility] Comment on above: Performed By: #### L CBCD #### [place] [address] MCV (RBC) [Entitic vol] 89.9 fL Normal 80.0-94.0 [facility] Comment on above: Performed By: #### L CBCD #### [address] [address] Monocytes/100 WBC (Bld) 5.9 % Normal [facility] Comment on above: Performed By: #### L CBCD #### [facility] [address] [place] [address] Platelet mean volume (Bld) [Entitic vol] 10.3 fL Normal 7.1-10.5 [facility] Comment on above: Performed By: #### L CBCD #### [facility] [address] [place] [address] Platelets (Bld) [#/Vol] 211 10*3/uL Normal 150-400 [facility] Comment on above: Performed By: #### L CBCD #### [facility] [address] [place] [address] RBC 4.76 mil/cmm Normal 4.60-6.20 [facility] Comment on above: Performed By: #### L CBCD #### [place] [address] Seg Neutrophil 64.1 % Normal [facility] Comment on above: Performed By: #### L CBCD #### [facility] [address] [place] [address] WBC (Bld) [#/Vol] 4.7 10*3/uL Low 4.8-10.5 [facility] Comment on above: Performed By: #### L CBCD #### [place] [address] MDRD eGFRon 01-18-2020 GFR/1.73 sq M.predicted among non-blacks MDRD (S/P/Bld) [Vol rate/Area] mL/min/{1.73_m2} Normal >60mL/min/1.7 3m2 [facility] Comment on above: Result Comment: If t he patient is , multiply the result by 1.210. Performed By: #### L GFR #### [facility] [address] [place] [address] Magnesium Bloodon 01-18-2020 Magnesium [Mass/Vol] 1.9 mg/dL Normal 1.7-2.3 [facility] Comment on above: Performed By: #### L MAG #### [facility] [address] [place], [place] [address] TSHon 01-18-2020 TSH 1.890 uIU/mL Normal 0.270-4.200 [facility] Comment on above: Result Comment: Preg good: [...] result. Performed By: #### C D19X #### [place] [id number] Vitamin B12on 01-18-2020 Cobalamin (Vitamin B12) [Mass/Vol] 559 pg/mL Normal 232-1245 [facility] Comment on above: Result Comment: Smitha [...] result. Performed By: #### B 12 #### [address] [address] XR CERVICAL 4V AP/LAT/OBLon 01-18-2020 XR CERVICAL [...] evidence of fracture, malalignment, or destructive process. [employer] Passenger Agent: PSCB Transcribe Date/Time: Jan 20 2020 2:33P Dictated by : HENRIETTA BABB MD This examination was interpreted and the report reviewed and electronically signed by: HENRIETTA BABB MD on Jan 20 2020 2:39PM EST Normal [facility] CT ABDOMEN W IVCONon 06-23-[address] ABDOMEN W IVCON Final Report DATE OF EXAM: Dec 29 2019 8:31AM [facility] 0533 - CT ABDOMEN W IVCON / [...] 0.6 cm nodule identified in the prior [id number]. (2, 2) No consolidation or pleural effusion. Visualized portions of the heart are unremarkable. Manager Mechanical (topogram) images: No additional findings. IMPRESSION: 1. No acute intra-abdominal findings. Hepatic and renal cysts as noted on prior ultrasounds. 2. A 0.6 cm nodule in the right lower lobe is not identified within the [id number] of the CT abdomen of 11/2010. Recommend follow-up CT in 12 months to assess for stability if no other prior studies are available for comparison. --If prior studies become available, an addendum can be performed if requested.-- [employer] Fre[employer] And Passenger Agent: KAREY Transcribe Date/Time: Dec 30 2019 5:27P Dictated by : RONDA DENNEY MD This examination was interpreted and the report reviewed and electronically signed by: RONDA DENNEY MD on Dec 30 2019 5:40PM EST Normal [facility] PSA Screenon 12-22-2019 PSA Screen 1.82 ng/mL Normal 0.00-3.90 [facility] Comment on above: Performed By: #### P SAS #### [facility] [address] [place] [address] Comprehensive Panelon 2019 Albumin [Mass/Vol] 4.5 g/dL Normal 3.9-4.9 [facility] Comment on above: Performed By: #### C D19X #### [facility] [address] [place] [address] ALP [Catalytic activity/Vol] 96 U/L Normal 38-113 [facility] Comment on above: Performed By: #### C D19X #### [facility] [address] [place] [address] ALT-SGPT Blood 21 U/L Normal 10-54 [facility] Comment on above: Performed By: #### C D19X #### [facility] [address] [place] [address] Anion gap [Moles/Vol] 9 mmol/L Normal 9-18 [facility] Comment on above: Performed By: #### C D19X #### [facility] [address] [place] [address] AST-SGOT Blood 15 U/L Normal 14-40 [facility] Comment on above: Performed By: #### C D19X #### [facility] [address] [place] [address] Bilirubin [Mass/Vol] 0.7 mg/dL Normal 0.2-1.3 [facility] Comment on above: Performed By: #### C D19X #### [facility] [address] [place] [address] Calcium [Mass/Vol] 9.6 mg/dL Normal 8.5-10.2 [facility] Comment on above: Performed By: #### C D19X #### [facility] [address] [place] [address] Chloride [Moles/Vol] 104 mmol/L Normal 97-105 [facility] Comment on above: Performed By: #### C D19X #### [facility] [address] [place], [place] [address] CO2 [Moles/Vol] 26 mmol/L Normal 22-30 [facility] Comment on above: Performed By: #### C D19X #### [facility] [address] [place], [place] [address] Creatinine [Mass/Vol] 1.10 mg/dL Normal 0.73-1.22 [facility] Comment on above: Performed By: #### C D19X #### [address] [address] Glucose [Mass/Vol] 93 mg/dL Normal 74-99 [facility] Comment on above: Result Comment: The [place] Diabetes Association (ADA) provides guidance for cutoff [...] Standards of Medical Care in Diabetes 2016; [place] [employer]. Diabetes Care. 2016;39(Suppl 1). Performed By: #### C D19X #### [facility] [address] [place], [place] [address] Potassium [Moles/Vol] 4.1 mmol/L Normal 3.7-5.1 [facility] Comment on above: Performed By: #### C D19X #### [facility] [address] [place], [place] [address] Protein [Mass/Vol] 7.4 g/dL Normal 6.3-8.0 [facility] Comment on above: Performed By: #### C D19X #### [facility] [address] [place], [place] [address] Sodium [Moles/Vol] 139 mmol/L Normal 136-144 [facility] Comment on above: Performed By: #### C D19X #### [address], [place] [address] Urea nitrogen [Mass/Vol] 19 mg/dL Normal 9-24 [facility] Comment on above: Performed By: #### C D19X #### [facility] [address] [place] [address] Hemogramon 12-21-2019 Erythrocyte distribution width (RBC) [Ratio] 13.2 % Normal 11.5-15.9 [facility] Comment on above: Performed By: #### L CBC #### [facility] [address] [place] [address] Hematocrit (Bld) [Volume fraction] 45.5 % Normal 42.0-52.0 [facility] Comment on above: Performed By: #### L CBC #### [facility] [address] [place] [address] Hemoglobin (Bld) [Mass/Vol] 14.6 g/dL Normal 14.0-18.0 [facility] Comment on above: Performed By: #### L CBC #### [facility] [address] [place] [address] MCH (RBC) [Entitic mass] 28.9 pg Normal 27.0-31.0 [facility] Comment on above: Performed By: #### L CBC #### [facility] [address] [place] [address] MCHC 32.1 % Normal 32.0-36.0 [facility] Comment on above: Performed By: #### L CBC #### [place] [address] MCV (RBC) [Entitic vol] 90.1 fL Normal 80.0-94.0 [facility] Comment on above: Performed By: #### L CBC #### [facility] [address] [place] [address] Platelet mean volume (Bld) [Entitic vol] 9.6 fL Normal 7.1-10.5 [facility] Comment on above: Performed By: #### L CBC #### [place] [address] Platelets (Bld) [#/Vol] 230 10*3/uL Normal 150-400 [facility] Comment on above: Performed By: #### L CBC #### [facility] [address] [place], [place] [address] RBC 5.05 mil/cmm Normal 4.60-6.20 [facility] Comment on above: Performed By: #### L CBC #### [facility] [address] [place] [id number] WBC (Bld) [#/Vol] 5.2 10*3/uL Normal 4.8-10.5 [facility] Comment on above: Performed By: #### L CBC #### [facility] [address] [place] [address] Lipid Profile, Basicon 12-20 Cholesterol [Mass/Vol] 196 mg/dL Normal 0-199 [facility] Comment on above: Result Comment: Tota l Cholesterol < 200 mg/dL, Desirable Total Cholesterol 200 to 239 mg/dL, Borderline high Total Cholesterol > 239 mg/dL, High Performed By: #### L LPF #### [place] [address] Cholesterol in HDL [Mass/Vol] 53 mg/dL Normal [facility] Comment on above: Result Comment: Refe rence Range: HDL Cholesterol 40- 59 mg/dL, Acceptable HDL Cholesterol >59 mg/dL, High; Negative risk factor for coronary heart disease HDL Cholesterol <40 mg/dL, Low; Positive risk factor for coronary heart disease Performed By: #### L LPF #### [facility] [address] [place] [address] Cholesterol in LDL [Mass/Vol] 112 mg/dL High 0-99 [facility] Comment on above: Result Comment: LDL Cholesterol < 100 mg/dL, Optimal LDL Cholesterol 100 to 129 mg/dL, Near optimal/above optimal LDL Cholesterol 130 to 159 mg/dL, Borderline high LDL Cholesterol 160 to 189 mg/dL, High LDL Cholesterol > 189 mg/dL, Very high Secondary prevention optimal LDL Cholesterol levels are recommended to be < 70 mg/dL Performed By: #### L LPF #### [facility] [address] [place] [id number] Cholesterol.total/Alma sterol in HDL [Mass ratio] 3.70 {ratio} Normal 0.00-5.09 [facility] Comment on above: Performed By: #### L LPF #### [facility] [address] [place] [address] FASTING TIME 12 Hrs Normal [facility] Comment on above: Performed By: #### L LPF #### [place] [address] LDL/HDL 2.11 Normal 0.00-2.53 [facility] Comment on above: Performed By: #### L LPF #### [place] [address] Non-HDL Cholesterol 143 mg/dL High 0-129 [facility] Comment on above: Result Comment: Non [...] mg/dL Performed By: #### L LPF #### [place] [address] Triglyceride Blood 153 mg/dL High 0-149 [facility] Comment on above: Result Comment: Trig lycerides < 150 mg/dL, Normal Triglycerides 150 to 199 mg/dL, Borderline high Triglycerides 200 to 499 mg/dL, High Triglycerides > 499 mg/dL, Very high Performed By: #### L LPF #### [place] [address] VLDL Cholesterol 31 mg/dL High 0-29 [facility] Comment on above: Performed By: #### L LPF #### [place] [address] MDRD eGFRon 12-21-2019 GFR/1.73 sq M.predicted among non-blacks MDRD (S/P/Bld) [Vol rate/Area] mL/min/{1.73_m2} Normal >60mL/min/1.7 3m2 [facility] Comment on above: Result Comment: If t he patient is , multiply the result by 1.210. Performed By: #### L GFR #### [facility] [address] [place] [id number] Vital Signs Date Time Vital Sign Value Performing Clinician Facility 12-09-2024 10:05-0400 Body height 188 cm Dimitri Malhotra APRN.[employer] SUPERVISOR Work Phone: [facility] 12-09-2024 10:05-0400 Body mass index (BMI) [Ratio] 26.45 kg/m2 Dimitri Malhotra APRN.[employer] SUPER[employer] Work Phone: [facility] 12-09-2024 10:05-0400 Body temperature 98.01 [degF] Dimitri Malhotra APRN.[employer] SUPER[employer] Work Phone: [facility] 12-09-2024 10:05-0400 Body weight 93.44 kg Dimitri Malhotra APRN.[employer]PER[employer] Work Phone: [facility] 12-09-2024 10:05-0400 Diastolic blood pressure 62 mm[Hg] Dimitri Malhotra APRN.[employer] SUPER[employer]OR Work Phone: [facility] 12-09-2024 10:05-0400 Heart rate 74 /min Dimitri Malhotra APRN.[employer]PER[employer] Work Phone: [facility] 12-09-2024 10:05-0400 Respiratory rate 16 /min Dimitri Malhotra APRN.[employer]PER[employer] Work Phone: [facility] 12-09-2024 10:05-0400 SaO2% (BldA) [Mass fraction] 96 % Dimitri Malhotra APRN.[employer]PER[employer] Work Phone: [facility] 12-09-2024 10:05-0400 Systolic blood pressure 108 mm[Hg] Dimitri Malhotra APRN.[employer]PER[employer] Work Phone: [facility] 12-04-2023 08:26-0400 Diastolic blood pressure 78 mm[Hg] Nurse Edgar Work Phone: [facility] 12-04-2023 08:26-0400 Systolic blood pressure 126 mm[Hg] Nurse Edgar Work Phone: [facility] 12-04-2023 08:16-0400 Heart rate 68 /min Nurse Edgar Work Phone: [facility] 11-04-2023 09:08-0400 Diastolic blood pressure 90 mm[Hg] Dimitri Trinathan BIOPROCESSING MANUFACTURING TECHNICIAN.[employer]PER[employer]OR Work Phone: [facility] 11-04-2023 09:08-0400 Systolic blood pressure 158 mm[Hg] Dimitri Trinathan BIOPROCESSING MANUFACTURING TECHNICIAN.[employer] SUPERVISOR Work Phone: [facility] 11-04-2023 08:42-0400 Body height 188 cm Dimitri Malhotra BIOPROCESSING MANUFACTURING TECHNICIAN.[employer] SUPER[employer] Work Phone: [facility] 11-04-2023 08:42-0400 Body mass index (BMI) [Ratio] 25.55 kg/m2 Dimitri Malhotra BIOPROCESSING MANUFACTURING TECHNICIAN.[employer] SUPERVISOR Work Phone: [facility] 11-04-2023 08:42-0400 Body temperature 98.29 [degF] Dimitri Trill BIOPROCESSING MANUFACTURING TECHNICIAN.[employer] SUPERVISOR Work Phone: [facility] 11-04-2023 08:42-0400 Body weight 90.27 kg Dimitri Malhotra BIOPROCESSING MANUFACTURING TECHNICIAN.[employer] SUPERVISOR Work Phone: [facility] 11-04-2023 08:42-0400 Heart rate 79 /min Dimitri Malhotra BIOPROCESSING MANUFACTURING TECHNICIAN.[employer] SUPERVISOR Work Phone: [facility] 11-04-2023 08:42-0400 SaO2% (BldA) [Mass fraction] 98 % Dimitri Trill BIOPROCESSING MANUFACTURING TECHNICIAN.[employer] SUPERVISOR Work Phone: [facility] 06-05-2023 09:26-0500 Diastolic blood pressure 84 mm[Hg] Dimitri Trill BIOPROCESSING MANUFACTURING TECHNICIAN.[employer] SUPER[employer]OR Work Phone: [facility] 06-05-2023 09:26-0500 Systolic blood pressure 134 mm[Hg] Dimitri Trill BIOPROCESSING MANUFACTURING TECHNICIAN.[employer] SUPERVISOR Work Phone: [facility] 06-05-2023 09:02-0500 Body height 188 cm Dimitri Trill BIOPROCESSING MANUFACTURING TECHNICIAN.[employer] SUPERVISOR Work Phone: [facility] 06-05-2023 09:02-0500 Body temperature 98.01 [degF] Dimitri Trill BIOPROCESSING MANUFACTURING TECHNICIAN.[employer] SUPERVISOR Work Phone: [facility] 06-05-2023 09:02-0500 Body weight 90.27 kg Dimitri Trill BIOPROCESSING MANUFACTURING TECHNICIAN.[employer] SUPERVISOR Work Phone: [facility] 06-05-2023 09:02-0500 Heart rate 76 /min Dimitri Trill BIOPROCESSING MANUFACTURING TECHNICIAN.[employer] SUPERVISOR Work Phone: [facility] 06-05-2023 09:02-0500 SaO2% (BldA) [Mass fraction] 98 % Dimitri Trill BIOPROCESSING MANUFACTURING TECHNICIAN.[employer] SUPERVISOR Work Phone: [facility] 04-24-2023 08:41-0400 Diastolic blood pressure 76 mm[Hg] Dimitri Trill BIOPROCESSING MANUFACTURING TECHNICIAN.[employer] SUPERVISOR Work Phone: [facility] 04-24-2023 08:41-0400 Systolic blood pressure 140 mm[Hg] Dimitri Trill BIOPROCESSING MANUFACTURING TECHNICIAN.[employer] SUPERVISOR Work Phone: [facility] 04-24-2023 08:34-0400 Body height 188 cm Dimitri Trill BIOPROCESSING MANUFACTURING TECHNICIAN.[employer] SUPERVISOR Work Phone: [facility] 04-24-2023 08:34-0400 Body temperature 97.7 [degF] Dimitri Trill BIOPROCESSING MANUFACTURING TECHNICIAN.[employer] SUPERVISOR Work Phone: [facility] 04-24-2023 08:34-0400 Body weight 88.91 kg Dimitri Trill BIOPROCESSING MANUFACTURING TECHNICIAN.[employer] SUPERVISOR Work Phone: [facility] 04-24-2023 08:34-0400 Heart rate 71 /min Dimitri Trill BIOPROCESSING MANUFACTURING TECHNICIAN.[employer] SUPERVISOR Work Phone: [facility] 04-24-2023 08:34-0400 SaO2% (BldA) [Mass fraction] 95 % Dimitri Trill BIOPROCESSING MANUFACTURING TECHNICIAN.[employer] SUPERVISOR Work Phone: [facility] 03-13-2023 08:34-0400 Body height 188 cm Dimitri Trill BIOPROCESSING MANUFACTURING TECHNICIAN.[employer] SUPERVISOR Work Phone: [facility] 03-13-2023 08:34-0400 Body temperature 97.81 [degF] Dimitri Trill BIOPROCESSING MANUFACTURING TECHNICIAN.[employer] SUPERVISOR Work Phone: [facility] 03-13-2023 08:34-0400 Body weight 88.91 kg Dimitri Trill BIOPROCESSING MANUFACTURING TECHNICIAN.[employer] SUPERVISOR Work Phone: [facility] 03-13-2023 08:34-0400 Diastolic blood pressure 78 mm[Hg] Dimitri Trill BIOPROCESSING MANUFACTURING TECHNICIAN.[employer] SUPERVISOR Work Phone: [facility] 03-13-2023 08:34-0400 Heart rate 68 /min Dimitri Trill BIOPROCESSING MANUFACTURING TECHNICIAN.[employer] SUPERVISOR Work Phone: [facility] 03-13-2023 08:34-0400 SaO2% (BldA) [Mass fraction] 97 % Dimitri Trill BIOPROCESSING MANUFACTURING TECHNICIAN.[employer] SUPERVISOR Work Phone: [facility] 03-13-2023 08:34-0400 Systolic blood pressure 144 mm[Hg] Dimitri Trill BIOPROCESSING MANUFACTURING TECHNICIAN.[employer] SUPER[employer]OR Work Phone: [facility] 12-10-2022 09:01-0400 Diastolic blood pressure 88 mm[Hg] Dimitri Trill BIOPROCESSING MANUFACTURING TECHNICIAN.[employer] SUPERVISOR Work Phone: [facility] 12-10-2022 09:01-0400 Systolic blood pressure 152 mm[Hg] Dimitri Trill BIOPROCESSING MANUFACTURING TECHNICIAN.[employer] SUPERVISOR Work Phone: [facility] 12-10-2022 08:28-0400 Body height 188 cm Dimitri Trill BIOPROCESSING MANUFACTURING TECHNICIAN.[employer] SUPERVISOR Work Phone: [facility] 12-10-2022 08:28-0400 Body temperature 97.9 [degF] Dimitri Trill BIOPROCESSING MANUFACTURING TECHNICIAN.[employer] SUPER[employer]OR Work Phone: [facility] 12-10-2022 08:28-0400 Body weight 89.81 kg Dimitri Trill BIOPROCESSING MANUFACTURING TECHNICIAN.[employer] SUPERVISOR Work Phone: [facility] 12-10-2022 08:28-0400 Heart rate 72 /min Dimitri Malhotra APRN.[employer]PER[employer]OR Work Phone: [facility] 12-10-2022 08:28-0400 SaO2% (BldA) [Mass fraction] 96 % Dimitri Malhotra APRN.[employer]PER[employer] Work Phone: [facility] 06-30-2022 18:44-0500 Heart rate 88 /min [facility] Work Phone: 06-30-2022 18:44-0500 Respiratory rate 15 /min [facility] Work Phone: 06-30-2022 18:44-0500 SaO2% (BldA) [Mass fraction] 98 % [facility] Work Phone: 06-30-2022 16:45-0500 Diastolic blood pressure 77 mm[Hg] [facility] Work Phone: 06-30-2022 16:45-0500 Systolic blood pressure 129 mm[Hg] [facility] Work Phone: 06-30-2022 13:45-0500 Body height 187.96 cm [facility] Work Phone: 06-30-2022 13:45-0500 Body mass index (BMI) [Ratio] 23.7 kg/m2 [facility] Work Phone: 06-30-2022 13:45-0500 Body temperature 97.8 [degF] [facility] Work Phone: 06-30-2022 13:45-0500 Body weight 83.91 kg [facility] Work Phone: 06-19-2022 09:58-0500 Body mass index (BMI) [Ratio] 23.7 kg/m2 [facility] Work Phone: 06-19-2022 09:58-0500 Body temperature 98 [degF] [facility] Work Phone: 06-19-2022 09:58-0500 Body weight 83.91 kg [facility] Work Phone: 06-19-2022 09:58-0500 Diastolic blood pressure 89 mm[Hg] [facility] Work Phone: 06-19-2022 09:58-0500 Heart rate 100 /min [facility] Work Phone: 06-19-2022 09:58-0500 Respiratory rate 18 /min [facility] Work Phone: 06-19-2022 09:58-0500 SaO2% (BldA) [Mass fraction] 99 % [facility] Work Phone: 06-19-2022 09:58-0500 Systolic blood pressure 128 mm[Hg] [facility] Work Phone: 06-05-2022 09:14-0500 Body height 188 cm Dimitri Malhotra APRN.[employer]PER[employer] Work Phone: [facility] 06-05-2022 09:14-0500 Body temperature 97.59 [degF] Dimitri Malhotra BIOPROCESSING MANUFACTURING TECHNICIAN.[employer] SUPER[employer]OR Work Phone: [facility] 06-05-2022 09:14-0500 Body weight 85.28 kg Dimitri Malhotra BIOPROCESSING MANUFACTURING TECHNICIAN.[employer] SUPER[employer]OR Work Phone: [facility] 06-05-2022 09:14-0500 Diastolic blood pressure 72 mm[Hg] Dimitri Malhotra BIOPROCESSING MANUFACTURING TECHNICIAN.[employer]PER[employer]OR Work Phone: [facility] 06-05-2022 09:14-0500 Heart rate 74 /min Dimitri Malhotra BIOPROCESSING MANUFACTURING TECHNICIAN.[employer]PER[employer] Work Phone: [facility] 06-05-2022 09:14-0500 SaO2% (BldA) [Mass fraction] 97 % Dimitri Trinathan BIOPROCESSING MANUFACTURING TECHNICIAN.[employer] SUPER[employer]OR Work Phone: [facility] 06-05-2022 09:14-0500 Systolic blood pressure 124 mm[Hg] Dimitri Trinathan BIOPROCESSING MANUFACTURING TECHNICIAN.[employer] SUPER[employer]OR Work Phone: [facility] 03-15-2022 11:24-0400 Body weight 89.81 kg Inge Flores MD Work Phone: [facility] 03-15-2022 11:24-0400 Diastolic blood pressure 88 mm[Hg] Inge Flores MD Work Phone: [facility] 03-15-2022 11:24-0400 Heart rate 80 /min Inge Flores MD Work Phone: [facility] 03-15-2022 11:24-0400 Respiratory rate 19 /min Inge Flores MD Work Phone: [facility] 03-15-2022 11:24-0400 SaO2% (BldA) [Mass fraction] 98 % Inge Flores MD Work Phone: [facility] 03-15-2022 11:24-0400 Systolic blood pressure 130 mm[Hg] Inge Flores MD Work Phone: [facility] Encounters Encounter Date Encounter Type Care Provider Facility Start: 01-15-2025 End: 01-15-2025 Follow-up encounter Dimitri Malhotra APRN.[employer] SUPERVISOR Work Phone: [facility] Comment on above: Results Start: 01-14-2025 ambulatory DIMITRI MALHOTRA Facilit y:[facility] Start: 01-14-2025 End: 01-14-2025 Subsequent hospital visit by physician [facility] Comment on above: Lump in chest [R22.2 ] Start: 12-09-2024 End: 12-09-2024 ambulatory DIMITRI MALHOTRA Facility:[facility] Start: 12-09-2024 End: 12-09-2024 Patient encounter procedure Dimitri Malhotra APRN.[employer]PER[employer] Work Phone: [facility] Comment on above: Lump in chest (Prima ry Dx); Gastroesophageal reflux disease, unspecified whether esophagitis present; Impaired cognition; Memory loss; Essential hypertension; Vitamin D deficiency; Other hyperlipidemia; Unspecified lump in the right breast, upper inner quadrant; Benign prostatic hyperplasia without lower urinary tract symptoms; Major depressive disorder, recurrent, in partial remission Start: 12-06-2024 End: 12-07-2024 Follow-up encounter Dimitri Malhotra APRN.CNP Work Phone: [facility] Comment on above: Results Start: 11-28-2024 End: 11-28-2024 ambulatory DIMITRI MALHOTRA Facility:[facility] Start: 03-25-2024 End: 03-26-2024 Refill Dimitri Malhotra APRN.CNP Work Phone: [facility] Comment on above: Refill Request Start: 12-04-2023 End: 12-04-2023 Nursing evaluation of patient and report Nurse Gypsy Simeon Edgar Work Phone: [facility] Comment on above: Essential hypertensi on (Primary Dx) Start: 11-27-2023 Refill Dimitri otero APRN.CNP Work Phone: [facility] Comment on above: Med Change Request Start: 11-04-2023 End: 11-04-2023 Patient encounter procedure Dimitri Malhotra APRN.TRUCK SHOP SUPERVISOR Work Phone: [facility] Comment on above: Essential hypertensi on (Primary Dx); Moderate recurrent major depression (HCC); Other hyperlipidemia; Anxiety; Gastroesophageal reflux disease, unspecified whether esophagitis present Start: 08-29-2023 ambulatory DIMITRI MALHOTRA Facilit y:[facility] Start: 08-29-2023 End: 08-29-2023 Subsequent hospital visit by physician Mri [facility] (Istat/3t) Work Phone: [facility] Radiology MRI Comment on above: Cognitive impairment , mild, so stated [G31.84] Start: 08-13-2023 Refill Dimitri Rodriguezl l BIOPROCESSING MANUFACTURING TECHNICIANSTACY Work Phone: [facility] Comment on above: Refill Request Start: 08-08-2023 End: 08-08-2023 Subsequent hospital visit by physician Mri [facility] (1.5t) RADIO [facility] Comment on above: Cognitive impairment , mild, so stated [G31.84] Start: 06-19-2023 Telephone encounter Dimitri Malhotra APRN.CNP Work Phone: [facility] Comment on above: Lab Orders Start: 06-05-2023 End: 06-05-2023 Patient encounter procedure Dimitri Malhotra APRN.CNP Work Phone: [facility] Comment on above: Depression, recurren t (HCC) (Primary Dx); Essential hypertension Start: 05-10-2023 End: 05-10-2023 ambulatory DIMITRI MALHOTRA Facility:[facility] Start: 05-10-2023 End: 05-10-2023 Subsequent hospital visit by physician [facility] (I-Stat) Work Phone: [facility] Comment on above: Lung nodules [R91.8] Start: 04-24-2023 End: 04-24-2023 Patient encounter procedure Dimitri Malhotra APRN.TRUCK SHOP SUPERVISOR Work Phone: [facility] Comment on above: Episode of recurrent major depressive disorder, unspecified depression episode severity (HCC) (Primary Dx); Essential hypertension; Other hyperlipidemia; Encounter for immunization; Anxiety; Depression, recurrent (HCC) Start: 03-13-2023 End: 03-13-2023 Patient encounter procedure Dimitri Malhotra APRN.TRUCK SHOP SUPERVISOR Work Phone: [facility] Comment on above: Essential hypertensi on (Primary Dx); Other hyperlipidemia; Impaired cognition; Depressive disorder; Anxiety Start: 03-07-2023 Refill Dimitri otero APRN.TRUCK SHOP SUPERVISOR Work Phone: [facility] Comment on above: Refill Request Start: 01-01-2023 End: 01-01-2023 [facility] Start: 01-01-2023 End: 01-01-2023 Patient encounter procedure [facility] Work Phone: Start: 12-10-2022 End: 12-10-2022 Patient encounter procedure Dimitri C Trill BIOPROCESSING MANUFACTURING TECHNICIAN.TRUCK SHOP SUPERVISOR Work Phone: [facility] Comment on above: Essential hypertensi on (Primary Dx); Other hyperlipidemia; Episode of recurrent major depressive disorder, unspecified depression episode severity (HCC); Generalized weakness Start: 12-02-2022 Refill Dimitri C Tril l BIOPROCESSING MANUFACTURING TECHNICIAN.TRUCK SHOP SUPERVISOR Work Phone: [facility] Comment on above: Refill Request Start: 12-01-2022 Refill Dimitri C Tril l BIOPROCESSING MANUFACTURING TECHNICIAN.TRUCK SHOP SUPERVISOR Work Phone: [facility] Comment on above: Refill Request Start: 11-07-2022 Refill Dimitri C Tril l BIOPROCESSING MANUFACTURING TECHNICIAN.TRUCK SHOP SUPERVISOR Work Phone: [facility] Comment on above: Refill Request Start: 10-08-2022 Encounter for other preprocedural examination [facility] Start: 09-06-2022 Refill Dimitri C Tril l BIOPROCESSING MANUFACTURING TECHNICIAN.TRUCK SHOP SUPERVISOR Work Phone: [facility] Comment on above: Refill Request Start: 08-09-2022 Refill Dimitri C Tril l BIOPROCESSING MANUFACTURING TECHNICIAN.TRUCK SHOP SUPERVISOR Work Phone: [facility] Comment on above: Refill Request Start: 07-10-2022 Encounter for other preprocedural examination [facility] Start: 07-10-2022 Encounter for preprocedural laboratory examination [facility] Start: 07-10-2022 ambulatory [facility] lity:[facility] Start: 07-03-2022 ambulatory Zuleyma Jordan [facility] Comment on above: ED OUTREACH Start: 06-30-2022 End: 06-30-2022 Emergency department patient visit Dimitri Malhotra NP Facility:[facility] Start: 06-30-2022 End: 06-30-2022 Emergency department patient visit [facility] Start: 06-25-2022 ambulatory Dimitri C Tril l BIOPROCESSING MANUFACTURING TECHNICIAN.TRUCK SHOP SUPERVISOR Work Phone: [facility] Start: 06-25-2022 Follow-up encounter Dimitri Malhotra BIOPROCESSING MANUFACTURING TECHNICIAN.TRUCK SHOP SUPERVISOR Work Phone: [facility] Comment on above: ED Follow Up (Jeanne r ED discharge 06/19/2022 ED outreach ) Start: 06-19-2022 End: 06-19-2022 Emergency department patient visit Dimitri Malhotra NP Facility:[facility] Start: 06-19-2022 End: 06-19-2022 Emergency department patient visit [facility] Start: 06-18-2022 End: 06-18-2022 Patient encounter procedure [facility], Specimen Start: 06-18-2022 End: 06-18-2022 ambulatory [facility] Work Phone: Start: 06-05-2022 End: 06-05-2022 Patient encounter procedure Dimitri Malhotra BIOPROCESSING MANUFACTURING TECHNICIAN.TRUCK SHOP SUPERVISOR Work Phone: [facility] Comment on above: Essential hypertensi on (Primary Dx); Other hyperlipidemia; Anxiety; Encounter for immunization; Advanced directives, counseling/discussion Start: 06-04-2022 End: 06-04-2022 ambulatory Willie Brown Facility:[facility] Start: 06-04-2022 End: 06-04-2022 ambulatory [facility] Work Phone: Start: 06-04-2022 End: 06-04-2022 Patient encounter procedure [facility] Start: 05-28-2022 End: 05-28-2022 ambulatory DIMITRI MALHOTRA Facility:[facility] Start: 05-22-2022 ambulatory Dimitri Rodriguezl l BIOPROCESSING MANUFACTURING TECHNICIAN.TRUCK SHOP SUPERVISOR Work Phone: [employer] Start: 05-13-2022 Refill Dimitri Rodriguezl l BIOPROCESSING MANUFACTURING TECHNICIAN.TRUCK SHOP SUPERVISOR Work Phone: [facility] Comment on above: Refill Request Start: 03-28-2022 Telephone encounter Inge Flores MD Work Phone: Pulmonary Medicine Comment on above: Results Start: 03-15-2022 End: 03-15-2022 Patient encounter procedure Inge Flores MD Work Phone: [facility] Medicine Comment on above: Diaphragm dysfunctio n (Primary Dx); SOB (shortness of breath); Lung nodules Start: 02-14-2022 Refill Dimitri otero APRN.TRUCK SHOP SUPERVISOR Work Phone: [facility] Start: 12-09-2020 End: 12-09-2020 Subsequent hospital visit by physician X[facility] [place] Work Phone: Radiology Start: 05-24-2020 End: 05-24-2020 Subsequent hospital visit by physician Xr [facility] [place] Work Phone: Radiology Comment on above: Foot pain, left [M79 .672] Start: 05-18-2020 End: 05-18-2020 Subsequent hospital visit by physician X[facility] [place] Work Phone: Radiology Comment on above: Acute left ankle pradip n [M25.572] Procedures Date Procedure Procedure Detail Performing Clinician Start: 01-14-2025 Us breast uni real t jorge with image limited Dimitri Malhotra APRN.TR[employer] SH[employer] SUPERVISOR Work Phone: Start: 01-14-2025 Digital breast tomosynthesis bilateral Dimitri Malhotra APRN.TRUCK SH[employer] SUPERVISOR Work Phone: Start: 11-28-2024 Lipid 1996 panel - S bradly or Plasma Dimitri Malhotra APRN.TRUCK SHOP SUPERVISOR Work Phone: Start: 06-21-2023 Lipid 1996 panel - S bradly or Plasma Mri (1.5t) Start: 05-10-2023 Ct thorax w/o contra st material Inge Flores MD Work Phone: Start: 04-24-2023 INFLUENZA VACCINE, P RSV FREE, AGE 65+ YR, HIGH DOSE, QUADRIVALENT (FLUZONE HIGH-DOSE) Dimitri Malhotra APRN.TRUCK SHOP SUPERVISOR Work Phone: Start: 12-10-2022 Lipid 1996 panel - S bradly or Plasma Dimitri Malhotra APRN.TRUCK SHOP SUPERVISOR Work Phone: Start: 06-30-2022 CT of abdomen and pe lvis without contrast Start: 06-05-2022 [employer]-BIONTSendori COVI D-19 BIVALENT BOOSTER VACCINE, AGE 12+ YR Dimitri Malhotra BIOPROCESSING MANUFACTURING TECHNICIAN.TRUCK SHOP SUPERVISOR Work Phone: Start: 06-05-2022 INFLUENZA SEASONAL QUADRIVALENT HIGH DOSE AGE 65+ Dimitri Malhotra BIOPROCESSING MANUFACTURING TECHNICIAN.TRUCK SHOP SUPERVISOR Work Phone: Start: 12-09-2020 Radiologic exam ches t 2 views [facility] Provider Start: 05-24-2020 Radex foot complete minimum 3 views Cristina Concetta BIOPROCESSING MANUFACTURING TECHNICIAN.TRUCK SHOP SUPERVISOR Work Phone: Start: 05-18-2020 Radex ankle complete minimum 3 views Eusebia Stanford BIOPROCESSING MANUFACTURING TECHNICIAN.TRUCK SHOP SUPERVISOR Work Phone: Start: 03-04-2020 Colonoscopy Dimitri rivas BIOPROCESSING MANUFACTURING TECHNICIAN.TRUCK SHOP SUPERVISOR Work Phone: Plan of Treatment Date Care Activity Detail Author Start: 11-28-2029 Lipid panel Lipid Screening [facility] Start: 06-15-2029 Urine microalbumin profile [facility] Start: 06-21-2028 Lipid panel Lipid Screening [facility] Start: 01-02-2028 PROSTATE CANCER SCREENING DISCUSSION PROSTATE CANCER SCREENING DISCUSSION [facility] Start: 01-02-2028 Prostate specific antigen measurement Prostate Cancer Screening Discussion [facility] Start: 12-11-2027 Lipid 1996 panel - Serum or Plasma Lipid Screening [facility] Start: 12-11-2027 Lipid panel Lipid Screening [facility] Start: 12-11-2027 LIPID SCREEN LIPID SCREEN [facility] Start: 11-29-2027 Diabetes Screening Diabetes Screenin g [facility] Start: 05-28-2027 LIPID SCREEN LIPID SCREEN [facility] Start: 02-21-2026 LIPID SCREEN LIPID SCREEN [facility] Start: 12-10-2025 DIABETES SCREEN DIABETES SCREEN [facility] Start: 12-10-2025 Diabetes Screening Diabetes Screenin g [facility] Start: 12-09-2025 Annual PCP Team Fisher Lampara Net massiel Disease Visit Annual PCP Team Chronic Disease Visit [facility] Start: 12-09-2025 BP Controlled (<130/80) BP Controlle d (<130/80) [facility] Start: 06-15-2025 End: 06-15-2025 Patient encounter procedure 06/15/2025 9:00 AM EST Office Visit [facility] [address] [place] [address] Dimitri Malhotra APRN.TRUCK SHOP SUPERVISOR [address] [place] [address] hypertension, cholesterol [facility] Comment on above: hypertension, choles terol Start: 05-28-2025 DIABETES SCREEN DIABETES SCREEN [facility] Start: 03-08-2025 Influenza vaccination C [facility] Start: 12-20-2024 PROSTATE CANCER SCREENING DISCUSSION PROSTATE CANCER SCREENING DISCUSSION [facility] Start: 12-03-2024 BP Controlled (<130/80) BP Controlle d (<130/80) [facility] Start: 11-03-2024 Annual PCP Team Fisher Lampara [facility] massiel Disease Visit Annual PCP Team Chronic Disease Visit [facility] Start: 11-03-2024 Covid-19 Vaccine () Covid-19 Vaccine () [facility] Comment on above: Postponed from 09/02 (Declined at this time) Start: 08-05-2024 Annual PCP Team Fisher Lampara Net massiel Disease Visit Annual PCP Team Chronic Disease Visit [facility] Start: 07-08-2024 Advance Directive Discussion Advance Directive Discussion [facility] Start: 06-05-2024 Annual PCP Team Fisher Lampara [facility] massiel Disease Visit Annual PCP Team Chronic Disease Visit [facility] Start: 04-24-2024 Annual PCP Team Fisher Lampara [facility] massiel Disease Visit Annual PCP Team Chronic Disease Visit [facility] Start: 03-13-2024 Annual PCP Team Fisher Lampara Net massiel Disease Visit Annual PCP Team Chronic Disease Visit [facility] Start: 03-08-2024 Covid-19 Vaccine ( season) Covid-19 Vaccine () [facility] Start: 03-08-2024 Covid-19 Vaccine ( season) Covid-19 Vaccine () [facility] Start: 03-08-2024 Influenza vaccination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 your ED visit? Not applicable 5. Is there anything else I can do for you today? Not applicable Elisa Stewart LPN documented in this encounter [facility] 06-05-2022 Nurse Note Pt. Given covid booster after coming back with card. Waited 15 minutes. Zuleyma Layton MA Pt. Given high dose flu with no complaints. Vis given. Zuleyma Layton MA documented in this encounter [facility] 06-05-2022 History of Presen t illness Narrative This note was created using Stardoll. Subjective Kirt Winkler is a 66 year [...] normal. Nose: Septal deviation present. Mouth/Throat: Lips: [place]. Mouth: Mucous membranes are moist. Pharynx: Oropharynx [...] SEASONAL QUADRIVALENT HIGH DOSE AGE 65+ - PFIZER-BIONTSendori COVID-19 BIVALENT BOOSTER VACCINE, AGE 12+ YR 5. Advanced directives, counseling/discussion - ICD9: V65.49, ICD10: Z71.89 - ADVANCE CARE PLAN DISCUSSION FU 6 months Dimitri Malhotra APRN.TRUCK SHOP SUPERVISOR documented in this encounter [facility] 05-14-2022 Miscellaneous Notes pharmacy electronically requesting refills [...] Edda Gonzalez MA documented in this encounter [facility] 03-28-2022 Miscellaneous Notes Left a voicemail message [...] can have septoplasty. documented in this encounter [facility] 03-15-2022 History of Presen t illness Narrative . [facility] Note Patient name: Kirt Winkler PCP: Dimitri Malhotra APRN.TRUCK SHOP SUPERVISOR CC: Diaphragm elevation HPI: Kirt Damon Kidney [...] DATE OF EXAM: Jan 16 2021 8:21AM [facility] 0541 - CT CHEST WO IVCON / [...] of his chest Inge Flores MD [facility] documented in this encounter [facility] 02-14-2022 Miscellaneous Notes patient phones requesting refills [...] 02/14/2022 8:54 AM EDT To: [facility] Triage Pool Subject: Medicine/Trill/Refill Request Subject Line Format: [Specialty] / [Provider Name] / Medication Question Patient name: Kirt Winkler, : 1955, called to request a refill for his/her medication(s). Patient was advised that the refill should be called into the pharmacy. Patient advised they had already done so and over 24 hours has passed since doing so and they are following up: Y/N? Y. Please contact the patient for additional information at [phone] (home) [phone] (cell). Patient is out of BP meds. Thank you, Malika Arnett February 14, 2022 8:53 AM documented in this encounter [facility] 12-09-2020 History of Presen t illness Narrative [...] 2020 8:37 AM documented in this encounter [facility] 05-24-2020 History of Presen t illness Narrative [...] 2020 1:10 PM documented in this encounter [facility] 05-18-2020 History of Presen t illness Narrative [...] 2020 4:23 PM documented in this encounter [facility] Evaluation note Diagnosis Essential hypertension Unspecified essential hypertension [facility] Diagnosis Diaphragm dysfunction- Primary Disorders of diaphragm SOB (shortness of breath) Shortness of breath Lung nodules Other nonspecific abnormal finding of lung field [facility] [place] [facility] Diagnosis Other hyperlipidemia [facility] Diagnosis Essential hypertension Unspecified essential hypertension Other hyperlipidemia [facility] [place] [facility]* Diagnosis Essential hypertension- Primary Unspecified essential hypertension Other hyperlipidemia Anxiety Anxiety state, unspecified Encounter for immunization Need for other specified prophylactic vaccination against single bacterial disease Advanced directives, counseling/discussion Other specified counseling [facility] [place] noteNo assessment information availableWSelect Medical [facility] Work Phone: Evaluation note* Diagnosis Other hyperlipidemia [facility] Essential hypertension Unspecified essential hypertension [facility] Essential hypertension Unspecified essential hypertension [facility] [place] [facility]* Diagnosis Anxiety Anxiety state, unspecified [facility] Diagnosis Essential hypertension- Primary Unspecified essential hypertension Other hyperlipidemia Episode of recurrent major depressive disorder, unspecified depression episode severity (HCC) Generalized weakness Other malaise and fatigue [facility] [place] [facility]* Diagnosis Essential hypertension Unspecified essential hypertension [facility] Diagnosis Essential hypertension- Primary Unspecified essential hypertension Other hyperlipidemia Impaired cognition Unspecified persistent mental disorders due to conditions classified elsewhere Depressive disorder Depressive disorder, not elsewhere classified Anxiety Anxiety state, unspecified [facility] Diagnosis Episode of recurrent major depressive disorder, unspecified depression episode severity (HCC)- Primary Essential hypertension Unspecified essential hypertension Other hyperlipidemia Encounter for immunization Need for other specified prophylactic vaccination against single bacterial disease Anxiety Anxiety state, unspecified Depression, recurrent (HCC) Major depressive disorder, recurrent episode, unspecified documented in this encounter [facility] note* Diagnosis Lung nodules Other nonspecific abnormal finding of lung field documented in this encounter [facility] note* Diagnosis Depression, recurrent (HCC)- Primary Major depressive disorder, recurrent episode, unspecified Essential hypertension Unspecified essential hypertension documented in this encounter [facility] note* Diagnosis Other hyperlipidemia- Primary documented in this encounter [facility] note* Diagnosis Anxiety Anxiety state, unspecified Episode of recurrent major depressive disorder, unspecified depression episode severity (HCC) documented in this encounter [facility] note* Diagnosis Cognitive impairment, mild, so stated Mild cognitive impairment, so stated documented in this encounter [facility] note* Diagnosis Essential hypertension- Primary Unspecified essential hypertension Moderate recurrent major depression (HCC) Major depressive disorder, recurrent episode, moderate Other hyperlipidemia Anxiety Anxiety state, unspecified Gastroesophageal reflux disease, unspecified whether esophagitis present documented in this encounter [facility] note* Diagnosis Gastroesophageal reflux disease, unspecified whether esophagitis present documented in this encounter [facility] note* Diagnosis Essential hypertension- Primary Unspecified essential hypertension documented in this encounter [facility] note* Diagnosis Anxiety Anxiety state, unspecified Episode of recurrent major depressive disorder, unspecified depression episode severity (HCC) Essential hypertension Unspecified essential hypertension Gastroesophageal reflux disease, unspecified whether esophagitis present documented in this encounter [facility] note* Diagnosis Acute left ankle pain documented in this encounter [facility] note* Diagnosis Foot pain, left Pain in limb documented in this encounter [facility] note* Diagnosis Vitamin D deficiency- Primary Unspecified vitamin D deficiency Other hyperlipidemia documented in this encounter [facility] note* Diagnosis Lump in chest- Primary Swelling, [...] or unspecified remission documented in this encounter [facility] note* Diagnosis Lump in chest Swelling, mass, or lump in chest Unspecified lump in the right breast, upper inner quadrant [facility] Lump in chest Swelling, mass, or lump in chest [facility] Additional Instructions He has some minor maladies on your CT which shows hypodensities in your liver. It is recommended that you follow-up with your primary care physician for follow-up of this. Radiology is recommending an MRI.[facility] Work Phone: Reason for visit Narrative* Diagnostic Procedure Only (Routine) - Closed Specialty Diagnoses / Procedures Referred By Emigdio saldana Referred To Contact [facility] Diagnoses Lump in chest Unspecified lump in the right breast, upper inner quadrant Procedures US BREAST LTD RIGHT US BREAST UNI REAL TIME WITH IMAGE LIMITED Dimitri Malhotra, ETTA.TRUCK SHOP SUPERVISOR [address] [place] [address] Phone: tel: fax: [facility] [address] [place] [address] Referral ID Status Reason Start Date Expiration Date V isits Requested Visits Authorized [id number] Closed Auto-Generate d Referral 12/09/2024 01/08/2026 1 [facility] Diagnostic Procedure Only (Routine) - Closed Specialty Diagnoses / Procedures Referred By Emigdio asldana Referred To Contact [facility] Diagnoses Lump in chest Procedures AMISHA DIAG W SNEHA BILATERAL DIGITAL BREAST TOMOSYNTHESIS BILATERAL Dimitri Malhotra, BIOPROCESSING MANUFACTURING TECHNICIAN.TRUCK SHOP SUPERVISOR [address] [place] [address] Phone: tel: fax: [facility] [address] [place] [address] Referral ID Status Reason Start Date Expiration Date V isits Requested Visits Authorized [id number] Closed Auto-Generate d Referral 12/09/2024 01/08/2026 1 1 [facility] Summary Purpose Family History No Family History Records FoundNo Family History Records FoundNo Family History Records FoundNo Family History Records FoundNo Family History Records FoundNo Family History Records Found Advance Directives No Advanced Directives Records Found Advance Directive Response Recorded Date/ Time Name of Medical Power of Stamp Analyst rob parra/ daughter June 19, 2022 11:22am Living Will No June 30 2:31pm Power of Stamp Analyst No June 30, 2022 2:31pm Advance Directive Response Recorded Date/ Time Living Will No June 30 3:31pm Power of Stamp Analyst No June 30, 2022 3:31pm Reason for Referral Specialty Diagnoses / Procedures Referred By Emigdio t Referred To Contact CT IMAGING Diagnoses Lung nodules Procedures CT CHEST WO IVCON DIAGNOSTIC COMPUTED TOMOGRAPHY THORAX W/O Inge Benitez MD [address] [place] [address] Ct Imaging Referral ID Status Reason Start Date Expiration Date Visits Requested Visits Authorized [id number] Pending Review Auto-Generat ed Referral 03/15/2022 04/14/2023 [...] section and content) DATE CREATED AUTHOR 10/27/2020 [facility] DATE CREATED AUTHOR AUTHOR'S ORGANIZ ATION 01/14/2021 [facility] DATE CREATED AUTHOR AUTHOR'S ORGANIZ ATION 01/07/2023 [facility] DATE CREATED AUTHOR AUTHOR'S ORGANIZ ATION 05/14/2023 [facility] DATE CREATED AUTHOR AUTHOR'S ORGANIZ ATION 09/05/2023 [facility] DATE CREATED AUTHOR AUTHOR'S ORGANIZ ATION 01/18/2025 [facility] Source Comments (unrecognize d section and content) In the event this informatio n is protected by the Federal Confidentiality of Alcohol and Drug Abuse Patient Records regulations: The Federal rules restrict any use of the information to criminally investigate or prosecute any alcohol or drug abuse patient.[facility] HospitalIn the event this information is protected by the Federal Confidentiality of Alcohol and Drug Abuse Patient Records regulations: The Federal rules restrict any use of the information to criminally investigate or prosecute any alcohol or drug abuse patient.[facility] HospitalIn the event this information is protected by the Federal Confidentiality of Alcohol and Drug Abuse Patient Records regulations: The Federal rules restrict any use of the information to criminally investigate or prosecute any alcohol or drug abuse patient.[facility] HospitalIn the event this information is protected by the Federal Confidentiality of Alcohol and Drug Abuse Patient Records regulations: The Federal rules restrict any use of the information to criminally investigate or prosecute any alcohol or drug abuse patient.[facility] HospitalIn the event this information is protected by the Federal Confidentiality of Alcohol and Drug Abuse Patient Records regulations: The Federal rules restrict any use of the information to criminally investigate or prosecute any alcohol or drug abuse patient.[facility] HospitalIn the event this information is protected by the Federal Confidentiality of Alcohol and Drug Abuse Patient Records regulations: The Federal rules restrict any use of the information to criminally investigate or prosecute any alcohol or drug abuse patient.[facility] HospitalIn the event this information is protected by the Federal Confidentiality of Alcohol and Drug Abuse Patient Records regulations: The Federal rules restrict any use of the information to criminally investigate or prosecute any alcohol or drug abuse patient.[facility] HospitalIn the event this information is protected by the Federal Confidentiality of Alcohol and Drug Abuse Patient Records regulations: The Federal rules restrict any use of the information to criminally investigate or prosecute any alcohol or drug abuse patient.[facility] HospitalIn the event this information is protected by the Federal Confidentiality of Alcohol and Drug Abuse Patient Records regulations: The Federal rules restrict any use of the information to criminally investigate or prosecute any alcohol or drug abuse patient.[facility] HospitalIn the event this information is protected by the Federal Confidentiality of Alcohol and Drug Abuse Patient Records regulations: The Federal rules restrict any use of the information to criminally investigate or prosecute any alcohol or drug abuse patient.[facility] HospitalIn the event this information is protected by the Federal Confidentiality of Alcohol and Drug Abuse Patient Records regulations: The Federal rules restrict any use of the information to criminally investigate or prosecute any alcohol or drug abuse patient.[facility] HospitalIn the event this information is protected by the Federal Confidentiality of Alcohol and Drug Abuse Patient Records regulations: The Federal rules restrict any use of the information to criminally investigate or prosecute any alcohol or drug abuse patient.[facility] HospitalIn the event this information is protected by the Federal Confidentiality of Alcohol and Drug Abuse Patient Records regulations: The Federal rules restrict any use of the information to criminally investigate or prosecute any alcohol or drug abuse patient.[facility] HospitalIn the event this information is protected by the Federal Confidentiality of Alcohol and Drug Abuse Patient Records regulations: The Federal rules restrict any use of the information to criminally investigate or prosecute any alcohol or drug abuse patient.[facility] HospitalIn the event this information is protected by the Federal Confidentiality of Alcohol and Drug Abuse Patient Records regulations: The Federal rules restrict any use of the information to criminally investigate or prosecute any alcohol or drug abuse patient.[facility] HospitalIn the event this information is protected by the Federal Confidentiality of Alcohol and Drug Abuse Patient Records regulations: The Federal rules restrict any use of the information to criminally investigate or prosecute any alcohol or drug abuse patient.[facility] HospitalIn the event this information is protected by the Federal Confidentiality of Alcohol and Drug Abuse Patient Records regulations: The Federal rules restrict any use of the information to criminally investigate or prosecute any alcohol or drug abuse patient.[facility] HospitalIn the event this information is protected by the Federal Confidentiality of Alcohol and Drug Abuse Patient Records regulations: The Federal rules restrict any use of the information to criminally investigate or prosecute any alcohol or drug abuse patient.[facility] HospitalIn the event this information is protected by the Federal Confidentiality of Alcohol and Drug Abuse Patient Records regulations: The Federal rules restrict any use of the information to criminally investigate or prosecute any alcohol or drug abuse patient.[facility] HospitalIn the event this information is protected by the Federal Confidentiality of Alcohol and Drug Abuse Patient Records regulations: The Federal rules restrict any use of the information to criminally investigate or prosecute any alcohol or drug abuse patient.[facility] HospitalIn the event this information is protected by the Federal Confidentiality of Alcohol and Drug Abuse Patient Records regulations: The Federal rules restrict any use of the information to criminally investigate or prosecute any alcohol or drug abuse patient.[facility] HospitalIn the event this information is protected by the Federal Confidentiality of Alcohol and Drug Abuse Patient Records regulations: The Federal rules restrict any use of the information to criminally investigate or prosecute any alcohol or drug abuse patient.[facility] HospitalIn the event this information is protected by the Federal Confidentiality of Alcohol and Drug Abuse Patient Records regulations: The Federal rules restrict any use of the information to criminally investigate or prosecute any alcohol or drug abuse patient.[facility] HospitalIn the event this information is protected by the Federal Confidentiality of Alcohol and Drug Abuse Patient Records regulations: The Federal rules restrict any use of the information to criminally investigate or prosecute any alcohol or drug abuse patient.[facility] HospitalIn the event this information is protected by the Federal Confidentiality of Alcohol and Drug Abuse Patient Records regulations: The Federal rules restrict any use of the information to criminally investigate or prosecute any alcohol or drug abuse patient.[facility] HospitalIn the event this information is protected by the Federal Confidentiality of Alcohol and Drug Abuse Patient Records regulations: The Federal rules restrict any use of the information to criminally investigate or prosecute any alcohol or drug abuse patient.[facility] HospitalIn the event this information is protected by the Federal Confidentiality of Alcohol and Drug Abuse Patient Records regulations: The Federal rules restrict any use of the information to criminally investigate or prosecute any alcohol or drug abuse patient.[facility] HospitalIn the event this information is protected by the Federal Confidentiality of Alcohol and Drug Abuse Patient Records regulations: The Federal rules restrict any use of the information to criminally investigate or prosecute any alcohol or drug abuse patient.[facility] HospitalIn the event this information is protected by the Federal Confidentiality of Alcohol and Drug Abuse Patient Records regulations: The Federal rules restrict any use of the information to criminally investigate or prosecute any alcohol or drug abuse patient.[facility] HospitalIn the event this information is protected by the Federal Confidentiality of Alcohol and Drug Abuse Patient Records regulations: The Federal rules restrict any use of the information to criminally investigate or prosecute any alcohol or drug abuse patient.[facility] HospitalIn the event this information is protected by the Federal Confidentiality of Alcohol and Drug Abuse Patient Records regulations: The Federal rules restrict any use of the information to criminally investigate or prosecute any alcohol or drug abuse patient.[facility] HospitalIn the event this information is protected by the Federal Confidentiality of Alcohol and Drug Abuse Patient Records regulations: The Federal rules restrict any use of the information to criminally investigate or prosecute any alcohol or drug abuse patient.[facility] HospitalIn the event this information is protected by the Federal Confidentiality of Alcohol and Drug Abuse Patient Records regulations: The Federal rules restrict any use of the information to criminally investigate or prosecute any alcohol or drug abuse patient.[facility] HospitalIn the event this information is protected by the Federal Confidentiality of Alcohol and Drug Abuse Patient Records regulations: The Federal rules restrict any use of the information to criminally investigate or prosecute any alcohol or drug abuse patient.[facility] HospitalIn the event this information is protected by the Federal Confidentiality of Alcohol and Drug Abuse Patient Records regulations: The Federal rules restrict any use of the information to criminally investigate or prosecute any alcohol or drug abuse patient.[facility] Care Teams (unrecognized sec tion and content) Shower Attendant Relationship Specialty Start Date End Date Dimitri Mlahotra APRN.TRUCK SHOP SUPERVISOR [address] [place] [address] PCP - General Family Practice 10/07/20 Dimitri Malhotra (Historical) 04/18/15 Jose mAaral MD [address] [place] [phone] General Surgery 10/07/20 Shower Attendant Relationship Specialty Start Date End Date Dimitri Malhotra, BIOPROCESSING MANUFACTURING TECHNICIAN.TRUCK SHOP SUPERVISOR [address], [place] [id number] PCP - General Family Practice 10/07/20 Dimitri Malhotra (Historical) 04/18/15 Jose Amaral MD [address] [place] [phone] General Surgery 10/07/20 Shower Attendant Relationship Specialty Start Date End Date Dimitri Malhotra, BIOPROCESSING MANUFACTURING TECHNICIAN.TRUCK SHOP SUPERVISOR [address] [place] [address] PCP - General Family Medicine 10/07/20 Dimitri Malhotra (Historical) 04/18/15 Jose Amaral MD [address] [place] [phone] General Surgery 10/07/20 Shower Attendant Relationship Specialty Start Date End Date Dimitri Malhotra, BIOPROCESSING MANUFACTURING TECHNICIAN.TRUCK SHOP SUPERVISOR [address], [place] [id number] PCP - General Family Medicine 10/07/20 Dimitri Malhotra (Historical) 04/18/15 Jose Amaral MD [address] [place] [phone] General Surgery 10/07/20 Shower Attendant Relationship Specialty Start Date End Date Dimitri Malhotra, BIOPROCESSING MANUFACTURING TECHNICIAN.TRUCK SHOP SUPERVISOR [address], [place] [id number] PCP - General Family Medicine 10/07/20 Dimitri Malhotra (Historical) 04/18/15 Jose Amaral MD [address] [place] [phone] General Surgery 10/07/20 Shower Attendant Relationship Specialty Start Date End Date Dimitri Malhotra, BIOPROCESSING MANUFACTURING TECHNICIAN.TRUCK SHOP SUPERVISOR [address], [place] [id number] PCP - General Family Medicine 10/07/20 Dimitri Malhotra (Historical) 04/18/15 Jose Amaral MD [address] [facility] [facility] [address] [place] [phone] General Surgery 10/07/20 Shower Attendant Relationship Specialty Start Date End Date Dimitri Malhotra, BIOPROCESSING MANUFACTURING TECHNICIAN.TRUCK SHOP SUPERVISOR [address], [place] [id number] PCP - General Family Medicine 10/07/20 Dimitri Malhotra (Historical) 04/18/15 Jose Amaral MD [address] [facility] [place] [phone] General Surgery 10/07/20 Shower Attendant Relationship Specialty Start Date End Date Dimitri Malhotra, BIOPROCESSING MANUFACTURING TECHNICIAN.TRUCK SHOP SUPERVISOR [address], [place] [id number] PCP - General Family Medicine 10/07/20 Dimitri Malhotra (Historical) 04/18/15 Jose Amaral MD [address] [place] [phone] General Surgery 10/07/20 Team Status: Active Member Role Status Dates DIMITRI BLACK Family Provider Active Dimitri Malhotra NP TUMBLER TENDER-C Primary Care Provider Active Team Status: Inactive Member Role Status Dates Dimitri Malhotra NP TUMBLER TENDER-C Primary Care Provider Active Dr. Eleazar Noriega MD Attending Provider, Referr ing Provider Active Shower Attendant Relationship Specialty Start Date End Date Dimitri Malhotra BIOPROCESSING MANUFACTURING TECHNICIAN.TRUCK SHOP SUPERVISOR [address] [place] [address] PCP - General Family Medicine 10/07/20 Dimitri Malhotra (Historical) 04/18/15 Jose Amaral MD [address] [place] [address] [place] [address] General Surgery 10/07/20 Shower Attendant Relationship Specialty Start Date End Date Dimitri Malhotra BIOPROCESSING MANUFACTURING TECHNICIAN.TRUCK SHOP SUPERVISOR [address] [place] [address] PCP - General Family Medicine 10/07/20 Dimitri Malhotra (Historical) 04/18/15 Jose Amaral MD [address] [place] [address] [place] [address] General Surgery 10/07/20 Shower Attendant Relationship Specialty Start Date End Date Dimitri Malhotra BIOPROCESSING MANUFACTURING TECHNICIAN.TRUCK SHOP SUPERVISOR [address] [place] [address] PCP - General Family Medicine 10/07/20 Dimitri Malhotra (Historical) 04/18/15 Jose Amaral MD [address] [place] [address] [place] [address] General Surgery 10/07/20 Shower Attendant Relationship Specialty Start Date End Date Dimitri Malhotra BIOPROCESSING MANUFACTURING TECHNICIAN.TRUCK SHOP SUPERVISOR [address] [place] [address] PCP - General Family Medicine 10/07/20 Dimitri Malhotra (Historical) 04/18/15 Jose Amaral MD [address] [place] [address] [place] [address] General Surgery 10/07/20 Shower Attendant Relationship Specialty Start Date End Date Dimitri Malhotra BIOPROCESSING MANUFACTURING TECHNICIAN.TRUCK SHOP SUPERVISOR [address] [place] [address] PCP - General Family Medicine 10/07/20 Dimitri Malhotra (Historical) 04/18/15 Jose Amaral MD [address] [place] [address] [place] [address] General Surgery 10/07/20 Shower Attendant Relationship Specialty Start Date End Date Dimitri Malhotra, BIOPROCESSING MANUFACTURING TECHNICIAN.TRUCK SHOP SUPERVISOR [address] [place] [address] PCP - General Family Medicine 10/07/20 Dimitri Malhotra (Historical) 04/18/15 Jose Amaral MD [address] [place] [address] [place] [address] General Surgery 10/07/20 Shower Attendant Relationship Specialty Start Date End Date Dimitri Malhotra, BIOPROCESSING MANUFACTURING TECHNICIAN.TRUCK SHOP SUPERVISOR [address] [place] [address] PCP - General Family Medicine 10/07/20 Dimitri Malhotra (Historical) 04/18/15 Jose Amaral MD [address] [place] [address] [place] [address] General Surgery 10/07/20 Shower Attendant Relationship Specialty Start Date End Date Dimitri Malhotra BIOPROCESSING MANUFACTURING TECHNICIAN.TRUCK SHOP SUPERVISOR [address] [place] [address] PCP - General Family Medicine 10/07/20 Dimitri Malhotra (Historical) 04/18/15 Jose Amaral MD [address] [place] [address] [place] [address] General Surgery 10/07/20 Shower Attendant Relationship Specialty Start Date End Date Dimitri Malhotra BIOPROCESSING MANUFACTURING TECHNICIAN.TRUCK SHOP SUPERVISOR [address] [facility] [place] [address] PCP - General Family Medicine 10/07/20 Dimitri Malhotra (Historical) 04/18/15 Jose Amaral MD [address] [place] [address] [place] [address] General Surgery 10/07/20 Shower Attendant Relationship Specialty Start Date End Date Dimitri Malhotra BIOPROCESSING MANUFACTURING TECHNICIAN.TRUCK SHOP SUPERVISOR [address] [place] [address] PCP - General Family Medicine 10/07/20 Dimitri Malhotra (Historical) 04/18/15 Jose Amaral MD [address] [place] [address] [place] [address] General Surgery 10/07/20 Shower Attendant Relationship Specialty Start Date End Date Dimitri Malhotra BIOPROCESSING MANUFACTURING TECHNICIAN.TRUCK SHOP SUPERVISOR [address] [address] PCP - General Family Medicine 10/07/20 Dimitri Malhotra (Historical) 04/18/15 Jose Amaral MD [address] [place] [address] [place] [address] General Surgery 10/07/20 Shower Attendant Relationship Specialty Start Date End Date Dimitri Malhotra, BIOPROCESSING MANUFACTURING TECHNICIAN.TRUCK SHOP SUPERVISOR [address] [place] [address] PCP - General Family Medicine 10/07/20 Dimitri Malhotra (Historical) 04/18/15 Jose Amaral MD [address] [place] [address] [place] [address] General Surgery 10/07/20 Shower Attendant Relationship Specialty Start Date End Date Dimitri Malhotra, BIOPROCESSING MANUFACTURING TECHNICIAN.TRUCK SHOP SUPERVISOR [address] [place] [address] PCP - General Family Medicine 10/07/20 Dimitri Malhotra (Historical) 04/18/15 Jose Amaral MD [address] [place] [address] [place] [address] General Surgery 10/07/20 Shower Attendant Relationship Specialty Start Date End Date Dimitri Malhotra (Historical) 04/18/15 Shower Attendant Relationship Specialty Start Date End Date Dimitri Malhotra (Historical) 04/18/15 Shower Attendant Relationship Specialty Start Date End Date Dimitri Malhotra BIOPROCESSING MANUFACTURING TECHNICIAN.TRUCK SHOP SUPERVISOR [address] [place] [address] PCP - General Family Medicine 10/07/20 Dimitri Malhotra (Historical) 04/18/15 Jose Amaral MD [address] [place] [address] [place] [address] General Surgery 10/07/20 Shower Attendant Relationship Specialty Start Date End Date Dimitri Malhotra APRN.TRUCK SHOP SUPERVISOR [address] [place] [address] PCP - General Family Medicine 10/07/20 Dimitri Malhotra (Historical) 04/18/15 Jose Amaral MD [address] [address] [place] [address] General Surgery 10/07/20 Shower Attendant Relationship Specialty Start Date End Date Dimitri Malhotra APRN.TRUCK SHOP SUPERVISOR [address] [place] [address] PCP - General Family Medicine 10/07/20 Dimitri Malhotra (Historical) 04/18/15 Jose Amaral MD [address] [address] [place] [address] General Surgery 10/07/20 Shower Attendant Relationship Specialty Start Date End Date Dimitri Malhotra APRN.TRUCK SHOP SUPERVISOR [address] [place] [address] PCP - General Family Medicine 10/07/20 Dimitri Malhotra (Historical) 04/18/15 Jose Amaral MD [address] [place] [address] [place] [address] General Surgery 10/07/20 Shower Attendant Relationship Specialty Start Date End Date Dimitri Malhotra APRN.TRUCK SHOP SUPERVISOR [address] [place] [address] PCP - General Family Medicine 10/07/20 Dimitri Malhotra (Historical) 04/18/15 Jose Amaral MD [address] [facility] [facility] [address] [place] [phone] General Surgery 10/07/20 Reason for Visit (unrecogniz [...] W/O Inge Benitez MD [address] [place] [address] [place] [address] Referral ID Status Reason Start Date Expiration Date V isits Requested Visits Authorized [id number] Closed Auto-Generate d Referral 04/11/2023 05/10/2024 1 1 Reason Comments Lab Orders Specialty Diagnoses / Procedures Referred By Emigdio saldana Referred To Contact MR IMAGING Diagnoses Cognitive impairment, mild, so stated Procedures MRI BRAIN WO IVCON MRI BRAIN BRAIN STEM W/O CONTRAST MATERIAL Dimitri Malhotra, BIOPROCESSING MANUFACTURING TECHNICIAN.TRUCK SHOP SUPERVISOR [address] [place] [address] [place] [address] Referral ID Status Reason Start Date Expiration Date Visits Requested Visits Authorized [id number] Authorized Auto-Generat ed Referral 08/05/2023 09/03/2024 1 1 Referral ID Status Reason Start Date Expiration Date V isits Requested Visits Authorized [id number] Closed Auto-Generate d Referral 08/05/2023 09/03/2024 1 [...] BE BASED ON THE PRIMARY CLINICAL RECORDS. [facility] [employer] [facility]. provides no warranty or guarantee of the accuracy or completeness of information in this document.
[2025-04-10 21:39] LABS: Troponin T High Sens 4 HR 9 ng/L (<=22)
[2025-04-10 21:42] LABS: Magnesium 2.1 mg/dL (1.5-2.2)
--- NOTE | 2025-04-10 21:43 | CDU_ITS ---
Reason For Study Reason For Study: Syncope Rt. Velocities/BP Lt. Velocities/BP Prox CCA 117.4/20.6 cm/sec. Prox CCA 128.4/24.3 cm/sec. Mid CCA 88.3/16.8 cm/sec. Mid CCA 124.7/27.9 cm/sec. Dist CCA 85/20.1 cm/sec. Dist CCA 102.8/29.8 cm/sec. Prox ICA 106/20 cm/sec. Prox ICA 71.6/22.5 cm/sec. Mid ICA 70.4/24.9 cm/sec. Mid ICA 74/24.9 cm/sec. Dist ICA 72.8/28.6 cm/sec. Dist ICA 61.7/22.9 cm/sec. Rt. ICA/CCA = 1.20. Lt. ICA/CCA = 0.59. Prox ECA 94.9/11.3 cm/sec. Prox ECA 86.4/15.2 cm/sec. Rt. Vert. 36.9/7.2 cm/sec. Lt. Vert. 43.7/8.8 cm/sec. Right Extracranial There is intimal thickening but no significant atherosclerotic plaque noted in the right common carotid artery. There is intimal thickening but no significant atherosclerotic plaque noted in the right internal carotid artery. There is intimal thickening but no significant atherosclerotic plaque noted in the right external carotid artery. Antegrade flow is noted in the right vertebral artery. Left Extracranial There is intimal thickening but no significant atherosclerotic plaque noted in the left common carotid artery. There is intimal thickening but no significant atherosclerotic plaque noted in the left internal carotid artery. There is intimal thickening but no significant atherosclerotic plaque noted in the left external carotid artery. Antegrade flow is noted in the left vertebral artery. Procedure Carotid Duplex 22603. This is a Carotid Duplex examination using B-mode, color flow and specral Doppler. Exam performed portable in patient room. VL/Carotid Duplex Ultrasound Interpretation Summary Normal right extracranial internal carotid. Normal left extracranial internal carotid. Patent and antegrade vertebrals bilaterally. Ordering Physician: Eva Ya Referring Physician: deborah Gilliam Performed By: Zoe Diaz RVT
--- NOTE | 2025-04-10 21:43 | ECHOD_ITS ---
Reason For Study Reason For Study: SYNCOPE Procedure This was a 2D Doppler, Color Flow transthoracic echocardiogram. Exam performed portable in patient room. Left Ventricle Normal LV size. Mild concentric left ventricular hypertrophy. Stage 1 diastolic dysfunction. The left ventricular ejection fraction is 60 %. No regional wall motion abnormalities noted. Right Ventricle Normal RV size. Normal systolic function. Atria Normal left atrium. Normal right atrium. Mitral Valve Normal mitral valve. Tricuspid Valve Normal tricuspid valve. Mild-Moderate (1-2+) tricuspid valve insufficiency. Pulmonary artery systolic pressure is 40 mmHg. Aortic Valve Trisinus/trileaflet aortic valve. Mild focal aortic valve calcification. Pulmonic Valve Normal pulmonic valve. Great Vessels Normal aortic root. The pulmonary artery is normal size. Inferior vena cava collapse with respiration. Pericardium/Pleural No pericardial effusion. MMode/2D Measurements & Calculations LVIDd: 4.6 cm IVSd: 1.3 cm LAV(MOD- bp): 42.4 ml LVIDs: 3.1 cm LVPWd: 1.2 cm LAV(MOD- bp) Indexed: 19.2 ml/m2 RVDd: 2.5 cm FS: 32.0 % LAV(MOD- sp2): 54.2 ml LAV(MOD- sp4): 31.4 ml SV(MOD-sp4): 50.0 ml SV(sp4- el): 51.2 ml LVAd ap4: 27.3 cm2 LVLd ap4: 7.7 cm SI(MOD-sp4): 22.6 ml/m2 EDV(MOD-sp4): 81.5 ml EDV(sp4-el): 82.1 ml LVAs ap4: 15.1 cm2 LVLs ap4: 6.2 cm ESV(MOD-sp4): 31.5 ml ESV(sp4-el): 30.9 ml EF(MOD-sp4): 61.3 % EF(sp4-el): 62.3 % LA A4 area: 13.9 cm2 LA dimension(2D): 3.8 cm RA A4 area: 15.1 cm2 Time Measurements MV dec time: 0.20 sec Doppler Measurements & Calculations MV E max shaquille: 67.1 cm/sec Lat Peak E' Shaquille: 8.9 cm/sec Med Peak E' Shaquille: 6.7 cm/sec MV A max [place]: 90.1 cm/sec E/E' lat: 7.5 E/E' med: 10.0 MV E/A: 0.75 MV V2 max: 102.6 cm/sec MV dec slope: 401.6 cm/sec2 Ao V2 max: 181.3 cm/sec MV max P.2 mmHg Ao max P.2 mmHg MV V2 mean: 55.3 cm/sec Ao V2 mean: 125.3 cm/sec MV mean P.4 mmHg Ao mean P.2 mmHg MV V2 VTI: 33.7 cm Ao V2 VTI: 36.4 cm AV (velocity ratio): 0.83 LV V1 max: 134.4 cm/sec PA V2 max: 156.0 cm/sec TR max shaquille: 308.0 cm/sec LV V1 max P.3 mmHg PA V2 mean: 108.4 cm/sec TR max P.9 mmHg LV V1 mean P.3 mmHg LV V1 mean: 98.2 cm/sec LV V1 VTI: 30.2 cm ECHO/Echo Complete Interpretation Summary Normal LV size. Stage 1 diastolic dysfunction. The left ventricular ejection fraction is 60 %. Mild concentric left ventricular hypertrophy. Pulmonary artery systolic pressure is 40 mmHg. Ordering Physician: Eva Ya Referring Physician: DIMITRI MALHOTRA Performed By: Agnes Solis RCS
[2025-04-10 21:59] VITALS: BMI 26.4
[2025-04-10 22:10] VITALS: BP 154/97; BP 169/99; BP 174/99; PULSE 66; PULSE 68; PULSE 70; RESP 18; TEMP 36.2; O2SAT 98
[2025-04-10] MEDS: 0.9% Saline Lock 10 ML Syringe IV (22:35)
[2025-04-10] MEDS: 0.9% Normal Saline (1000mL) 1,000 ML 100 ML IV (22:35)
[2025-04-10] MEDS: MELATONIN 3 MG TABLET PO (22:35)
[2025-04-10 23:25] VITALS: O2SAT 98
[2025-04-11 03:25] VITALS: BP 146/76; PULSE 51; RESP 16; TEMP 36.2; O2SAT 97
[2025-04-11 05:37] VITALS: BMI 26.4
[2025-04-11 07:17] LABS: Hematocrit 39.7 % (40-54); Hemoglobin 13.4 g/dL (13.0-16.5); Immature Granulocytes Count 0.010 X10^3/uL (0.0-0.0); Mean Corp Hgb Conc 33.8 g/dL (32-36); Mean Corpuscular Volume 86.7 fL (80-94); Mean Platelet Vol. 9.3 fl (6.2-12.0); NRBC Flagged by Analyzer 0 % (0-5); Platelet Count 197 K/mm3 (150-450); RBC Distribution Width CV 13.2 % (11.6-14.6); RBC Distribution Width SD 41.4 fl (35.1-43.9); Red Blood Count 4.58 M/mm3 (4.6-6.2); White Blood Count 5.5 K/mm3 (4.4-11.0)
[2025-04-11 08:05] LABS: AST(SGOT) 18 U/L (<=37); Alanine Aminotransfer ALT/SGPT 16 U/L (<=46); Albumin, Serum 3.8 g/dL (3.4-4.8); Alkaline Phosphatase 81 U/L (40-129); Anion Gap 11 (5-15); BUN 18 mg/dL (4-19); BUN/Creat Ratio 17.0 RATIO (10-20); Calcium,Total 8.6 mg/dL (7.6-11.0); Carbon Dioxide 20.1 mmol/L (21.0-32.0); Chloride 109 mmol/L (98-108); Estimated Creatinine Clearance 78.29 ml/min (50-250); Globulin 2.3 g/dL (2.2-4.2); Glucose 93 mg/dL (70-99); Potassium 4.0 mmol/L (3.3-5.1)
--- NOTE | 2025-04-11 09:13 | PCM.PN.HOSP ---
Reason for Visit Chief Complaint: Syncopal event. Subjective Subjective Reports a little bit of pain where he hit his face when he fell but no changes in vision, no chest pain or shortness of breath, no further episodes of lightheadedness Objective Data Objective Data Vital Signs: Vital Signs Temp Pulse Resp BP Pulse Ox O2 Del Method 97.1 F L 51 L 16 146/76 H 97 Room Air 04/11/25 03:25 04/11/25 03:25 04/11/25 03:25 04/11/25 03:25 04/11/25 03:25 04/11/25 07:53 Oxygen Delivery Method Room Air Weight: 93.4 kg Body Mass Index (BMI) 26.4 Intake & Output: Intake and Output for Last 24 Hours 04/09/25 04/10/25 04/11/25 23:59 23:59 23:59 Intake Total 500 / 500 400 / 400 Balance 500 / 500 400 / 400 Lab / Micro Data 04/11/25 06:42 04/11/25 06:42 Labs: Laboratory Results - last 24 hr 04/10/25 16:45: WBC 7.8, RBC 5.07, Hgb 15.1, Hct 43.9, MCV 86.6, MCH 29.8, MCHC 34.4, RDW Std Deviation 40.4, RDW Coeff of Tj 13.0, Plt Count 221, MPV 9.5, D-Dimer Quant (PE/DVT) 0.43, Sodium 139, Potassium 4.1, Chloride 104, Carbon Dioxide 22.5, Anion Gap 13, BUN 22 H, Creatinine 1.38 H, Estim Creat Clear Calc 59.57, Est GFR (MDRD) Non-Af 56 L, BUN/Creatinine Ratio 15.6, Glucose 141 H, Calcium 9.5, Total Bilirubin 0.58, AST 19, ALT 21, Alkaline Phosphatase 97, Troponin T High Sens 9, NT pro BNP II < 36, Total Protein 7.2, Albumin 4.4, Globulin 2.8, Albumin/Globulin Ratio 1.6 04/10/25 19:30: Magnesium 2.1, Troponin T Hi Sens 2 Hr 8 04/10/25 20:45: Troponin T Hi Sens 4Hr 9 04/11/25 06:42: WBC 5.5, RBC 4.58 L, Hgb 13.4, Hct 39.7 L, MCV 86.7, MCH 29.3, MCHC 33.8, RDW Std Deviation 41.4, RDW Coeff of Tj 13.2, Plt Count 197, MPV 9.3, Immature Gran % (Auto) 0.200, Neut % (Auto) 60.7, Lymph % (Auto) 30.5, [place] % (Auto) 6.6, Eos % (Auto) 1.6, Baso % (Auto) 0.4, Absolute Neuts (auto) 3.3, Absolute Lymphs (auto) 1.67, Nucleated RBC % 0, Sodium 141, Potassium 4.0, Chloride 109 H, Carbon Dioxide 20.1 L, Anion Gap 11, BUN 18, Creatinine 1.05, Estim Creat Clear Calc 78.29, Est GFR (MDRD) Non-Af 77, BUN/Creatinine Ratio 17.0, Glucose 93, Calcium 8.6, Total Bilirubin 0.87, AST 18, ALT 16, Alkaline Phosphatase 81, Total Protein 6.1, Albumin 3.8, Globulin 2.3, Albumin/Globulin Ratio 1.7 Radiography Diagnostic Testing: Radiology Impression Chest X-Ray 04/10/25 17:30 IMPRESSION: No Acute Findings. Reading Location: [facility] Brain CT 04/10/25 17:44 IMPRESSION: No intracranial hemorrhage. No mass effect or midline shift. Chronic involutional and ischemic gliotic white matter changes. Reading Location: [facility] Physical Exam Narrative General: Alert, oriented, no apparent distress HEENT: Some bruising around left eye Eyes: Anicteric, normal conjunctiva, extraocular movements grossly intact Neck: Supple Respiratory: Clear to auscultation bilaterally, normal respiratory effort Cardiovascular: Regular rate and rhythm GI: Soft, nontender, nondistended Extremities: No edema Musculoskeletal: Moving all extremities Neuro: No overt focal neurological deficits Skin: No rashes appreciated Psych: Cooperative Assessment & Plan Assessment/Plan (1) Syncope: PLAN: Plan # Syncopal episode -Patient reported to me that he was watching the game he got up to walk to the bathroom, he got lightheaded so he bent over with hands on his knees as this is something that happens to him occasionally and then resolves however this time he lost consciousness for what he thinks is a short period of time, no postictal period, reports he had an episode of diarrhea after however does have intermittent problems with chronic diarrhea. Notes he was not eating and drinking well yesterday as he is always concerned if he eats too much or eat certain things he may have diarrhea -He then divulged that he only takes his medications intermittently and at random, had taken all of them on Saturday and yesterday took a couple of them - Orthostats negative - EKG no acute process - Chest x-ray no acute process - Being monitored on telemetry - Echocardiogram and carotid ultrasound ordered - Given the above I suspect this is more likely due to lack of eating, poor hydration and diarrhea as well as only taking some of his medications, also notes a history of presyncopal symptoms that usually resolves if he sits down - Given age and risk factors do think he needs the echocardiogram to rule out other cardiac causes but if negative can likely be discharged home and follow-up with PCP - Also need to counselor/art therapist on importance of medication compliance # Chronic diarrhea - Patient reports when he eats he often will get diarrhea, asked if he has seen a GI doctor and he said yes but then talked about a hiatal hernia and gallbladder workup - If symptoms continue would encourage outpatient follow-up with GI #Chronic BPH with obstruction -Continue home medications #Hypertension - Continuing home meds #Depression/anxiety -Continue home medications #GERD -Continue PPI #DVT ppx: Lovenox subcu Laurie Maynard MD Charges/Coding Visit Charges Inpatient E&M: 41445 Subs Hosp L2
[2025-04-11 10:46] VITALS: BP 157/74; PULSE 78; RESP 16; TEMP 36.6; O2SAT 98
[2025-04-11] MEDS: FLU VACCINE HIGH DOSE 25-26(65YR UP) 180 MCG/0.5 ML SYRINGE IM (11:34)
[2025-04-11 16:15] VITALS: BP 156/82; PULSE 86; RESP 16; TEMP 36.7; O2SAT 97
[2025-04-11 22:15] VITALS: BP 150/88; PULSE 62; RESP 18; TEMP 36.4; O2SAT 95
[2025-04-12 03:04] VITALS: BMI 26.7
[2025-04-12 05:45] VITALS: BP 128/86; PULSE 68; RESP 18; TEMP 36.6; O2SAT 97
[2025-04-12 05:56] LABS: Hematocrit 40.0 % (40-54); Hemoglobin 13.0 g/dL (13.0-16.5); Mean Corp Hgb Conc 32.5 g/dL (32-36); Mean Corpuscular Volume 89.1 fL (80-94); Mean Platelet Vol. 9.8 fl (6.2-12.0); Platelet Count 191 K/mm3 (150-450); RBC Distribution Width CV 12.9 % (11.6-14.6); RBC Distribution Width SD 42.1 fl (35.1-43.9); Red Blood Count 4.49 M/mm3 (4.6-6.2); White Blood Count 5.2 K/mm3 (4.4-11.0)
[2025-04-12 06:14] LABS: Anion Gap 10 (5-15); BUN 21 mg/dL (4-19); BUN/Creat Ratio 19.2 RATIO (10-20); Calcium,Total 8.9 mg/dL (7.6-11.0); Carbon Dioxide 20.4 mmol/L (21.0-32.0); Chloride 110 mmol/L (98-108); Estimated Creatinine Clearance 74.73 ml/min (50-250); Glucose 99 mg/dL (70-99); Potassium 4.0 mmol/L (3.3-5.1)
[2025-04-12 08:52] VITALS: BP 153/91; PULSE 63; RESP 17; TEMP 36.5; O2SAT 96
[2025-04-12] MEDS: 0.9% Saline Lock 10 ML Syringe IV (08:54)
[2025-04-12 15:21] VITALS: BP 148/75; PULSE 66; RESP 18; TEMP 36.6; O2SAT 97
--- NOTE | 2025-04-12 15:56 | CASEMGMT ---
BHAGAT Met with patient to complete BHAGAT form. BHAGAT form and its content were verbally explained and patient's questions were answered to the best of my ability.? Patient voiced understanding and signed BHAGAT form.? Patient provided a copy of signed BHAGAT form and original placed in patient's chart.? Patient had no further questions. Rocio Farias, Discharge Planning Ass
--- NOTE | 2025-04-12 16:45 | DS.PCM_ITS ---
Providers Date of Admission: 04/10/25 Date of Discharge: 04/12/25 Primary Care Physician: Dimitri Malhotra, ANIYA-C Reason For Visit: SYNCOPE Diagnosis Discharge Diagnosis (1) Syncope: Status: Acute Code(s): R55 - Syncope and collapse Plan # Syncopal episode # Chronic diarrhea #Chronic BPH with obstruction #Hypertension #Depression/anxiety #GERD Medications at Discharge Home Medications lisinopril 10 mg tablet 20 mg PO DAILY 06/19/22 pravastatin 20 mg tablet 40 mg PO DAILY 06/19/22 tamsulosin 0.4 mg capsule (Flomax) 0.4 mg PO DAILY #20 caps 06/19/22 fluoxetine 20 mg capsule 40 mg PO DAILY 04/10/25 omeprazole 40 mg capsule,delayed release 40 mg PO DAILY 04/10/25 Hospital Course Summary of Care Provided Minutes Spent on Discharge: 25 Hospital Course: 69-year-old male with a history of BPH, hypertension, depression, GERD who presented [facility] ED 04/10/25 due to a syncopal event. Patient reported to me that he was watching the game he shot up very quickly to walk to the bathroom, as he was walking he got lightheaded so he bent over with hands on his knees as this is something that happens to him occasionally and then resolves however this time he lost consciousness for what he thinks is a short period of time, no postictal period, reports he had an episode of diarrhea when he went to the bathroom after however does have intermittent problems with chronic diarrhea. Notes he was not eating and drinking well on the day of presentation as he is always concerned if he eats too much or eat certain things he may have diarrhea. He then divulged that he only takes his medications intermittently and at random, had taken all of them on Saturday and the day of presentation took a couple of them. Orthostats were negative, EKG no acute process, no arrhythmias detected, carotid ultrasound preliminary read with no significant stenosis, echocardiogram with no significant aortic valve pathology, wall motion abnormalities and EF of 60%. Patient was feeling well after admission with no further similar episodes. Suspect that this episode was in part due to poor p.o. intake and diarrhea causing volume depletion in the setting of intermittently taking his medications which patient acknowledges is the likely cause. This happens to him intermittently with presyncopal episodes similarly going from sitting to standing. Advised fall precautions. Patient did comment on his memory and said that he was referred to an outpatient neurologist for this, patient was advised to have no distractions while driving and to not drive if he feels unsafe to do so and to follow-up as previously recommended, also advised to follow-up with his primary care provider on discharge and to call in the morning to get a hospital follow-up appointment. Discussed medication compliance extensively and patient verbalizes understanding. Also stressed hydration and rounded appetite and recommended a multivitamin as well. Patient did not mention his concerns over memory until shortly before discharge, this is not an acute problem so he does not require continued admission for workup for this and recommended close follow-up for further outpatient workup, patient agreeable and verbalizes understanding. Discharge instructions as follows: - Please continue your home medications, as discussed it is important that you take all of these regularly as prescribed -Please change positions slowly from lying to standing. When getting out of bed sit on the side of the bed with your legs down for at least 30 seconds before standing. This gives your body time to adjust to the position change. Would also recommend using compression stockings, you can acquire these online or you can discuss with your primary care physician. There are varying strengths and if you are unable to tolerate high strength compression you can try one of the lower strength -Please call your primary care provider's office upon discharge to schedule a hospital follow up within 1 week. -For any concerning signs or symptoms please call 911 or proceed to the nearest emergency department Physical Exam Narrative General: Alert, oriented, no apparent distress HEENT: Some bruising around left eye, unchanged Eyes: Anicteric, normal conjunctiva, extraocular movements grossly intact Neck: Supple Respiratory: Clear to auscultation bilaterally, normal respiratory effort Cardiovascular: Regular rate and rhythm GI: Soft, nontender, nondistended Extremities: No edema Musculoskeletal: Moving all extremities Neuro: No overt focal neurological deficits Skin: No rashes appreciated Psych: Cooperative Weight / BMI Weight Weight: 94.6 kg Body Mass Index (BMI) 26.7 ABG / Lab / Microbiology Data 04/12/25 05:27 04/12/25 05:27 Laboratory: Laboratory Results - last 24 hr 04/12/25 05:27: WBC 5.2, RBC 4.49 L, Hgb 13.0, Hct 40.0, MCV 89.1, MCH 29.0, MCHC 32.5, RDW Std Deviation 42.1, RDW Coeff of Tj 12.9, Plt Count 191, MPV 9.8, Sodium 140, Potassium 4.0, Chloride 110 H, Carbon Dioxide 20.4 L, Anion Gap 10, BUN 21 H, Creatinine 1.10, Estim Creat Clear Calc 74.73, Est GFR (MDRD) Non- Af 73, BUN/Creatinine Ratio 19.2, Glucose 99, Calcium 8.9 Radiography Diagnostic Testing: Radiology Impression Echocardiogram 04/10/25 21:43 Interpretation Summary Normal LV size. Stage 1 diastolic dysfunction. The left ventricular ejection fraction is 60 %. Mild concentric left ventricular hypertrophy. Pulmonary artery systolic pressure is 40 mmHg. Ordering Physician: Eva Ya Referring Physician: DIMITRI MALHOTRA Performed By: Agnes Solis RCS D/C Instructions DC O2, CPAP, BIPAP Needs Home O2 Discharge instructions: No Meaningful Use Info Meaningful Use Meaningful Use Diagnoses (Choose all that apply): None applicable Discharge Plan Admission Admit Date/Time: 04/10/25 20:51 Primary Reason for Your Visit: Syncopal episode Attending Provider: Laurie Maynard Primary Care Provider: Dimitri Malhotra [employer] Consulting Providers: Eva Ya Instructions Patient Instructions: ED Fall with Uncertain Cause, ED Fall Prevention Additional Instructions / Restrictions: DISCHARGE INSTRUCTIONS PLEASE READ *Please take this with you to your next doctors appointment* - Please continue your home medications, as discussed it is important that you take all of these regularly as prescribed -Please change positions slowly from lying to standing. When getting out of bed sit on the side of the bed with your legs down for at least 30 seconds before standing. This gives your body time to adjust to the position change. Would also recommend using compression stockings, you can acquire these online or you can discuss with your primary care physician. There are varying strengths and if you are unable to tolerate high strength compression you can try one of the lower strength -Please call your primary care provider's office upon discharge to schedule a hospital follow up within 1 week. -For any concerning signs or symptoms please call 911 or proceed to the nearest emergency department Discharge Orders/Prescriptions Prescriptions: Continued lisinopril 10 mg tablet 20 mg PO DAILY Patient Comments: TAKE 1 TABLET BY MOUTH EVERY DAY pravastatin 20 mg tablet 40 mg PO DAILY Patient Comments: TAKE 1 TABLET BY MOUTH EVERY DAY tamsulosin [Flomax] 0.4 mg capsule 0.4 mg PO DAILY Qty: 20 0RF fluoxetine 20 mg capsule 40 mg PO DAILY omeprazole 40 mg capsule,delayed release(DR/EC) 40 mg PO DAILY Referrals / Follow Up: Dimitri Malhotra NP, [employer] [Primary Care Provider, Medical] - Within 1 Week Disposition Disposition (needs filled in before D/C Order can be placed): Home, Self Care Charges/Coding Visit Charges Inpatient E&M: 83274 Disch Hosp
== END 2025-04-12 17:43 | disposition home or self-care (01) ==
LOC: ED 20:55 → PCU 21:25
PROVIDERS: Admitting Provider Family Medicine; Emergency Provider Emergency Medicine; PCP Nurse Practitioner Family; Visit Provider Internal Medicine
DX: R55 Syncope and collapse (principal); I10 Essential (primary) hypertension; N40.1 Benign prostatic hyperplasia with lower urinary tract symptoms; K21.9 Gastro-esophageal reflux disease without esophagitis; K52.9 Noninfective gastroenteritis and colitis, unspecified; E78.00 Pure hypercholesterolemia, unspecified; Z79.899 Other long term (current) drug therapy; F41.9 Anxiety disorder, unspecified; F32.A Depression, unspecified; N13.8 Other obstructive and reflux uropathy
CPT/HCPCS: 36415; 70450; 71045; 80048; 80053; 83735; 83880; 84484; 85025; 85027; 85379; 93005; 93306; 93880; 94668; 96360; 96361; 99221; 99285; A4216; G0378